=== PATIENT | male | born 1950 | race Caucasian/White ===

== ENCOUNTER 2017-05-24 21:05 | Emergency (ER) | payer MEDICARE ==
--- NOTE | 2017-05-24 22:40 | ED Physician Documentation ---
History of Present Illness - Stated complaint Stated Complaint: HIGH BLOOD PRESSURE - Chief complaint Chief Complaint: Cardiac - History obtained from History obtained from: Patient, Family - History of Present Illness Timing: Unknown Pain level max: 0 Pain level now: 0 Improved by: nothing Worsened by: nothing - Additonal information Additional information: Patient is a 66-year-old male who presents to the emergency department after having his blood pressure taken today while visiting his daughter who just given and he was found to be hypertensive. He states he also take his blood pressure several months ago and his systolic blood pressure was in the 190s. Has not followed up with the PCP in over 25 years. Has a brother who is diabetic. States he is currently feeling well. Review of Systems Ten Systems: 10 systems reviewed and negative Constitutional: denies: Fever, Chills Ears: denies: Ear pain Nose: denies: Rhinorrhea / runny nose, Congestion Throat: denies: Sore throat Cardiac: denies: Chest pain / pressure Respiratory: denies: Cough, Wheezing GI: denies: Abdominal Pain, Nausea, Vomiting, Diarrhea Skin: denies: Rash Musculoskeletal: denies: Neck pain, Back pain Neurologic: denies: Focal weakness, Numbness, Confused, Headache, Head injury PD PAST MEDICAL HISTORY - Past Medical History Past Medical History: No - Past Surgical History Past Surgical History: Yes Ortho: Spine surgery - Present Medications Home Medications: Ambulatory Orders Medication Instructions Recorded Confirmed hydroCHLOROthiazide 25 mg PO DAILY #14 tablet 05/24/17 [Hydrochlorothiazide] - Allergies Allergies/Adverse Reactions: Allergies Allergy/AdvReac Type Severity Reaction Status Date / Time No Known Drug Allergies Allergy Verified 05/24/17 22:35 - Social History Does the pt smoke?: No Smoking Status: Never smoker Does the pt drink ETOH?: No Does the pt have substance abuse?: No - Immunizations Immunizations are current?: Yes PD ED PE NORMAL - Vitals Vital signs reviewed: Yes - General General: Alert and oriented X 3, No acute distress, Well developed/nourished - HEENT HEENT: PERRL, Ears normal, Moist mucous membranes, Pharynx benign - Neck Neck: Supple, no meningeal sign - Cardiac Cardiac: RRR, Strong equal pulses - Respiratory Respiratory: No respiratory distress, Clear bilaterally - Abdomen Abdomen: Soft, Non tender, Non distended - Derm Derm: Warm and dry - Extremities Extremities: No deformity - Neuro Neuro: Alert and oriented X 3 - Psych Psych: Normal mood, Normal affect Results - Vitals Vitals: Vital Signs - 24 hr 05/24/17 05/24/17 05/24/17 21:10 21:22 22:31 Temperature 36.1 C L Heart Rate 73 74 70 Respiratory 16 18 16 Rate Blood Pressure 183/102 H 182/116 H 170/107 H O2 Saturation 97 98 99 05/24/17 23:16 Temperature Heart Rate 75 Respiratory 16 Rate Blood Pressure 169/109 H O2 Saturation 99 Oxygen O2 Source Room air - EKG (time done) 2233 Rate: Rate (enter#) (69) Rhythm: NSR [place]: Anterior hemiblock (LAFB) Intervals: Normal SC QRS: Normal Ischemia: Non specific changes - Labs Labs: Laboratory Tests 05/24/17 05/24/17 05/24/17 22:34 22:34 22:34 WBC 8.0 RBC 4.47 L Hgb 13.4 L Hct 40.1 L MCV 89.7 MCH 29.9 MCHC 33.3 RDW 13.6 Plt Count 262 MPV 7.9 Neut # 5.4 Lymph # 1.6 [place] # 0.7 Eos # 0.2 Baso # 0.1 Absolute Nucleated RBC 0.00 Nucleated RBC % 0.1 Sodium 138 Potassium 3.4 L Chloride 104 Carbon Dioxide 26 Anion Gap 8.0 BUN 12 Creatinine 1.0 Estimated GFR (MDRD) 75 L Glucose 91 Calcium 9.0 Total Bilirubin 0.7 AST 18 ALT 18 Alkaline Phosphatase 30 L Troponin I < 0.04 Total Protein 6.7 Albumin 3.9 Globulin 2.8 Albumin/Globulin Ratio 1.4 Lipase 20 L PD MEDICAL DECISION MAKING - ED course Complexity details: reviewed results, re-evaluated patient, considered differential, d/w patient, d/w family ED course: Patient is a 66-year-old male with what appears to be long-standing hypertension , no evidence of endorgan damage. His states that she will make an appointment for him with her primary care provider on Friday. Will start on a small dose of hydrochlorothiazide until then. He will return if he develops symptoms. Patient and family counseled regarding signs and symptoms for which I believe and urgent re-evaluation would be necessary. Patient with good understanding of and agreement to plan and is comfortable going home at this time This document was made in part using voice recognition software. While efforts are made to proofread this document, sound alike and grammatical errors may occur. Departure - Departure Disposition: 01 Home, Self Care Clinical Impression: Hypertension Qualifiers: Hypertension type: unspecified Qualified Code(s): I10 - Essential (primary) hypertension Condition: Good Instructions: ED Hypertension New Begin Tx Follow-Up: your,doctor in 1 week [Other] Prescriptions: hydroCHLOROthiazide [Hydrochlorothiazide] 25 mg PO DAILY #14 tablet Comments: You need to be seen by a primary care doctor for your blood pressure. Return if you worsen. Call on Friday for an appointment. Discharge Date/Time: 05/24/17 23:18
[2017-05-24 22:43] LABS: BASOPHILS # (AUTO) 0.1 10^3/uL (0.0-0.1); BASOPHILS % (AUTO) 0.8 %; EOSINOPHILS # (AUTO) 0.2 10^3/uL (0.0-0.7); EOSINOPHILS % (AUTO) 2.7 %; HGB - HEMOGLOBIN 13.4 g/dL (14.0-18.0); LYMPHOCYTES # (AUTO) 1.6 10^3/uL (1.5-3.5); LYMPHOCYTES % (AUTO) 20.5 %; MEAN CORPUSCULAR HEMOGLOBIN 29.9 pg (27.0-31.0); MEAN CORPUSCULAR HGB CONC 33.3 g/dL (32.0-36.0); MEAN CORPUSCULAR VOLUME 89.7 fL (80.0-94.0); MEAN PLATELET VOLUME 7.9 fL (7.4-11.4); MONOCYTES # (AUTO) 0.7 10^3/uL (0.0-1.0); MONOCYTES % (AUTO) 9.1 %; NEUTROPHILS # (AUTO) 5.4 10^3/uL (1.5-6.6); NEUTROPHILS % (AUTO) 66.9 %; PLT - PLATELET COUNT 262 10^3/uL (130-450); RED BLOOD COUNT 4.47 10^6/uL (4.70-6.10); RED CELL DISTRIBUTION WIDTH 13.6 % (12.0-15.0)
[2017-05-24 22:54] LABS: ALBUMIN 3.9 g/dL (3.2-5.5); ALBUMIN/GLOBULIN RATIO 1.4 (1.0-2.2); BILIRUBIN,TOTAL 0.7 mg/dL (0.2-1.0); TOTAL PROTEIN 6.7 g/dL (6.7-8.2)
[2017-05-24] MEDS ORDERED: hydroCHLOROthiazide 25 MG TABLET PO STA (23:05)
[2017-05-24 23:16] VITALS: BP 169/109
== END 2017-05-24 23:18 | disposition home or self-care (01) ==
LOC: ED 21:05
DX: I10 Essential (primary) hypertension (principal); I44.4 Left anterior fascicular block
CPT/HCPCS: 36415; 80053; 83690; 84484; 85025; 93005; 99283; 99284; A9270

== ENCOUNTER 2017-07-09 10:05 | Outpatient (CLI) | payer MEDICARE ==
[2017-07-09 12:45] LABS: BASOPHILS % (AUTO) 0.3 %; EOSINOPHILS # (AUTO) 0.1 10^3/uL (0.0-0.7); EOSINOPHILS % (AUTO) 1.6 %; HGB - HEMOGLOBIN 13.5 g/dL (14.0-18.0); LYMPHOCYTES # (AUTO) 1.3 10^3/uL (1.5-3.5); LYMPHOCYTES % (AUTO) 17.4 %; MEAN CORPUSCULAR HEMOGLOBIN 30.7 pg (27.0-31.0); MEAN CORPUSCULAR HGB CONC 34.1 g/dL (32.0-36.0); MEAN PLATELET VOLUME 8.1 fL (7.4-11.4); MONOCYTES # (AUTO) 0.6 10^3/uL (0.0-1.0); MONOCYTES % (AUTO) 8.6 %; NEUTROPHILS # (AUTO) 5.2 10^3/uL (1.5-6.6); NEUTROPHILS % (AUTO) 72.1 %; PLT - PLATELET COUNT 250 10^3/uL (130-450); RED CELL DISTRIBUTION WIDTH 14.1 % (12.0-15.0); WHITE BLOOD COUNT 7.2 x10^3/uL (4.8-10.8)
[2017-07-09 13:33] LABS: BUN - BLOOD UREA NITROGEN 11 mg/dL (6-20); CALCIUM 9.2 mg/dL (8.5-10.3); CARBON DIOXIDE - CO2 28 mmol/L (21-32); CHLORIDE 105 mmol/L (101-111); CHOL/HDL RATIO 5.6 (<5.0); CHOLESTEROL 208 mg/dL; CREATININE 1.1 mg/dL (0.6-1.2); GFR - MDRD 67 (>89); GLUCOSE 105 mg/dL (70-100); HDL CHOLESTEROL 37 mg/dL; LDL CHOLESTEROL,CALCULATED 144 mg/dL; LDL/HDL RATIO 3.9 (<3.6); SODIUM 138 mmol/L (135-145); VLDL CHOLESTEROL 27 mg/dL
== END 2017-07-09 10:06 ==
LOC: LAB.N 10:05
PROVIDERS: ATTEND Physician Assistant Medical
DX: Z00.00 Encounter for general adult medical examination without abnormal findings (principal); I10 Essential (primary) hypertension; Z79.899 Other long term (current) drug therapy
CPT/HCPCS: 36415; 80048; 80061; 83721; 85025

== ENCOUNTER 2020-09-15 06:52 | Emergency (ER) | payer MEDICARE ==
[2020-09-15] MEDS ORDERED: SODIUM CHLORIDE 0.9% 1,000 ML IV STA (07:16)
--- NOTE | 2020-09-15 07:19 | ED Physician Documentation ---
History of Present Illness - Stated complaint Stated Complaint: MALE - Chief complaint Chief Complaint: UTI - History obtained from History obtained from: Patient - History of Present Illness Timing: How many days ago (2-3) Pain level max: 7 Pain level now: 5 - Additonal information Additional information: Patient is a 69-year-old male who states that he has had pain and burning with urination for the past 2 to 3 days. Worse with urination, nothing makes it better. He states he also feels "heavy" when he walks. Does not have any pain. He just feels weak and tired. He states that he used to use a walker, but is now pushing around a wheelchair. He states he does not go to doctors and does not see any primary care providers. He states he has a history of hypertension and has been on medications in the past, but nothing recently. No fevers. No nausea. No vomiting. No diarrhea. No recent falls. No recent trauma. Denies any alcohol use, drug use, smoking. Review of Systems Ten Systems: 10 systems reviewed and negative Constitutional: denies: Fever, Chills Ears: denies: Ear pain Nose: denies: Rhinorrhea / runny nose, Congestion Throat: denies: Sore throat Respiratory: denies: Cough GI: denies: Nausea, Vomiting, Diarrhea Skin: denies: Rash Musculoskeletal: denies: Neck pain, Back pain Neurologic: reports: Generalized weakness. denies: Focal weakness, Headache PD PAST MEDICAL HISTORY - Past Medical History Past Medical History: Yes Cardiovascular: Hypertension Musculoskeletal: Gout - Past Surgical History Past Surgical History: Yes Ortho: Spine surgery - Present Medications Home Medications: Ambulatory Orders Medication Instructions Recorded Confirmed Rivaroxaban [Xarelto] 15 mg PO BID #42 tablet 09/15/20 cephALEXin [Keflex] 500 mg PO Q6H #28 cap 09/15/20 - Allergies Allergies/Adverse Reactions: Allergies Allergy/AdvReac Type Severity Reaction Status Date / Time No Known Drug Allergies Allergy Verified 09/15/20 07:00 - Social History Does the pt smoke?: No Smoking Status: Never smoker Does the pt drink ETOH?: No Does the pt have substance abuse?: No - Immunizations Immunizations are current?: Yes - POLST Patient has POLST: No PD ED PE NORMAL - Vitals Vital signs reviewed: Yes - General General: Alert and oriented X 3, No acute distress, Well developed/nourished - HEENT HEENT: PERRL, Moist mucous membranes - Neck Neck: Supple, no meningeal sign - Cardiac Cardiac: RRR, Strong equal pulses - Respiratory Respiratory: No respiratory distress, Clear bilaterally - Abdomen Abdomen: Soft, Non tender, Non distended - Back Back: No CVA TTP, No spinal TTP - Derm Derm: Warm and dry - Extremities Extremities: No calf tenderness / cord, Other (Bilateral lower extremity edema, 1+.) - Neuro Neuro: Alert and oriented X 3 - Psych Psych: Normal mood, Normal affect Results - Vitals Vitals: Vital Signs - 24 hr 09/15/20 09/15/20 09/15/20 06:55 07:10 10:05 Temperature 36.3 C L Heart Rate 94 92 91 Respiratory 18 16 18 Rate Blood Pressure 151/130 H 153/115 H 167/123 H O2 Saturation 95 96 30 L Oxygen O2 Source Room air - Labs Labs: Laboratory Tests 09/15/20 09/15/20 09/15/20 07:03 07:03 07:15 WBC 6.5 RBC 3.98 L Hgb 12.5 L Hct 39.3 L MCV 98.7 H MCH 31.4 H MCHC 31.8 L RDW 14.3 Plt Count 203 MPV 10.2 Neut # (Auto) 5.2 Lymph # (Auto) 0.8 L [place] # (Auto) 0.4 Eos # (Auto) 0.0 Baso # (Auto) 0.0 Absolute Nucleated RBC 0.00 Nucleated RBC % 0.0 Sodium Potassium Chloride Carbon Dioxide Anion Gap BUN Creatinine Estimated GFR (MDRD) Glucose Estimat Average Glucose 120 H Hemoglobin A1c % 5.8 Calcium Phosphorus Magnesium Total Bilirubin AST ALT Alkaline Phosphatase Total Protein Albumin Globulin Albumin/Globulin Ratio Lipase Urine Color DARK YELLOW Urine Clarity CLOUDY Urine pH 6.0 Ur Specific [place] 1.025 Urine Protein 100 H Urine Glucose (UA) NEGATIVE Urine Ketones NEGATIVE Urine Occult Blood LARGE H Urine Nitrite POSITIVE H Urine Bilirubin NEGATIVE Urine Urobilinogen 1 (NORMAL) Ur Leukocyte Esterase MODERATE H Urine RBC 6-10 H Urine WBC 11-25 H Urine WBC [place] PRESENT Ur Squamous Epith Cells RARE Squamous Urine Bacteria Many H Ur Microscopic Review INDICATED Urine Culture Comments INDICATED 09/15/20 07:15 WBC RBC Hgb Hct MCV MCH MCHC RDW Plt Count MPV Neut # (Auto) Lymph # (Auto) [place] # (Auto) Eos # (Auto) Baso # (Auto) Absolute Nucleated RBC Nucleated RBC % Sodium 137 Potassium 3.9 Chloride 101 Carbon Dioxide 27 Anion Gap 9.0 BUN 13 Creatinine 0.9 Estimated GFR (MDRD) 84 L Glucose 108 H Estimat Average Glucose Hemoglobin A1c % Calcium 8.8 Phosphorus 2.8 Magnesium 1.4 L Total Bilirubin 0.9 AST 41 ALT 41 Alkaline Phosphatase 28 L Total Protein 5.7 L Albumin 3.4 Globulin 2.3 Albumin/Globulin Ratio 1.5 Lipase 22 Urine Color Urine Clarity Urine pH Ur Specific [place] Urine Protein Urine Glucose (UA) Urine Ketones Urine Occult Blood Urine Nitrite Urine Bilirubin Urine Urobilinogen Ur Leukocyte Esterase Urine RBC Urine WBC Urine WBC Clumps Ur Squamous Epith Cells Urine Bacteria Ur Microscopic Review Urine Culture Comments - Rads (name of study) duplex US RLE Radiology: Final report received, EMP read contemporaneously, See rad report (Positive for deep venous thrombosis. Ultrasound appearance raises the possibility of chronic age although technically indeterminate. ) PD MEDICAL DECISION MAKING - ED course Complexity details: reviewed results, re-evaluated patient, considered differential, d/w patient ED course: Patient does have a DVT in the right lower extremity. Will start on Xarelto for this. Patient also has a UTI. Given Rocephin and we will place on Keflex. Social work also saw the patient to help with housing and primary care resources. Patient will follow up with a primary care doctor for further care of his hypertension and DVT. Patient is well-appearing, nontoxic. Afebrile. No evidence of sepsis. Ambulating well in the emergency department. Patient counseled regarding signs and symptoms for which I believe and urgent re- evaluation would be necessary. Patient with good understanding of and agreement to plan and is comfortable going home at this time This document was made in part using voice recognition software. While efforts are made to proofread this document, sound alike and grammatical errors may occur. Departure - Departure Disposition: Home, Self Care Clinical Impression: Hypertension Qualifiers: Hypertension type: unspecified Qualified Code(s): I10 - Essential (primary) hypertension DVT (deep venous thrombosis) Qualifiers: DVT location: lower extremity Affected thrombotic vein of extremity: unspecified vein of extremity Chronicity: chronic Laterality: right Qualified Code(s): I82.501 - Chronic embolism and thrombosis of unspecified deep veins of right lower extremity UTI (urinary tract infection) Qualifiers: Urinary tract infection type: acute cystitis Hematuria presence: without hematuria Qualified Code(s): N30.00 - Acute cystitis without hematuria Condition: Good Instructions: ED DVT, ED UTI Cystitis Male [facility]: [facility] - Within 1 week Prescriptions: cephALEXin [Keflex] 500 mg PO Q6H #28 cap Rivaroxaban [Xarelto] 15 mg PO BID #42 tablet Comments: Take all antibiotics until gone. It is important that you follow-up with a primary care doctor within the next week. You will need to have your Xarelto changed in 3 weeks to 20 mg by mouth daily. You will likely need a repeat ultrasound in 3 to 6 months to check on the progression of the DVT. Follow-up with your doctor for further care. Return if you worsen. Avoid any impact or trauma. You need to be checked immediately if you strike your head. Also return if you notice blood in your stool, vomit or other signs of bleeding. Discharge Date/Time: 09/15/20 10:06
[2020-09-15 07:22] LABS: BASOPHILS % (AUTO) 0.2 %; EOSINOPHILS % (AUTO) 0.2 %; HCT - HEMATOCRIT 39.3 % (42.0-52.0); HGB - HEMOGLOBIN 12.5 g/dL (14.0-18.0); LYMPHOCYTES # (AUTO) 0.8 10^3/uL (1.5-3.5); LYMPHOCYTES % (AUTO) 12.8 %; MEAN CORPUSCULAR HEMOGLOBIN 31.4 pg (27.0-31.0); MEAN CORPUSCULAR HGB CONC 31.8 g/dL (32.0-36.0); MEAN CORPUSCULAR VOLUME 98.7 fL (80.0-94.0); MEAN PLATELET VOLUME 10.2 fL (7.4-11.4); MONOCYTES # (AUTO) 0.4 10^3/uL (0.0-1.0); NEUTROPHILS # (AUTO) 5.2 10^3/uL (1.5-6.6); NEUTROPHILS % (AUTO) 80.3 %; PLT - PLATELET COUNT 203 10^3/uL (130-450); RED BLOOD COUNT 3.98 10^6/uL (4.70-6.10); RED CELL DISTRIBUTION WIDTH 14.3 % (12.0-15.0); WHITE BLOOD COUNT 6.5 x10^3/uL (4.8-10.8)
[2020-09-15 07:30] LABS: BILIRUBIN,URINE NEGATIVE (NEGATIVE); GLUCOSE, URINE (UA) NEGATIVE (NEGATIVE); KETONES,URINE (UA) NEGATIVE (NEGATIVE); LEUKOCYTE ESTERASE, URINE MODERATE (NEGATIVE); NITRITE,URINE POSITIVE (NEGATIVE); OCCULT BLOOD,URINE LARGE (NEGATIVE); PROTEIN,URINE 100 mg/dL (NEGATIVE); UROBILINOGEN,URINE 1 (NORMAL) E.U./dL (NORMAL)
[2020-09-15 07:52] LABS: CLARITY,URINE CLOUDY (CLEAR)
[2020-09-15 07:53] LABS: SQUAMOUS EPITHELIAL CELL,UR RARE Squamous (<= Few); WBC CLUMPS,URINE PRESENT
[2020-09-15 07:54] LABS: BACTERIA,URINE Many /HPF (None Seen)
[2020-09-15] MEDS ORDERED: cefTRIAXone 1 GM VIAL IVP STA (08:23)
[2020-09-15 09:11] LABS: POTASSIUM 3.9 mmol/L (3.5-5.0)
[2020-09-15 09:12] LABS: BILIRUBIN,TOTAL 0.9 mg/dL (0.2-1.0); CALCIUM 8.8 mg/dL (8.5-10.3); CREATININE 0.9 mg/dL (0.6-1.2); MAGNESIUM 1.4 mg/dL (1.7-2.8); PHOSPHORUS 2.8 mg/dL (2.5-4.6)
[2020-09-15 09:13] LABS: ALBUMIN 3.4 g/dL (3.2-5.5); ALBUMIN/GLOBULIN RATIO 1.5 (1.0-2.2); TOTAL PROTEIN 5.7 g/dL (6.7-8.2)
--- NOTE | 2020-09-15 09:56 | Ultrasound Report ---
PROCEDURE: Duplex Ext Veins Right INDICATIONS: RLE swelling TECHNIQUE: Real-time imaging, as well as color and pulse Doppler interrogation, were performed of the lower extr emity deep veins from the inguinal ligament to the popliteal fossa. COMPARISON: None. FINDINGS: Intraluminal filling defects present within the right femoral vein (SMV), right popliteal vein. There is somewhat eccentric location to the filling defects within the vessel lumen. Proximal t o mid right calf veins are not well seen secondary to edema. IMPRESSION: Positive for deep venous thrombosis. Ultrasound appearance raises the possibility of chr onic age although technically indeterminate. Findings were provided to Dr. Mejia by the concrete precast moulder at the time of the examination. Reviewed by: Soham Kwon MD on 09/15/2020 9:55 AM PDT Approved by: Soham Kwon MD on 09/15/2020 9:55 AM PDT Station ID: [id number]
[2020-09-15 10:06] VITALS: BP 167/123
[2020-09-15 11:03] LABS: ESTIMATED AVERAGE GLUCOSE 120 mg/dL (70-100); HEMOGLOBIN A1c% 5.8 % (4.27-6.07)
== END 2020-09-15 10:06 | disposition home or self-care (01) ==
LOC: ED 06:52
DX: I82.511 Chronic embolism and thrombosis of right femoral vein (principal); I82.531 Chronic embolism and thrombosis of right popliteal vein; N30.00 Acute cystitis without hematuria; I10 Essential (primary) hypertension
CPT/HCPCS: 36415; 80053; 81001; 81003; 83036; 83690; 83735; 84100; 85025; 87086; 87181; 96361; 96374; 99284

== ENCOUNTER 2020-09-22 06:28 | Emergency (ER) | payer MEDICARE ==
[2020-09-22] MEDS ORDERED: SODIUM CHLORIDE 0.9% 1,000 ML IV STA (07:36)
[2020-09-22] MEDS ORDERED: KETOROLAC 30 MG/ML VIAL IVP STA (07:36)
--- NOTE | 2020-09-22 07:38 | ED Physician Documentation ---
PD HPI ABD PAIN - Stated complaint Stated Complaint: BACK/SIDE PX - Chief complaint Chief Complaint: Abd Pain - History obtained from History obtained from: Patient - History of Present Illness Timing - onset: How many days ago (2) Timing - duration: Days (2) Timing - details: Gradual onset, Still present Quality: Sharp, Pain Location: LLQ Radiation: Lower back Improved by: Other (nothing) Worsened by: Other (nothing) Associated symptoms: Constipation, Dizzy, Other (dyspnea and cough). No: Fever, Nausea, Vomiting, Diarrhea, Dysuria Recently seen: Emergency Dept - Additional information Additional information: 69-year-old male who usually does not see the doctor has a history of hypertension and he presented to the emergency department last week with urinary symptoms and a swollen leg he was found to have urinary tract infection and a DVT and was started on Xarelto. Over the past 2 days he has developed left flank pain without modifiable factors. The patient states that he has been wheelchair-bound for about 2 years as he is having some difficulty with walking. He lives in a home with a number of other people roommates. He has not been immunized against Covid. Review of Systems Constitutional: denies: Fever Eyes: denies: Decreased vision Ears: denies: Ear pain Nose: denies: Congestion Throat: denies: Sore throat Cardiac: reports: Pedal edema. denies: Chest pain / pressure, Palpitations Respiratory: reports: Dyspnea, Cough GI: reports: Abdominal Pain, Constipation. denies: Nausea, Vomiting, Diarrhea : denies: Dysuria, Frequency Skin: denies: Rash Musculoskeletal: reports: Extremity pain. denies: Neck pain, Back pain Neurologic: denies: Generalized weakness, Focal weakness, Numbness PD PAST MEDICAL HISTORY - Past Medical History Past Medical History: Yes Cardiovascular: Hypertension Musculoskeletal: Gout Other Past Medical History: Recently DX w/ DVT & UTI - Past Surgical History Past Surgical History: Yes Ortho: Spine surgery - Present Medications Home Medications: Ambulatory Orders Medication Instructions Recorded Confirmed Rivaroxaban [Xarelto] 15 mg PO BID #42 tablet 09/15/20 09/22/20 cephALEXin [Keflex] 500 mg PO Q6H #28 cap 09/15/20 09/22/20 Azithromycin [Zithromax] 250 mg PO DAILY #6 tablet 09/22/20 HYDROcod/ACETAM 5/325 [[place] 5/325] 1 - 2 tablet PO Q6H PRN #14 tablet 09/22/20 - Allergies Allergies/Adverse Reactions: Allergies Allergy/AdvReac Type Severity Reaction Status Date / Time No Known Drug Allergies Allergy Verified 09/22/20 06:39 - Social History Does the pt smoke?: No Smoking Status: Never smoker Does the pt drink ETOH?: No Does the pt have substance abuse?: No - Immunizations Immunizations are current?: Yes - POLST Patient has POLST: No PD ED PE NORMAL - Vitals Vital signs reviewed: Yes (hypertensive ) - General General: Alert and oriented X 3, Well developed/nourished, Other (dyspneic with talking) - HEENT HEENT: Atraumatic, PERRL, EOMI - Neck Neck: Supple, no meningeal sign, No bony TTP - Cardiac Cardiac: RRR, No murmur - Respiratory Respiratory: No respiratory distress, Other (Rhonchi to the right base) - Abdomen Abdomen: Normal bowel sounds, Soft, Non tender, Non distended, No organomegaly - Back Back: No CVA TTP, No spinal TTP - Derm Derm: Normal color, Warm and dry, No rash - Extremities Extremities: No deformity, No edema - Neuro Neuro: Alert and oriented X 3, bakery worker conveyor line 2-12 intact, No motor deficit, No sensory deficit, Normal speech Eye Opening: Spontaneous Motor: Obeys Commands Verbal: Oriented GCS Score: 15 - Psych Psych: Normal mood, Normal affect Results - Vitals Vitals: Vital Signs - 24 hr 09/22/20 09/22/20 09/22/20 06:30 06:48 08:42 Temperature 36.0 C L Heart Rate 96 97 89 Respiratory 16 46 H 22 Rate Blood Pressure 157/106 H 162/114 H 140/103 H O2 Saturation 97 96 97 09/22/20 09/22/20 09/22/20 10:00 11:30 12:41 Temperature 36.9 C Heart Rate 85 88 88 Respiratory 19 17 19 Rate Blood Pressure 131/100 H 137/101 H 136/100 H O2 Saturation 95 96 96 Oxygen O2 Source Room air - Labs Labs: Laboratory Tests 09/22/20 09/22/20 09/22/20 08:00 08:03 08:22 WBC 7.1 RBC 4.31 L Hgb 13.5 L Hct 41.1 L MCV 95.4 H MCH 31.3 H MCHC 32.8 RDW 13.5 Plt Count 161 MPV 10.2 Neut # (Auto) 6.0 Lymph # (Auto) 0.7 L [place] # (Auto) 0.3 Eos # (Auto) 0.0 Baso # (Auto) 0.0 Absolute Nucleated RBC 0.00 Nucleated RBC % 0.0 Sodium 132 L Potassium 3.9 Chloride 94 L Carbon Dioxide 27 Anion Gap 11.0 BUN 11 Creatinine 0.9 Estimated GFR (MDRD) 84 L Glucose 104 H Calcium 8.7 Total Bilirubin 1.2 H AST 47 H ALT 36 Alkaline Phosphatase 27 L Total Protein 6.2 L Albumin 3.6 Globulin 2.6 Albumin/Globulin Ratio 1.4 Lipase 23 Urine Color DARK YELLOW Urine Clarity CLEAR Urine pH 6.0 Ur Specific [place] >=1.030 H Urine Protein 100 H Urine Glucose (UA) NEGATIVE Urine Ketones NEGATIVE Urine Occult Blood MODERATE H Urine Nitrite NEGATIVE Urine Bilirubin NEGATIVE Urine Urobilinogen 4 H Ur Leukocyte Esterase NEGATIVE Urine RBC 0-5 Urine WBC 0-3 Ur Squamous Epith Cells RARE Squamous Urine Bacteria Rare Ur Microscopic Review INDICATED Urine Culture Comments NOT INDICATED Nasal Adenovirus (PCR) Nasal B. parapertussis DNA (PCR) Nasal Coronavir 229E PCR Nasal Coronavir HKU1 PCR Nasal Coronavir NL63 PCR Nasal Coronavir OC43 PCR Nasal Enterovir/Rhinovir PCR Nasal Influenza B PCR Nasal Influenza A PCR Nasal Parainfluen 1 PCR Nasal Parainfluen 2 PCR Nasal Parainfluen 3 PCR Nasal Parainfluen 4 PCR Nasal RSV (PCR) Nasal B.pertussis DNA PCR Nasal C.pneumoniae (PCR) Ad Human Metapneumo PCR Nasal M.pneumoniae (PCR) Nasal SARS-CoV-2 (PCR) 09/22/20 08:42 WBC RBC Hgb Hct MCV MCH MCHC RDW Plt Count MPV Neut # (Auto) Lymph # (Auto) [place] # (Auto) Eos # (Auto) Baso # (Auto) Absolute Nucleated RBC Nucleated RBC % Sodium Potassium Chloride Carbon Dioxide Anion Gap BUN Creatinine Estimated GFR (MDRD) Glucose Calcium Total Bilirubin AST ALT Alkaline Phosphatase Total Protein Albumin Globulin Albumin/Globulin Ratio Lipase Urine Color Urine Clarity Urine pH Ur Specific [place] Urine Protein Urine Glucose (UA) Urine Ketones Urine Occult Blood Urine Nitrite Urine Bilirubin Urine Urobilinogen Ur Leukocyte Esterase Urine RBC Urine WBC Ur Squamous Epith Cells Urine Bacteria Ur Microscopic Review Urine Culture Comments Nasal Adenovirus (PCR) NOT DETECTED Nasal B. parapertussis DNA (PCR) NOT DETECTED Nasal Coronavir 229E PCR NOT DETECTED Nasal Coronavir HKU1 PCR NOT DETECTED Nasal Coronavir NL63 PCR NOT DETECTED Nasal Coronavir OC43 PCR NOT DETECTED Nasal Enterovir/Rhinovir PCR NOT DETECTED Nasal Influenza B PCR NOT DETECTED Nasal Influenza A PCR NOT DETECTED Nasal Parainfluen 1 PCR NOT DETECTED Nasal Parainfluen 2 PCR NOT DETECTED Nasal Parainfluen 3 PCR NOT DETECTED Nasal Parainfluen 4 PCR NOT DETECTED Nasal RSV (PCR) NOT DETECTED Nasal B.pertussis DNA PCR NOT DETECTED Nasal C.pneumoniae (PCR) NOT DETECTED Ad Human Metapneumo PCR NOT DETECTED Nasal M.pneumoniae (PCR) NOT DETECTED Nasal SARS-CoV-2 (PCR) DETECTED A - Rads (name of study) chest Radiology: Prelim report reviewed (Increased vascular suggestive of edema with coarsened bibasilar appearance. The latter could be in store marketing representative of developing pneumonia or dependent edema.), EMP read indepedently, See rad report PD MEDICAL DECISION MAKING - ED course ED course: CT ab/pel without: Impression: 1. Extensive pulmonary process including patchy areas of groundglass opacity and more confluent airspace consolidation, as well as atelectasis in the right middle lobe. Consider viral pneumonia such as COVID-19 pneumonia versus bacterial pneumonia. 2. No evidence of renal stone, ureteral stone, or hydronephrosis. 3. No evidence of acute abdominal process. 4. Extensive lumbar degenerative change. 69-year-old male presents back to the emergency department with left-sided abdominal pain. On examination he has evidence of rhonchi especially in the right base and an x-ray of his chest is obtained as well as a nasal PCR for Covid. He turns out to be positive for Covid. A source of the patient's pain was not discovered on CT exam of the abdomen and pelvis. Patient was administered monoclonal antibody and pain medication. Is quarantined to his home. Departure - Departure Disposition: 01 Home, Self Care Clinical Impression: COVID-19 Condition: Stable Instructions: COVID-19 [facility] Department of Health, Flu and Cold: Nutrition, Prevention and Treatment Tips Follow-Up: [facility] [Provider Group] Prescriptions: HYDROcod/ACETAM 5/325 [[place] 5/325] 1 - 2 tablet PO Q6H PRN #14 tablet PRN Reason: Pain Azithromycin [Zithromax] 250 mg PO DAILY #6 tablet Discharge Date/Time: 09/22/20 13:01
--- NOTE | 2020-09-22 07:50 | XRAY Report ---
PROCEDURE: Chest 1 View X-Ray INDICATIONS: R sided rhonchi TECHNIQUE: One view of the chest was acquired. COMPARISON: None FINDINGS: Surgical changes and devices: None. Lungs and pleura: There is an overall appearance of increased pulmonary vascularity. Coarsened appear ance is present at the bases bilaterally. Mediastinum: Mediastinal contours appear normal. Heart size is normal. Bones and chest wall: No suspicious bony lesions. Overlying soft tissues appear unremarkable. IMPRESSION: Increased vascular suggestive of edema with coarsened bibasilar appearance. The latter could be repre sentative of developing pneumonia or dependent edema. Reviewed by: Michelle Johnson MD on 09/22/2020 7:49 AM PDT Approved by: Michelle Johnson MD on 09/22/2020 7:49 AM PDT Station ID: [id number]
[2020-09-22 08:10] LABS: HCT - HEMATOCRIT 41.1 % (42.0-52.0); HGB - HEMOGLOBIN 13.5 g/dL (14.0-18.0); LYMPHOCYTES # (AUTO) 0.7 10^3/uL (1.5-3.5); LYMPHOCYTES % (AUTO) 10.1 %; MEAN CORPUSCULAR HEMOGLOBIN 31.3 pg (27.0-31.0); MEAN CORPUSCULAR HGB CONC 32.8 g/dL (32.0-36.0); MEAN CORPUSCULAR VOLUME 95.4 fL (80.0-94.0); MEAN PLATELET VOLUME 10.2 fL (7.4-11.4); MONOCYTES # (AUTO) 0.3 10^3/uL (0.0-1.0); MONOCYTES % (AUTO) 4.5 %; NEUTROPHILS % (AUTO) 84.7 %; PLT - PLATELET COUNT 161 10^3/uL (130-450); RED BLOOD COUNT 4.31 10^6/uL (4.70-6.10); RED CELL DISTRIBUTION WIDTH 13.5 % (12.0-15.0); WHITE BLOOD COUNT 7.1 x10^3/uL (4.8-10.8)
[2020-09-22 08:12] LABS: BILIRUBIN,URINE NEGATIVE (NEGATIVE); CLARITY,URINE CLEAR (CLEAR); GLUCOSE, URINE (UA) NEGATIVE (NEGATIVE); KETONES,URINE (UA) NEGATIVE (NEGATIVE); LEUKOCYTE ESTERASE, URINE NEGATIVE (NEGATIVE); NITRITE,URINE NEGATIVE (NEGATIVE); OCCULT BLOOD,URINE MODERATE (NEGATIVE); PROTEIN,URINE 100 mg/dL (NEGATIVE); UROBILINOGEN,URINE 4 E.U./dL (NORMAL)
[2020-09-22] MEDS ORDERED: cefTRIAXone 1 GM in SODIUM CHLORIDE 0.9% MINIBAG 100 ML IV STA (08:18)
--- NOTE | 2020-09-22 08:30 | CT Report ---
PROCEDURE: Abdomen/Pelvis WO INDICATIONS: left flank pain TECHNIQUE: Noncontrast 5 mm thick sections acquired from the diaphragms to the symphysis. 5 mm coronal and sagi ttal reformats were then performed. For radiation dose reduction, the following was used: automated exposure control, adjustment of mA and/or kV according to patient size. COMPARISON: None. FINDINGS: Image quality: Excellent. ABDOMEN: Lung bases: Bibasilar groundglass opacities, with more confluent consolidation, right greater than le ft. Consolidation involves patchy areas of both lower lobes and the right middle lobe. There is atele ctasis in the right middle lobe as well. Mild cardiomegaly. Solid organs: Liver and spleen are michelle l in size. Gallbladder is unremarkable. Pancreas is normal in contours. No adrenal nodules. Kidne ys are normal in size, without hydronephrosis or nephrolithiasis. Peritoneum and bowel: Unenhanced bowel loops demonstrate normal wall thickness and caliber. No free air. Minimal free fluid deep in the pelvis. Nodes and vessels: No retroperitoneal or mesenteric adenopathy by size criteria. Aorta and inferior vena cava are normal in caliber. Miscellaneous: No ventral hernias. PELVIS: Genitourinary: Bladder wall thickness is normal. Miscellaneous: No inguinal hernias or adenopathy. Bones: No suspicious bony lesions. No vertebral body compression fractures. Extensive thoracic and lumbar degenerative change. Remote L4-L5 posterior laminectomy and posterior lateral vonnie and pedicle screw fixation. IMPRESSION: 1. Extensive pulmonary process including patchy areas of groundglass opacity and more confluent airsp blank consolidation, as well as atelectasis in the right middle lobe. Consider viral pneumonia such as Covid 19 pneumonia versus bacterial pneumonia. 2. No evidence of renal stone, ureteral stone, or hydronephrosis. 3. No evidence acute abdominal process. 4. Extensive lumbar degenerative change. Reviewed by: Tad Garibay MD on 09/22/2020 8:29 AM PDT Approved by: Tad Garibay MD on 09/22/2020 8:29 AM PDT Station ID: [id number]
[2020-09-22 08:33] LABS: BACTERIA,URINE Rare /HPF (None Seen); RBC,URINE 0-5 /HPF (0-5); SQUAMOUS EPITHELIAL CELL,UR RARE Squamous (<= Few); WBC,URINE 0-3 /HPF (0-3)
[2020-09-22 08:41] LABS: ALBUMIN 3.6 g/dL (3.2-5.5); ALBUMIN/GLOBULIN RATIO 1.4 (1.0-2.2); BILIRUBIN,TOTAL 1.2 mg/dL (0.2-1.0); CALCIUM 8.7 mg/dL (8.5-10.3); CREATININE 0.9 mg/dL (0.6-1.2); POTASSIUM 3.9 mmol/L (3.5-5.0); TOTAL PROTEIN 6.2 g/dL (6.7-8.2)
[2020-09-22 09:37] LABS: CORONAVIRUS 229E-RESP PCR NOT DETECTED; CORONAVIRUS HKU1-RESP PCR NOT DETECTED; CORONAVIRUS NL63-RESP PCR NOT DETECTED; CORONAVIRUS OC43-RESP PCR NOT DETECTED
[2020-09-22 09:38] LABS: HUMAN METAPNEUMOVIRUS NOT DETECTED; INFLUENZA A- RESP PCR PANEL NOT DETECTED; RHINOVIRUS/ENTEROVIRUS NOT DETECTED; SARS-CoV-2 -RESP PCR PANEL DETECTED
[2020-09-22 09:39] LABS: B. PARAPERTUSSIS- RESP PCR PAN NOT DETECTED; B. PERTUSSIS- RESP PCR PANEL NOT DETECTED; C. PNEUMONIAE- RESP PCR PANEL NOT DETECTED; INFLUENZA B - RESP PCR PANEL NOT DETECTED; M. PNEUMONIAE- RESP PCR PANEL NOT DETECTED; PARAINFLUENZA VIRUS 1 NOT DETECTED; PARAINFLUENZA VIRUS 2 NOT DETECTED; PARAINFLUENZA VIRUS 3 NOT DETECTED; PARAINFLUENZA VIRUS 4 NOT DETECTED; RSV- RESP PCR PANEL NOT DETECTED
[2020-09-22] MEDS ORDERED: CASIRIVIMAB/IMDEVIMAB 10 ML in SODIUM CHLORIDE 0.9% 50 ML IV ONE (11:00)
[2020-09-22] MEDS: HYDROcod/ACETAM 5/325 MG TABLET PO STA ×2 (12:13→12:24)
[2020-09-22 13:02] VITALS: BP 136/100
== END 2020-09-22 13:01 | disposition home or self-care (01) ==
LOC: ED 06:28
DX: U07.1 COVID-19 (principal); I82.409 Acute embolism and thrombosis of unspecified deep veins of unspecified lower extremity; N39.0 Urinary tract infection, site not specified; Z79.01 Long term (current) use of anticoagulants; Z79.899 Other long term (current) drug therapy; Z99.3 Dependence on wheelchair
CPT/HCPCS: 36415; 71045; 74176; 80053; 81001; 83690; 85025; 87631; 96365; 96375; 99284; J7040; M0243; Q0244; 0202U; 81003; 87086

== ENCOUNTER 2020-11-14 05:26 | Outpatient (CLI) | payer MEDICARE | END 2020-11-14 05:27 | disposition critical access hospital (66) | LOC: EMS 05:26 | DX: R42 Dizziness and giddiness (principal); R10.32 Left lower quadrant pain; R19.7 Diarrhea, unspecified | CPT/HCPCS: A0425; A0429 ==

== ENCOUNTER 2020-11-14 06:16 | Inpatient (IN) | payer MEDICARE ==
[2020-11-14] MEDS ORDERED: FUROSEMIDE 40 MG/4 ML VIAL IVP STA (06:40)
[2020-11-14 07:07] LABS: ALBUMIN 3.8 g/dL (3.2-5.5); ALBUMIN/GLOBULIN RATIO 1.4 (1.0-2.2); ALKALINE PHOSPHATASE 44 IU/L (42-121); ALT ALANINE AMINOTRANSFERASE 54 IU/L (10-60); AST ASPARTATE AMINOTRANSFERASE 67 IU/L (10-42); BASOPHILS % (AUTO) 0.4 %; BILIRUBIN,TOTAL 0.9 mg/dL (0.2-1.0); BUN - BLOOD UREA NITROGEN 22 mg/dL (6-20); CALCIUM 9.1 mg/dL (8.5-10.3); CARBON DIOXIDE - CO2 30 mmol/L (21-32); CHLORIDE 102 mmol/L (101-111); EOSINOPHILS # (AUTO) 0.1 10^3/uL (0.0-0.7); ETOH - ETHANOL < 5.0 mg/dL; GFR - MDRD 74 (>89); GLUCOSE 86 mg/dL (70-100); HCT - HEMATOCRIT 39.7 % (42.0-52.0); HGB - HEMOGLOBIN 12.5 g/dL (14.0-18.0); LIPASE 24 U/L (22-51); LYMPHOCYTES # (AUTO) 0.8 10^3/uL (1.5-3.5); LYMPHOCYTES % (AUTO) 14.4 %; MEAN CORPUSCULAR HGB CONC 31.5 g/dL (32.0-36.0); MEAN CORPUSCULAR VOLUME 101.5 fL (80.0-94.0); MEAN PLATELET VOLUME 10.7 fL (7.4-11.4); MONOCYTES # (AUTO) 0.4 10^3/uL (0.0-1.0); MONOCYTES % (AUTO) 6.5 %; NEUTROPHILS # (AUTO) 4.3 10^3/uL (1.5-6.6); NEUTROPHILS % (AUTO) 76.3 %; PLT - PLATELET COUNT 192 10^3/uL (130-450); POTASSIUM 4.3 mmol/L (3.5-5.0); RED BLOOD COUNT 3.91 10^6/uL (4.70-6.10); RED CELL DISTRIBUTION WIDTH 16.2 % (12.0-15.0); SODIUM 143 mmol/L (135-145); TOTAL PROTEIN 6.5 g/dL (6.7-8.2); WHITE BLOOD COUNT 5.6 x10^3/uL (4.8-10.8)
[2020-11-14] MEDS ORDERED: NITROGLYCERIN 2% PASTE TOP STA (07:30)
[2020-11-14 07:41] LABS: MUDS CUTOFF CONCENTRATIONS CUTOFF CONC BELOW:
[2020-11-14 07:49] LABS: BILIRUBIN,URINE NEGATIVE (NEGATIVE); GLUCOSE, URINE (UA) NEGATIVE (NEGATIVE); KETONES,URINE (UA) NEGATIVE (NEGATIVE); LEUKOCYTE ESTERASE, URINE NEGATIVE (NEGATIVE); NITRITE,URINE NEGATIVE (NEGATIVE); OCCULT BLOOD,URINE TRACE-INTA (NEGATIVE); PH,URINE 6.5 PH (5.0-7.5); PROTEIN,URINE NEGATIVE (NEGATIVE); UROBILINOGEN,URINE 0.2 (NORMAL) E.U./dL (NORMAL)
[2020-11-14 07:55] LABS: CLARITY,URINE CLEAR (CLEAR)
[2020-11-14] MEDS ORDERED: ENOXAPARIN 100 MG/ML SYRINGE SUBQ STA (07:58)
[2020-11-14 08:04] LABS: AMPHETAMINE SCREEN,URINE NEGATIVE (NEGATIVE); BARBITURATE SCREEN,UR NEGATIVE (NEGATIVE); BENZODIAZEPINES SCREEN, URINE NEGATIVE (NEGATIVE); COCAINE SCREEN URINE NEGATIVE (NEGATIVE); METHADONE SCREEN, URINE NEGATIVE (NEGATIVE); METHAMPHETAMINES SCREEN, URINE NEGATIVE (NEGATIVE); OPIATE SCREEN, URINE NEGATIVE (NEGATIVE); OXYCODONE SCREEN, URINE NEGATIVE (NEGATIVE); PROPOXYPHENE SCREEN, URINE NEGATIVE (NEGATIVE); THC CANNABINOID SCREEN, URINE NEGATIVE (NEGATIVE); TRICYCLIC ANTIDEPRESSANT,URINE NEGATIVE (NEGATIVE)
--- NOTE | 2020-11-14 08:08 | ED Physician Documentation ---
PD HPI DYSPNEA - Stated complaint Stated Complaint: ABD PX - Chief complaint Chief Complaint: Abd Pain - History obtained from History obtained from: Patient - History of Present Illness Timing - onset: How many days ago (has had increased edema both legs, scrotum, abd and worse dyspnea the past week or so.), How many weeks ago (has had month or more of progressive dyspnea, leg swelling, and fatigue. Having trouble ambulating due to leg swelling and weakness. Had Dx of DVT right leg in Sep 2020 and on Xarelto for 3 weeks but then no followup appt. States f/u appt later this month. Lives in jail. COVID Sep 2020.) Timing - details: Gradual onset, Still present Inciting event(s): Out of meds (has not been on Xarelto since early Oct. Does not take BP med.). No: URI Improved by: Rest Worsened by: Exertion Associated symptoms: Bilateral edema (more on the right). No: Fever, Cough, Chest pain / discomfort Similar symptoms before: No diagnosis Recently seen: Emergency Dept (Seen in ER Sep 15 for urinary symptoms and leg swelling. Dx with DVT. Rx Xarelto but did not follow up. Seen Sep 22 with back pain. COVID positive test with some dyspnea. No follow up. Now progressive dyspnea the past weeks.) Review of Systems Constitutional: denies: Fever, Chills Nose: denies: Rhinorrhea / runny nose, Congestion Throat: denies: Sore throat Cardiac: reports: Pedal edema, Calf pain (right particularly.). denies: Chest pain / pressure, Palpitations Respiratory: reports: Dyspnea. denies: Cough, Wheezing GI: reports: Abdominal Swelling (feeling of fullness). denies: Abdominal Pain, Nausea, Vomiting, Diarrhea : reports: Other (scrotal swelling the past week or so). denies: Dysuria Musculoskeletal: reports: Extremity swelling Neurologic: reports: Generalized weakness. denies: Focal weakness PD PAST MEDICAL HISTORY - Past Medical History Past Medical History: Yes Cardiovascular: Hypertension, Deep vein thrombosis (September 2020) Respiratory: None Neuro: None Endocrine/Autoimmune: None GI: None Psych: None Musculoskeletal: Gout - Past Surgical History Past Surgical History: Yes Ortho: Spine surgery - Present Medications Home Medications: Ambulatory Orders Medication Instructions Recorded Confirmed Rivaroxaban [Xarelto] 15 mg PO BID #42 tablet 09/15/20 09/22/20 - Allergies Allergies/Adverse Reactions: Allergies Allergy/AdvReac Type Severity Reaction Status Date / Time No Known Drug Allergies Allergy Verified 11/14/20 06:23 - Social History Does the pt smoke?: No Smoking Status: Never smoker Does the pt drink ETOH?: No Does the pt have substance abuse?: No - Immunizations Immunizations are current?: Yes - POLST Patient has POLST: No PD ED PE NORMAL - Vitals Vital signs reviewed: Yes - General General: Alert and oriented X 3, Well developed/nourished, Other (partial sentence conversational dyspnea. ) - Neck Neck: Supple, no meningeal sign, No adenopathy - Cardiac Cardiac: RRR, No murmur - Respiratory Respiratory: No: Clear bilaterally (crackles bottom third both sides. No coarse sounds. ) - Abdomen Abdomen: Normal bowel sounds, Soft, Non tender, Non distended - Male Male : Other (uniform scrotal edema moderate without redness nor tenderness. ) - Back Back: No CVA TTP - Derm Derm: Warm and dry. No: Normal color (mild pallor) - Extremities Extremities: Other (2+ edema in left leg, 3+ in right. Calf tender right. ) - Neuro Neuro: Alert and oriented X 3, Normal speech, Other (weakness for lifting legs off cart both sides.) Results - Vitals Vitals: Vital Signs - 24 hr 11/14/20 11/14/20 11/14/20 06:23 06:29 07:59 Temperature 35.9 C L 36 C L Heart Rate 94 90 99 Respiratory 17 24 21 Rate Blood Pressure 171/111 H 124/111 H 140/99 H O2 Saturation 97 98 97 11/14/20 11/14/20 09:00 09:39 Temperature Heart Rate 108 H 98 Respiratory 24 24 Rate Blood Pressure 151/114 H 152/107 H O2 Saturation 93 93 Oxygen O2 Source Room air - EKG (time done) 06:22 Rate: Rate (enter#) (91) Rhythm: NSR [place]: Normal Intervals: Normal MN Ischemia: Normal ST segments, Q waves (inferior). No: ST elevation c/w ischemia, ST depression - Labs Labs: Laboratory Tests 11/14/20 11/14/20 11/14/20 06:45 06:45 06:45 WBC 5.6 RBC 3.91 L Hgb 12.5 L Hct 39.7 L MCV 101.5 H MCH 32.0 H MCHC 31.5 L RDW 16.2 H Plt Count 192 MPV 10.7 Neut # (Auto) 4.3 Lymph # (Auto) 0.8 L [place] # (Auto) 0.4 Eos # (Auto) 0.1 Baso # (Auto) 0.0 Absolute Nucleated RBC 0.00 Nucleated RBC % 0.0 Sodium 143 Potassium 4.3 Chloride 102 Carbon Dioxide 30 Anion Gap 11.0 BUN 22 H Creatinine 1.0 Estimated GFR (MDRD) 74 L Glucose 86 Calcium 9.1 Magnesium Total Bilirubin 0.9 AST 67 H ALT 54 Alkaline Phosphatase 44 Troponin I High Sens B-Natriuretic Peptide 1399 H Total Protein 6.5 L Albumin 3.8 Globulin 2.7 Albumin/Globulin Ratio 1.4 Lipase 24 Urine Color Urine Clarity Urine pH Ur Specific [place] Urine Protein Urine Glucose (UA) Urine Ketones Urine Occult Blood Urine Nitrite Urine Bilirubin Urine Urobilinogen Ur Leukocyte Esterase Ur Microscopic Review Urine Culture Comments Nasal Adenovirus (PCR) Nasal B. parapertussis DNA (PCR) Nasal Coronavir 229E PCR Nasal Coronavir HKU1 PCR Nasal Coronavir NL63 PCR Nasal Coronavir OC43 PCR Nasal Enterovir/Rhinovir PCR Nasal Influenza B PCR Nasal Influenza A PCR Nasal Parainfluen 1 PCR Nasal Parainfluen 2 PCR Nasal Parainfluen 3 PCR Nasal Parainfluen 4 PCR Nasal RSV (PCR) Nasal B.pertussis DNA PCR Nasal C.pneumoniae (PCR) Ad Human Metapneumo PCR Nasal M.pneumoniae (PCR) Nasal SARS-CoV-2 (PCR) Urine Opiates Screen Ur Oxycodone Screen Urine Methadone Screen Ur Propoxyphene Screen Ur Barbiturates Screen Ur Tricyclics Screen Ur Phencyclidine Scrn Ur Amphetamine Screen U Methamphetamines Scrn U Benzodiazepines Scrn Urine Cocaine Screen U Cannabinoids Screen Ethyl Alcohol < 5.0 11/14/20 11/14/20 11/14/20 06:45 06:45 07:33 WBC RBC Hgb Hct MCV MCH MCHC RDW Plt Count MPV Neut # (Auto) Lymph # (Auto) [place] # (Auto) Eos # (Auto) Baso # (Auto) Absolute Nucleated RBC Nucleated RBC % Sodium Potassium Chloride Carbon Dioxide Anion Gap BUN Creatinine Estimated GFR (MDRD) Glucose Calcium Magnesium 2.0 Total Bilirubin AST ALT Alkaline Phosphatase Troponin I High Sens 147.3 H* B-Natriuretic Peptide Total Protein Albumin Globulin Albumin/Globulin Ratio Lipase Urine Color YELLOW Urine Clarity CLEAR Urine pH 6.5 Ur Specific [place] 1.015 Urine Protein NEGATIVE Urine Glucose (UA) NEGATIVE Urine Ketones NEGATIVE Urine Occult Blood TRACE-INTA Urine Nitrite NEGATIVE Urine Bilirubin NEGATIVE Urine Urobilinogen 0.2 (NORMAL) Ur Leukocyte Esterase NEGATIVE Ur Microscopic Review NOT INDICATED Urine Culture Comments NOT INDICATED Nasal Adenovirus (PCR) Nasal B. parapertussis DNA (PCR) Nasal Coronavir 229E PCR Nasal Coronavir HKU1 PCR Nasal Coronavir NL63 PCR Nasal Coronavir OC43 PCR Nasal Enterovir/Rhinovir PCR Nasal Influenza B PCR Nasal Influenza A PCR Nasal Parainfluen 1 PCR Nasal Parainfluen 2 PCR Nasal Parainfluen 3 PCR Nasal Parainfluen 4 PCR Nasal RSV (PCR) Nasal B.pertussis DNA PCR Nasal C.pneumoniae (PCR) Ad Human Metapneumo PCR Nasal M.pneumoniae (PCR) Nasal SARS-CoV-2 (PCR) Urine Opiates Screen NEGATIVE Ur Oxycodone Screen NEGATIVE Urine Methadone Screen NEGATIVE Ur Propoxyphene Screen NEGATIVE Ur Barbiturates Screen NEGATIVE Ur Tricyclics Screen NEGATIVE Ur Phencyclidine Scrn NEGATIVE Ur Amphetamine Screen NEGATIVE U Methamphetamines Scrn NEGATIVE U Benzodiazepines Scrn NEGATIVE Urine Cocaine Screen NEGATIVE U Cannabinoids Screen NEGATIVE Ethyl Alcohol 11/14/20 11/14/20 07:35 08:57 WBC RBC Hgb Hct MCV MCH MCHC RDW Plt Count MPV Neut # (Auto) Lymph # (Auto) [place] # (Auto) Eos # (Auto) Baso # (Auto) Absolute Nucleated RBC Nucleated RBC % Sodium Potassium Chloride Carbon Dioxide Anion Gap BUN Creatinine Estimated GFR (MDRD) Glucose Calcium Magnesium Total Bilirubin AST ALT Alkaline Phosphatase Troponin I High Sens 139.5 H* B-Natriuretic Peptide Total Protein Albumin Globulin Albumin/Globulin Ratio Lipase Urine Color Urine Clarity Urine pH Ur Specific [place] Urine Protein Urine Glucose (UA) Urine Ketones Urine Occult Blood Urine Nitrite Urine Bilirubin Urine Urobilinogen Ur Leukocyte Esterase Ur Microscopic Review Urine Culture Comments Nasal Adenovirus (PCR) NOT DETECTED Nasal B. parapertussis DNA (PCR) NOT DETECTED Nasal Coronavir 229E PCR NOT DETECTED Nasal Coronavir HKU1 PCR NOT DETECTED Nasal Coronavir NL63 PCR NOT DETECTED Nasal Coronavir OC43 PCR NOT DETECTED Nasal Enterovir/Rhinovir PCR NOT DETECTED Nasal Influenza B PCR NOT DETECTED Nasal Influenza A PCR NOT DETECTED Nasal Parainfluen 1 PCR NOT DETECTED Nasal Parainfluen 2 PCR NOT DETECTED Nasal Parainfluen 3 PCR NOT DETECTED Nasal Parainfluen 4 PCR NOT DETECTED Nasal RSV (PCR) NOT DETECTED Nasal B.pertussis DNA PCR NOT DETECTED Nasal C.pneumoniae (PCR) NOT DETECTED Ad Human Metapneumo PCR NOT DETECTED Nasal M.pneumoniae (PCR) NOT DETECTED Nasal SARS-CoV-2 (PCR) NOT DETECTED Urine Opiates Screen Ur Oxycodone Screen Urine Methadone Screen Ur Propoxyphene Screen Ur Barbiturates Screen Ur Tricyclics Screen Ur Phencyclidine Scrn Ur Amphetamine Screen U Methamphetamines Scrn U Benzodiazepines Scrn Urine Cocaine Screen U Cannabinoids Screen Ethyl Alcohol - Rads (name of study) chest xray Radiology: Prelim report reviewed (cardiomegaly with pulmonary venous congestion), See rad report PD MEDICAL DECISION MAKING - ED course Complexity details: considered differential (CHF versus PEs. Will need heart function eval. Can get CT to eval for clots. Give diuretics and NTG.), d/w patient Departure - Departure Disposition: 66 [facility] DC/Xfer Clinical Impression: Dyspnea Qualifiers: Dyspnea type: shortness of breath Qualified Code(s): R06.02 - Shortness of breath Edema Qualifiers: Edema type: unspecified Qualified Code(s): R60.9 - Edema, unspecified CHF (congestive heart failure) Qualifiers: Heart failure type: unspecified Heart failure chronicity: unspecified Qualified Code(s): I50.9 - Heart failure, unspecified DVT (deep venous thrombosis) Qualifiers: DVT location: lower extremity Affected thrombotic vein of extremity: unspecified vein of extremity Chronicity: unspecified Laterality: right Qualified Code(s): I82.401 - Acute embolism and thrombosis of unspecified deep veins of right lower extremity Condition: Stable Record reviewed to determine appropriate education?: Yes
[2020-11-14] MEDS ORDERED: IOVERSOL 320 100 ML VIAL IVP ONE ×2 (08:10→08:43)
[2020-11-14 08:47] LABS: B. PARAPERTUSSIS- RESP PCR PAN NOT DETECTED; B. PERTUSSIS- RESP PCR PANEL NOT DETECTED; C. PNEUMONIAE- RESP PCR PANEL NOT DETECTED; CORONAVIRUS 229E-RESP PCR NOT DETECTED; CORONAVIRUS HKU1-RESP PCR NOT DETECTED; CORONAVIRUS NL63-RESP PCR NOT DETECTED; CORONAVIRUS OC43-RESP PCR NOT DETECTED; HUMAN METAPNEUMOVIRUS NOT DETECTED; INFLUENZA A- RESP PCR PANEL NOT DETECTED; INFLUENZA B - RESP PCR PANEL NOT DETECTED; M. PNEUMONIAE- RESP PCR PANEL NOT DETECTED; PARAINFLUENZA VIRUS 1 NOT DETECTED; PARAINFLUENZA VIRUS 2 NOT DETECTED; PARAINFLUENZA VIRUS 3 NOT DETECTED; PARAINFLUENZA VIRUS 4 NOT DETECTED; RHINOVIRUS/ENTEROVIRUS NOT DETECTED; RSV- RESP PCR PANEL NOT DETECTED; SARS-CoV-2 -RESP PCR PANEL NOT DETECTED
--- NOTE | 2020-11-14 08:47 | XRAY Report ---
PROCEDURE: Chest 1 View X-Ray INDICATIONS: chest pain TECHNIQUE: One view of the chest was acquired. COMPARISON: 11/14/2020 FINDINGS: Surgical changes and devices: None. Lungs and pleura: Low lung volumes with scattered bibasilar atelectasis patchy ill-defined opaciti es. Blunting of the right costophrenic angle. Technically cannot exclude trace right pleural fluid. N o pneumothorax. Mediastinum: Cardiac silhouette not well visualized although may be enlarged. Bones and chest wall: No suspicious bony lesions. Overlying soft tissues appear unremarkable. IMPRESSION: Low lung volumes and scattered ill-defined bibasilar opacities, which could reflect pulmonary edema a nd atelectasis. Recommend clinical and laboratory correlation to exclude underlying infection. Reviewed by: Soham Kwon MD on 11/14/2020 8:45 AM PDT Approved by: Soham Kwon MD on 11/14/2020 8:45 AM PDT Station ID: [id number]
--- NOTE | 2020-11-14 09:00 | CT Report ---
PROCEDURE: ANGIO CHEST W/WO INDICATIONS: dyspnea, CHF, recent DVTs CONTRAST: IV CONTRAST: Optiray 320 ml: 80 PO CONTRAST: *NO PO CONTRAST TECHNIQUE: After the administration of intravenous contrast, 2 mm axial images were acquired from the pulmonary apices to the posterior costophrenic angles during the arterial phase. In addition, 1 mm lung kernel and 5 mm soft tissue kernel reconstructions were performed. 3-dimensional coronal oblique maximum int ensity projection (MIP) reformats, 8 mm axial MIP, and 5 mm coronal and sagittal MPR reformats were t hen performed through the thorax. For radiation dose reduction, the following was used: automated exp osure control, adjustment of mA and/or kV according to patient size. COMPARISON: 11/14/2020 chest x-ray FINDINGS: Image quality: Excellent. Pulmonary arteries: Pulmonary arteries are normal in size. There are vague low-density regions withi n the distal aspect of the right main pulmonary artery, extending into the right lower lobe segmental pulmonary arterial branches, which could indicate mixing artifact versus small pulmonary emboli. Lungs and pleura: There is moderate airspace opacity within the right lower lobe. Bronchial wall thic kening of the segmental and subsegmental airways of the bilateral lower lobes as well as the right mi ddle lobe. Small right pleural effusion. Trace left pleural effusion. No pneumothorax. Central and pe ripheral airways are patent. Mediastinum: Heart size is normal, without pericardial effusion. Mild calcification of the coronary vasculature. No mediastinal or hilar adenopathy. Thoracic aorta is normal in caliber and enhancemen t. Esophagus is normal in caliber, without hiatal hernia. Bones and chest wall: No suspicious bony lesions. Ribs and thoracic spine appear intact throughout. No axillary or supraclavicular adenopathy. The thyroid is normal in size and there are no incident al findings. Abdomen: Visualized upper abdominal solid organs appear normal in the early arterial phase of enhanc ement. IMPRESSION: 1. Bilateral bronchitis. Superimposed right lower lobe pneumonia. Small right parapneumonic effusion. 2. Small pulmonary emboli versus artifact within the right pulmonary arterial system as described abo ve. 3. Coronary artery disease. CLINICAL RECOMMENDATION STATEMENTS: In patients <35 years with an ITN detected on CT, MRI, or extrathyroidal ultrasound, the Committee re commends further evaluation with dedicated thyroid ultrasound if the nodule is "e1 cm and has no susp icious imaging features, and if the patient has normal life expectancy. In patients "e35 years with an ITN detected on CT, MRI, or extrathyroidal ultrasound, the Committee r ecommends further evaluation with dedicated thyroid ultrasound if the nodule is "e1.5 cm and has no s uspicious imaging features, and if the patient has normal life expectancy. (ACR, 2014) Reviewed by: Aileen Yang MD on 11/14/2020 8:58 AM PDT Approved by: Aileen Yang MD on 11/14/2020 8:58 AM PDT Station ID: [id number]
[2020-11-14] MEDS ORDERED: ONDANSETRON 4 MG/2 ML VIAL IVP PRN (10:04)
--- NOTE | 2020-11-14 10:12 | HISTORY & PHYSICAL EXAMINATION ---
Chief Complaint - Chief Complaint Chief Complaint: dyspnea History of Present Illness - Admitted From Admitted From:: medical floor - History Obtained From Records Reviewed: [facility] History obtained from: pt Exam Limitations: no - History of Present Illness HPI Comment/Other: This is a 69-years old male with a past medical history significant noted for Hypertension, DVT, Gout Who present to ER complain dyspnea and generalized weakness. Patient report He feel generalized weakness for nearly half year, more prominent in BLE, until he is difficult to walk. pt complain of testicular swelling but denies pain or tenderness on testicular. He report he has significant orthopnea and difficult to breath when he lay down. He feel better for his breathing after ER was given medication to him otherwise he report he was Unable to speak in complete sentences without stopping for breathing. he report he had Covid positive in September of 2020. Now he denies 89 fever, chill, abdominal pain, chest pain. His Covid test today is negative. Routine laboratory tests that show patient had a BNP is over 1400, Troponin is 140, repeated troponin now is treaded down to 130. EKG does not show ischemic change. CT angios show bilaterally bronchitis, superimposed the right lower lobe pneumonia, small pulmonary emboli Within right pulmonary artery system. Given above medical conditions, patient was consulted from medical team for admission. Discussed the care goal with the patient, patient clearly state he is DNR History - Past Medical History Cardiovascular: reports: Hypertension, Deep vein thrombosis (September 2020) Respiratory: reports: None Neuro: reports: None Endocrine/Autoimmune: reports: None GI: reports: None Psych: reports: None Musculoskeletal: reports: Gout MRSA Hx?: No - Past Surgical History Ortho: reports: Spine surgery - Family & Social History Family History: Mother: , Father: Family History Comment/Other: Patient reported his father at age 80 From diabetic complication. His mother age 80 also, he is unknow the cause. Social History Notes: Patient denies history of cigarette smoke, alcohol issue or drug issue - POLST Patient has POLST: No Meds/Allgy - Home Medications Home Medications: Ambulatory Orders Medication Instructions Recorded Confirmed No Known Home Medications 11/14/20 11/14/20 - Allergies Allergies/Adverse Reactions: Allergies Allergy/AdvReac Type Severity Reaction Status Date / Time No Known Drug Allergies Allergy Verified 11/14/20 06:23 Review of Systems - Constitutional Constitutional: reports: Weakness. denies: Fever, Chills - Eyes Eyes: denies: Pain - Ears, Nose & Throat Ears, Nose & Throat: denies: Ear pain, Nosebleeds - Cardiovascular Cariovascular: reports: Edema, Exertional dyspnea, Decr. exercise tolerance, Orthopnea. denies: Chest pain - Respiratory Respiratory: reports: Orthopnea, SOB with exertion. denies: Cough, Sputum production - Gastrointestinal Gastrointestinal: denies: Abdominal pain, Diarrhea, Nausea, Vomiting - Genitourinary Genitourinary: denies: Dysuria - Musculoskeletal Musculoskeletal: denies: Muscle pain - Integumentary Integumentary: denies: Rash - Neurological Neurological: reports: General weakness. denies: Focal weakness, Dizziness, Numbness, Abnormal gait, Seizures, Incoordination, Slurred speech - Psychiatric Psychiatric: denies: Depression Exam - Vital Signs Vital Signs: Vital Signs x48h Temp Pulse Resp BP Pulse Ox 11/14/20 09:39 98 24 152/107 H 93 11/14/20 09:00 108 H 24 151/114 H 93 11/14/20 07:59 99 21 140/99 H 97 11/14/20 06:29 36 C L 90 24 124/111 H 98 11/14/20 06:23 35.9 C L 94 17 171/111 H 97 - Physical Exam General Appearance: positive: No acute distress, Alert. negative: Lethargic Eyes Bilateral: positive: Normal inspection, No lid inflammation ENT: positive: ENT inspection nml, No signs of dehydration. negative: Purulent nasal drainage Neck: positive: Nml inspection, Trachea midline. negative: Thyromegaly, Tracheal deviation Respiratory: positive: Chest non-tender, Rales Cardiovascular: positive: Regular rate & rhythm, No murmur. negative: Tachycardia, Bradycardia, Systolic murmur Peripheral Pulses: positive: 2+ Abdomen: positive: Non-tender, Nml bowel sounds, No distention. negative: Tenderness Back: positive: Nml inspection Skin: positive: Color nml, Warm, Dry Extremities: positive: Non-tender, Nml appearance, Pedal edema Neurologic/Psychiatric: positive: Oriented x3, Sensation nml, Mood/affect nml. negative: Weakness, Sensory loss, Facial droop, Slurred/abnml speech, Depressed mood/affect Conclusion/Plan - Problem List (1) CHF exacerbation Conclusion/Plan: Patient present dyspnea, anasarca, Testicle swelling/edema, bilateral lower extremity edema, elevated BNP over 1400, and orthopnea. ER already started with intravenous Lasix, we will continue. We will check echo, We will daily weight, And fluid restriction. Cardiac low sodium diet (2) Pulmonary emboli Conclusion/Plan: Patient has a history of DVT but patient is medical noncompliance, he report he did not take any medication over half year. CTA of the chest show small right pulmonary artery emboli. We will also recheck lower extremity DVT. We will resume patient home Xarelto twice daily For PE. (3) Pneumonia Conclusion/Plan: Patient present dyspnea, cough,Tachypnea. CTA of the chest show bilaterally bronchitis and right lower lobe pneumonia. But the patient has no fever or chill. Patient COVID-19 test is negative. He was COVID-19 positive in September. We will start antibiotics for patient, Likely patient has community-acquired pneumonia. (4) Anasarca Conclusion/Plan: Patient present anasarca, patient has upper and lower extremity edema and testicle swelling/edema. It Is likely caused by patient CHF exacerbation And patient medical noncompliance. We will give patient diuretics Lasix intravenous, We will continue seed analysis laboratory assistant, And vital signs monitor (5) HTN (hypertension) Conclusion/Plan: Patient has a history of hypertension, Now patient was give Lasix, We will continue vital signs monitor (6) Elevated troponin Conclusion/Plan: Patient had elevated troponin, repeat show trended down. EKG does not show acute ischemic change. Patient denies chest pain. It is likely from demanded ischemic and patient's CHF exacerbation. We will add a sand mill operator core sand patient, we will check echo (7) Medical non-compliance Conclusion/Plan: Patient has a history of DVT but he report he did not take any medication over half year. Now patient has PE again. Strongly advised patient do medical compliant - Lab Results Fish Bones: 11/14/20 06:45 11/14/20 06:45 Core Measures - Anticipated LOS I expect patient to be DC'd or transferred within 96 hours.: Yes - DVT/VTE - Prophylaxis VTE/DVT Device ordered at admit?: Yes VTE/DVT Prophylaxis med ordered at admit?: Yes
--- NOTE | 2020-11-14 11:38 | PHARMACY PROGRESS NOTE ---
- Best Possible Medication History Admit Date and Time: 11/14/20 1004 Processed by: Pharmacy Medication History completed: Yes Patient Interview: Completed Secondary Source(s): Pharmacy records, Insurance records, Previous admit records As the person ultimately responsible for medication therapy, providers are able to order a medication from an existing home medication list in [facility] via the "Reconcile Routine" prior to Confirmation of that medication by applications support analyst. Such practice is discouraged except when the physician, in their clinical judgment, deems that a medical need exists for a medication without regard to previous use.
[2020-11-14] MEDS ORDERED: SODIUM CHLORIDE 0.9% 500 ML IV ONE (11:43)
[2020-11-14] MEDS: cefTRIAXone 2 GM in SODIUM CHLORIDE 0.9% MINIBAG 100 ML IV SCH (12:30)
[2020-11-14] MEDS: AZITHROMYCIN INJ 500 MG in SODIUM CHLORIDE 0.9% 250 ML IV SCH (12:31)
[2020-11-14] MEDS: FUROSEMIDE 40 MG/4 ML VIAL IVP SCH (13:53)
[2020-11-14] MEDS: NYSTATIN POWDER 15 GM TOP SCH ×2 (13:53→21:48)
[2020-11-14] MEDS: SODIUM CHLORIDE FLUSH 0.9% 10 ML SYRINGE IVP PRN (13:56)
--- NOTE | 2020-11-14 15:12 | Ultrasound Report ---
PROCEDURE: Duplex Ext Veins Bilateral INDICATIONS: TIMOTHY ROGERS TECHNIQUE: Real-time imaging, as well as color and pulse Doppler interrogation, were performed of the deep veins of both legs from the inguinal ligament to the popliteal fossa. COMPARISON: 09/15/2020 FINDINGS: Left :The deep veins are normally compressible, and free of intraluminal thrombus. Color and pulse D oppler demonstrate normal phasic intravascular flow. There is normal augmentation response to distal compression maneuver. Right: There are eccentric filling defects within the right femoral vein and right popliteal vein, si milar to those seen on 09/15/2020 examination. No new intraluminal filling defect on the right. IMPRESSION: No deep venous thrombosis on the left. Chronic eccentric nonocclusive filling defects within the right femoral and popliteal veins, similar to that seen on 09/15/2020 exam. No new or acute DVT on the right. Reviewed by: Pranav Zuluaga MD on 11/14/2020 3:11 PM PDT Approved by: Pranav Zuluaga MD on 11/14/2020 3:11 PM PDT Station ID: [id number]
[2020-11-14] MEDS: RIVAROXABAN 15 MG TABLET PO SCH (17:58)
[2020-11-14] MEDS: SODIUM CHLORIDE FLUSH 0.9% 10 ML SYRINGE IVP SCH (17:59)
[2020-11-15] MEDS: SODIUM CHLORIDE FLUSH 0.9% 10 ML SYRINGE IVP SCH ×4 (00:11→23:41)
[2020-11-15] MEDS: FUROSEMIDE 40 MG/4 ML VIAL IVP SCH ×2 (05:44→14:30)
[2020-11-15 06:13] LABS: BASOPHILS % (AUTO) 0.4 %; EOSINOPHILS # (AUTO) 0.2 10^3/uL (0.0-0.7); EOSINOPHILS % (AUTO) 4.7 %; HCT - HEMATOCRIT 39.4 % (42.0-52.0); HGB - HEMOGLOBIN 12.4 g/dL (14.0-18.0); LYMPHOCYTES # (AUTO) 1.1 10^3/uL (1.5-3.5); LYMPHOCYTES % (AUTO) 24.9 %; MEAN CORPUSCULAR HEMOGLOBIN 31.9 pg (27.0-31.0); MEAN CORPUSCULAR HGB CONC 31.5 g/dL (32.0-36.0); MEAN CORPUSCULAR VOLUME 101.3 fL (80.0-94.0); MEAN PLATELET VOLUME 11.1 fL (7.4-11.4); MONOCYTES # (AUTO) 0.3 10^3/uL (0.0-1.0); MONOCYTES % (AUTO) 6.2 %; NEUTROPHILS # (AUTO) 2.8 10^3/uL (1.5-6.6); NEUTROPHILS % (AUTO) 63.4 %; PLT - PLATELET COUNT 184 10^3/uL (130-450); RED BLOOD COUNT 3.89 10^6/uL (4.70-6.10); RED CELL DISTRIBUTION WIDTH 16.4 % (12.0-15.0); WHITE BLOOD COUNT 4.5 x10^3/uL (4.8-10.8)
[2020-11-15 06:23] LABS: CALCIUM 9.1 mg/dL (8.5-10.3); CREATININE 1.1 mg/dL (0.6-1.2); POTASSIUM 3.6 mmol/L (3.5-5.0)
[2020-11-15] MEDS: RIVAROXABAN 15 MG TABLET PO SCH ×2 (08:41→16:40)
[2020-11-15] MEDS: cefTRIAXone 2 GM in SODIUM CHLORIDE 0.9% MINIBAG 100 ML IV SCH (08:42)
[2020-11-15] MEDS: NYSTATIN POWDER 15 GM TOP SCH ×2 (08:43→21:28)
[2020-11-15] MEDS: AZITHROMYCIN INJ 500 MG in SODIUM CHLORIDE 0.9% 250 ML IV SCH (08:43)
--- NOTE | 2020-11-15 10:40 | PROVIDER PROGRESS NOTE ---
Assessment/Plan - Problem List (1) CHF exacerbation Assessment/Plan: 11/15 Patient report his breathing is better. Patient's BNP is down to the 1100 from 1400. Patient's puffy Is reduced Special upper extremities. We will continue diuretics, continue fluids restriction, Daily weight, Cardiac low- sodium diet. ECHO is pending Patient present dyspnea, anasarca, Testicle swelling/edema, bilateral lower extr emity edema, elevated BNP over 1400, and orthopnea. ER already started with intravenous Lasix, we will continue. We will check echo, We will daily weight, And fluid restriction. Cardiac low sodium diet (2) Pulmonary emboli Conclusion/Plan: 106, We will continue Xarelto. Patient has a history of DVT but patient is medical noncompliance, he report he did not take any medication over half year. CTA of the chest show small right pulmonary artery emboli. We will also recheck lower extremity DVT. We will resume patient home Xarelto twice daily For PE. (3) Pneumonia Conclusion/Plan: 11-15, Improved, patient has no more tachypnea, patient had a 97% oxygen saturation on room air,We will continue antibiotics, add probiotics Patient present dyspnea, cough,Tachypnea. CTA of the chest show bilaterally bronchitis and right lower lobe pneumonia. But the patient has no fever or chill. Patient COVID-19 test is negative. He was COVID-19 positive in September. We will start antibiotics for patient, Likely patient has community-acquired pneumonia. (4) Anasarca Conclusion/Plan: 106, improved and the reduced, Continue diuretics, intravenous Lasix twice daily. Patient present anasarca, patient has upper and lower extremity edema and testicle swelling/edema. It Is likely caused by patient CHF exacerbation And patient medical noncompliance. 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 EKG does not show acute ischemic change. Patient denies chest pain. It is likely from demanded ischemic and patient's CHF exacerbation. 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 Now patient has PE again. Strongly advised patient do medical compliant - Current Meds Current Meds: Current Medications Generic Name Dose Route Start Last Admin Trade Name Freq PRN Reason Stop Dose Admin Furosemide 40 mg 11/14/20 14:00 11/15/20 05:44 Furosemide 40 Mg/4 Ml Vial IVP 40 mg BIDDIURETIC ADELINA Administration Azithromycin 500 mg/ Sodium 250 mls @ 250 mls/hr 11/14/20 12:00 11/15/20 08:43 Chloride IV 11/16/20 10:59 250 mls/hr 1000 ADELINA Administration Ceftriaxone Sodium 2 gm/ 100 mls @ 200 mls/hr 11/14/20 11:00 11/15/20 08:42 Sodium Chloride IV 200 mls/hr DAILY ADELINA Administration Nystatin 1 applic 11/14/20 14:00 11/15/20 08:43 Nystatin Powder 15 Gm TOP 1 applic BID ADELINA Administration Rivaroxaban 15 mg 11/14/20 17:00 11/15/20 08:41 Rivaroxaban 15 Mg Tablet PO 15 mg BIDWM ADELINA Administration Sodium Chloride 10 ml 11/14/20 10:04 11/14/20 13:56 Sodium Chloride Flush 0.9% 10 Ml Syringe IVP 10 ml PRN PRN Administration NEEDED PER PROVIDER ORDERS Sodium Chloride 10 ml 11/14/20 17:00 11/15/20 08:43 Sodium Chloride Flush 0.9% 10 Ml Syringe IVP 10 ml 0100,0900,1700 ADELINA Administration - Lab Result Fish Bone Diagrams: 11/15/20 05:24 11/15/20 05:24 - Additional Planning My Orders: My Active Orders 11/14/20 10:04 Activity Orders [RC] Q2HR IO [RC] IOSHIFT Initiate Bowel Care Protocol [RC] .protocol Initiate Line Care Protocol [RC] QSHIFT Initiate Personal Care Protoco [RC] .protocol Telemetry- [RC] Q4HR Vital Signs [RC] 0800,1600,0000 Acetaminophen [Tylenol] 650 mg PO Q4HR PRN Ondansetron Inj [Zofran Inj] 4 mg IVP Q6HR PRN Sodium Chloride Flush 0.9% [Normal Saline Flush 0.9%] 10 ml IVP PRN PRN Code Status [OTHERS] Routine Condition of Patient [OTHERS] Routine DVT Prophylaxis [OTHERS] Routine 11/14/20 10:06 IV Insert [RC] .ONCE 11/14/20 10:07 SCDs [RC] QSHIFT 11/14/20 10:13 Daily Weight [RC] 0600 11/14/20 11:00 cefTRIAXone [Rocephin] 2 gm Sodium Chloride 0.9% Minibag [Normal Saline 0.9% Minibag] 100 ml IV DAILY 11/14/20 Lunch Cardiac Diet [DIET] 11/14/20 12:00 Azithromycin Inj [Zithromax Inj] 500 mg Sodium Chloride 0.9% [Normal Saline 0.9%] 250 ml IV 1000 11/14/20 12:07 Code Status [OTHERS] Routine 11/14/20 14:00 FUROSEMIDE INJ 40mg VIAL [LASIX INJ 40 mg VIAL] 40 mg IVP BIDDIURETIC Nystatin [Nystop] 1 applic TOP BID 11/14/20 17:00 Rivaroxaban [Xarelto] 15 mg PO BIDWM Sodium Chloride Flush 0.9% [Normal Saline Flush 0.9%] 10 ml IVP 0100,0900,1700 11/15/20 Social Work Consult [CONS] Routine 11/16/20 05:00 BMP - BASIC METABOLIC PANEL [CHEM] DAILYLAB BNP - B-NATRIURETIC PEPTIDE [IAI] DAILYLAB CBC - COMP BLD CT W/AUTO DIFF [HEME] DAILYLAB 11/17/20 05:00 BMP - BASIC METABOLIC PANEL [CHEM] DAILYLAB BNP - B-NATRIURETIC PEPTIDE [IAI] DAILYLAB CBC - COMP BLD CT W/AUTO DIFF [HEME] DAILYLAB 11/18/20 05:00 BMP - BASIC METABOLIC PANEL [CHEM] DAILYLAB BNP - B-NATRIURETIC PEPTIDE [IAI] DAILYLAB CBC - COMP BLD CT W/AUTO DIFF [HEME] DAILYLAB 11/19/20 05:00 BMP - BASIC METABOLIC PANEL [CHEM] DAILYLAB BNP - B-NATRIURETIC PEPTIDE [IAI] DAILYLAB CBC - COMP BLD CT W/AUTO DIFF [HEME] DAILYLAB Subjective - Subjective Patient Reports: Feeling Better Objective Vital Signs: Vital Signs - 24 hr 11/14/20 11/14/20 11/14/20 10:55 11:31 15:35 Temperature 36.8 C Heart Rate 97 Heart Rate [ 94 Activity] Heart Rate [ Brachial] Heart Rate [ 92 Monitoring electrodes] Respiratory 16 23 Rate Blood Pressure 153/102 H Blood Pressure 132/88 H [Activity] Blood Pressure 140/98 H [Right Brachial artery] O2 Saturation 94 94 11/14/20 11/15/20 11/15/20 16:00 00:00 05:42 Temperature 36.7 C 36.7 C 36.5 C Heart Rate Heart Rate [ Activity] Heart Rate [ Brachial] Heart Rate [ 87 85 78 Monitoring electrodes] Respiratory 18 16 16 Rate Blood Pressure Blood Pressure [Activity] Blood Pressure 143/75 H 114/90 H 127/90 H [Right Brachial artery] O2 Saturation 92 96 11/15/20 07:26 Temperature 36.5 C Heart Rate Heart Rate [ Activity] Heart Rate [ 86 Brachial] Heart Rate [ Monitoring electrodes] Respiratory 20 Rate Blood Pressure Blood Pressure [Activity] Blood Pressure 131/94 H [Right Brachial artery] O2 Saturation 97 Oxygen O2 Source Room air I&O (Last 24 Hrs): Intake and Output Totals x24h 11/13/20 11/14/20 11/15/20 23:59 23:59 23:59 Intake Total 1060 600 Output Total 5055 2250 Balance -3995 -1650 General: Alert, Oriented x3, Cooperative, No acute distress HEENT: Atraumatic Neck: Supple Lymphatic: no adenopathy Neuro: Alert, Non Focal, Oriented Times 3 Cardiovascular: Regular rate, Normal S1, Normal S2 Respiratory: Chest non-tender, No respiratory distress Abdomen: Normal bowel sounds, Soft Extremities: Normal pulses - Results Results: Laboratory Results WBC 4.5 x10^3/uL (4.8-10.8) L 11/15/20 05:24 RBC 3.89 10^6/uL (4.70-6.10) L 11/15/20 05:24 Hgb 12.4 g/dL (14.0-18.0) L 11/15/20 05:24 Hct 39.4 % (42.0-52.0) L 11/15/20 05:24 MCV 101.3 fL (80.0-94.0) H 11/15/20 05:24 MCH 31.9 pg (27.0-31.0) H 11/15/20 05:24 MCHC 31.5 g/dL (32.0-36.0) L 11/15/20 05:24 RDW 16.4 % (12.0-15.0) H 11/15/20 05:24 Plt Count 184 10^3/uL (130-450) 11/15/20 05:24 MPV 11.1 fL (7.4-11.4) 11/15/20 05:24 Neut # (Auto) 2.8 10^3/uL (1.5-6.6) 11/15/20 05:24 Lymph # (Auto) 1.1 10^3/uL (1.5-3.5) L 11/15/20 05:24 Thomas # (Auto) 0.3 10^3/uL (0.0-1.0) 11/15/20 05:24 Eos # (Auto) 0.2 10^3/uL (0.0-0.7) 11/15/20 05:24 Baso # (Auto) 0.0 10^3/uL (0.0-0.1) 11/15/20 05:24 Absolute Nucleated RBC 0.00 x10^3/uL 11/15/20 05:24 Nucleated RBC % 0.0 /100WBC 11/15/20 05:24 Sodium 144 mmol/L (135-145) 11/15/20 05:24 Potassium 3.6 mmol/L (3.5-5.0) 11/15/20 05:24 Chloride 103 mmol/L (101-111) 11/15/20 05:24 Carbon Dioxide 32 mmol/L (21-32) 11/15/20 05:24 Anion Gap 9.0 (6-13) 11/15/20 05:24 BUN 24 mg/dL (6-20) H 11/15/20 05:24 Creatinine 1.1 mg/dL (0.6-1.2) 11/15/20 05:24 Estimated GFR (MDRD) 66 (>89) L 11/15/20 05:24 Glucose 91 mg/dL (70-100) 11/15/20 05:24 Calcium 9.1 mg/dL (8.5-10.3) 11/15/20 05:24 Magnesium 2.0 mg/dL (1.7-2.8) 11/14/20 06:45 Total Bilirubin 0.9 mg/dL (0.2-1.0) 11/14/20 06:45 AST 67 IU/L (10-42) H 11/14/20 06:45 ALT 54 IU/L (10-60) 11/14/20 06:45 Alkaline Phosphatase 44 IU/L (42-121) 11/14/20 06:45 Troponin I High Sens 139.5 ng/L (2.3-19.7) H* 11/14/20 08:57 B-Natriuretic Peptide 1103 pg/mL (5-100) H 11/15/20 05:24 Total Protein 6.5 g/dL (6.7-8.2) L 11/14/20 06:45 Albumin 3.8 g/dL (3.2-5.5) 11/14/20 06:45 Globulin 2.7 g/dL (2.1-4.2) 11/14/20 06:45 Albumin/Globulin Ratio 1.4 (1.0-2.2) 11/14/20 06:45 Lipase 24 U/L (22-51) 11/14/20 06:45 Urine Color YELLOW 11/14/20 07:33 Urine Clarity CLEAR (CLEAR) 11/14/20 07:33 Urine pH 6.5 PH (5.0-7.5) 11/14/20 07:33 Ur Specific [place] 1.015 (1.002-1.030) 11/14/20 07:33 Urine Protein NEGATIVE mg/dL (NEGATIVE) 11/14/20 07:33 Urine Glucose (UA) NEGATIVE mg/dL (NEGATIVE) 11/14/20 07:33 Urine Ketones NEGATIVE mg/dL (NEGATIVE) 11/14/20 07:33 Urine Occult Blood TRACE-INTA (NEGATIVE) 11/14/20 07:33 Urine Nitrite NEGATIVE (NEGATIVE) 11/14/20 07:33 Urine Bilirubin NEGATIVE (NEGATIVE) 11/14/20 07:33 Urine Urobilinogen 0.2 (NORMAL) E.U./dL (NORMAL) 11/14/20 07:33 Ur Leukocyte Esterase NEGATIVE (NEGATIVE) 11/14/20 07:33 Ur Microscopic Review NOT INDICATED 11/14/20 07:33 Urine Culture Comments NOT INDICATED 11/14/20 07:33 Nasal Adenovirus (PCR) NOT DETECTED 11/14/20 07:35 Nasal B. parapertussis DNA (PCR) NOT DETECTED 11/14/20 07:35 Nasal Coronavir 229E PCR NOT DETECTED 11/14/20 07:35 Nasal Coronavir HKU1 PCR NOT DETECTED 11/14/20 07:35 Nasal Coronavir NL63 PCR NOT DETECTED 11/14/20 07:35 Nasal Coronavir OC43 PCR NOT DETECTED 11/14/20 07:35 Nasal Enterovir/Rhinovir PCR NOT DETECTED 11/14/20 07:35 Nasal Influenza B PCR NOT DETECTED 11/14/20 07:35 Nasal Influenza A PCR NOT DETECTED 11/14/20 07:35 Nasal Parainfluen 1 PCR NOT DETECTED 11/14/20 07:35 Nasal Parainfluen 2 PCR NOT DETECTED 11/14/20 07:35 Nasal Parainfluen 3 PCR NOT DETECTED 11/14/20 07:35 Nasal Parainfluen 4 PCR NOT DETECTED 11/14/20 07:35 Nasal RSV (PCR) NOT DETECTED 11/14/20 07:35 Nasal B.pertussis DNA PCR NOT DETECTED 11/14/20 07:35 Nasal C.pneumoniae (PCR) NOT DETECTED 11/14/20 07:35 Ad Human Metapneumo PCR NOT DETECTED 11/14/20 07:35 Nasal M.pneumoniae (PCR) NOT DETECTED 11/14/20 07:35 Nasal SARS-CoV-2 (PCR) NOT DETECTED 11/14/20 07:35 Urine Opiates Screen NEGATIVE (NEGATIVE) 11/14/20 07:33 Ur Oxycodone Screen NEGATIVE (NEGATIVE) 11/14/20 07:33 Urine Methadone Screen NEGATIVE (NEGATIVE) 11/14/20 07:33 Ur Propoxyphene Screen NEGATIVE (NEGATIVE) 11/14/20 07:33 Ur Barbiturates Screen NEGATIVE (NEGATIVE) 11/14/20 07:33 Ur Tricyclics Screen NEGATIVE (NEGATIVE) 11/14/20 07:33 Ur Phencyclidine Scrn NEGATIVE (NEGATIVE) 11/14/20 07:33 Ur Amphetamine Screen NEGATIVE (NEGATIVE) 11/14/20 07:33 U Methamphetamines Scrn NEGATIVE (NEGATIVE) 11/14/20 07:33 U Benzodiazepines Scrn NEGATIVE (NEGATIVE) 11/14/20 07:33 Urine Cocaine Screen NEGATIVE (NEGATIVE) 11/14/20 07:33 U Cannabinoids Screen NEGATIVE (NEGATIVE) 11/14/20 07:33 Ethyl Alcohol < 5.0 mg/dL 11/14/20 06:45 ABX Reporting Has patient been on IV antibiotics over the past 48 hours?: Yes Current Medications - Current Medications Current Medications: Active Medications Acetaminophen (Acetaminophen 325 Mg Tablet) 650 mg PO Q4HR PRN PRN Reason: Pain 1 to 4 Furosemide (Furosemide 40 Mg/4 Ml Vial) 40 mg IVP BIDDIURETIC [facility] Last Admin: 11/15/20 05:44 Dose: 40 mg Documented by: Azithromycin 500 mg/ Sodium (Chloride) 250 mls @ 250 mls/hr IV 1000 [facility] Stop: 11/16/20 10:59 Last Admin: 11/15/20 08:43 Dose: 250 mls/hr Documented by: Ceftriaxone Sodium 2 gm/ (Sodium Chloride) 100 mls @ 200 mls/hr IV DAILY [facility] Last Admin: 11/15/20 08:42 Dose: 200 mls/hr Documented by: Nystatin (Nystatin Powder 15 Gm) 1 applic TOP BID [facility] Last Admin: 11/15/20 08:43 Dose: 1 applic Documented by: Ondansetron HCl (Ondansetron 4 Mg/2 Ml Vial) 4 mg IVP Q6HR PRN PRN Reason: Nausea / Vomiting Rivaroxaban (Rivaroxaban 15 Mg Tablet) 15 mg PO BIDWM [facility] Last Admin: 11/15/20 08:41 Dose: 15 mg Documented by: Saccharomyces Boulardii (Saccharomyces Boulardii 250 Mg Capsule) 250 mg PO BIDWM [facility] Sodium Chloride (Sodium Chloride Flush 0.9% 10 Ml Syringe) 10 ml IVP PRN PRN PRN Reason: NEEDED PER PROVIDER ORDERS Last Admin: 11/14/20 13:56 Dose: 10 ml Documented by: Sodium Chloride (Sodium Chloride Flush 0.9% 10 Ml Syringe) 10 ml IVP 0100,0900,1700 [facility] Last Admin: 11/15/20 08:43 Dose: 10 ml Documented by: No Known Home Medications 11/14/20
[2020-11-15] MEDS: SACCHAROMYCES BOULARDII 250 MG CAPSULE PO SCH ×2 (11:38→16:44)
[2020-11-16] MEDS: FUROSEMIDE 40 MG/4 ML VIAL IVP SCH ×2 (05:47→14:07)
[2020-11-16 05:57] LABS: CALCIUM 8.9 mg/dL (8.5-10.3); CREATININE 1.1 mg/dL (0.6-1.2); POTASSIUM 3.8 mmol/L (3.5-5.0)
[2020-11-16 05:58] LABS: BASOPHILS % (AUTO) 0.4 %; EOSINOPHILS # (AUTO) 0.3 10^3/uL (0.0-0.7); EOSINOPHILS % (AUTO) 6.5 %; HCT - HEMATOCRIT 39.7 % (42.0-52.0); HGB - HEMOGLOBIN 12.3 g/dL (14.0-18.0); LYMPHOCYTES % (AUTO) 20.9 %; MEAN CORPUSCULAR HEMOGLOBIN 31.2 pg (27.0-31.0); MEAN CORPUSCULAR VOLUME 100.8 fL (80.0-94.0); MEAN PLATELET VOLUME 10.6 fL (7.4-11.4); MONOCYTES # (AUTO) 0.3 10^3/uL (0.0-1.0); MONOCYTES % (AUTO) 6.7 %; NEUTROPHILS # (AUTO) 3.2 10^3/uL (1.5-6.6); NEUTROPHILS % (AUTO) 65.1 %; PLT - PLATELET COUNT 177 10^3/uL (130-450); RED BLOOD COUNT 3.94 10^6/uL (4.70-6.10); RED CELL DISTRIBUTION WIDTH 16.1 % (12.0-15.0); WHITE BLOOD COUNT 4.9 x10^3/uL (4.8-10.8)
[2020-11-16] MEDS: cefTRIAXone 2 GM in SODIUM CHLORIDE 0.9% MINIBAG 100 ML IV SCH (08:51)
[2020-11-16] MEDS: NYSTATIN POWDER 15 GM TOP SCH ×2 (08:51→20:02)
[2020-11-16] MEDS: RIVAROXABAN 15 MG TABLET PO SCH ×2 (08:51→17:21)
[2020-11-16] MEDS: SACCHAROMYCES BOULARDII 250 MG CAPSULE PO SCH ×2 (08:51→17:21)
[2020-11-16] MEDS: SODIUM CHLORIDE FLUSH 0.9% 10 ML SYRINGE IVP SCH ×2 (08:52→17:21)
[2020-11-16] MEDS: AZITHROMYCIN INJ 500 MG in SODIUM CHLORIDE 0.9% 250 ML IV SCH (08:52)
[2020-11-16] MEDS ORDERED: LIDOCAINE OINTMENT 5% 35.44 GM TUBE ONE (11:04)
--- NOTE | 2020-11-16 11:12 | PROVIDER PROGRESS NOTE ---
Assessment/Plan - Problem List (1) CHF exacerbation Assessment/Plan: 11/16 Patient's testicle is still very swelling, we will order US to r/o malignancy or fluid collection. BNP is slight elevated but pt still has no respiratory distress, fair O2 sats on room air. We will continue diuretics, more tight fluid restriction, lab and vital monitor 11/15 Patient report his breathing is better. Patient's BNP is down to the 1100 from 1400. Patient's puffy Is reduced Special upper extremities. We will continue diuretics, continue fluids restriction, Daily weight, Cardiac low- sodium diet. ECHO is pending Patient present dyspnea, anasarca, Testicle swelling/edema, bilateral lower extremity edema, elevated BNP over 1400, and orthopnea. ER already started with intravenous Lasix, we will continue. We will check echo, We will daily weight, And fluid restriction. Cardiac low sodium diet (2) Pulmonary emboli Conclusion/Plan: 106, We will continue Xarelto. Patient has a history of DVT but patient is medical noncompliance, he report he did not take any medication over half year. CTA of the chest show small right pulmonary artery emboli. We will also recheck lower extremity DVT. We will resume patient home Xarelto twice daily For PE. (3) Pneumonia Conclusion/Plan: 11-16 improved, cough is reduced, No tachypnea. Patient has stable oxygen saturation on room air. Continue antibiotics 11-15, Improved, patient has no more tachypnea, patient had a 97% oxygen saturation on room air,We will continue antibiotics, add probiotics Patient present dyspnea, cough,Tachypnea. CTA of the chest show bilaterally bronchitis and right lower lobe pneumonia. But the patient has no fever or chill. Patient COVID-19 test is negative. He was COVID-19 positive in September. We will start antibiotics for patient, Likely patient has community-acquired pneumonia. (4) Anasarca Conclusion/Plan: 106, improved and the reduced, Continue diuretics, intravenous Lasix twice daily. Patient present anasarca, patient has upper and lower extremity edema and testicle swelling/edema. It Is likely caused by patient CHF exacerbation And patient medical noncompliance. 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 EKG does not show acute ischemic change. Patient denies chest pain. It is likely from demanded ischemic and patient's CHF exacerbation. We will add a stable manager patient, we will check echo (7) Medical non-compliance Conclusion/Plan: Patient has a history of DVT but he report he did not take any medication over half year. Now patient has PE again. Strongly advised patient do medical compliant - Current Meds Current Meds: Current Medications Generic Name Dose Route Start Last Admin Trade Name Freq PRN Reason Stop Dose Admin Furosemide 40 mg 11/14/20 14:00 11/16/20 05:47 Furosemide 40 Mg/4 Ml Vial IVP 40 mg BIDDIURETIC ADELINA Administration Ceftriaxone Sodium 2 gm/ 100 mls @ 200 mls/hr 11/14/20 11:00 11/16/20 09:25 Sodium Chloride IV Infused DAILY ADELINA Infusion Nystatin 1 applic 11/14/20 14:00 11/16/20 08:51 Nystatin Powder 15 Gm TOP 1 applic BID ADELINA Administration Rivaroxaban 15 mg 11/14/20 17:00 11/16/20 08:51 Rivaroxaban 15 Mg Tablet PO 15 mg BIDWM ADELINA Administration Saccharomyces Boulardii 250 mg 11/15/20 10:40 11/16/20 08:51 Saccharomyces Boulardii 250 Mg Capsule PO 250 mg BIDWM ADELINA Administration Sodium Chloride 10 ml 11/14/20 10:04 11/14/20 13:56 Sodium Chloride Flush 0.9% 10 Ml Syringe IVP 10 ml PRN PRN Administration NEEDED PER PROVIDER ORDERS Sodium Chloride 10 ml 11/14/20 17:00 11/16/20 08:52 Sodium Chloride Flush 0.9% 10 Ml Syringe IVP 10 ml 0100,0900,1700 ADELINA Administration - Lab Result Fish Bone Diagrams: 11/16/20 05:42 11/16/20 05:42 - Additional Planning My Orders: My Active Orders 11/15/20 10:40 Saccharomyces Boulardii [Florastor] 250 mg PO BIDWM 11/16/20 08:54 Fluid Restriction [RC] ONCE 11/16/20 09:08 Testicle w/Doppler [US] Stat 11/17/20 05:00 BMP - BASIC METABOLIC PANEL [CHEM] DAILYLAB BNP - B-NATRIURETIC PEPTIDE [IAI] DAILYLAB CBC - COMP BLD CT W/AUTO DIFF [HEME] DAILYLAB 11/18/20 05:00 BMP - BASIC METABOLIC PANEL [CHEM] DAILYLAB BNP - B-NATRIURETIC PEPTIDE [IAI] DAILYLAB CBC - COMP BLD CT W/AUTO DIFF [HEME] DAILYLAB 11/19/20 05:00 BMP - BASIC METABOLIC PANEL [CHEM] DAILYLAB BNP - B-NATRIURETIC PEPTIDE [IAI] DAILYLAB CBC - COMP BLD CT W/AUTO DIFF [HEME] DAILYLAB Subjective - Subjective Patient Reports: Feeling Better Objective Vital Signs: Vital Signs - 24 hr 11/15/20 11/15/20 11/15/20 11:45 12:12 12:39 Temperature 36.3 C L 36.6 C Heart Rate [ 94 Activity] Heart Rate [ 93 89 Brachial] Heart Rate [ 79 Monitoring electrodes] Heart Rate [ 91 Supine] Respiratory 20 22 Rate Blood Pressure 132/88 H [Activity] Blood Pressure 112/93 H 143/86 H [Right Brachial artery] Blood Pressure 112/75 [Supine] O2 Saturation 96 96 11/15/20 11/15/20 11/15/20 15:25 19:44 23:40 Temperature 36.7 C 36.7 C 36.8 C Heart Rate [ Activity] Heart Rate [ 70 74 95 Brachial] Heart Rate [ 87 Monitoring electrodes] Heart Rate [ Supine] Respiratory 25 H 18 18 Rate Blood Pressure [Activity] Blood Pressure 126/97 H 125/88 H 112/73 [Right Brachial artery] Blood Pressure [Supine] O2 Saturation 96 96 92 11/16/20 11/16/20 05:00 08:28 Temperature 36.7 C 36.7 C Heart Rate [ Activity] Heart Rate [ 90 81 Brachial] Heart Rate [ Monitoring electrodes] Heart Rate [ Supine] Respiratory 20 20 Rate Blood Pressure [Activity] Blood Pressure 128/93 H 118/74 [Right Brachial artery] Blood Pressure [Supine] O2 Saturation 98 93 Oxygen O2 Source Room air I&O (Last 24 Hrs): Intake and Output Totals x24h 11/14/20 11/15/20 11/16/20 23:59 23:59 23:59 Intake Total 1060 1490 390 Output Total 6196 5370 1517 [facility] -[phone] General: Alert, Oriented x3, Cooperative, No acute distress HEENT: Atraumatic Neck: Supple Lymphatic: no adenopathy Neuro: Alert, Non Focal, Oriented Times 3 Cardiovascular: Regular rate, Normal S1, Normal S2 Respiratory: Chest non-tender, No respiratory distress Abdomen: Normal bowel sounds, Soft Extremities: Normal pulses - Results Results: Laboratory Results WBC 4.9 x10^3/uL (4.8-10.8) 11/16/20 05:42 RBC 3.94 10^6/uL (4.70-6.10) L 11/16/20 05:42 Hgb 12.3 g/dL (14.0-18.0) L 11/16/20 05:42 Hct 39.7 % (42.0-52.0) L 11/16/20 05:42 MCV 100.8 fL (80.0-94.0) H 11/16/20 05:42 MCH 31.2 pg (27.0-31.0) H 11/16/20 05:42 MCHC 31.0 g/dL (32.0-36.0) L 11/16/20 05:42 RDW 16.1 % (12.0-15.0) H 11/16/20 05:42 Plt Count 177 10^3/uL (130-450) 11/16/20 05:42 MPV 10.6 fL (7.4-11.4) 11/16/20 05:42 Neut # (Auto) 3.2 10^3/uL (1.5-6.6) 11/16/20 05:42 Lymph # (Auto) 1.0 10^3/uL (1.5-3.5) L 11/16/20 05:42 Hand # (Auto) 0.3 10^3/uL (0.0-1.0) 11/16/20 05:42 Eos # (Auto) 0.3 10^3/uL (0.0-0.7) 11/16/20 05:42 Baso # (Auto) 0.0 10^3/uL (0.0-0.1) 11/16/20 05:42 Absolute Nucleated RBC 0.00 x10^3/uL 11/16/20 05:42 Nucleated RBC % 0.0 /100WBC 11/16/20 05:42 Sodium 142 mmol/L (135-145) 11/16/20 05:42 Potassium 3.8 mmol/L (3.5-5.0) 11/16/20 05:42 Chloride 100 mmol/L (101-111) L 11/16/20 05:42 Carbon Dioxide 31 mmol/L (21-32) 11/16/20 05:42 Anion Gap 11.0 (6-13) 11/16/20 05:42 BUN 24 mg/dL (6-20) H 11/16/20 05:42 Creatinine 1.1 mg/dL (0.6-1.2) 11/16/20 05:42 Estimated GFR (MDRD) 66 (>89) L 11/16/20 05:42 Glucose 98 mg/dL (70-100) 11/16/20 05:42 Calcium 8.9 mg/dL (8.5-10.3) 11/16/20 05:42 Magnesium 2.0 mg/dL (1.7-2.8) 11/14/20 06:45 Total Bilirubin 0.9 mg/dL (0.2-1.0) 11/14/20 06:45 AST 67 IU/L (10-42) H 11/14/20 06:45 ALT 54 IU/L (10-60) 11/14/20 06:45 Alkaline Phosphatase 44 IU/L (42-121) 11/14/20 06:45 Troponin I High Sens 139.5 ng/L (2.3-19.7) H* 11/14/20 08:57 B-Natriuretic Peptide 1189 pg/mL (5-100) H 11/16/20 05:42 Total Protein 6.5 g/dL (6.7-8.2) L 11/14/20 06:45 Albumin 3.8 g/dL (3.2-5.5) 11/14/20 06:45 Globulin 2.7 g/dL (2.1-4.2) 11/14/20 06:45 Albumin/Globulin Ratio 1.4 (1.0-2.2) 11/14/20 06:45 Lipase 24 U/L (22-51) 11/14/20 06:45 Urine Color YELLOW 11/14/20 07:33 Urine Clarity CLEAR (CLEAR) 11/14/20 07:33 Urine pH 6.5 PH (5.0-7.5) 11/14/20 07:33 Ur Specific [place] 1.015 (1.002-1.030) 11/14/20 07:33 Urine Protein NEGATIVE mg/dL (NEGATIVE) 11/14/20 07:33 Urine Glucose (UA) NEGATIVE mg/dL (NEGATIVE) 11/14/20 07:33 Urine Ketones NEGATIVE mg/dL (NEGATIVE) 11/14/20 07:33 Urine Occult Blood TRACE-INTA (NEGATIVE) 11/14/20 07:33 Urine Nitrite NEGATIVE (NEGATIVE) 11/14/20 07:33 Urine Bilirubin NEGATIVE (NEGATIVE) 11/14/20 07:33 Urine Urobilinogen 0.2 (NORMAL) E.U./dL (NORMAL) 11/14/20 07:33 Ur Leukocyte Esterase NEGATIVE (NEGATIVE) 11/14/20 07:33 Ur Microscopic Review NOT INDICATED 11/14/20 07:33 Urine Culture Comments NOT INDICATED 11/14/20 07:33 Nasal Adenovirus (PCR) NOT DETECTED 11/14/20 07:35 Nasal B. parapertussis DNA (PCR) NOT DETECTED 11/14/20 07:35 Nasal Coronavir 229E PCR NOT DETECTED 11/14/20 07:35 Nasal Coronavir HKU1 PCR NOT DETECTED 11/14/20 07:35 Nasal Coronavir NL63 PCR NOT DETECTED 11/14/20 07:35 Nasal Coronavir OC43 PCR NOT DETECTED 11/14/20 07:35 Nasal Enterovir/Rhinovir PCR NOT DETECTED 11/14/20 07:35 Nasal Influenza B PCR NOT DETECTED 11/14/20 07:35 Nasal Influenza A PCR NOT DETECTED 11/14/20 07:35 Nasal Parainfluen 1 PCR NOT DETECTED 11/14/20 07:35 Nasal Parainfluen 2 PCR NOT DETECTED 11/14/20 07:35 Nasal Parainfluen 3 PCR NOT DETECTED 11/14/20 07:35 Nasal Parainfluen 4 PCR NOT DETECTED 11/14/20 07:35 Nasal RSV (PCR) NOT DETECTED 11/14/20 07:35 Nasal B.pertussis DNA PCR NOT DETECTED 11/14/20 07:35 Nasal C.pneumoniae (PCR) NOT DETECTED 11/14/20 07:35 Ad Human Metapneumo PCR NOT DETECTED 11/14/20 07:35 Nasal M.pneumoniae (PCR) NOT DETECTED 11/14/20 07:35 Nasal SARS-CoV-2 (PCR) NOT DETECTED 11/14/20 07:35 Urine Opiates Screen NEGATIVE (NEGATIVE) 11/14/20 07:33 Ur Oxycodone Screen NEGATIVE (NEGATIVE) 11/14/20 07:33 Urine Methadone Screen NEGATIVE (NEGATIVE) 11/14/20 07:33 Ur Propoxyphene Screen NEGATIVE (NEGATIVE) 11/14/20 07:33 Ur Barbiturates Screen NEGATIVE (NEGATIVE) 11/14/20 07:33 Ur Tricyclics Screen NEGATIVE (NEGATIVE) 11/14/20 07:33 Ur Phencyclidine Scrn NEGATIVE (NEGATIVE) 11/14/20 07:33 Ur Amphetamine Screen NEGATIVE (NEGATIVE) 11/14/20 07:33 U Methamphetamines Scrn NEGATIVE (NEGATIVE) 11/14/20 07:33 U Benzodiazepines Scrn NEGATIVE (NEGATIVE) 11/14/20 07:33 Urine Cocaine Screen NEGATIVE (NEGATIVE) 11/14/20 07:33 U Cannabinoids Screen NEGATIVE (NEGATIVE) 11/14/20 07:33 Ethyl Alcohol < 5.0 mg/dL 11/14/20 06:45 ABX Reporting Has patient been on IV antibiotics over the past 48 hours?: Yes Current Medications - Current Medications Current Medications: Active Medications Acetaminophen (Acetaminophen 325 Mg Tablet) 650 mg PO Q4HR PRN PRN Reason: Pain 1 to 4 Furosemide (Furosemide 40 Mg/4 Ml Vial) 40 mg IVP BIDDIURETIC [facility] Last Admin: 11/16/20 05:47 Dose: 40 mg Documented by: Ceftriaxone Sodium 2 gm/ (Sodium Chloride) 100 mls @ 200 mls/hr IV DAILY [facility] Last Infusion: 11/16/20 09:25 Dose: Infused Documented by: Nystatin (Nystatin Powder 15 Gm) 1 applic TOP BID [facility] Last Admin: 11/16/20 08:51 Dose: 1 applic Documented by: Ondansetron HCl (Ondansetron 4 Mg/2 Ml Vial) 4 mg IVP Q6HR PRN PRN Reason: Nausea / Vomiting Rivaroxaban (Rivaroxaban 15 Mg Tablet) 15 mg PO BIDWM [facility] Last Admin: 11/16/20 08:51 Dose: 15 mg Documented by: Saccharomyces Boulardii (Saccharomyces Boulardii 250 Mg Capsule) 250 mg PO BIDWM [facility] Last Admin: 11/16/20 08:51 Dose: 250 mg Documented by: Sodium Chloride (Sodium Chloride Flush 0.9% 10 Ml Syringe) 10 ml IVP PRN PRN PRN Reason: NEEDED PER PROVIDER ORDERS Last Admin: 11/14/20 13:56 Dose: 10 ml Documented by: Sodium Chloride (Sodium Chloride Flush 0.9% 10 Ml Syringe) 10 ml IVP 0100,0900,1700 [facility] Last Admin: 11/16/20 08:52 Dose: 10 ml Documented by: No Known Home Medications 11/14/20
--- NOTE | 2020-11-16 14:37 | Ultrasound Report ---
PROCEDURE: Testicle w/Doppler INDICATIONS: swelling and pain TECHNIQUE: Real-time scanning was performed of the scrotum and testicles, with image documentation. Color and p ulse Doppler interrogation was performed of both testicles. COMPARISON: None. FINDINGS: Right: Testicle is normal in size at 4.5 x 2.1 x 2.7 cm, and homogenous in echotexture. Epididymis is normal in overall size and morphology. Large left hydrocele noted. No varicoceles. Overlying scr otal skin is thickened and edematous.. Left: Testicle is normal in size at 4.4 x 2.8 x 3.5 cm, and homogeneous in echotexture. Epididymis is normal in overall size and morphology. Large left hydrocele noted. No varicoceles. Overlying scr otal skin is thickened and edematous.. Doppler: Color and pulse Doppler demonstrate normal and symmetric arterial flow in both testicles. IMPRESSION: 1. No evidence of testicular torsion. Please note ultrasound cannot exclude intermittent testicular t orsion. 2. Large bilateral scrotal hydroceles. 3. Bilateral thickened and edematous scrotal skin. Findings suspicious for infectious cellulitis. Ple ase correlate with clinical findings. Reviewed by: Rosa Jennings MD, PhD on 11/16/2020 2:36 PM PDT Approved by: Rosa Jennings MD, PhD on 11/16/2020 2:36 PM PDT Station ID: [id number]
[2020-11-17] MEDS: FUROSEMIDE 40 MG/4 ML VIAL IVP SCH ×2 (05:58→14:22)
[2020-11-17] MEDS: SODIUM CHLORIDE FLUSH 0.9% 10 ML SYRINGE IVP SCH ×3 (05:58→16:59)
[2020-11-17 06:14] LABS: BASOPHILS % (AUTO) 0.4 %; EOSINOPHILS # (AUTO) 0.2 10^3/uL (0.0-0.7); EOSINOPHILS % (AUTO) 3.7 %; HGB - HEMOGLOBIN 11.8 g/dL (14.0-18.0); LYMPHOCYTES # (AUTO) 0.9 10^3/uL (1.5-3.5); LYMPHOCYTES % (AUTO) 17.3 %; MEAN CORPUSCULAR HEMOGLOBIN 31.8 pg (27.0-31.0); MEAN CORPUSCULAR HGB CONC 31.9 g/dL (32.0-36.0); MEAN CORPUSCULAR VOLUME 99.7 fL (80.0-94.0); MONOCYTES # (AUTO) 0.4 10^3/uL (0.0-1.0); MONOCYTES % (AUTO) 7.6 %; NEUTROPHILS # (AUTO) 3.6 10^3/uL (1.5-6.6); NEUTROPHILS % (AUTO) 70.8 %; PLT - PLATELET COUNT 165 10^3/uL (130-450); RED BLOOD COUNT 3.71 10^6/uL (4.70-6.10); RED CELL DISTRIBUTION WIDTH 15.9 % (12.0-15.0); WHITE BLOOD COUNT 5.1 x10^3/uL (4.8-10.8)
[2020-11-17 06:21] LABS: CALCIUM 8.9 mg/dL (8.5-10.3); MAGNESIUM 1.4 mg/dL (1.7-2.8); POTASSIUM 3.7 mmol/L (3.5-5.0)
[2020-11-17] MEDS ORDERED: MAGNESIUM SULFATE 2 GRAM 2 GM/50 ML BAG IV ONE (07:24)
[2020-11-17] MEDS: cefTRIAXone 2 GM in SODIUM CHLORIDE 0.9% MINIBAG 100 ML IV SCH (09:13)
[2020-11-17] MEDS: RIVAROXABAN 15 MG TABLET PO SCH ×2 (09:20→16:58)
[2020-11-17] MEDS: SACCHAROMYCES BOULARDII 250 MG CAPSULE PO SCH ×2 (09:20→16:58)
--- NOTE | 2020-11-17 11:20 | PROVIDER PROGRESS NOTE ---
Assessment/Plan - Problem List (1) CHF exacerbation Assessment/Plan: 11/17 Swelling in the testicle area is improved, BNP is slight improved. continue Fluid restriction, Lasix, lab and vital monitor pt. ECHO show pt had 50-55% EF. 11/16 Patient's testicle is still very swelling, we will order US to r/o ma lignancy or fluid collection. BNP is slight elevated but pt still has no respiratory distress, fair O2 sats on room air. We will continue diuretics, more tight fluid restriction, lab and vital monitor 11/15 Patient report his breathing is better. Patient's BNP is down to the 1100 from 1400. Patient's puffy Is reduced Special upper extremities. We will continue diuretics, continue fluids restriction, Daily weight, Cardiac low- sodium diet. ECHO is pending Patient present dyspnea, anasarca, Testicle swelling/edema, bilateral lower extremity edema, elevated BNP over 1400, and orthopnea. ER already started with intravenous Lasix, we will continue. We will check echo, We will daily weight, And fluid restriction. Cardiac low sodium diet (2) Pulmonary emboli Conclusion/Plan: 11-17 stable respiratory status, continue continue Xarelto. 106, We will continue Xarelto. Patient has a history of DVT but patient is medical noncompliance, he report he did not take any medication over half year. CTA of the chest show small right pulmonary artery emboli. We will also recheck lower extremity DVT. We will resume patient home Xarelto twice daily For PE. (3) Pneumonia Conclusion/Plan: 11-16 improved, cough is reduced, No tachypnea. Patient has stable oxygen saturation on room air. Continue antibiotics 11-15, Improved, patient has no more tachypnea, patient had a 97% oxygen saturation on room air,We will continue antibiotics, add probiotics Patient present dyspnea, cough,Tachypnea. CTA of the chest show bilaterally bronchitis and right lower lobe pneumonia. But the patient has no fever or chill. Patient COVID-19 test is negative. He was COVID-19 positive in September. We will start antibiotics for patient, Likely patient has community-acquired pneumonia. (4) Anasarca Conclusion/Plan: 106, improved and the reduced, Continue diuretics, intravenous Lasix twice daily. Patient present anasarca, patient has upper and lower extremity edema and testicle swelling/edema. It Is likely caused by patient CHF exacerbation And patient medical noncompliance. 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 EKG does not show acute ischemic change. Patient denies chest pain. It is likely from demanded ischemic and patient's CHF exacerbation. 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 Now patient has PE again. Strongly advised patient do medical compliant - Current Meds Current Meds: Current Medications Generic Name Dose Route Start Last Admin Trade Name Freq PRN Reason Stop Dose Admin Furosemide 40 mg 11/14/20 14:00 11/17/20 05:58 Furosemide 40 Mg/4 Ml Vial IVP 40 mg BIDDIURETIC ADELINA Administration Ceftriaxone Sodium 2 gm/ 100 mls @ 200 mls/hr 11/14/20 11:00 11/17/20 09:13 Sodium Chloride IV 200 mls/hr DAILY ADELINA Administration Nystatin 1 applic 11/14/20 14:00 11/16/20 20:02 Nystatin Powder 15 Gm TOP 1 applic BID ADELINA Administration Rivaroxaban 15 mg 11/14/20 17:00 11/17/20 09:20 Rivaroxaban 15 Mg Tablet PO 15 mg BIDWM ADELINA Administration Saccharomyces Boulardii 250 mg 11/15/20 10:40 11/17/20 09:20 Saccharomyces Boulardii 250 Mg Capsule PO 250 mg BIDWM ADELINA Administration Sodium Chloride 10 ml 11/14/20 10:04 11/14/20 13:56 Sodium Chloride Flush 0.9% 10 Ml Syringe IVP 10 ml PRN PRN Administration NEEDED PER PROVIDER ORDERS Sodium Chloride 10 ml 11/14/20 17:00 11/17/20 09:20 Sodium Chloride Flush 0.9% 10 Ml Syringe IVP 10 ml 0100,0900,1700 ADELINA Administration - Lab Result Fish Bone Diagrams: 11/17/20 06:00 11/17/20 06:00 - Additional Planning My Orders: My Active Orders 11/18/20 05:00 BMP - BASIC METABOLIC PANEL [CHEM] DAILYLAB BNP - B-NATRIURETIC PEPTIDE [IAI] DAILYLAB CBC - COMP BLD CT W/AUTO DIFF [HEME] DAILYLAB MAGNESIUM [CHEM] DAILYLAB PHOSPHORUS [CHEM] DAILYLAB 11/18/20 08:00 Magnesium Oxide [Mag Ox] 400 mg PO DAILYWM 11/19/20 05:00 BMP - BASIC METABOLIC PANEL [CHEM] DAILYLAB BNP - B-NATRIURETIC PEPTIDE [IAI] DAILYLAB CBC - COMP BLD CT W/AUTO DIFF [HEME] DAILYLAB MAGNESIUM [CHEM] DAILYLAB PHOSPHORUS [CHEM] DAILYLAB 11/20/20 05:00 MAGNESIUM [CHEM] DAILYLAB PHOSPHORUS [CHEM] DAILYLAB Subjective - Subjective Patient Reports: Feeling Better, Resting Comfortably Objective Vital Signs: Vital Signs - 24 hr 11/16/20 11/16/20 11/16/20 11:46 16:26 20:09 Temperature 36.4 C L 36.6 C 36.8 C Heart Rate [ 80 86 81 Brachial] Respiratory 20 16 24 Rate Blood Pressure 108/83 H 130/86 H 122/83 H [Right Brachial artery] O2 Saturation 99 100 97 11/17/20 11/17/20 11/17/20 00:03 05:40 09:00 Temperature 36.7 C 36.9 C Heart Rate [ 88 90 83 Brachial] Respiratory 20 20 18 Rate Blood Pressure 101/70 122/82 H 102/70 [Right Brachial artery] O2 Saturation 92 95 96 Oxygen O2 Source Room air I&O (Last 24 Hrs): Intake and Output Totals x24h 11/15/20 11/16/20 11/17/20 23:59 23:59 23:59 Intake Total 1490 1160 500 Output Total 4100 9425 1225 Balance -6160 -2465 -725 General: Alert, Oriented x3, Cooperative, No acute distress HEENT: Atraumatic, EOMI Neck: No thyromegaly Neuro: Alert, Non Focal, Oriented Times 3 Cardiovascular: Regular rate, Normal S1 Respiratory: Chest non-tender, No respiratory distress Abdomen: Normal bowel sounds, Soft Genitourinary: Hydrocele, Other (reduced swelling at testical area. there is no erythema, tenderness or pain reported by pt.) Extremities: Normal pulses - Results Results: Laboratory Results WBC 5.1 x10^3/uL (4.8-10.8) 11/17/20 06:00 RBC 3.71 10^6/uL (4.70-6.10) L 11/17/20 06:00 Hgb 11.8 g/dL (14.0-18.0) L 11/17/20 06:00 Hct 37.0 % (42.0-52.0) L 11/17/20 06:00 MCV 99.7 fL (80.0-94.0) H 11/17/20 06:00 MCH 31.8 pg (27.0-31.0) H 11/17/20 06:00 MCHC 31.9 g/dL (32.0-36.0) L 11/17/20 06:00 RDW 15.9 % (12.0-15.0) H 11/17/20 06:00 Plt Count 165 10^3/uL (130-450) 11/17/20 06:00 MPV 11.0 fL (7.4-11.4) 11/17/20 06:00 Neut # (Auto) 3.6 10^3/uL (1.5-6.6) 11/17/20 06:00 Lymph # (Auto) 0.9 10^3/uL (1.5-3.5) L 11/17/20 06:00 [place] # (Auto) 0.4 10^3/uL (0.0-1.0) 11/17/20 06:00 Eos # (Auto) 0.2 10^3/uL (0.0-0.7) 11/17/20 06:00 Baso # (Auto) 0.0 10^3/uL (0.0-0.1) 11/17/20 06:00 Absolute Nucleated RBC 0.00 x10^3/uL 11/17/20 06:00 Nucleated RBC % 0.0 /100WBC 11/17/20 06:00 Sodium 143 mmol/L (135-145) 11/17/20 06:00 Potassium 3.7 mmol/L (3.5-5.0) 11/17/20 06:00 Chloride 101 mmol/L (101-111) 11/17/20 06:00 Carbon Dioxide 31 mmol/L (21-32) 11/17/20 06:00 Anion Gap 11.0 (6-13) 11/17/20 06:00 BUN 23 mg/dL (6-20) H 11/17/20 06:00 Creatinine 1.0 mg/dL (0.6-1.2) 11/17/20 06:00 Estimated GFR (MDRD) 74 (>89) L 11/17/20 06:00 Glucose 89 mg/dL (70-100) 11/17/20 06:00 Calcium 8.9 mg/dL (8.5-10.3) 11/17/20 06:00 Phosphorus 4.0 mg/dL (2.5-4.6) 11/17/20 06:00 Magnesium 1.4 mg/dL (1.7-2.8) L 11/17/20 06:00 Total Bilirubin 0.9 mg/dL (0.2-1.0) 11/14/20 06:45 AST 67 IU/L (10-42) H 11/14/20 06:45 ALT 54 IU/L (10-60) 11/14/20 06:45 Alkaline Phosphatase 44 IU/L (42-121) 11/14/20 06:45 Troponin I High Sens 139.5 ng/L (2.3-19.7) H* 11/14/20 08:57 B-Natriuretic Peptide 1106 pg/mL (5-100) H 11/17/20 06:00 Total Protein 6.5 g/dL (6.7-8.2) L 11/14/20 06:45 Albumin 3.8 g/dL (3.2-5.5) 11/14/20 06:45 Globulin 2.7 g/dL (2.1-4.2) 11/14/20 06:45 Albumin/Globulin Ratio 1.4 (1.0-2.2) 11/14/20 06:45 Lipase 24 U/L (22-51) 11/14/20 06:45 Urine Color YELLOW 11/14/20 07:33 Urine Clarity CLEAR (CLEAR) 11/14/20 07:33 Urine pH 6.5 PH (5.0-7.5) 11/14/20 07:33 Ur Specific [place] 1.015 (1.002-1.030) 11/14/20 07:33 Urine Protein NEGATIVE mg/dL (NEGATIVE) 11/14/20 07:33 Urine Glucose (UA) NEGATIVE mg/dL (NEGATIVE) 11/14/20 07:33 Urine Ketones NEGATIVE mg/dL (NEGATIVE) 11/14/20 07:33 Urine Occult Blood TRACE-INTA (NEGATIVE) 11/14/20 07:33 Urine Nitrite NEGATIVE (NEGATIVE) 11/14/20 07:33 Urine Bilirubin NEGATIVE (NEGATIVE) 11/14/20 07:33 Urine Urobilinogen 0.2 (NORMAL) E.U./dL (NORMAL) 11/14/20 07:33 Ur Leukocyte Esterase NEGATIVE (NEGATIVE) 11/14/20 07:33 Ur Microscopic Review NOT INDICATED 11/14/20 07:33 Urine Culture Comments NOT INDICATED 11/14/20 07:33 Nasal Adenovirus (PCR) NOT DETECTED 11/14/20 07:35 Nasal B. parapertussis DNA (PCR) NOT DETECTED 11/14/20 07:35 Nasal Coronavir 229E PCR NOT DETECTED 11/14/20 07:35 Nasal Coronavir HKU1 PCR NOT DETECTED 11/14/20 07:35 Nasal Coronavir NL63 PCR NOT DETECTED 11/14/20 07:35 Nasal Coronavir OC43 PCR NOT DETECTED 11/14/20 07:35 Nasal Enterovir/Rhinovir PCR NOT DETECTED 11/14/20 07:35 Nasal Influenza B PCR NOT DETECTED 11/14/20 07:35 Nasal Influenza A PCR NOT DETECTED 11/14/20 07:35 Nasal Parainfluen 1 PCR NOT DETECTED 11/14/20 07:35 Nasal Parainfluen 2 PCR NOT DETECTED 11/14/20 07:35 Nasal Parainfluen 3 PCR NOT DETECTED 11/14/20 07:35 Nasal Parainfluen 4 PCR NOT DETECTED 11/14/20 07:35 Nasal RSV (PCR) NOT DETECTED 11/14/20 07:35 Nasal B.pertussis DNA PCR NOT DETECTED 11/14/20 07:35 Nasal C.pneumoniae (PCR) NOT DETECTED 11/14/20 07:35 Ad Human Metapneumo PCR NOT DETECTED 11/14/20 07:35 Nasal M.pneumoniae (PCR) NOT DETECTED 11/14/20 07:35 Nasal SARS-CoV-2 (PCR) NOT DETECTED 11/14/20 07:35 Urine Opiates Screen NEGATIVE (NEGATIVE) 11/14/20 07:33 Ur Oxycodone Screen NEGATIVE (NEGATIVE) 11/14/20 07:33 Urine Methadone Screen NEGATIVE (NEGATIVE) 11/14/20 07:33 Ur Propoxyphene Screen NEGATIVE (NEGATIVE) 11/14/20 07:33 Ur Barbiturates Screen NEGATIVE (NEGATIVE) 11/14/20 07:33 Ur Tricyclics Screen NEGATIVE (NEGATIVE) 11/14/20 07:33 Ur Phencyclidine Scrn NEGATIVE (NEGATIVE) 11/14/20 07:33 Ur Amphetamine Screen NEGATIVE (NEGATIVE) 11/14/20 07:33 U Methamphetamines Scrn NEGATIVE (NEGATIVE) 11/14/20 07:33 U Benzodiazepines Scrn NEGATIVE (NEGATIVE) 11/14/20 07:33 Urine Cocaine Screen NEGATIVE (NEGATIVE) 11/14/20 07:33 U Cannabinoids Screen NEGATIVE (NEGATIVE) 11/14/20 07:33 Ethyl Alcohol < 5.0 mg/dL 11/14/20 06:45 ABX Reporting Has patient been on IV antibiotics over the past 48 hours?: Yes Current Medications - Current Medications Current Medications: Active Medications Acetaminophen (Acetaminophen 325 Mg Tablet) 650 mg PO Q4HR PRN PRN Reason: Pain 1 to 4 Furosemide (Furosemide 40 Mg/4 Ml Vial) 40 mg IVP BIDDIURETIC [facility] Last Admin: 11/17/20 05:58 Dose: 40 mg Documented by: Ceftriaxone Sodium 2 gm/ (Sodium Chloride) 100 mls @ 200 mls/hr IV DAILY [facility] Last Admin: 11/17/20 09:13 Dose: 200 mls/hr Documented by: Magnesium Oxide (Magnesium Oxide 400 Mg Tablet) 400 mg PO DAILYWM [facility] Nystatin (Nystatin Powder 15 Gm) 1 applic TOP BID [facility] Last Admin: 11/16/20 20:02 Dose: 1 applic Documented by: Ondansetron HCl (Ondansetron 4 Mg/2 Ml Vial) 4 mg IVP Q6HR PRN PRN Reason: Nausea / Vomiting Rivaroxaban (Rivaroxaban 15 Mg Tablet) 15 mg PO BIDWM [facility] Last Admin: 11/17/20 09:20 Dose: 15 mg Documented by: Saccharomyces Boulardii (Saccharomyces Boulardii 250 Mg Capsule) 250 mg PO BIDWM [facility] Last Admin: 11/17/20 09:20 Dose: 250 mg Documented by: Sodium Chloride (Sodium Chloride Flush 0.9% 10 Ml Syringe) 10 ml IVP PRN PRN PRN Reason: NEEDED PER PROVIDER ORDERS Last Admin: 11/14/20 13:56 Dose: 10 ml Documented by: Sodium Chloride (Sodium Chloride Flush 0.9% 10 Ml Syringe) 10 ml IVP 0100,0900,1700 [facility] Last Admin: 11/17/20 09:20 Dose: 10 ml Documented by: No Known Home Medications 11/14/20
[2020-11-17] MEDS: NYSTATIN POWDER 15 GM TOP SCH ×2 (13:07→22:28)
[2020-11-17] MEDS: SODIUM CHLORIDE FLUSH 0.9% 10 ML SYRINGE IVP PRN (14:22)
[2020-11-18] MEDS: ACETAMINOPHEN 325 MG TABLET PO PRN (00:04)
[2020-11-18] MEDS: SODIUM CHLORIDE FLUSH 0.9% 10 ML SYRINGE IVP SCH ×3 (00:05→17:03)
[2020-11-18 05:49] LABS: BASOPHILS % (AUTO) 0.3 %; EOSINOPHILS # (AUTO) 0.2 10^3/uL (0.0-0.7); EOSINOPHILS % (AUTO) 2.8 %; HCT - HEMATOCRIT 38.2 % (42.0-52.0); HGB - HEMOGLOBIN 12.1 g/dL (14.0-18.0); LYMPHOCYTES # (AUTO) 0.9 10^3/uL (1.5-3.5); LYMPHOCYTES % (AUTO) 15.2 %; MEAN CORPUSCULAR HEMOGLOBIN 31.6 pg (27.0-31.0); MEAN CORPUSCULAR HGB CONC 31.7 g/dL (32.0-36.0); MEAN CORPUSCULAR VOLUME 99.7 fL (80.0-94.0); MONOCYTES # (AUTO) 0.5 10^3/uL (0.0-1.0); MONOCYTES % (AUTO) 8.4 %; NEUTROPHILS # (AUTO) 4.4 10^3/uL (1.5-6.6); NEUTROPHILS % (AUTO) 73.1 %; PLT - PLATELET COUNT 189 10^3/uL (130-450); RED BLOOD COUNT 3.83 10^6/uL (4.70-6.10); RED CELL DISTRIBUTION WIDTH 15.9 % (12.0-15.0); WHITE BLOOD COUNT 6.1 x10^3/uL (4.8-10.8)
[2020-11-18 06:12] LABS: CREATININE 0.8 mg/dL (0.6-1.2); MAGNESIUM 1.6 mg/dL (1.7-2.8); PHOSPHORUS 3.6 mg/dL (2.5-4.6); POTASSIUM 3.6 mmol/L (3.5-5.0)
[2020-11-18] MEDS: FUROSEMIDE 40 MG/4 ML VIAL IVP SCH ×2 (06:33→14:19)
[2020-11-18] MEDS ORDERED: MAGNESIUM OXIDE 400 MG TABLET PO ONE (08:00)
[2020-11-18] MEDS: MAGNESIUM OXIDE 400 MG TABLET PO SCH (08:43)
[2020-11-18] MEDS: RIVAROXABAN 15 MG TABLET PO SCH ×2 (08:43→17:03)
[2020-11-18] MEDS: SACCHAROMYCES BOULARDII 250 MG CAPSULE PO SCH ×2 (08:43→17:02)
[2020-11-18] MEDS: cefTRIAXone 2 GM in SODIUM CHLORIDE 0.9% MINIBAG 100 ML IV SCH (09:34)
[2020-11-18] MEDS: NYSTATIN POWDER 15 GM TOP SCH ×2 (09:40→21:04)
[2020-11-18] MEDS: SODIUM CHLORIDE FLUSH 0.9% 10 ML SYRINGE IVP PRN (10:59)
--- NOTE | 2020-11-18 11:55 | PROVIDER PROGRESS NOTE ---
Assessment/Plan - Problem List (1) CHF exacerbation Assessment/Plan: 11/18 Patient is hemodynamic stable, patient had a 96% oxygen saturation on room air Without respiratory distress. Swelling in the testicle area is reduced, Upper and lower extremity edema is reduced as well, BNP is trended down, Patient clinically is ready for discharge. Consult with social work For disposition planning, consulted with PT and OT, Patient is recommended to discharge to SNF. 11/17 Swelling in the testicle area is improved, BNP is slight improved. continue Fluid restriction, Lasix, lab and vital monitor pt. ECHO show pt had 50-55% EF. 11/16 Patient's testicle is still very swelling, we will order US to r/o maligna ncy or fluid collection. BNP is slight elevated but pt still has no respiratory distress, fair O2 sats on room air. We will continue diuretics, more tight fluid restriction, lab and vital monitor 11/15 Patient report his breathing is better. Patient's BNP is down to the 1100 from 1400. Patient's puffy Is reduced Special upper extremities. We will continue diuretics, continue fluids restriction, Daily weight, Cardiac low- sodium diet. ECHO is pending Patient present dyspnea, anasarca, Testicle swelling/edema, bilateral lower extremity edema, elevated BNP over 1400, and orthopnea. ER already started with intravenous Lasix, we will continue. We will check echo, We will daily weight, And fluid restriction. Cardiac low sodium diet (2) Pulmonary emboli Conclusion/Plan: 11-17 stable respiratory status, continue continue Xarelto. 106, We will continue Xarelto. Patient has a history of DVT but patient is medical noncompliance, he report he did not take any medication over half year. CTA of the chest show small right pulmonary artery emboli. We will also recheck lower extremity DVT. We will resume patient home Xarelto twice daily For PE. (3) Pneumonia Conclusion/Plan: 11-16 improved, cough is reduced, No tachypnea. Patient has stable oxygen saturation on room air. Continue antibiotics -, Improved, patient has no more tachypnea, patient had a 97% oxygen saturation on room air,We will continue antibiotics, add probiotics Patient present dyspnea, cough,Tachypnea. CTA of the chest show bilaterally br onchitis and right lower lobe pneumonia. But the patient has no fever or chill. Patient COVID-19 test is negative. He was COVID-19 positive in September. We will start antibiotics for patient, Likely patient has community-acquired pneumonia. (4) Anasarca Conclusion/Plan: 11/18 Significantly reduces edema of testicle, and upper and lower extremities, Continue diuretics Lasix. 106, improved and the reduced, Continue diuretics, intravenous Lasix twice daily. Patient present anasarca, patient has upper and lower extremity edema and testicle swelling/edema. It Is likely caused by patient CHF exacerbation And patient medical noncompliance. We will give patient diuretics Lasix intravenous, We will continue laboratory sampler, And vital signs monitor (5) HTN (hypertension) Conclusion/Plan: Patient has a history of hypertension, Now patient was give Lasix, We will continue vital signs monitor (6) Elevated troponin Conclusion/Plan: Patient had elevated troponin, repeat show trended down. EKG does not show acute ischemic change. Patient denies chest pain. It is likely from demanded ischemic and patient's CHF exacerbation. We will add a child care attendant patient, we will check echo (7) Medical non-compliance Conclusion/Plan: Patient has a history of DVT but he report he did not take any medication over half year. Now patient has PE again. Strongly advised patient do medical compliant - Current Meds Current Meds: Current Medications Generic Name Dose Route Start Last Admin Trade Name Scott PRN Reason Stop Dose Admin Acetaminophen 650 mg 11/14/20 10:04 11/18/20 00:04 Acetaminophen 325 Mg Tablet PO 650 mg Q4HR PRN Administration Pain 1 to 4 Furosemide 40 mg 11/14/20 14:00 11/18/20 06:33 Furosemide 40 Mg/4 Ml Vial IVP 40 mg BIDDIURETIC ADELINA Administration Magnesium Oxide 400 mg 11/18/20 08:00 11/18/20 08:43 Magnesium Oxide 400 Mg Tablet PO 400 mg DAILYWM ADELINA Administration Nystatin 1 applic 11/14/20 14:00 11/18/20 09:40 Nystatin Powder 15 Gm TOP 1 applic BID ADELINA Administration Rivaroxaban 15 mg 11/14/20 17:00 11/18/20 08:43 Rivaroxaban 15 Mg Tablet PO 15 mg BIDWM ADELINA Administration Saccharomyces Boulardii 250 mg 11/15/20 10:40 11/18/20 08:43 Saccharomyces Boulardii 250 Mg Capsule PO 250 mg BIDWM ADELINA Administration Sodium Chloride 10 ml 11/14/20 10:04 11/18/20 10:59 Sodium Chloride Flush 0.9% 10 Ml Syringe IVP 10 ml PRN PRN Administration NEEDED PER PROVIDER ORDERS Sodium Chloride 10 ml 11/14/20 17:00 11/18/20 08:45 Sodium Chloride Flush 0.9% 10 Ml Syringe IVP 10 ml 0100,0900,1700 ADELINA Administration - Lab Result Fish Bone Diagrams: 11/18/20 04:52 11/18/20 04:52 - Additional Planning My Orders: My Active Orders 11/18/20 08:00 Magnesium Oxide [Mag Ox] 400 mg PO DAILYWM 11/18/20 21:00 cefUROXime axetiL [Ceftin] 500 mg PO BID 11/19/20 05:00 BMP - BASIC METABOLIC PANEL [CHEM] DAILYLAB BNP - B-NATRIURETIC PEPTIDE [IAI] DAILYLAB CBC - COMP BLD CT W/AUTO DIFF [HEME] DAILYLAB MAGNESIUM [CHEM] DAILYLAB PHOSPHORUS [CHEM] DAILYLAB 11/20/20 05:00 MAGNESIUM [CHEM] DAILYLAB PHOSPHORUS [CHEM] DAILYLAB Subjective - Subjective Patient Reports: Feeling Better Objective Vital Signs: Vital Signs - 24 hr 11/17/20 11/17/20 11/17/20 13:00 15:47 19:39 Temperature 36.5 C 36.7 C 36.7 C Heart Rate [ 85 83 94 Brachial] Respiratory 18 18 16 Rate Blood Pressure [Left Brachial artery] Blood Pressure 123/78 117/79 128/90 H [Right Brachial artery] O2 Saturation 96 94 95 11/17/20 11/18/20 11/18/20 23:58 05:00 07:26 Temperature 36.5 C 36.6 C 36.4 C L Heart Rate [ 87 84 74 Brachial] Respiratory 22 18 18 Rate Blood Pressure 109/64 [Left Brachial artery] Blood Pressure 136/86 H 122/89 H [Right Brachial artery] O2 Saturation 98 92 96 Oxygen O2 Source Room air I&O (Last 24 Hrs): Intake and Output Totals x24h 11/16/20 11/17/20 11/18/20 23:59 23:59 23:59 Intake Total 1160 1110 350 Output Total 3730 9343 0985 [facility], [place] -2464 General: Alert, Oriented x3, Cooperative, No acute distress HEENT: Atraumatic Neck: Supple Lymphatic: no adenopathy Neuro: Alert, Non Focal, Oriented Times 3 Cardiovascular: Regular rate, Normal S1, Normal S2 Respiratory: Chest non-tender, No respiratory distress Abdomen: Normal bowel sounds, Soft Extremities: Normal pulses - Results Results: Laboratory Results WBC 6.1 x10^3/uL (4.8-10.8) 11/18/20 04:52 RBC 3.83 10^6/uL (4.70-6.10) L 11/18/20 04:52 Hgb 12.1 g/dL (14.0-18.0) L 11/18/20 04:52 Hct 38.2 % (42.0-52.0) L 11/18/20 04:52 MCV 99.7 fL (80.0-94.0) H 11/18/20 04:52 MCH 31.6 pg (27.0-31.0) H 11/18/20 04:52 MCHC 31.7 g/dL (32.0-36.0) L 11/18/20 04:52 RDW 15.9 % (12.0-15.0) H 11/18/20 04:52 Plt Count 189 10^3/uL (130-450) 11/18/20 04:52 MPV 11.0 fL (7.4-11.4) 11/18/20 04:52 Neut # (Auto) 4.4 10^3/uL (1.5-6.6) 11/18/20 04:52 Lymph # (Auto) 0.9 10^3/uL (1.5-3.5) L 11/18/20 04:52 Jay # (Auto) 0.5 10^3/uL (0.0-1.0) 11/18/20 04:52 Eos # (Auto) 0.2 10^3/uL (0.0-0.7) 11/18/20 04:52 Baso # (Auto) 0.0 10^3/uL (0.0-0.1) 11/18/20 04:52 Absolute Nucleated RBC 0.00 x10^3/uL 11/18/20 04:52 Nucleated RBC % 0.0 /100WBC 11/18/20 04:52 Sodium 142 mmol/L (135-145) 11/18/20 04:52 Potassium 3.6 mmol/L (3.5-5.0) 11/18/20 04:52 Chloride 99 mmol/L (101-111) L 11/18/20 04:52 Carbon Dioxide 33 mmol/L (21-32) H 11/18/20 04:52 Anion Gap 10.0 (6-13) 11/18/20 04:52 BUN 22 mg/dL (6-20) H 11/18/20 04:52 Creatinine 0.8 mg/dL (0.6-1.2) 11/18/20 04:52 Estimated GFR (MDRD) 96 (>89) 11/18/20 04:52 Glucose 102 mg/dL (70-100) H 11/18/20 04:52 Calcium 9.0 mg/dL (8.5-10.3) 11/18/20 04:52 Phosphorus 3.6 mg/dL (2.5-4.6) 11/18/20 04:52 Magnesium 1.6 mg/dL (1.7-2.8) L 11/18/20 04:52 Total Bilirubin 0.9 mg/dL (0.2-1.0) 11/14/20 06:45 AST 67 IU/L (10-42) H 11/14/20 06:45 ALT 54 IU/L (10-60) 11/14/20 06:45 Alkaline Phosphatase 44 IU/L (42-121) 11/14/20 06:45 Troponin I High Sens 139.5 ng/L (2.3-19.7) H* 11/14/20 08:57 B-Natriuretic Peptide 999 pg/mL (5-100) H 11/18/20 04:52 Total Protein 6.5 g/dL (6.7-8.2) L 11/14/20 06:45 Albumin 3.8 g/dL (3.2-5.5) 11/14/20 06:45 Globulin 2.7 g/dL (2.1-4.2) 11/14/20 06:45 Albumin/Globulin Ratio 1.4 (1.0-2.2) 11/14/20 06:45 Lipase 24 U/L (22-51) 11/14/20 06:45 Urine Color YELLOW 11/14/20 07:33 Urine Clarity CLEAR (CLEAR) 11/14/20 07:33 Urine pH 6.5 PH (5.0-7.5) 11/14/20 07:33 Ur Specific [place] 1.015 (1.002-1.030) 11/14/20 07:33 Urine Protein NEGATIVE mg/dL (NEGATIVE) 11/14/20 07:33 Urine Glucose (UA) NEGATIVE mg/dL (NEGATIVE) 11/14/20 07:33 Urine Ketones NEGATIVE mg/dL (NEGATIVE) 11/14/20 07:33 Urine Occult Blood TRACE-INTA (NEGATIVE) 11/14/20 07:33 Urine Nitrite NEGATIVE (NEGATIVE) 11/14/20 07:33 Urine Bilirubin NEGATIVE (NEGATIVE) 11/14/20 07:33 Urine Urobilinogen 0.2 (NORMAL) E.U./dL (NORMAL) 11/14/20 07:33 Ur Leukocyte Esterase NEGATIVE (NEGATIVE) 11/14/20 07:33 Ur Microscopic Review NOT INDICATED 11/14/20 07:33 Urine Culture Comments NOT INDICATED 11/14/20 07:33 Nasal Adenovirus (PCR) NOT DETECTED 11/14/20 07:35 Nasal B. parapertussis DNA (PCR) NOT DETECTED 11/14/20 07:35 Nasal Coronavir 229E PCR NOT DETECTED 11/14/20 07:35 Nasal Coronavir HKU1 PCR NOT DETECTED 11/14/20 07:35 Nasal Coronavir NL63 PCR NOT DETECTED 11/14/20 07:35 Nasal Coronavir OC43 PCR NOT DETECTED 11/14/20 07:35 Nasal Enterovir/Rhinovir PCR NOT DETECTED 11/14/20 07:35 Nasal Influenza B PCR NOT DETECTED 11/14/20 07:35 Nasal Influenza A PCR NOT DETECTED 11/14/20 07:35 Nasal Parainfluen 1 PCR NOT DETECTED 11/14/20 07:35 Nasal Parainfluen 2 PCR NOT DETECTED 11/14/20 07:35 Nasal Parainfluen 3 PCR NOT DETECTED 11/14/20 07:35 Nasal Parainfluen 4 PCR NOT DETECTED 11/14/20 07:35 Nasal RSV (PCR) NOT DETECTED 11/14/20 07:35 Nasal B.pertussis DNA PCR NOT DETECTED 11/14/20 07:35 Nasal C.pneumoniae (PCR) NOT DETECTED 11/14/20 07:35 Ad Human Metapneumo PCR NOT DETECTED 11/14/20 07:35 Nasal M.pneumoniae (PCR) NOT DETECTED 11/14/20 07:35 Nasal SARS-CoV-2 (PCR) NOT DETECTED 11/14/20 07:35 Urine Opiates Screen NEGATIVE (NEGATIVE) 11/14/20 07:33 Ur Oxycodone Screen NEGATIVE (NEGATIVE) 11/14/20 07:33 Urine Methadone Screen NEGATIVE (NEGATIVE) 11/14/20 07:33 Ur Propoxyphene Screen NEGATIVE (NEGATIVE) 11/14/20 07:33 Ur Barbiturates Screen NEGATIVE (NEGATIVE) 11/14/20 07:33 Ur Tricyclics Screen NEGATIVE (NEGATIVE) 11/14/20 07:33 Ur Phencyclidine Scrn NEGATIVE (NEGATIVE) 11/14/20 07:33 Ur Amphetamine Screen NEGATIVE (NEGATIVE) 11/14/20 07:33 U Methamphetamines Scrn NEGATIVE (NEGATIVE) 11/14/20 07:33 U Benzodiazepines Scrn NEGATIVE (NEGATIVE) 11/14/20 07:33 Urine Cocaine Screen NEGATIVE (NEGATIVE) 11/14/20 07:33 U Cannabinoids Screen NEGATIVE (NEGATIVE) 11/14/20 07:33 Ethyl Alcohol < 5.0 mg/dL 11/14/20 06:45 ABX Reporting Has patient been on IV antibiotics over the past 48 hours?: Yes Current Medications - Current Medications Current Medications: Active Medications Acetaminophen (Acetaminophen 325 Mg Tablet) 650 mg PO Q4HR PRN PRN Reason: Pain 1 to 4 Last Admin: 11/18/20 00:04 Dose: 650 mg Documented by: Cefuroxime Axetil (Cefuroxime Axetil 250 Mg Tablet) 500 mg PO BID ADELINA Furosemide (Furosemide 40 Mg/4 Ml Vial) 40 mg IVP BIDDIURETIC [facility] Last Admin: 11/18/20 06:33 Dose: 40 mg Documented by: Magnesium Oxide (Magnesium Oxide 400 Mg Tablet) 400 mg PO DAILYWM [facility] Last Admin: 11/18/20 08:43 Dose: 400 mg Documented by: Nystatin (Nystatin Powder 15 Gm) 1 applic TOP BID [facility] Last Admin: 11/18/20 09:40 Dose: 1 applic Documented by: Ondansetron HCl (Ondansetron 4 Mg/2 Ml Vial) 4 mg IVP Q6HR PRN PRN Reason: Nausea / Vomiting Rivaroxaban (Rivaroxaban 15 Mg Tablet) 15 mg PO BIDWM [facility] Last Admin: 11/18/20 08:43 Dose: 15 mg Documented by: Saccharomyces Boulardii (Saccharomyces Boulardii 250 Mg Capsule) 250 mg PO BIDWM [facility] Last Admin: 11/18/20 08:43 Dose: 250 mg Documented by: Sodium Chloride (Sodium Chloride Flush 0.9% 10 Ml Syringe) 10 ml IVP PRN PRN PRN Reason: NEEDED PER PROVIDER ORDERS Last Admin: 11/18/20 10:59 Dose: 10 ml Documented by: Sodium Chloride (Sodium Chloride Flush 0.9% 10 Ml Syringe) 10 ml IVP 0100,0900,1700 [facility] Last Admin: 11/18/20 08:45 Dose: 10 ml Documented by: No Known Home Medications 11/14/20
[2020-11-19] MEDS: SODIUM CHLORIDE FLUSH 0.9% 10 ML SYRINGE IVP SCH ×3 (00:11→17:10)
[2020-11-19 05:42] LABS: BASOPHILS % (AUTO) 0.3 %; EOSINOPHILS # (AUTO) 0.1 10^3/uL (0.0-0.7); EOSINOPHILS % (AUTO) 2.1 %; HCT - HEMATOCRIT 37.7 % (42.0-52.0); HGB - HEMOGLOBIN 12.1 g/dL (14.0-18.0); LYMPHOCYTES # (AUTO) 0.9 10^3/uL (1.5-3.5); LYMPHOCYTES % (AUTO) 14.7 %; MEAN CORPUSCULAR HEMOGLOBIN 31.8 pg (27.0-31.0); MEAN CORPUSCULAR HGB CONC 32.1 g/dL (32.0-36.0); MEAN PLATELET VOLUME 11.1 fL (7.4-11.4); MONOCYTES # (AUTO) 0.5 10^3/uL (0.0-1.0); MONOCYTES % (AUTO) 8.8 %; NEUTROPHILS # (AUTO) 4.3 10^3/uL (1.5-6.6); NEUTROPHILS % (AUTO) 73.9 %; PLT - PLATELET COUNT 169 10^3/uL (130-450); RED BLOOD COUNT 3.81 10^6/uL (4.70-6.10); RED CELL DISTRIBUTION WIDTH 15.9 % (12.0-15.0); WHITE BLOOD COUNT 5.8 x10^3/uL (4.8-10.8)
[2020-11-19] MEDS: FUROSEMIDE 40 MG/4 ML VIAL IVP SCH ×2 (05:47→13:40)
[2020-11-19 05:57] LABS: CALCIUM 8.7 mg/dL (8.5-10.3); CREATININE 0.8 mg/dL (0.6-1.2); MAGNESIUM 1.5 mg/dL (1.7-2.8); PHOSPHORUS 3.3 mg/dL (2.5-4.6); POTASSIUM 3.5 mmol/L (3.5-5.0)
[2020-11-19] MEDS ORDERED: POTASSIUM CHLORIDE 20 MEQ TABLET PO ONE (08:04)
[2020-11-19] MEDS: SACCHAROMYCES BOULARDII 250 MG CAPSULE PO SCH ×2 (08:57→17:10)
[2020-11-19] MEDS: MAGNESIUM OXIDE 400 MG TABLET PO SCH (08:57)
[2020-11-19] MEDS: RIVAROXABAN 15 MG TABLET PO SCH ×2 (08:57→17:10)
[2020-11-19] MEDS: NYSTATIN POWDER 15 GM TOP SCH ×2 (09:50→21:31)
--- NOTE | 2020-11-19 10:31 | PROVIDER PROGRESS NOTE ---
Assessment/Plan - Problem List (1) Acute on chronic heart failure with preserved ejection fraction (HFpEF) Assessment/Plan: Patient present dyspnea, anasarca, Testicle swelling/edema, bilateral lower extremity edema, elevated BNP over 1400, and orthopnea. TTE on 11/14 showed normal EF, LVH, no severe valvular dz, pt has unclear hx of CHF, but seemed non- compliant to medications in the past, -pt continue to respond well w/ lasix 40mg iv bid, but still significantly congested, although hypoxic, likely continue 2-3d then switch to po. (2) Pulmonary emboli Conclusion/Plan: Small PE vs artifact within right pulmonary on CTA on 11/14. regardless of CTA findings, pt also hx of DVT-noted on Chronic non-occlusive filling defects in right femoral and popliteal vein, similar to one in -continue Xarelto (3) Pneumonia Conclusion/Plan: Patient present dyspnea, cough,Tachypnea. CTA of the chest show bilaterally bronchitis and right lower lobe pneumonia. But the patient has no fever or chill. COVID-19 test is negative. He was COVID-19 positive in September. -pt is on cefuroxime, tolerating well, seems to have less respiratory sx, would continue 10-14d course. 4) HTN (hypertension) Conclusion/Plan: Patient has a history of hypertension, Now patient was give Lasix, We will con tinue vital signs monitor (5) Elevated troponin Conclusion/Plan: Patient had elevated troponin, repeat show trended down. EKG does not show acute ischemic change. Patient denies chest pain. It is likely from demanded ischemic and patient's CHF exacerbation. type 2MI (6) Medical non-compliance Conclusion/Plan: Patient has a history of DVT but he report he did not take any medication over half year. Now patient has PE again. Strongly advised patient do medical compliant - Current Meds Current Meds: Current Medications Generic Name Dose Route Start Last Admin Trade Name Freq PRN Reason Stop Dose Admin Acetaminophen 650 mg 11/14/20 10:04 11/18/20 00:04 Acetaminophen 325 Mg Tablet PO 650 mg Q4HR PRN Administration Pain 1 to 4 Cefuroxime Axetil 500 mg 11/18/20 21:00 11/19/20 08:57 Cefuroxime Axetil 250 Mg Tablet PO 500 mg BID ADELINA Administration Furosemide 40 mg 11/14/20 14:00 11/19/20 05:47 Furosemide 40 Mg/4 Ml Vial IVP 40 mg BIDDIURETIC ADELINA Administration Magnesium Oxide 400 mg 11/18/20 08:00 11/19/20 08:57 Magnesium Oxide 400 Mg Tablet PO 400 mg DAILYWM ADELINA Administration Nystatin 1 applic 11/14/20 14:00 11/19/20 09:50 Nystatin Powder 15 Gm TOP 1 applic BID ADELINA Administration Rivaroxaban 15 mg 11/14/20 17:00 11/19/20 08:57 Rivaroxaban 15 Mg Tablet PO 15 mg BIDWM ADELINA Administration Saccharomyces Boulardii 250 mg 11/15/20 10:40 11/19/20 08:57 Saccharomyces Boulardii 250 Mg Capsule PO 250 mg BIDWM ADELINA Administration Sodium Chloride 10 ml 11/14/20 10:04 11/18/20 10:59 Sodium Chloride Flush 0.9% 10 Ml Syringe IVP 10 ml PRN PRN Administration NEEDED PER PROVIDER ORDERS Sodium Chloride 10 ml 11/14/20 17:00 11/19/20 09:00 Sodium Chloride Flush 0.9% 10 Ml Syringe IVP 10 ml 0100,0900,1700 ADELINA Administration - Lab Result Fish Bone Diagrams: 11/19/20 04:21 11/19/20 04:21 Subjective - Subjective Patient Reports: Other (pt denies sob, chest pain, cough, had good response with lasix.) Objective Vital Signs: Vital Signs - 24 hr 11/18/20 11/18/20 11/18/20 12:43 16:02 20:14 Temperature 36.8 C 36.7 C 36.7 C Heart Rate [ 89 91 95 Brachial] Respiratory 20 18 18 Rate Blood Pressure [Left Brachial artery] Blood Pressure 159/73 H 137/79 H 118/78 [Right Brachial artery] O2 Saturation 96 94 87 L 11/19/20 11/19/20 11/19/20 00:31 05:00 07:36 Temperature 36.9 C 36.5 C 36.5 C Heart Rate [ 90 76 79 Brachial] Respiratory 16 16 18 Rate Blood Pressure 115/62 [Left Brachial artery] Blood Pressure 121/79 124/84 H [Right Brachial artery] O2 Saturation 94 94 97 Oxygen O2 Source Room air I&O (Last 24 Hrs): Intake and Output Totals x24h 11/17/20 11/18/20 11/19/20 23:59 23:59 23:59 Intake Total 1110 1160 490 Output Total 7311 8620 4346 [facility] 8 1164 General: Alert, Oriented x3, Cooperative, No acute distress HEENT: Atraumatic, PERRLA, EOMI Neck: Supple, No JVD, No thyromegaly, +2 carotid pulse wo bruit, No LAD Lymphatic: no adenopathy Neuro: Alert, CN 2-12 Grossly Intact, Oriented Times 3 Cardiovascular: Regular rate, Normal S1, Normal S2, No murmurs Respiratory: Chest non-tender, No respiratory distress, Breath sounds nml Abdomen: Normal bowel sounds, Soft, No tenderness, No hepatospenomegaly, No masses Genitourinary: Normal Inspection, No Mass, No Discharge, No Meatal Blood, No Hernia Rectal: Non-Tender Extremities: No clubbing, No cyanosis, Normal pulses, Other (2+ pitting edema bilaterally) Skin: No rashes, No breakdown, No significant lesion - Results Results: Laboratory Results WBC 5.8 x10^3/uL (4.8-10.8) 11/19/20 04:21 RBC 3.81 10^6/uL (4.70-6.10) L 11/19/20 04:21 Hgb 12.1 g/dL (14.0-18.0) L 11/19/20 04:21 Hct 37.7 % (42.0-52.0) L 11/19/20 04:21 MCV 99.0 fL (80.0-94.0) H 11/19/20 04:21 MCH 31.8 pg (27.0-31.0) H 11/19/20 04:21 MCHC 32.1 g/dL (32.0-36.0) 11/19/20 04:21 RDW 15.9 % (12.0-15.0) H 11/19/20 04:21 Plt Count 169 10^3/uL (130-450) 11/19/20 04:21 MPV 11.1 fL (7.4-11.4) 11/19/20 04:21 Neut # (Auto) 4.3 10^3/uL (1.5-6.6) 11/19/20 04:21 Lymph # (Auto) 0.9 10^3/uL (1.5-3.5) L 11/19/20 04:21 [place] # (Auto) 0.5 10^3/uL (0.0-1.0) 11/19/20 04:21 Eos # (Auto) 0.1 10^3/uL (0.0-0.7) 11/19/20 04:21 Baso # (Auto) 0.0 10^3/uL (0.0-0.1) 11/19/20 04:21 Absolute Nucleated RBC 0.00 x10^3/uL 11/19/20 04:21 Nucleated RBC % 0.0 /100WBC 11/19/20 04:21 Sodium 142 mmol/L (135-145) 11/19/20 04:21 Potassium 3.5 mmol/L (3.5-5.0) 11/19/20 04:21 Chloride 97 mmol/L (101-111) L 11/19/20 04:21 Carbon Dioxide 35 mmol/L (21-32) H 11/19/20 04:21 Anion Gap 10.0 (6-13) 11/19/20 04:21 BUN 24 mg/dL (6-20) H 11/19/20 04:21 Creatinine 0.8 mg/dL (0.6-1.2) 11/19/20 04:21 Estimated GFR (MDRD) 96 (>89) 11/19/20 04:21 Glucose 106 mg/dL (70-100) H 11/19/20 04:21 Calcium 8.7 mg/dL (8.5-10.3) 11/19/20 04:21 Phosphorus 3.3 mg/dL (2.5-4.6) 11/19/20 04:21 Magnesium 1.5 mg/dL (1.7-2.8) L 11/19/20 04:21 Total Bilirubin 0.9 mg/dL (0.2-1.0) 11/14/20 06:45 AST 67 IU/L (10-42) H 11/14/20 06:45 ALT 54 IU/L (10-60) 11/14/20 06:45 Alkaline Phosphatase 44 IU/L (42-121) 11/14/20 06:45 Troponin I High Sens 139.5 ng/L (2.3-19.7) H* 11/14/20 08:57 B-Natriuretic Peptide 988 pg/mL (5-100) H 11/19/20 04:21 Total Protein 6.5 g/dL (6.7-8.2) L 11/14/20 06:45 Albumin 3.8 g/dL (3.2-5.5) 11/14/20 06:45 Globulin 2.7 g/dL (2.1-4.2) 11/14/20 06:45 Albumin/Globulin Ratio 1.4 (1.0-2.2) 11/14/20 06:45 Lipase 24 U/L (22-51) 11/14/20 06:45 Urine Color YELLOW 11/14/20 07:33 Urine Clarity CLEAR (CLEAR) 11/14/20 07:33 Urine pH 6.5 PH (5.0-7.5) 11/14/20 07:33 Ur Specific [place] 1.015 (1.002-1.030) 11/14/20 07:33 Urine Protein NEGATIVE mg/dL (NEGATIVE) 11/14/20 07:33 Urine Glucose (UA) NEGATIVE mg/dL (NEGATIVE) 11/14/20 07:33 Urine Ketones NEGATIVE mg/dL (NEGATIVE) 11/14/20 07:33 Urine Occult Blood TRACE-INTA (NEGATIVE) 11/14/20 07:33 Urine Nitrite NEGATIVE (NEGATIVE) 11/14/20 07:33 Urine Bilirubin NEGATIVE (NEGATIVE) 11/14/20 07:33 Urine Urobilinogen 0.2 (NORMAL) E.U./dL (NORMAL) 11/14/20 07:33 Ur Leukocyte Esterase NEGATIVE (NEGATIVE) 11/14/20 07:33 Ur Microscopic Review NOT INDICATED 11/14/20 07:33 Urine Culture Comments NOT INDICATED 11/14/20 07:33 Nasal Adenovirus (PCR) NOT DETECTED 11/14/20 07:35 Nasal B. parapertussis DNA (PCR) NOT DETECTED 11/14/20 07:35 Nasal Coronavir 229E PCR NOT DETECTED 11/14/20 07:35 Nasal Coronavir HKU1 PCR NOT DETECTED 11/14/20 07:35 Nasal Coronavir NL63 PCR NOT DETECTED 11/14/20 07:35 Nasal Coronavir OC43 PCR NOT DETECTED 11/14/20 07:35 Nasal Enterovir/Rhinovir PCR NOT DETECTED 11/14/20 07:35 Nasal Influenza B PCR NOT DETECTED 11/14/20 07:35 Nasal Influenza A PCR NOT DETECTED 11/14/20 07:35 Nasal Parainfluen 1 PCR NOT DETECTED 11/14/20 07:35 Nasal Parainfluen 2 PCR NOT DETECTED 11/14/20 07:35 Nasal Parainfluen 3 PCR NOT DETECTED 11/14/20 07:35 Nasal Parainfluen 4 PCR NOT DETECTED 11/14/20 07:35 Nasal RSV (PCR) NOT DETECTED 11/14/20 07:35 Nasal B.pertussis DNA PCR NOT DETECTED 11/14/20 07:35 Nasal C.pneumoniae (PCR) NOT DETECTED 11/14/20 07:35 Ad Human Metapneumo PCR NOT DETECTED 11/14/20 07:35 Nasal M.pneumoniae (PCR) NOT DETECTED 11/14/20 07:35 Nasal SARS-CoV-2 (PCR) NOT DETECTED 11/14/20 07:35 Urine Opiates Screen NEGATIVE (NEGATIVE) 11/14/20 07:33 Ur Oxycodone Screen NEGATIVE (NEGATIVE) 11/14/20 07:33 Urine Methadone Screen NEGATIVE (NEGATIVE) 11/14/20 07:33 Ur Propoxyphene Screen NEGATIVE (NEGATIVE) 11/14/20 07:33 Ur Barbiturates Screen NEGATIVE (NEGATIVE) 11/14/20 07:33 Ur Tricyclics Screen NEGATIVE (NEGATIVE) 11/14/20 07:33 Ur Phencyclidine Scrn NEGATIVE (NEGATIVE) 11/14/20 07:33 Ur Amphetamine Screen NEGATIVE (NEGATIVE) 11/14/20 07:33 U Methamphetamines Scrn NEGATIVE (NEGATIVE) 11/14/20 07:33 U Benzodiazepines Scrn NEGATIVE (NEGATIVE) 11/14/20 07:33 Urine Cocaine Screen NEGATIVE (NEGATIVE) 11/14/20 07:33 U Cannabinoids Screen NEGATIVE (NEGATIVE) 11/14/20 07:33 Ethyl Alcohol < 5.0 mg/dL 11/14/20 06:45
[2020-11-19] MEDS: ACETAMINOPHEN 325 MG TABLET PO PRN (13:06)
[2020-11-19] MEDS: SODIUM CHLORIDE FLUSH 0.9% 10 ML SYRINGE IVP PRN (13:40)
[2020-11-20] MEDS: SODIUM CHLORIDE FLUSH 0.9% 10 ML SYRINGE IVP SCH ×3 (02:31→17:08)
[2020-11-20 04:55] LABS: MAGNESIUM 1.5 mg/dL (1.7-2.8); PHOSPHORUS 2.8 mg/dL (2.5-4.6)
[2020-11-20] MEDS: FUROSEMIDE 40 MG/4 ML VIAL IVP SCH ×2 (06:25→13:46)
--- NOTE | 2020-11-20 08:31 | PROVIDER PROGRESS NOTE ---
Subjective - Prog Note Date Prog Note Date: 11/20/20 Prog Note Time: 08:31 - Subjective Pt reports feeling: Improved Subjective: You he is homeless. Spends his days walking with a wheelchair in front of him and using it is balance. At night he [facility] to a pen[facility]iary and sleeps on a mat on the floor. He says that about 5 weeks ago he did not have enough strength to start pushing the wheelchair anymore so he sat in the wheelchair and that is how he got around. He was just so short of breath, fatigued and weak. With admission here he has been treated as heart failure. Echocardiogram November 17 has preserved ejection fraction of 55 to 60%. Right ventricle normal in size and function. No significantly found valvular heart disease. Severe left atrial enlargement. Severe right atrial enlargement. RVSP is normal at 34 mmHg. Overall he has had good diuresis. He started 132.6 kg. That was later corrected 215.5 kg. Today he is 107.5 kg. As of midnight last night, he is down 11,985 cc. He denies chest pain, palpitations. Shortness of breath at rest is improved tremendously. Says that he still short of breath when he tries to walk to the bathroom. It still taking 3 people to get him out of bed into a chair. Still not able to stand up and walk with a walker very far. He is oxygenating well on room air and is anywhere between 94 to 98%. Current Medications - Current Medications Current Medications: Active Medications Acetaminophen (Acetaminophen 325 Mg Tablet) 650 mg PO Q4HR PRN PRN Reason: Pain 1 to 4 Last Admin: 11/19/20 13:06 Dose: 650 mg Documented by: Cefuroxime Axetil (Cefuroxime Axetil 250 Mg Tablet) 500 mg PO BID [facility] Last Admin: 11/19/20 21:30 Dose: 500 mg Documented by: Furosemide (Furosemide 40 Mg/4 Ml Vial) 40 mg IVP BIDDIURETIC [facility] Last Admin: 11/20/20 06:25 Dose: 40 mg Documented by: Magnesium Oxide (Magnesium Oxide 400 Mg Tablet) 400 mg PO DAILYWM [facility] Last Admin: 11/19/20 08:57 Dose: 400 mg Documented by: Nystatin (Nystatin Powder 15 Gm) 1 applic TOP BID [facility] Last Admin: 11/19/20 21:31 Dose: 1 applic Documented by: Ondansetron HCl (Ondansetron 4 Mg/2 Ml Vial) 4 mg IVP Q6HR PRN PRN Reason: Nausea / Vomiting Rivaroxaban (Rivaroxaban 15 Mg Tablet) 15 mg PO BIDWM [facility] Last Admin: 11/19/20 17:10 Dose: 15 mg Documented by: Saccharomyces Boulardii (Saccharomyces Boulardii 250 Mg Capsule) 250 mg PO BIDWM [facility] Last Admin: 11/19/20 17:10 Dose: 250 mg Documented by: Sodium Chloride (Sodium Chloride Flush 0.9% 10 Ml Syringe) 10 ml IVP PRN PRN PRN Reason: NEEDED PER PROVIDER ORDERS Last Admin: 11/19/20 13:40 Dose: 10 ml Documented by: Sodium Chloride (Sodium Chloride Flush 0.9% 10 Ml Syringe) 10 ml IVP 0100,0900,1700 [facility] Last Admin: 11/20/20 02:31 Dose: 10 ml Documented by: No Known Home Medications 11/14/20 Objective - Vital Signs/Intake & Output Reviewed Vital Signs: Yes Vital Signs: Vital Signs x48h Temp Pulse Pulse Resp BP BP Pulse Ox 11/20/20 07:41 36.6 C 86 18 115/78 98 11/20/20 06:20 36.8 C 89 20 120/84 H 94 Intake & Output: Intake & Output 11/17/20 11/18/20 11/19/20 11/20/20 23:59 23:59 23:59 23:59 Intake Total 1110 1160 1270 75 Output Total 3129 5619 3050 1150 [facility] -2014 -3115 -1780 -1075 - Objective General Appearance: positive: No acute distress, Alert, Other (Elderly gentleman with long hair, valdez and mustache, earrings, quite a character, quite a raconteur.) Eyes Bilateral: positive: PERRL, EOMI ENT: positive: No signs of dehydration, Other (bad teeth) Neck: positive: No JVD, Lymphadenopathy (R), Lymphadenopathy (L). negative: Stiff neck Respiratory: positive: Chest non-tender. negative: Wheezes, Rales, Rhonchi Cardiovascular: positive: Regular rate & rhythm. negative: Systolic murmur, Gallop/S4, Friction rub Abdomen: positive: Non-tender, No organomegaly, Nml bowel sounds, No distention, Other (Bilateral scrotal edema. He cannot believe that his testicles are so "full of water". He suspicious of that diagnosis and ask if that is really true that that is what is going on and there) Skin: positive: Warm, Dry Extremities: positive: Full ROM, Pedal edema (right leg, tight and woody muscles. No redness or heat. left leg normal) Neurologic/Psychiatric: positive: Oriented x3, CN's nml (2-12). negative: Motor nml (genralized weakness and pain off right leg) - Lab Results Fish Bones: 11/19/20 04:21 11/19/20 04:21 Other Labs: Lab Results x24hrs 11/20/20 Range/Units 04:12 Phosphorus 2.8 (2.5-4.6) mg/dL Magnesium 1.5 L (1.7-2.8) mg/dL Assessment/Plan - Problem List (1) Acute on chronic heart failure with preserved ejection fraction (HFpEF) Impression: Patient present dyspnea, anasarca, Testicle swelling/edema, bilateral lower extremity edema, elevated BNP over 1400, and orthopnea. TTE on 11/14 showed normal EF, LVH, no severe valvular dz, pt has unclear hx of CHF, but seemed non- compliant to medications in the past, -pt continue to respond well w/ lasix 40mg iv bid, but still significantly congested,but no hypoxia today. Loss of weight and intake and output balance already noted. All in the good direction. We will change to p.o. Lasix tomorrow and see how he does. (2) Pulmonary emboli Conclusion/Plan: Small PE vs artifact within right pulmonary on CTA on 11/14. regardless of CTA findings, pt also hx of DVT-noted on Chronic non-occlusive filling defects in right femoral and popliteal vein, similar to one in -continue Xarelto w/o Change in management today (3) Pneumonia Conclusion/Plan: Patient present dyspnea, cough,Tachypnea. CTA of the chest show bilaterally bronchitis and right lower lobe pneumonia. But the patient has no fever or chill. COVID-19 test is negative. He was COVID-19 positive in September. -pt is on cefuroxime, tolerating well, seems to have less respiratory sx, Today is day 2 being completed,would continue 10-14d course. 4) HTN (hypertension) Conclusion/Plan: Patient has a history of hypertension, Blood pressure varies between 109 systolic and up to 120 systolic. Diastolic is 68 and up to 84.With preserved e jection fraction, JERALD inhibitor is not indicated. Currently responded to diuresis. No change in management. (5) Elevated troponin Conclusion/Plan: Patient had elevated troponin, repeat trended down. EKG does not show acute ischemic change. Patient denies chest pain. It is likely from demand ischemia and patient's CHF exacerbation. type 2MI (6) Medical non-compliance Conclusion/Plan: Patient has a history of DVT but he report he did not take any medication over half year. Now patient has PE again. Strongly advised patient To follow through with medical management. He states it will be a lot easier when he is no longer homeless. He is looking forward to going to rehab and getting stronger. He is resigned to the fact that he may have to go live in a penitentiary again. But his long-term plan for down the road is permanent care home facility placement. Social work is working with Medicaid to get all forms filled.
[2020-11-20] MEDS: SACCHAROMYCES BOULARDII 250 MG CAPSULE PO SCH ×2 (08:35→17:07)
[2020-11-20] MEDS: MAGNESIUM OXIDE 400 MG TABLET PO SCH (08:35)
[2020-11-20] MEDS: ACETAMINOPHEN 325 MG TABLET PO PRN (08:36)
[2020-11-20] MEDS: RIVAROXABAN 15 MG TABLET PO SCH ×2 (08:36→17:07)
[2020-11-20] MEDS: NYSTATIN POWDER 15 GM TOP SCH ×2 (08:37→20:33)
[2020-11-21] MEDS: SODIUM CHLORIDE FLUSH 0.9% 10 ML SYRINGE IVP SCH ×3 (02:36→18:04)
[2020-11-21] MEDS: FUROSEMIDE 40 MG/4 ML VIAL IVP SCH ×2 (05:25→13:46)
[2020-11-21] MEDS: RIVAROXABAN 15 MG TABLET PO SCH ×2 (08:58→18:04)
[2020-11-21] MEDS: SACCHAROMYCES BOULARDII 250 MG CAPSULE PO SCH ×2 (08:58→18:04)
[2020-11-21] MEDS: MAGNESIUM OXIDE 400 MG TABLET PO SCH ×2 (08:58→20:50)
[2020-11-21] MEDS: NYSTATIN POWDER 15 GM TOP SCH ×2 (08:59→20:50)
[2020-11-21] MEDS: MULTIVITAMIN W/MINERALS TABLET PO SCH (13:46)
--- NOTE | 2020-11-21 16:52 | PROVIDER PROGRESS NOTE ---
Subjective - Prog Note Date Prog Note Date: 11/21/20 Prog Note Time: 16:48 - Subjective Subjective: No new events from yesterday to today. Yesterday he was -2080 cc. Today's weight is down to 101 kg. He started at 132.6. Ambulating in the room but needs a two-person assist to do it. I counted to eight efforts of scooting himself to the edge of the bed once he sat up. Once he scooted himself to the edge of the bed he was tachypneic, and then needed to nurses with a lap belt to get him up to use the walker. Walk a few feet to the bathroom. Rather to the bedside commode. So while he is ambulating, it requires a lot of bit of supervision.. Eating 100% of his meals. Current Medications - Current Medications Current Medications: Active Medications Acetaminophen (Acetaminophen 325 Mg Tablet) 650 mg PO Q4HR PRN PRN Reason: Pain 1 to 4 Last Admin: 11/20/20 08:36 Dose: 650 mg Documented by: Cefuroxime Axetil (Cefuroxime Axetil 250 Mg Tablet) 500 mg PO BID [facility] Last Admin: 11/21/20 08:58 Dose: 500 mg Documented by: Furosemide (Furosemide 40 Mg/4 Ml Vial) 40 mg IVP BIDDIURETIC [facility] Last Admin: 11/21/20 13:46 Dose: 40 mg Documented by: Magnesium Oxide (Magnesium Oxide 400 Mg Tablet) 400 mg PO DAILYWM [facility] Last Admin: 11/21/20 08:58 Dose: 400 mg Documented by: Multivitamins/Minerals (Multivitamin W/Minerals Tablet) 1 tab PO DAILYWM [facility] Last Admin: 11/21/20 13:46 Dose: 1 tab Documented by: Nystatin (Nystatin Powder 15 Gm) 1 applic TOP BID [facility] Last Admin: 11/21/20 08:59 Dose: Not Given Documented by: Ondansetron HCl (Ondansetron 4 Mg/2 Ml Vial) 4 mg IVP Q6HR PRN PRN Reason: Nausea / Vomiting Rivaroxaban (Rivaroxaban 15 Mg Tablet) 15 mg PO BIDWM [facility] Last Admin: 11/21/20 08:58 Dose: 15 mg Documented by: Saccharomyces Boulardii (Saccharomyces Boulardii 250 Mg Capsule) 250 mg PO BIDWM [facility] Last Admin: 11/21/20 08:58 Dose: 250 mg Documented by: Sodium Chloride (Sodium Chloride Flush 0.9% 10 Ml Syringe) 10 ml IVP PRN PRN PRN Reason: NEEDED PER PROVIDER ORDERS Last Admin: 11/19/20 13:40 Dose: 10 ml Documented by: Sodium Chloride (Sodium Chloride Flush 0.9% 10 Ml Syringe) 10 ml IVP 0100,09 00,1700 [facility] Last Admin: 11/21/20 08:58 Dose: 10 ml Documented by: No Known Home Medications 11/14/20 Objective - Vital Signs/Intake & Output Reviewed Vital Signs: Yes Vital Signs: Vital Signs x48h Temp Pulse Resp BP Pulse Ox 11/21/20 11:24 36.5 C 81 18 105/63 95 Intake & Output: Intake & Output 11/18/20 11/19/20 11/20/20 11/21/20 23:59 23:59 23:59 23:59 Intake Total 1160 1270 1145 1000 Output Total 4275 3050 3225 1775 Balance -3115 -1780 -2080 -775 - Objective General Appearance: positive: Alert Eyes Bilateral: positive: PERRL, EOMI ENT: positive: No signs of dehydration Neck: positive: No JVD. negative: Stiff neck Respiratory: positive: No respiratory distress. negative: Wheezes, Rales, Rhonchi Cardiovascular: positive: Regular rate & rhythm, Systolic murmur. negative: Gallop/S4, Friction rub Abdomen: positive: Non-tender, No organomegaly, Nml bowel sounds, No distention, Other (scrotal enlagement from fluid) Skin: positive: Warm, Dry Extremities: positive: Full ROM, No pedal edema (but he has cankles) Neurologic/Psychiatric: positive: Oriented x3, CN's nml (2-12). negative: Motor nml (slow slow slow. struggles to stand then step 2 steps. loses balance easily) - Lab Results Fish Bones: 11/19/20 04:21 11/19/20 04:21 Assessment/Plan - Problem List (1) Acute on chronic heart failure with preserved ejection fraction (HFpEF) Impression: Patient present dyspnea, anasarca, Testicle swelling/edema, bilateral lower extremity edema, elevated BNP over 1400, and orthopnea. TTE on 11/14 showed normal EF, LVH, no severe valvular dz, pt has unclear hx of CHF, but seemed non- compliant to medications in the past, -pt continue to respond well w/ lasix 40mg iv bid, but still significantly congested,but no hypoxia. Continues to lose weight and intake and output balance is consistently negative. All in the good direction. We will change to p.o. Lasix today and see how he does. (2) Pulmonary emboli Conclusion/Plan: Small PE vs artifact within right pulmonary on CTA on 11/14. regardless of CTA findings, pt also hx of DVT-noted on Chronic non-occlusive filling defects in right femoral and popliteal vein, similar to one in -continue Xarelto w/o Change in management today (3) Pneumonia Conclusion/Plan: Patient presented with dyspnea, cough,Tachypnea. CTA of the chest show bilaterally bronchitis and right lower lobe pneumonia. But the patient had no fever or chills. COVID-19 test is negative. He was COVID-19 positive in September. Completed Ceftriaxcone and azithromycin for 3 days. Then changed to cefuroxime, tolerating well, seems to have less respiratory sx, Today is day 3 of cefuroxime and 6 of antibiotics total. 10-14 days course recommended by previous service. 4) HTN (hypertension) Conclusion/Plan: Patient has a history of hypertension, Blood pressure varies between 117 systolic and up to 124 systolic today.With preserved ejection fraction, JERALD inhibitor is not indicated. Currently responded to diuresis. No change in management. (5) Elevated troponin Conclusion/Plan: Patient had elevated troponin, repeat trended down. EKG does not show acute ischemic change. Patient denies chest pain. It is likely from demand ischemia and patient's CHF exacerbation. type 2MI (6) Medical non-compliance Conclusion/Plan: Patient has a history of DVT but he reports he did not take any medication over half year. Now patient has a PE again. Strongly advised patient To follow through with medical management. He states it will be a lot easier when he is no longer homeless. He is looking forward to going to rehab and getting stronger. He is resigned to the fact that he may have to go live in a care home again. But his long-term plan for down the road is permanent prison facility or intermediate placement. Social work is working with Medicaid to get all forms filled. (7) Generalized weakness Per PT notes today:Pt. is a pleasant, cooperative 69 y.o. M admitted to hospital for CHF and dyspnea; he now presents w/improving strength and functional activity; he is able to stand w/min. to mod. a x 1 and support on walker today w/extended trunk and legs. Pt. tolerates 15 min of functional strengtheing before getting fatigued. He will benefit from continued daily PT working on standing and progressing to amb. w/walker. Pt.needs continued PT after hopsital d/c, preferrable at SNF if placement is available; continue w/daily PT in hospital.
[2020-11-22] MEDS: SODIUM CHLORIDE FLUSH 0.9% 10 ML SYRINGE IVP SCH ×3 (05:25→17:06)
[2020-11-22 05:52] LABS: CREATININE 0.9 mg/dL (0.6-1.2); POTASSIUM 3.5 mmol/L (3.5-5.0)
[2020-11-22] MEDS ORDERED: FUROSEMIDE 20 MG TABLET PO SCH (06:00)
[2020-11-22 07:48] LABS: CREATININE 0.8 mg/dL (0.6-1.2); MAGNESIUM 1.5 mg/dL (1.7-2.8); POTASSIUM 3.6 mmol/L (3.5-5.0)
[2020-11-22] MEDS: RIVAROXABAN 15 MG TABLET PO SCH ×2 (07:55→17:06)
[2020-11-22] MEDS: MAGNESIUM OXIDE 400 MG TABLET PO SCH ×2 (07:56→20:33)
[2020-11-22] MEDS: NYSTATIN POWDER 15 GM TOP SCH ×2 (07:57→20:33)
[2020-11-22] MEDS: MULTIVITAMIN W/MINERALS TABLET PO SCH (07:57)
[2020-11-22] MEDS: SACCHAROMYCES BOULARDII 250 MG CAPSULE PO SCH ×2 (07:57→17:06)
--- NOTE | 2020-11-22 11:17 | PROVIDER PROGRESS NOTE ---
Assessment/Plan - Problem List (1) Acute on chronic heart failure with preserved ejection fraction (HFpEF) Assessment/Plan: 11/22, Patient reported his fluid overloaded is significantly improved. BNP is trended down to 700 from 1400. pt's BP is lower on the last night. We will reduce Lasix dosage and change to PO Lasix as well. ECHO on 11/14 showed normal EF, LVH, no severe valvular dz, pt has unclear hx of CHF, (2) Pulmonary emboli Conclusion/Plan: 11/22 Small PE vs artifact within right pulmonary on CTA on 11/14. we will continue Xarelto w/o Change in management today. 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 today pt report he has mild diarrhea. we will hold antibiotics now, continue probiotics. Patient presented with dyspnea, cough,Tachypnea in the admission. CTA of the chest show bilaterally bronchitis and right lower lobe pneumonia. But the patient had no fever or chills. COVID-19 test is negative. He was COVID-19 positive in September. 4) HTN (hypertension) Conclusion/Plan: 11/22, pt has soft BP on last night, now he has normative BP (5) Elevated troponin Conclusion/Plan: Patient had elevated troponin, repeat trended down. EKG does not show acute ischemic change. Patient denies chest pain. It is likely from demand ischemia and patient's CHF exacerbation. type 2MI (6) Medical non-compliance Conclusion/Plan: 11/22 Patient has a history of DVT but he reports he did not take any medication over half year. Now patient has a PE again. Strongly advised patient To follow through with medical management. (7) Generalized weakness 11/22 PT and OT Evaluated and treated for patient, recommended patient preferrable at SNF if placement is available; continue w/daily PT in hospital. Consult with social work for disposition - Current Meds Current Meds: Current Medications Generic Name Dose Route Start Last Admin Trade Name Freq PRN Reason Stop Dose Admin Acetaminophen 650 mg 11/14/20 10:04 11/20/20 08:36 Acetaminophen 325 Mg Tablet PO 650 mg Q4HR PRN Administration Pain 1 to 4 Magnesium Oxide 400 mg 11/21/20 21:00 11/22/20 07:56 Magnesium Oxide 400 Mg Tablet PO 400 mg BID ADELINA Administration Multivitamins/Minerals 1 tab 11/21/20 10:00 11/22/20 07:57 Multivitamin W/Minerals Tablet PO 1 tab DAILYWM ADELINA Administration Nystatin 1 applic 11/14/20 14:00 11/22/20 07:57 Nystatin Powder 15 Gm TOP 1 applic BID ADELINA Administration Rivaroxaban 15 mg 11/14/20 17:00 11/22/20 07:55 Rivaroxaban 15 Mg Tablet PO 15 mg BIDWM ADELINA Administration Saccharomyces Boulardii 250 mg 11/15/20 10:40 11/22/20 07:57 Saccharomyces Boulardii 250 Mg Capsule PO 250 mg BIDWM ADELINA Administration Sodium Chloride 10 ml 11/14/20 10:04 11/19/20 13:40 Sodium Chloride Flush 0.9% 10 Ml Syringe IVP 10 ml PRN PRN Administration NEEDED PER PROVIDER ORDERS Sodium Chloride 10 ml 11/14/20 17:00 11/22/20 07:58 Sodium Chloride Flush 0.9% 10 Ml Syringe IVP 10 ml 0100,0900,1700 ADELINA Administration - Lab Result Fish Bone Diagrams: 11/19/20 04:21 11/22/20 07:32 - Additional Planning My Orders: My Active Orders 11/22/20 07:34 Furosemide [Lasix] 20 mg PO BIDDIURETIC 11/23/20 05:00 BMP - BASIC METABOLIC PANEL [CHEM] DAILYLAB MAGNESIUM [CHEM] DAILYLAB 11/24/20 05:00 BMP - BASIC METABOLIC PANEL [CHEM] DAILYLAB MAGNESIUM [CHEM] DAILYLAB 11/25/20 05:00 BMP - BASIC METABOLIC PANEL [CHEM] DAILYLAB 11/26/20 05:00 BMP - BASIC METABOLIC PANEL [CHEM] DAILYLAB 11/27/20 05:00 BMP - BASIC METABOLIC PANEL [CHEM] DAILYLAB Subjective - Subjective Patient Reports: Feeling Better, Diarrhea Objective Vital Signs: Vital Signs - 24 hr 11/21/20 11/21/20 11/21/20 11:24 16:55 21:00 Temperature 36.5 C 36.5 C 36.8 C Heart Rate [ 81 80 81 Brachial] Heart Rate [ Monitoring electrodes] Respiratory 18 18 20 Rate Blood Pressure 110/72 [Left Brachial artery] Blood Pressure 105/63 124/85 H [Right Brachial artery] O2 Saturation 95 99 97 11/21/20 11/22/20 11/22/20 23:24 03:20 03:50 Temperature 36.8 C 36.6 C Heart Rate [ Brachial] Heart Rate [ 90 81 Monitoring electrodes] Respiratory 20 20 Rate Blood Pressure 77/44 L 100/60 [Left Brachial artery] Blood Pressure 109/69 [Right Brachial artery] O2 Saturation 96 100 11/22/20 07:29 Temperature 36.7 C Heart Rate [ 78 Brachial] Heart Rate [ Monitoring electrodes] Respiratory 16 Rate Blood Pressure [Left Brachial artery] Blood Pressure 104/77 [Right Brachial artery] O2 Saturation 90 L Oxygen O2 Source Room air I&O (Last 24 Hrs): Intake and Output Totals x24h 11/20/20 11/21/20 11/22/20 23:59 23:59 23:59 Intake Total 1145 1240 555 Output Total 3225 2550 525 Balance -2080 -1310 30 General: Alert, Oriented x3, Cooperative, No acute distress HEENT: Atraumatic, PERRLA Neck: Supple Lymphatic: no adenopathy Neuro: Alert, Non Focal, Oriented Times 3 Cardiovascular: Regular rate, Normal S1, Normal S2 Respiratory: Chest non-tender, No respiratory distress Abdomen: Normal bowel sounds, Soft, No tenderness Extremities: Normal pulses - Results Results: Laboratory Results WBC 5.8 x10^3/uL (4.8-10.8) 11/19/20 04:21 RBC 3.81 10^6/uL (4.70-6.10) L 11/19/20 04:21 Hgb 12.1 g/dL (14.0-18.0) L 11/19/20 04:21 Hct 37.7 % (42.0-52.0) L 11/19/20 04:21 MCV 99.0 fL (80.0-94.0) H 11/19/20 04:21 MCH 31.8 pg (27.0-31.0) H 11/19/20 04:21 MCHC 32.1 g/dL (32.0-36.0) 11/19/20 04:21 RDW 15.9 % (12.0-15.0) H 11/19/20 04:21 Plt Count 169 10^3/uL (130-450) 11/19/20 04:21 MPV 11.1 fL (7.4-11.4) 11/19/20 04:21 Neut # (Auto) 4.3 10^3/uL (1.5-6.6) 11/19/20 04:21 Lymph # (Auto) 0.9 10^3/uL (1.5-3.5) L 11/19/20 04:21 [place] # (Auto) 0.5 10^3/uL (0.0-1.0) 11/19/20 04:21 Eos # (Auto) 0.1 10^3/uL (0.0-0.7) 11/19/20 04:21 Baso # (Auto) 0.0 10^3/uL (0.0-0.1) 11/19/20 04:21 Absolute Nucleated RBC 0.00 x10^3/uL 11/19/20 04:21 Nucleated RBC % 0.0 /100WBC 11/19/20 04:21 Sodium 143 mmol/L (135-145) 11/22/20 07:32 Potassium 3.6 mmol/L (3.5-5.0) 11/22/20 07:32 Chloride 100 mmol/L (101-111) L 11/22/20 07:32 Carbon Dioxide 36 mmol/L (21-32) H 11/22/20 07:32 Anion Gap 7.0 (6-13) 11/22/20 07:32 BUN 24 mg/dL (6-20) H 11/22/20 07:32 Creatinine 0.8 mg/dL (0.6-1.2) 11/22/20 07:32 Estimated GFR (MDRD) 96 (>89) 11/22/20 07:32 Glucose 93 mg/dL (70-100) 11/22/20 07:32 Calcium 9.0 mg/dL (8.5-10.3) 11/22/20 07:32 Phosphorus 2.8 mg/dL (2.5-4.6) 11/20/20 04:12 Magnesium 1.5 mg/dL (1.7-2.8) L 11/22/20 07:32 Total Bilirubin 0.9 mg/dL (0.2-1.0) 11/14/20 06:45 AST 67 IU/L (10-42) H 11/14/20 06:45 ALT 54 IU/L (10-60) 11/14/20 06:45 Alkaline Phosphatase 44 IU/L (42-121) 11/14/20 06:45 Troponin I High Sens 139.5 ng/L (2.3-19.7) H* 11/14/20 08:57 B-Natriuretic Peptide 692 pg/mL (5-100) H 11/22/20 04:58 Total Protein 6.5 g/dL (6.7-8.2) L 11/14/20 06:45 Albumin 3.8 g/dL (3.2-5.5) 11/14/20 06:45 Globulin 2.7 g/dL (2.1-4.2) 11/14/20 06:45 Albumin/Globulin Ratio 1.4 (1.0-2.2) 11/14/20 06:45 Lipase 24 U/L (22-51) 11/14/20 06:45 Urine Color YELLOW 11/14/20 07:33 Urine Clarity CLEAR (CLEAR) 11/14/20 07:33 Urine pH 6.5 PH (5.0-7.5) 11/14/20 07:33 Ur Specific [place] 1.015 (1.002-1.030) 11/14/20 07:33 Urine Protein NEGATIVE mg/dL (NEGATIVE) 11/14/20 07:33 Urine Glucose (UA) NEGATIVE mg/dL (NEGATIVE) 11/14/20 07:33 Urine Ketones NEGATIVE mg/dL (NEGATIVE) 11/14/20 07:33 Urine Occult Blood TRACE-INTA (NEGATIVE) 11/14/20 07:33 Urine Nitrite NEGATIVE (NEGATIVE) 11/14/20 07:33 Urine Bilirubin NEGATIVE (NEGATIVE) 11/14/20 07:33 Urine Urobilinogen 0.2 (NORMAL) E.U./dL (NORMAL) 11/14/20 07:33 Ur Leukocyte Esterase NEGATIVE (NEGATIVE) 11/14/20 07:33 Ur Microscopic Review NOT INDICATED 11/14/20 07:33 Urine Culture Comments NOT INDICATED 11/14/20 07:33 Nasal Adenovirus (PCR) NOT DETECTED 11/14/20 07:35 Nasal B. parapertussis DNA (PCR) NOT DETECTED 11/14/20 07:35 Nasal Coronavir 229E PCR NOT DETECTED 11/14/20 07:35 Nasal Coronavir HKU1 PCR NOT DETECTED 11/14/20 07:35 Nasal Coronavir NL63 PCR NOT DETECTED 11/14/20 07:35 Nasal Coronavir OC43 PCR NOT DETECTED 11/14/20 07:35 Nasal Enterovir/Rhinovir PCR NOT DETECTED 11/14/20 07:35 Nasal Influenza B PCR NOT DETECTED 11/14/20 07:35 Nasal Influenza A PCR NOT DETECTED 11/14/20 07:35 Nasal Parainfluen 1 PCR NOT DETECTED 11/14/20 07:35 Nasal Parainfluen 2 PCR NOT DETECTED 11/14/20 07:35 Nasal Parainfluen 3 PCR NOT DETECTED 11/14/20 07:35 Nasal Parainfluen 4 PCR NOT DETECTED 11/14/20 07:35 Nasal RSV (PCR) NOT DETECTED 11/14/20 07:35 Nasal B.pertussis DNA PCR NOT DETECTED 11/14/20 07:35 Nasal C.pneumoniae (PCR) NOT DETECTED 11/14/20 07:35 Ad Human Metapneumo PCR NOT DETECTED 11/14/20 07:35 Nasal M.pneumoniae (PCR) NOT DETECTED 11/14/20 07:35 Nasal SARS-CoV-2 (PCR) NOT DETECTED 11/14/20 07:35 Urine Opiates Screen NEGATIVE (NEGATIVE) 11/14/20 07:33 Ur Oxycodone Screen NEGATIVE (NEGATIVE) 11/14/20 07:33 Urine Methadone Screen NEGATIVE (NEGATIVE) 11/14/20 07:33 Ur Propoxyphene Screen NEGATIVE (NEGATIVE) 11/14/20 07:33 Ur Barbiturates Screen NEGATIVE (NEGATIVE) 11/14/20 07:33 Ur Tricyclics Screen NEGATIVE (NEGATIVE) 11/14/20 07:33 Ur Phencyclidine Scrn NEGATIVE (NEGATIVE) 11/14/20 07:33 Ur Amphetamine Screen NEGATIVE (NEGATIVE) 11/14/20 07:33 U Methamphetamines Scrn NEGATIVE (NEGATIVE) 11/14/20 07:33 U Benzodiazepines Scrn NEGATIVE (NEGATIVE) 11/14/20 07:33 Urine Cocaine Screen NEGATIVE (NEGATIVE) 11/14/20 07:33 U Cannabinoids Screen NEGATIVE (NEGATIVE) 11/14/20 07:33 Ethyl Alcohol < 5.0 mg/dL 11/14/20 06:45 ABX Reporting Has patient been on IV antibiotics over the past 48 hours?: No Current Medications - Current Medications Current Medications: Active Medications Acetaminophen (Acetaminophen 325 Mg Tablet) 650 mg PO Q4HR PRN PRN Reason: Pain 1 to 4 Last Admin: 11/20/20 08:36 Dose: 650 mg Documented by: Furosemide (Furosemide 20 Mg Tablet) 20 mg PO BIDDIURETIC [facility] Last Admin: 11/22/20 14:00 Dose: 20 mg Documented by: Magnesium Oxide (Magnesium Oxide 400 Mg Tablet) 400 mg PO BID [facility] Last Admin: 11/22/20 07:56 Dose: 400 mg Documented by: Multivitamins/Minerals (Multivitamin W/Minerals Tablet) 1 tab PO DAILYWM [facility] Last Admin: 11/22/20 07:57 Dose: 1 tab Documented by: Nystatin (Nystatin Powder 15 Gm) 1 applic TOP BID [facility] Last Admin: 11/22/20 07:57 Dose: 1 applic Documented by: Ondansetron HCl (Ondansetron 4 Mg/2 Ml Vial) 4 mg IVP Q6HR PRN PRN Reason: Nausea / Vomiting Rivaroxaban (Rivaroxaban 15 Mg Tablet) 15 mg PO BIDWM [facility] Last Admin: 11/22/20 07:55 Dose: 15 mg Documented by: Saccharomyces Boulardii (Saccharomyces Boulardii 250 Mg Capsule) 250 mg PO BIDWM [facility] Last Admin: 11/22/20 07:57 Dose: 250 mg Documented by: Sodium Chloride (Sodium Chloride Flush 0.9% 10 Ml Syringe) 10 ml IVP PRN PRN PRN Reason: NEEDED PER PROVIDER ORDERS Last Admin: 11/19/20 13:40 Dose: 10 ml Documented by: Sodium Chloride (Sodium Chloride Flush 0.9% 10 Ml Syringe) 10 ml IVP 0100,0900,1700 [facility] Last Admin: 11/22/20 07:58 Dose: 10 ml Documented by: No Known Home Medications 11/14/20
[2020-11-22] MEDS ORDERED: MAGNESIUM SULFATE 2 GRAM 2 GM/50 ML BAG IV ONE (13:23)
[2020-11-22] MEDS: FUROSEMIDE 20 MG TABLET PO SCH (14:00)
[2020-11-23] MEDS: SODIUM CHLORIDE FLUSH 0.9% 10 ML SYRINGE IVP SCH ×3 (05:11→17:37)
[2020-11-23 06:19] LABS: CALCIUM 8.8 mg/dL (8.5-10.3); CREATININE 0.9 mg/dL (0.6-1.2); MAGNESIUM 1.7 mg/dL (1.7-2.8); POTASSIUM 3.6 mmol/L (3.5-5.0)
[2020-11-23] MEDS: FUROSEMIDE 20 MG TABLET PO SCH ×2 (07:04→13:18)
[2020-11-23] MEDS: MULTIVITAMIN W/MINERALS TABLET PO SCH (08:25)
[2020-11-23] MEDS: SACCHAROMYCES BOULARDII 250 MG CAPSULE PO SCH ×2 (08:25→17:37)
[2020-11-23] MEDS: MAGNESIUM OXIDE 400 MG TABLET PO SCH ×2 (08:25→21:29)
[2020-11-23] MEDS: RIVAROXABAN 15 MG TABLET PO SCH ×2 (08:25→17:37)
[2020-11-23] MEDS: NYSTATIN POWDER 15 GM TOP SCH ×2 (08:26→21:29)
--- NOTE | 2020-11-23 11:23 | PROVIDER PROGRESS NOTE ---
Assessment/Plan - Problem List (1) Acute on chronic heart failure with preserved ejection fraction (HFpEF) Assessment/Plan: 11-23 improved and stable. continue PO Lasix. pt is ready for d/c, Social work was consulted for disposition planning. 11/22, Patient reported his fluid overloaded is significantly improved. BNP is trended down to 700 from 1400. pt's BP is lower on the last night. We will reduce Lasix dosage and change to PO Lasix as well. ECHO on 11/14 showed normal EF, LVH, no severe valvular dz, pt has unclear hx of CHF, (2) Pulmonary emboli Conclusion/Plan: 11-23 Patient has no respiratory distress, patient had a 97% oxygen saturation on room air, Continue Xarelto. 11/22 Small PE vs artifact within right pulmonary on CTA on 11/14. we will juan nue Xarelto w/o Change in management today. 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 today pt report he has mild diarrhea. we will hold antibiotics now, continue probiotics. Patient presen abbi with dyspnea, cough,Tachypnea in the admission. CTA of the chest show bilaterally bronchitis and right lower lobe pneumonia. But the patient had no fever or chills. COVID-19 test is negative. He was COVID-19 positive in September. 4) HTN (hypertension) Conclusion/Plan: 11/22, pt has soft BP on last night, now he has normative BP (5) Elevated troponin Conclusion/Plan: Patient had elevated troponin, repeat trended down. EKG does not show acute ischemic change. Patient denies chest pain. It is likely from demand ischemia and patient's CHF exacerbation. type 2MI (6) Medical non-compliance Conclusion/Plan: 11/22 Patient has a history of DVT but he reports he did not take any medication over half year. Now patient has a PE again. Strongly advised patient To follow through with medical management. (7) Generalized weakness 11/22 PT and OT Evaluated and treated for patient, recommended patient preferrable at SNF if placement is available; continue w/daily PT in hospital. Consult with social work for disposition - Current Meds Current Meds: Current Medications Generic Name Dose Route Start Last Admin Trade Name Freq PRN Reason Stop Dose Admin Acetaminophen 650 mg 11/14/20 10:04 11/20/20 08:36 Acetaminophen 325 Mg Tablet PO 650 mg Q4HR PRN Administration Pain 1 to 4 Furosemide 20 mg 11/22/20 07:34 11/23/20 07:04 Furosemide 20 Mg Tablet PO 20 mg BIDDIURETIC ADELINA Administration Magnesium Oxide 400 mg 11/21/20 21:00 11/23/20 08:25 Magnesium Oxide 400 Mg Tablet PO 400 mg BID ADELINA Administration Multivitamins/Minerals 1 tab 11/21/20 10:00 11/23/20 08:25 Multivitamin W/Minerals Tablet PO 1 tab DAILYWM ADELINA Administration Nystatin 1 applic 11/14/20 14:00 11/23/20 08:26 Nystatin Powder 15 Gm TOP 1 applic BID ADELINA Administration Rivaroxaban 15 mg 11/14/20 17:00 11/23/20 08:25 Rivaroxaban 15 Mg Tablet PO 15 mg BIDWM ADELINA Administration Saccharomyces Boulardii 250 mg 11/15/20 10:40 11/23/20 08:25 Saccharomyces Boulardii 250 Mg Capsule PO 250 mg BIDWM ADELINA Administration Sodium Chloride 10 ml 11/14/20 10:04 11/19/20 13:40 Sodium Chloride Flush 0.9% 10 Ml Syringe IVP 10 ml PRN PRN Administration NEEDED PER PROVIDER ORDERS Sodium Chloride 10 ml 11/14/20 17:00 11/23/20 08:25 Sodium Chloride Flush 0.9% 10 Ml Syringe IVP 10 ml 0100,0900,1700 ADELINA Administration - Lab Result Fish Bone Diagrams: 11/19/20 04:21 11/23/20 05:25 - Additional Planning My Orders: My Active Orders 11/24/20 05:00 BMP - BASIC METABOLIC PANEL [CHEM] DAILYLAB MAGNESIUM [CHEM] DAILYLAB 11/25/20 05:00 BMP - BASIC METABOLIC PANEL [CHEM] DAILYLAB 11/26/20 05:00 BMP - BASIC METABOLIC PANEL [CHEM] DAILYLAB 11/27/20 05:00 BMP - BASIC METABOLIC PANEL [CHEM] DAILYLAB Subjective - Subjective Patient Reports: Feeling Better Objective Vital Signs: Vital Signs - 24 hr 11/22/20 11/22/20 11/22/20 12:46 16:54 21:00 Temperature 36.5 C 36.8 C 36.7 C Heart Rate [ 80 77 80 Brachial] Respiratory 18 20 18 Rate Blood Pressure 113/54 L [Left Brachial artery] Blood Pressure 120/85 H 104/73 [Right Brachial artery] O2 Saturation 100 96 94 11/22/20 11/23/20 11/23/20 23:28 05:36 07:20 Temperature 36.6 C 36.7 C 36.5 C Heart Rate [ 88 85 79 Brachial] Respiratory 24 21 18 Rate Blood Pressure 95/65 [Left Brachial artery] Blood Pressure 118/87 H 103/82 H [Right Brachial artery] O2 Saturation 95 98 97 Oxygen O2 Source Room air I&O (Last 24 Hrs): Intake and Output Totals x24h 11/21/20 11/22/20 11/23/20 23:59 23:59 23:59 Intake Total 1240 1065 240 Output Total 2550 800 475 Balance -1310 265 -235 General: Alert, Oriented x3, Cooperative, No acute distress HEENT: Atraumatic Neck: Supple Lymphatic: no adenopathy Neuro: Alert, Non Focal, Oriented Times 3 Cardiovascular: Regular rate, Normal S1, Normal S2 Respiratory: Chest non-tender, No respiratory distress Abdomen: Normal bowel sounds, Soft, No tenderness Extremities: Normal pulses - Results Results: Laboratory Results WBC 5.8 x10^3/uL (4.8-10.8) 11/19/20 04:21 RBC 3.81 10^6/uL (4.70-6.10) L 11/19/20 04:21 Hgb 12.1 g/dL (14.0-18.0) L 11/19/20 04:21 Hct 37.7 % (42.0-52.0) L 11/19/20 04:21 MCV 99.0 fL (80.0-94.0) H 11/19/20 04:21 MCH 31.8 pg (27.0-31.0) H 11/19/20 04:21 MCHC 32.1 g/dL (32.0-36.0) 11/19/20 04:21 RDW 15.9 % (12.0-15.0) H 11/19/20 04:21 Plt Count 169 10^3/uL (130-450) 11/19/20 04:21 MPV 11.1 fL (7.4-11.4) 11/19/20 04:21 Neut # (Auto) 4.3 10^3/uL (1.5-6.6) 11/19/20 04:21 Lymph # (Auto) 0.9 10^3/uL (1.5-3.5) L 11/19/20 04:21 [place] # (Auto) 0.5 10^3/uL (0.0-1.0) 11/19/20 04:21 Eos # (Auto) 0.1 10^3/uL (0.0-0.7) 11/19/20 04:21 Baso # (Auto) 0.0 10^3/uL (0.0-0.1) 11/19/20 04:21 Absolute Nucleated RBC 0.00 x10^3/uL 11/19/20 04:21 Nucleated RBC % 0.0 /100WBC 11/19/20 04:21 Sodium 139 mmol/L (135-145) 11/23/20 05:25 Potassium 3.6 mmol/L (3.5-5.0) 11/23/20 05:25 Chloride 96 mmol/L (101-111) L 11/23/20 05:25 Carbon Dioxide 35 mmol/L (21-32) H 11/23/20 05:25 Anion Gap 8.0 (6-13) 11/23/20 05:25 BUN 24 mg/dL (6-20) H 11/23/20 05:25 Creatinine 0.9 mg/dL (0.6-1.2) 11/23/20 05:25 Estimated GFR (MDRD) 84 (>89) L 11/23/20 05:25 Glucose 88 mg/dL (70-100) 11/23/20 05:25 Calcium 8.8 mg/dL (8.5-10.3) 11/23/20 05:25 Phosphorus 2.8 mg/dL (2.5-4.6) 11/20/20 04:12 Magnesium 1.7 mg/dL (1.7-2.8) 11/23/20 05:25 Total Bilirubin 0.9 mg/dL (0.2-1.0) 11/14/20 06:45 AST 67 IU/L (10-42) H 11/14/20 06:45 ALT 54 IU/L (10-60) 11/14/20 06:45 Alkaline Phosphatase 44 IU/L (42-121) 11/14/20 06:45 Troponin I High Sens 139.5 ng/L (2.3-19.7) H* 11/14/20 08:57 B-Natriuretic Peptide 692 pg/mL (5-100) H 11/22/20 04:58 Total Protein 6.5 g/dL (6.7-8.2) L 11/14/20 06:45 Albumin 3.8 g/dL (3.2-5.5) 11/14/20 06:45 Globulin 2.7 g/dL (2.1-4.2) 11/14/20 06:45 Albumin/Globulin Ratio 1.4 (1.0-2.2) 11/14/20 06:45 Lipase 24 U/L (22-51) 11/14/20 06:45 Urine Color YELLOW 11/14/20 07:33 Urine Clarity CLEAR (CLEAR) 11/14/20 07:33 Urine pH 6.5 PH (5.0-7.5) 11/14/20 07:33 Ur Specific [place] 1.015 (1.002-1.030) 11/14/20 07:33 Urine Protein NEGATIVE mg/dL (NEGATIVE) 11/14/20 07:33 Urine Glucose (UA) NEGATIVE mg/dL (NEGATIVE) 11/14/20 07:33 Urine Ketones NEGATIVE mg/dL (NEGATIVE) 11/14/20 07:33 Urine Occult Blood TRACE-INTA (NEGATIVE) 11/14/20 07:33 Urine Nitrite NEGATIVE (NEGATIVE) 11/14/20 07:33 Urine Bilirubin NEGATIVE (NEGATIVE) 11/14/20 07:33 Urine Urobilinogen 0.2 (NORMAL) E.U./dL (NORMAL) 11/14/20 07:33 Ur Leukocyte Esterase NEGATIVE (NEGATIVE) 11/14/20 07:33 Ur Microscopic Review NOT INDICATED 11/14/20 07:33 Urine Culture Comments NOT INDICATED 11/14/20 07:33 Nasal Adenovirus (PCR) NOT DETECTED 11/14/20 07:35 Nasal B. parapertussis DNA (PCR) NOT DETECTED 11/14/20 07:35 Nasal Coronavir 229E PCR NOT DETECTED 11/14/20 07:35 Nasal Coronavir HKU1 PCR NOT DETECTED 11/14/20 07:35 Nasal Coronavir NL63 PCR NOT DETECTED 11/14/20 07:35 Nasal Coronavir OC43 PCR NOT DETECTED 11/14/20 07:35 Nasal Enterovir/Rhinovir PCR NOT DETECTED 11/14/20 07:35 Nasal Influenza B PCR NOT DETECTED 11/14/20 07:35 Nasal Influenza A PCR NOT DETECTED 11/14/20 07:35 Nasal Parainfluen 1 PCR NOT DETECTED 11/14/20 07:35 Nasal Parainfluen 2 PCR NOT DETECTED 11/14/20 07:35 Nasal Parainfluen 3 PCR NOT DETECTED 11/14/20 07:35 Nasal Parainfluen 4 PCR NOT DETECTED 11/14/20 07:35 Nasal RSV (PCR) NOT DETECTED 11/14/20 07:35 Nasal B.pertussis DNA PCR NOT DETECTED 11/14/20 07:35 Nasal C.pneumoniae (PCR) NOT DETECTED 11/14/20 07:35 Ad Human Metapneumo PCR NOT DETECTED 11/14/20 07:35 Nasal M.pneumoniae (PCR) NOT DETECTED 11/14/20 07:35 Nasal SARS-CoV-2 (PCR) NOT DETECTED 11/14/20 07:35 Urine Opiates Screen NEGATIVE (NEGATIVE) 11/14/20 07:33 Ur Oxycodone Screen NEGATIVE (NEGATIVE) 11/14/20 07:33 Urine Methadone Screen NEGATIVE (NEGATIVE) 11/14/20 07:33 Ur Propoxyphene Screen NEGATIVE (NEGATIVE) 11/14/20 07:33 Ur Barbiturates Screen NEGATIVE (NEGATIVE) 11/14/20 07:33 Ur Tricyclics Screen NEGATIVE (NEGATIVE) 11/14/20 07:33 Ur Phencyclidine Scrn NEGATIVE (NEGATIVE) 11/14/20 07:33 Ur Amphetamine Screen NEGATIVE (NEGATIVE) 11/14/20 07:33 U Methamphetamines Scrn NEGATIVE (NEGATIVE) 11/14/20 07:33 U Benzodiazepines Scrn NEGATIVE (NEGATIVE) 11/14/20 07:33 Urine Cocaine Screen NEGATIVE (NEGATIVE) 11/14/20 07:33 U Cannabinoids Screen NEGATIVE (NEGATIVE) 11/14/20 07:33 Ethyl Alcohol < 5.0 mg/dL 11/14/20 06:45 ABX Reporting Has patient been on IV antibiotics over the past 48 hours?: No Current Medications - Current Medications Current Medications: Active Medications Acetaminophen (Acetaminophen 325 Mg Tablet) 650 mg PO Q4HR PRN PRN Reason: Pain 1 to 4 Last Admin: 11/20/20 08:36 Dose: 650 mg Documented by: Furosemide (Furosemide 20 Mg Tablet) 20 mg PO BIDDIURETIC [facility] Last Admin: 11/23/20 07:04 Dose: 20 mg Documented by: Magnesium Oxide (Magnesium Oxide 400 Mg Tablet) 400 mg PO BID [facility] Last Admin: 11/23/20 08:25 Dose: 400 mg Documented by: Multivitamins/Minerals (Multivitamin W/Minerals Tablet) 1 tab PO DAILYWM [facility] Last Admin: 11/23/20 08:25 Dose: 1 tab Documented by: Nystatin (Nystatin Powder 15 Gm) 1 applic TOP BID [facility] Last Admin: 11/23/20 08:26 Dose: 1 applic Documented by: Ondansetron HCl (Ondansetron 4 Mg/2 Ml Vial) 4 mg IVP Q6HR PRN PRN Reason: Nausea / Vomiting Rivaroxaban (Rivaroxaban 15 Mg Tablet) 15 mg PO BIDWM [facility] Last Admin: 11/23/20 08:25 Dose: 15 mg Documented by: Saccharomyces Boulardii (Saccharomyces Boulardii 250 Mg Capsule) 250 mg PO BIDWM [facility] Last Admin: 11/23/20 08:25 Dose: 250 mg Documented by: Sodium Chloride (Sodium Chloride Flush 0.9% 10 Ml Syringe) 10 ml IVP PRN PRN PRN Reason: NEEDED PER PROVIDER ORDERS Last Admin: 11/19/20 13:40 Dose: 10 ml Documented by: Sodium Chloride (Sodium Chloride Flush 0.9% 10 Ml Syringe) 10 ml IVP 0100,0900,1700 [facility] Last Admin: 11/23/20 08:25 Dose: 10 ml Documented by: No Known Home Medications 11/14/20
[2020-11-24] MEDS: SODIUM CHLORIDE FLUSH 0.9% 10 ML SYRINGE IVP SCH ×4 (01:30→23:52)
[2020-11-24 06:03] LABS: CALCIUM 8.6 mg/dL (8.5-10.3); CREATININE 0.9 mg/dL (0.6-1.2); MAGNESIUM 1.5 mg/dL (1.7-2.8); POTASSIUM 3.8 mmol/L (3.5-5.0)
[2020-11-24] MEDS: FUROSEMIDE 20 MG TABLET PO SCH ×2 (06:38→13:38)
[2020-11-24] MEDS ORDERED: MAGNESIUM SULFATE 2 GRAM 2 GM/50 ML BAG IV ONE (07:56)
[2020-11-24] MEDS: RIVAROXABAN 15 MG TABLET PO SCH ×2 (08:10→17:45)
[2020-11-24] MEDS: MULTIVITAMIN W/MINERALS TABLET PO SCH (08:10)
[2020-11-24] MEDS: SACCHAROMYCES BOULARDII 250 MG CAPSULE PO SCH ×2 (08:10→17:45)
[2020-11-24] MEDS: MAGNESIUM OXIDE 400 MG TABLET PO SCH ×2 (08:10→20:22)
[2020-11-24] MEDS: NYSTATIN POWDER 15 GM TOP SCH ×2 (14:14→20:22)
--- NOTE | 2020-11-24 15:02 | PROVIDER PROGRESS NOTE ---
Assessment/Plan - Problem List (1) Acute on chronic heart failure with preserved ejection fraction (HFpEF) Assessment/Plan: 11-24 Patient is hemodynamically stable, pt is ready for d/c, otherwise pt has no complaints. Social work was consulted for disposition planning. 11-23 improved and stable. continue PO Lasix. pt is ready for d/c, Social work was consulted for disposition planning. 11/22, Patient reported his fluid overloaded is significantly improved. BNP is trended down to 700 from 1400. pt's BP is lower on the last night. We will reduce Lasix dosage and change to PO Lasix as well. ECHO on 11/14 showed normal EF, LVH, no severe valvular dz, pt has unclear hx of CHF, (2) Pulmonary emboli Conclusion/Plan: 11-23 Patient has no respiratory distress, patient had a 97% oxygen saturation on room air, Continue Xarelto. 11/22 Small PE vs artifact within right pulmonary on CTA on 11/14. we will continue Xarelto w/o Change in management today. 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 today pt report he has mild diarrhea. we will hold antibiotics now, continue probiotics. Patient presented with dyspnea, cough,Tachypnea in the admission. CTA of the chest show bilaterally bronchitis and right lower lobe pneumonia. But the patient had no fever or chills. COVID-19 test is negative. He was COVID-19 positive in September. 4) HTN (hypertension) Conclusion/Plan: 11/22, pt has soft BP on last night, now he has normative BP (5) Elevated troponin Conclusion/Plan: Patient had elevated troponin, repeat trended down. EKG does not show acute ischemic change. Patient denies chest pain. It is likely from demand ischemia and patient's CHF exacerbation. type 2MI (6) Medical non-compliance Conclusion/Plan: 11/22 Patient has a history of DVT but he reports he did not take any medication over half year. Now patient has a PE again. Strongly advised patient To follow through with medical management. (7) Generalized weakness 11/22 PT and OT Evaluated and treated for patient, recommended patient preferrable at SNF if placement is available; continue w/daily PT in hospital. Consult with social work for disposition - Current Meds Current Meds: Current Medications Generic Name Dose Route Start Last Admin Trade Name Scott PRN Reason Stop Dose Admin Acetaminophen 650 mg 11/14/20 10:04 11/20/20 08:36 Acetaminophen 325 Mg Tablet PO 650 mg Q4HR PRN Administration Pain 1 to 4 Furosemide 20 mg 11/22/20 07:34 11/24/20 13:38 Furosemide 20 Mg Tablet PO 20 mg BIDDIURETIC ADELINA Administration Magnesium Oxide 400 mg 11/21/20 21:00 11/24/20 08:10 Magnesium Oxide 400 Mg Tablet PO 400 mg BID ADELINA Administration Multivitamins/Minerals 1 tab 11/21/20 10:00 11/24/20 08:10 Multivitamin W/Minerals Tablet PO 1 tab DAILYWM ADELINA Administration Nystatin 1 applic 11/14/20 14:00 11/24/20 14:14 Nystatin Powder 15 Gm TOP 1 applic BID ADELINA Administration Rivaroxaban 15 mg 11/14/20 17:00 11/24/20 08:10 Rivaroxaban 15 Mg Tablet PO 15 mg BIDWM ADELINA Administration Saccharomyces Boulardii 250 mg 11/15/20 10:40 11/24/20 08:10 Saccharomyces Boulardii 250 Mg Capsule PO 250 mg BIDWM ADELINA Administration Sodium Chloride 10 ml 11/14/20 10:04 11/19/20 13:40 Sodium Chloride Flush 0.9% 10 Ml Syringe IVP 10 ml PRN PRN Administration NEEDED PER PROVIDER ORDERS Sodium Chloride 10 ml 11/14/20 17:00 11/24/20 08:11 Sodium Chloride Flush 0.9% 10 Ml Syringe IVP 10 ml 0100,0900,1700 ADELINA Administration - Lab Result Fish Bone Diagrams: 11/19/20 04:21 11/24/20 05:46 - Additional Planning My Orders: My Active Orders 11/25/20 05:00 BMP - BASIC METABOLIC PANEL [CHEM] DAILYLAB 11/26/20 05:00 BMP - BASIC METABOLIC PANEL [CHEM] DAILYLAB 11/27/20 05:00 BMP - BASIC METABOLIC PANEL [CHEM] DAILYLAB Subjective - Subjective Patient Reports: Feeling Better Objective Vital Signs: Vital Signs - 24 hr 11/23/20 11/23/20 11/24/20 16:00 23:43 07:35 Temperature 36.8 C 36.5 C 36.5 C Heart Rate [ 77 80 76 Brachial] Respiratory 18 20 18 Rate Blood Pressure 110/80 110/74 113/68 [Right Brachial artery] O2 Saturation 99 97 99 Oxygen O2 Source Room air I&O (Last 24 Hrs): Intake and Output Totals x24h 11/22/20 11/23/20 11/24/20 23:59 23:59 23:59 Intake Total 1065 940 610 Output Total 800 1225 625 Balance 265 -285 -15 General: Alert, Oriented x3, Cooperative, No acute distress HEENT: Atraumatic Neck: Supple Lymphatic: no adenopathy Neuro: Alert, Non Focal, Oriented Times 3 Cardiovascular: Regular rate, Normal S1, Normal S2 Respiratory: Chest non-tender, No respiratory distress Abdomen: Normal bowel sounds, Soft Extremities: Normal pulses - Results Results: Laboratory Results WBC 5.8 x10^3/uL (4.8-10.8) 11/19/20 04:21 RBC 3.81 10^6/uL (4.70-6.10) L 11/19/20 04:21 Hgb 12.1 g/dL (14.0-18.0) L 11/19/20 04:21 Hct 37.7 % (42.0-52.0) L 11/19/20 04:21 MCV 99.0 fL (80.0-94.0) H 11/19/20 04:21 MCH 31.8 pg (27.0-31.0) H 11/19/20 04:21 MCHC 32.1 g/dL (32.0-36.0) 11/19/20 04:21 RDW 15.9 % (12.0-15.0) H 11/19/20 04:21 Plt Count 169 10^3/uL (130-450) 11/19/20 04:21 MPV 11.1 fL (7.4-11.4) 11/19/20 04:21 Neut # (Auto) 4.3 10^3/uL (1.5-6.6) 11/19/20 04:21 Lymph # (Auto) 0.9 10^3/uL (1.5-3.5) L 11/19/20 04:21 Barber # (Auto) 0.5 10^3/uL (0.0-1.0) 11/19/20 04:21 Eos # (Auto) 0.1 10^3/uL (0.0-0.7) 11/19/20 04:21 Baso # (Auto) 0.0 10^3/uL (0.0-0.1) 11/19/20 04:21 Absolute Nucleated RBC 0.00 x10^3/uL 11/19/20 04:21 Nucleated RBC % 0.0 /100WBC 11/19/20 04:21 Sodium 138 mmol/L (135-145) 11/24/20 05:46 Potassium 3.8 mmol/L (3.5-5.0) 11/24/20 05:46 Chloride 96 mmol/L (101-111) L 11/24/20 05:46 Carbon Dioxide 32 mmol/L (21-32) 11/24/20 05:46 Anion Gap 10.0 (6-13) 11/24/20 05:46 BUN 25 mg/dL (6-20) H 11/24/20 05:46 Creatinine 0.9 mg/dL (0.6-1.2) 11/24/20 05:46 Estimated GFR (MDRD) 84 (>89) L 11/24/20 05:46 Glucose 90 mg/dL (70-100) 11/24/20 05:46 Calcium 8.6 mg/dL (8.5-10.3) 11/24/20 05:46 Phosphorus 2.8 mg/dL (2.5-4.6) 11/20/20 04:12 Magnesium 1.5 mg/dL (1.7-2.8) L 11/24/20 05:46 Total Bilirubin 0.9 mg/dL (0.2-1.0) 11/14/20 06:45 AST 67 IU/L (10-42) H 11/14/20 06:45 ALT 54 IU/L (10-60) 11/14/20 06:45 Alkaline Phosphatase 44 IU/L (42-121) 11/14/20 06:45 Troponin I High Sens 139.5 ng/L (2.3-19.7) H* 11/14/20 08:57 B-Natriuretic Peptide 692 pg/mL (5-100) H 11/22/20 04:58 Total Protein 6.5 g/dL (6.7-8.2) L 11/14/20 06:45 Albumin 3.8 g/dL (3.2-5.5) 11/14/20 06:45 Globulin 2.7 g/dL (2.1-4.2) 11/14/20 06:45 Albumin/Globulin Ratio 1.4 (1.0-2.2) 11/14/20 06:45 Lipase 24 U/L (22-51) 11/14/20 06:45 Urine Color YELLOW 11/14/20 07:33 Urine Clarity CLEAR (CLEAR) 11/14/20 07:33 Urine pH 6.5 PH (5.0-7.5) 11/14/20 07:33 Ur Specific [place] 1.015 (1.002-1.030) 11/14/20 07:33 Urine Protein NEGATIVE mg/dL (NEGATIVE) 11/14/20 07:33 Urine Glucose (UA) NEGATIVE mg/dL (NEGATIVE) 11/14/20 07:33 Urine Ketones NEGATIVE mg/dL (NEGATIVE) 11/14/20 07:33 Urine Occult Blood TRACE-INTA (NEGATIVE) 11/14/20 07:33 Urine Nitrite NEGATIVE (NEGATIVE) 11/14/20 07:33 Urine Bilirubin NEGATIVE (NEGATIVE) 11/14/20 07:33 Urine Urobilinogen 0.2 (NORMAL) E.U./dL (NORMAL) 11/14/20 07:33 Ur Leukocyte Esterase NEGATIVE (NEGATIVE) 11/14/20 07:33 Ur Microscopic Review NOT INDICATED 11/14/20 07:33 Urine Culture Comments NOT INDICATED 11/14/20 07:33 Nasal Adenovirus (PCR) NOT DETECTED 11/14/20 07:35 Nasal B. parapertussis DNA (PCR) NOT DETECTED 11/14/20 07:35 Nasal Coronavir 229E PCR NOT DETECTED 11/14/20 07:35 Nasal Coronavir HKU1 PCR NOT DETECTED 11/14/20 07:35 Nasal Coronavir NL63 PCR NOT DETECTED 11/14/20 07:35 Nasal Coronavir OC43 PCR NOT DETECTED 11/14/20 07:35 Nasal Enterovir/Rhinovir PCR NOT DETECTED 11/14/20 07:35 Nasal Influenza B PCR NOT DETECTED 11/14/20 07:35 Nasal Influenza A PCR NOT DETECTED 11/14/20 07:35 Nasal Parainfluen 1 PCR NOT DETECTED 11/14/20 07:35 Nasal Parainfluen 2 PCR NOT DETECTED 11/14/20 07:35 Nasal Parainfluen 3 PCR NOT DETECTED 11/14/20 07:35 Nasal Parainfluen 4 PCR NOT DETECTED 11/14/20 07:35 Nasal RSV (PCR) NOT DETECTED 11/14/20 07:35 Nasal B.pertussis DNA PCR NOT DETECTED 11/14/20 07:35 Nasal C.pneumoniae (PCR) NOT DETECTED 11/14/20 07:35 Ad Human Metapneumo PCR NOT DETECTED 11/14/20 07:35 Nasal M.pneumoniae (PCR) NOT DETECTED 11/14/20 07:35 Nasal SARS-CoV-2 (PCR) NOT DETECTED 11/14/20 07:35 Urine Opiates Screen NEGATIVE (NEGATIVE) 11/14/20 07:33 Ur Oxycodone Screen NEGATIVE (NEGATIVE) 11/14/20 07:33 Urine Methadone Screen NEGATIVE (NEGATIVE) 11/14/20 07:33 Ur Propoxyphene Screen NEGATIVE (NEGATIVE) 11/14/20 07:33 Ur Barbiturates Screen NEGATIVE (NEGATIVE) 11/14/20 07:33 Ur Tricyclics Screen NEGATIVE (NEGATIVE) 11/14/20 07:33 Ur Phencyclidine Scrn NEGATIVE (NEGATIVE) 11/14/20 07:33 Ur Amphetamine Screen NEGATIVE (NEGATIVE) 11/14/20 07:33 U Methamphetamines Scrn NEGATIVE (NEGATIVE) 11/14/20 07:33 U Benzodiazepines Scrn NEGATIVE (NEGATIVE) 11/14/20 07:33 Urine Cocaine Screen NEGATIVE (NEGATIVE) 11/14/20 07:33 U Cannabinoids Screen NEGATIVE (NEGATIVE) 11/14/20 07:33 Ethyl Alcohol < 5.0 mg/dL 11/14/20 06:45 ABX Reporting Has patient been on IV antibiotics over the past 48 hours?: No Current Medications - Current Medications Current Medications: Active Medications Acetaminophen (Acetaminophen 325 Mg Tablet) 650 mg PO Q4HR PRN PRN Reason: Pain 1 to 4 Last Admin: 11/20/20 08:36 Dose: 650 mg Documented by: Furosemide (Furosemide 20 Mg Tablet) 20 mg PO BIDDIURETIC ADELINA Last Admin: 11/24/20 13:38 Dose: 20 mg Documented by: Magnesium Oxide (Magnesium Oxide 400 Mg Tablet) 400 mg PO BID ADELINA Last Admin: 11/24/20 08:10 Dose: 400 mg Documented by: Multivitamins/Minerals (Multivitamin W/Minerals Tablet) 1 tab PO DAILYWM [facility] Last Admin: 11/24/20 08:10 Dose: 1 tab Documented by: Nystatin (Nystatin Powder 15 Gm) 1 applic TOP BID [facility] Last Admin: 11/24/20 14:14 Dose: 1 applic Documented by: Ondansetron HCl (Ondansetron 4 Mg/2 Ml Vial) 4 mg IVP Q6HR PRN PRN Reason: Nausea / Vomiting Rivaroxaban (Rivaroxaban 15 Mg Tablet) 15 mg PO BIDWM [facility] Last Admin: 11/24/20 08:10 Dose: 15 mg Documented by: Saccharomyces Boulardii (Saccharomyces Boulardii 250 Mg Capsule) 250 mg PO BIDWM [facility] Last Admin: 11/24/20 08:10 Dose: 250 mg Documented by: Sodium Chloride (Sodium Chloride Flush 0.9% 10 Ml Syringe) 10 ml IVP PRN PRN PRN Reason: NEEDED PER PROVIDER ORDERS Last Admin: 11/19/20 13:40 Dose: 10 ml Documented by: Sodium Chloride (Sodium Chloride Flush 0.9% 10 Ml Syringe) 10 ml IVP 0100,0900,1700 [facility] Last Admin: 11/24/20 08:11 Dose: 10 ml Documented by: No Known Home Medications 11/14/20
[2020-11-25] MEDS: FUROSEMIDE 20 MG TABLET PO SCH ×2 (05:58→14:56)
[2020-11-25 05:59] LABS: CALCIUM 8.7 mg/dL (8.5-10.3); CREATININE 0.9 mg/dL (0.6-1.2); POTASSIUM 3.8 mmol/L (3.5-5.0)
[2020-11-25] MEDS: MULTIVITAMIN W/MINERALS TABLET PO SCH (09:29)
[2020-11-25] MEDS: MAGNESIUM OXIDE 400 MG TABLET PO SCH ×2 (09:29→20:53)
[2020-11-25] MEDS: SACCHAROMYCES BOULARDII 250 MG CAPSULE PO SCH ×2 (09:30→16:30)
[2020-11-25] MEDS: RIVAROXABAN 15 MG TABLET PO SCH ×2 (09:30→16:30)
[2020-11-25] MEDS: SODIUM CHLORIDE FLUSH 0.9% 10 ML SYRINGE IVP SCH ×3 (09:31→23:57)
[2020-11-25] MEDS: NYSTATIN POWDER 15 GM TOP SCH ×2 (09:32→20:54)
--- NOTE | 2020-11-25 19:21 | PROVIDER PROGRESS NOTE ---
Subjective - Prog Note Date Prog Note Date: 11/25/20 - Subjective Subjective: He reports doing well. Denies any dyspnea. Current Medications - Current Medications Current Medications: Active Medications Acetaminophen (Acetaminophen 325 Mg Tablet) 650 mg PO Q4HR PRN PRN Reason: Pain 1 to 4 Last Admin: 11/20/20 08:36 Dose: 650 mg Documented by: Furosemide (Furosemide 20 Mg Tablet) 20 mg PO BIDDIURETIC [facility] Last Admin: 11/25/20 14:56 Dose: 20 mg Documented by: Magnesium Oxide (Magnesium Oxide 400 Mg Tablet) 400 mg PO BID [facility] Last Admin: 11/25/20 09:29 Dose: 400 mg Documented by: Multivitamins/Minerals (Multivitamin W/Minerals Tablet) 1 tab PO DAILYWM [facility] Last Admin: 11/25/20 09:29 Dose: 1 tab Documented by: Nystatin (Nystatin Powder 15 Gm) 1 applic TOP BID [facility] Last Admin: 11/25/20 09:32 Dose: Not Given Documented by: Ondansetron HCl (Ondansetron 4 Mg/2 Ml Vial) 4 mg IVP Q6HR PRN PRN Reason: Nausea / Vomiting Rivaroxaban (Rivaroxaban 15 Mg Tablet) 15 mg PO BIDWM [facility] Last Admin: 11/25/20 16:30 Dose: 15 mg Documented by: Saccharomyces Boulardii (Saccharomyces Boulardii 250 Mg Capsule) 250 mg PO BIDWM [facility] Last Admin: 11/25/20 16:30 Dose: 250 mg Documented by: Sodium Chloride (Sodium Chloride Flush 0.9% 10 Ml Syringe) 10 ml IVP PRN PRN PRN Reason: NEEDED PER PROVIDER ORDERS Last Admin: 11/19/20 13:40 Dose: 10 ml Documented by: Sodium Chloride (Sodium Chloride Flush 0.9% 10 Ml Syringe) 10 ml IVP 0100,0900,1700 [facility] Last Admin: 11/25/20 16:30 Dose: 10 ml Documented by: No Known Home Medications 11/14/20 Objective - Vital Signs/Intake & Output Reviewed Vital Signs: Yes Vital Signs: Vital Signs x48h Temp Pulse Resp BP Pulse Ox 11/25/20 16:41 36.7 C 78 16 115/78 98 Intake & Output: Intake & Output 11/22/20 11/23/20 11/24/20 11/25/20 23:59 23:59 23:59 23:59 Intake Total 1065 848 842 5320 Output Total 800 1225 1100 550 Balance 265 -629 -540 620 - Objective General Appearance: positive: No acute distress, Alert Eyes Bilateral: positive: Normal inspection ENT: positive: ENT inspection nml Neck: positive: Nml inspection Respiratory: positive: No respiratory distress Skin: positive: Warm, Dry Extremities: positive: Pedal edema (Trace edema bilaterally.) - Lab Results Fish Bones: 11/19/20 04:21 11/25/20 05:39 Other Labs: Lab Results x24hrs 11/25/20 Range/Units 05:39 Sodium 141 (135-145) mmol/L Potassium 3.8 (3.5-5.0) mmol/L Chloride 100 L (101-111) mmol/L Carbon Dioxide 33 H (21-32) mmol/L Anion Gap 8.0 (6-13) BUN 25 H (6-20) mg/dL Creatinine 0.9 (0.6-1.2) mg/dL Estimated GFR (MDRD) 84 L (>89) Glucose 98 (70-100) mg/dL Calcium 8.7 (8.5-10.3) mg/dL Assessment/Plan - Problem List (1) Acute on chronic heart failure with preserved ejection fraction (HFpEF) Impression: This is now resolved. Echocardiogram revealed a preserved ejection fraction. He is stable on oral diuretics and is no longer hypoxic. He is medically cleared for discharge to a group home facility. (2) Pulmonary emboli Impression: CT angiogram on admission suggestive of small pulmonary embolism versus artifact. Duplex showed no evidence of DVT but he does have chronic nonocclusive defects within right femoral-popliteal veins and so he was treated empirically with anticoagulation. We will continue Xarelto 15 mg twice daily fo r 3 weeks before changing him to 20 mg daily. This transition will occur December 05. (3) Pneumonia Impression: CT on admission showed a right lower lobe infiltrate with small right parapneumonic effusion. He was treated with IV antibiotics and has completed 8 days of treatment. (4) Elevated troponin Impression: His troponin was elevated in the 140s on admission. EKG did not suggest ischemia. It was felt this was likely demand ischemia secondary to the heart failure. (5) Physical deconditioning Impression: At this point he is medically cleared for discharge to group home facility as he is not a safe discharge home. We working with social work regarding disposition. Continue PT.
[2020-11-26] MEDS: FUROSEMIDE 20 MG TABLET PO SCH ×2 (05:41→13:26)
[2020-11-26 06:29] LABS: CALCIUM 8.6 mg/dL (8.5-10.3); CREATININE 0.9 mg/dL (0.6-1.2); POTASSIUM 3.7 mmol/L (3.5-5.0)
[2020-11-26] MEDS: MAGNESIUM OXIDE 400 MG TABLET PO SCH ×2 (08:44→19:45)
[2020-11-26] MEDS: MULTIVITAMIN W/MINERALS TABLET PO SCH (08:44)
[2020-11-26] MEDS: SACCHAROMYCES BOULARDII 250 MG CAPSULE PO SCH ×2 (08:44→17:20)
[2020-11-26] MEDS: RIVAROXABAN 15 MG TABLET PO SCH ×2 (08:44→17:20)
[2020-11-26] MEDS: NYSTATIN POWDER 15 GM TOP SCH ×2 (08:45→19:45)
[2020-11-26] MEDS: SODIUM CHLORIDE FLUSH 0.9% 10 ML SYRINGE IVP SCH ×2 (08:45→16:10)
--- NOTE | 2020-11-26 13:01 | PROVIDER PROGRESS NOTE ---
Subjective - Prog Note Date Prog Note Date: 11/26/20 Prog Note Time: 12:56 - Subjective Pt reports feeling: No change Subjective: Patient reports feeling well but complains of loose stool and diarrhea with flatulence throughout the day. He is ambulating the room but needs a two-person assist to do so. He previously had significant difficulty scooting to the edge of the bed after sitting up; today he only required two scoots. His ambulation still requires supervision. Current Medications - Current Medications Current Medications: Active Medications Acetaminophen (Acetaminophen 325 Mg Tablet) 650 mg PO Q4HR PRN PRN Reason: Pain 1 to 4 Last Admin: 11/20/20 08:36 Dose: 650 mg Documented by: Furosemide (Furosemide 20 Mg Tablet) 20 mg PO BIDDIURETIC [facility] Last Admin: 11/26/20 13:26 Dose: 20 mg Documented by: Loperamide HCl (Loperamide 2 Mg Capsule) 2 mg PO QID PRN PRN Reason: Diarrhea Last Admin: 11/26/20 13:26 Dose: 2 mg Documented by: Magnesium Oxide (Magnesium Oxide 400 Mg Tablet) 400 mg PO BID [facility] Last Admin: 11/26/20 08:44 Dose: 400 mg Documented by: Multivitamins/Minerals (Multivitamin W/Minerals Tablet) 1 tab PO DAILYWM [facility] Last Admin: 11/26/20 08:44 Dose: 1 tab Documented by: Nystatin (Nystatin Powder 15 Gm) 1 applic TOP BID [facility] Last Admin: 11/26/20 08:45 Dose: Not Given Documented by: Ondansetron HCl (Ondansetron 4 Mg/2 Ml Vial) 4 mg IVP Q6HR PRN PRN Reason: Nausea / Vomiting Rivaroxaban (Rivaroxaban 15 Mg Tablet) 15 mg PO BIDWM [facility] Last Admin: 11/26/20 08:44 Dose: 15 mg Documented by: Saccharomyces Boulardii (Saccharomyces Boulardii 250 Mg Capsule) 250 mg PO BIDWM [facility] Last Admin: 11/26/20 08:44 Dose: 250 mg Documented by: Sodium Chloride (Sodium Chloride Flush 0.9% 10 Ml Syringe) 10 ml IVP PRN PRN PRN Reason: NEEDED PER PROVIDER ORDERS Last Admin: 11/19/20 13:40 Dose: 10 ml Documented by: Sodium Chloride (Sodium Chloride Flush 0.9% 10 Ml Syringe) 10 ml IVP 0100,0900,1700 [facility] Last Admin: 11/26/20 16:10 Dose: 10 ml Documented by: No Known Home Medications 11/14/20 Objective - Vital Signs/Intake & Output Vital Signs: Vital Signs x48h BP 11/26/20 05:42 115/77 Intake & Output: Intake & Output 11/23/20 11/24/20 11/25/20 11/26/20 23:59 23:59 23:59 23:59 Intake Total 357 803 5735 660 Output Total 1225 1100 550 430 Balance -285 -250 720 230 - Objective General Appearance: positive: Alert Eyes Bilateral: positive: Normal inspection ENT: positive: No signs of dehydration Neck: positive: No JVD. negative: Stiff neck Respiratory: positive: No respiratory distress. negative: Wheezes, Rales, Rhonchi Cardiovascular: positive: Regular rate & rhythm Abdomen: positive: Non-tender, No distention Skin: positive: Color nml, Warm, Dry Neurologic/Psychiatric: positive: Oriented x3 - Lab Results Fish Bones: 11/19/20 04:21 11/27/20 05:45 Other Labs: Lab Results x24hrs 11/26/20 Range/Units 06:00 Sodium 139 (135-145) mmol/L Potassium 3.7 (3.5-5.0) mmol/L Chloride 101 (101-111) mmol/L Carbon Dioxide 31 (21-32) mmol/L Anion Gap 7.0 (6-13) BUN 24 H (6-20) mg/dL Creatinine 0.9 (0.6-1.2) mg/dL Estimated GFR (MDRD) 84 L (>89) Glucose 95 (70-100) mg/dL Calcium 8.6 (8.5-10.3) mg/dL Assessment/Plan - Problem List (1) Acute on chronic heart failure with preserved ejection fraction (HFpEF) Impression: Assessment/Plan Impression: This is now resolved. Echocardiogram revealed a preserved ejection fraction. He is stable on oral diuretics and is no longer hypoxic. He is medically [facility]. (2) Pulmonary emboli Impression: CT angiogram on admission suggestive of small pulmonary embolism versus artifact. Duplex showed no evidence of DVT but he does have chronic nonocclusive defects within right femoral-popliteal veins and so he was treated empirically with anticoagulation. We will continue Xarelto 15 mg twice daily for 3 weeks before changing him to 20 mg daily. This transition will occur December 05. (3) Pneumonia Impression: CT on admission showed a right lower lobe infiltrate with small right parapneumonic effusion. He was treated with IV antibiotics and has completed 8 days of treatment. (4) Elevated troponin Impression: His troponin was elevated in the 140s on admission. EKG did not suggest ischemia. It was felt this was likely demand ischemia secondary to the heart failure. (5) Physical deconditioning Impression: At this point he is medically cleared for discharge to jail facility as he is not a safe discharge home. We are working with social work regarding disposition. Continue PT. (6) Diarrhea Impression: Multiple bouts of diarrhea, loose stool and flatulence. Loperamide as needed. Sending for C. diff.
[2020-11-26] MEDS: LOPERAMIDE 2 MG CAPSULE PO PRN (13:26)
[2020-11-27] MEDS: SODIUM CHLORIDE FLUSH 0.9% 10 ML SYRINGE IVP SCH ×3 (01:02→16:47)
[2020-11-27] MEDS: FUROSEMIDE 20 MG TABLET PO SCH ×2 (05:29→13:17)
[2020-11-27 06:19] LABS: CALCIUM 8.7 mg/dL (8.5-10.3); CREATININE 0.9 mg/dL (0.6-1.2); POTASSIUM 3.9 mmol/L (3.5-5.0)
[2020-11-27] MEDS: MULTIVITAMIN W/MINERALS TABLET PO SCH (09:55)
[2020-11-27] MEDS: SACCHAROMYCES BOULARDII 250 MG CAPSULE PO SCH ×2 (09:55→16:47)
[2020-11-27] MEDS: MAGNESIUM OXIDE 400 MG TABLET PO SCH ×2 (09:55→20:45)
[2020-11-27] MEDS: RIVAROXABAN 15 MG TABLET PO SCH ×2 (09:55→16:47)
[2020-11-27] MEDS: NYSTATIN POWDER 15 GM TOP SCH ×2 (09:56→20:46)
--- NOTE | 2020-11-27 16:46 | PROVIDER PROGRESS NOTE ---
Progress Note No new events noted by business information analyst. Patient says he is about the same. Working with physical therapy to get more mobile. He is working with transfers and gait training exercises. He fatigues really easily and can only do about 4 feet at a time before having to stop. His admission weight on November 14 was 132 kg. But it was quickly corrected to 115.5 kg when he got from the ER to [facility]. Today he is 104.5 kg. Active Medications Acetaminophen (Acetaminophen 325 Mg Tablet) 650 mg PO Q4HR PRN PRN Reason: Pain 1 to 4 Last Admin: 11/20/20 08:36 Dose: 650 mg Documented by: Furosemide (Furosemide 20 Mg Tablet) 20 mg PO BIDDIURETIC [facility] Last Admin: 11/27/20 13:17 Dose: 20 mg Documented by: Loperamide HCl (Loperamide 2 Mg Capsule) 2 mg PO QID PRN PRN Reason: Diarrhea Last Admin: 11/26/20 13:26 Dose: 2 mg Documented by: Magnesium Oxide (Magnesium Oxide 400 Mg Tablet) 400 mg PO BID [facility] Last Admin: 11/27/20 09:55 Dose: 400 mg Documented by: Multivitamins/Minerals (Multivitamin W/Minerals Tablet) 1 tab PO DAILYWM [facility] Last Admin: 11/27/20 09:55 Dose: 1 tab Documented by: Nystatin (Nystatin Powder 15 Gm) 1 applic TOP BID [facility] Last Admin: 11/27/20 09:56 Dose: Not Given Documented by: Ondansetron HCl (Ondansetron 4 Mg/2 Ml Vial) 4 mg IVP Q6HR PRN PRN Reason: Nausea / Vomiting Rivaroxaban (Rivaroxaban 15 Mg Tablet) 15 mg PO BIDWM [facility] Last Admin: 11/27/20 09:55 Dose: 15 mg Documented by: Saccharomyces Boulardii (Saccharomyces Boulardii 250 Mg Capsule) 250 mg PO BIDWM [facility] Last Admin: 11/27/20 09:55 Dose: 250 mg Documented by: Sodium Chloride (Sodium Chloride Flush 0.9% 10 Ml Syringe) 10 ml IVP PRN PRN PRN Reason: NEEDED PER PROVIDER ORDERS Last Admin: 11/19/20 13:40 Dose: 10 ml Documented by: Sodium Chloride (Sodium Chloride Flush 0.9% 10 Ml Syringe) 10 ml IVP 0100,0900,1700 [facility] Last Admin: 11/27/20 09:56 Dose: 10 ml Documented by: No Known Home Medications 11/14/20 Temperature is 36.6. Heart rate 78. Blood pressure 133/80. Respirations 16. 100% on room air. Alert, elderly gentleman valdez, groomed. Neck is with shotty adenopathy, no JVD, supple Lungs are clear. No increased respiratory effort was speaking to me or walking in the room Regular rate and rhythm Abdomen is soft, nontender, normal bowel sounds. Extremities with edema still present. 2+. BMP today is with BUN of 21. Otherwise normal. White cell count 5.8. Hemoglobin 12.1. Platelets 169. Assessment/plan 1. Acute on chronic heart failure with preserved ejection fraction. He has had excellent diuresis with good weight loss as demonstrated above. He has been on p.o. Lasix since November 22. Holding well with that. 2. Previous history of PE in the past. CT angiogram on admission suggestive of small pulmonary embolism. Duplex study showed chronic nonocclusive defects within the right femoral popliteal vein and asked that she is being treated empirically with anticoagulation. He is on Xarelto 15 mg twice a day for 3 weeks before you need to change in 20 mg daily. That will occur on December 05. 3. Right lower lobe pneumonia on admission. Status post 8 days of antibiotic therapy 4. Elevated troponin/demand ischemia resolved 5. Physical deconditioning and weakness. Working with physical therapy. Plan is for discharge [facility]. 6. Diarrhea. Once he was started on loperamide, he has had 1 bowel movement. So far no recurrence of diarrhea and as such we have not been able to test his stool.
[2020-11-28] MEDS: SODIUM CHLORIDE FLUSH 0.9% 10 ML SYRINGE IVP SCH ×4 (00:17→23:46)
[2020-11-28] MEDS: LOPERAMIDE 2 MG CAPSULE PO PRN ×2 (00:21→07:50)
[2020-11-28] MEDS: FUROSEMIDE 20 MG TABLET PO SCH ×2 (05:46→13:28)
[2020-11-28] MEDS: ACETAMINOPHEN 325 MG TABLET PO PRN (07:49)
[2020-11-28] MEDS: SACCHAROMYCES BOULARDII 250 MG CAPSULE PO SCH ×2 (07:49→16:14)
[2020-11-28] MEDS: MULTIVITAMIN W/MINERALS TABLET PO SCH (07:50)
[2020-11-28] MEDS: RIVAROXABAN 15 MG TABLET PO SCH ×2 (07:50→16:14)
[2020-11-28] MEDS: MAGNESIUM OXIDE 400 MG TABLET PO SCH (08:26)
[2020-11-28] MEDS: NYSTATIN POWDER 15 GM TOP SCH ×2 (08:27→21:44)
--- NOTE | 2020-11-28 15:29 | PROVIDER PROGRESS NOTE ---
Assessment/Plan - Problem List (1) Acute on chronic heart failure with preserved ejection fraction (HFpEF) Assessment/Plan: 11-28, Patient has no complaints, patient is hemodynamic stable, patient is pending for replacement 11-24 Patient is hemodynamically stable, pt is ready for d/c, otherwise pt has no complaints. Social work was consulted for disposition planning. 11-23 improved and stable. continue PO Lasix. pt is ready for d/c, Social work was consulted for disposition planning. 11/22, Patient reported his fluid overloaded is significantly improved. BNP is trended down to 700 from 1400. pt's BP is lower on the last night. We will reduce Lasix dosage and change to PO Lasix as well. ECHO on 11/14 showed normal EF, LVH, no severe valvular dz, pt has unclear hx of CHF, (2) Pulmonary emboli Conclusion/Plan: 11-28 Patient has no respiratory distress, patient had a 99% oxygen saturation on room air, Continue Xarelto. 11/22 Small PE vs artifact within right pulmonary on CTA on 11/14. we will continue Xarelto w/o Change in management today. pt also hx of DVT-noted on Chronic non-occlusive filling defects in right femoral and popliteal vein, simil ar to one in (3) Pneumonia Conclusion/Plan: 11-28 pt is finished the treatment course 4) HTN (hypertension) Conclusion/Plan: 11/22, pt has soft BP on last night, now he has normative BP (5) Elevated troponin Conclusion/Plan: Patient had elevated troponin, repeat trended down. EKG does not show acute ischemic change. Patient denies chest pain. It is likely from demand ischemia and patient's CHF exacerbation. type 2MI (6) Medical non-compliance Conclusion/Plan: 11/22 Patient has a history of DVT but he reports he did not take any medication over half year. Now patient has a PE again. Strongly advised patient To follow through with medical management. (7) Generalized weakness 11/22 PT and OT Evaluated and treated for patient, recommended patient preferrable at SNF if placement is available; continue w/daily PT in hospital. Consult with social work for disposition - Current Meds Current Meds: Current Medications Generic Name Dose Route Start Last Admin Trade Name Freq PRN Reason Stop Dose Admin Acetaminophen 650 mg 11/14/20 10:04 11/28/20 07:49 Acetaminophen 325 Mg Tablet PO 650 mg Q4HR PRN Administration Pain 1 to 4 Furosemide 20 mg 11/22/20 07:34 11/28/20 13:28 Furosemide 20 Mg Tablet PO 20 mg BIDDIURETIC ADELINA Administration Loperamide HCl 2 mg 11/26/20 12:54 11/28/20 07:50 Loperamide 2 Mg Capsule PO 2 mg QID PRN Administration Diarrhea Multivitamins/Minerals 1 tab 11/21/20 10:00 11/28/20 07:50 Multivitamin W/Minerals Tablet PO 1 tab DAILYWM ADELINA Administration Nystatin 1 applic 11/14/20 14:00 11/28/20 08:27 Nystatin Powder 15 Gm TOP Not Given BID ADELINA Rivaroxaban 15 mg 11/14/20 17:00 11/28/20 07:50 Rivaroxaban 15 Mg Tablet PO 15 mg BIDWM ADELINA Administration Saccharomyces Boulardii 250 mg 11/15/20 10:40 11/28/20 07:49 Saccharomyces Boulardii 250 Mg Capsule PO 250 mg BIDWM ADELINA Administration Sodium Chloride 10 ml 11/14/20 10:04 11/19/20 13:40 Sodium Chloride Flush 0.9% 10 Ml Syringe IVP 10 ml PRN PRN Administration NEEDED PER PROVIDER ORDERS Sodium Chloride 10 ml 11/14/20 17:00 11/28/20 08:27 Sodium Chloride Flush 0.9% 10 Ml Syringe IVP 10 ml 0100,0900,1700 ADELINA Administration - Lab Result Fish Bone Diagrams: 11/19/20 04:21 11/27/20 05:45 - Additional Planning My Orders: My Active Orders 11/28/20 21:00 Magnesium Oxide [Mag Ox] 800 mg PO BID Subjective - Subjective Patient Reports: Feeling Better Objective Vital Signs: Vital Signs - 24 hr 11/27/20 11/27/20 11/28/20 16:00 23:42 07:42 Temperature 36.8 C 36.7 C 36.5 C Heart Rate [ 79 84 80 Brachial] Respiratory 16 18 17 Rate Blood Pressure 119/82 H [Left Brachial artery] Blood Pressure 133/80 H 128/84 H [Right Brachial artery] O2 Saturation 100 100 99 11/28/20 13:27 Temperature Heart Rate [ 81 Brachial] Respiratory Rate Blood Pressure [Left Brachial artery] Blood Pressure 113/67 [Right Brachial artery] O2 Saturation Oxygen O2 Source Room air I&O (Last 24 Hrs): Intake and Output Totals x24h 11/26/20 11/27/20 11/28/20 23:59 23:59 23:59 Intake Total 1380 950 600 Output Total 855 1375 850 Balance 525 -425 -250 General: Alert, Oriented x3, Cooperative, No acute distress HEENT: Atraumatic Neck: Supple Lymphatic: no adenopathy Neuro: Alert, Non Focal, Oriented Times 3 Cardiovascular: Regular rate, Normal S1, Normal S2 Respiratory: Chest non-tender, No respiratory distress Abdomen: Normal bowel sounds, Soft Extremities: Normal pulses - Results Results: Laboratory Results WBC 5.8 x10^3/uL (4.8-10.8) 11/19/20 04:21 RBC 3.81 10^6/uL (4.70-6.10) L 11/19/20 04:21 Hgb 12.1 g/dL (14.0-18.0) L 11/19/20 04:21 Hct 37.7 % (42.0-52.0) L 11/19/20 04:21 MCV 99.0 fL (80.0-94.0) H 11/19/20 04:21 MCH 31.8 pg (27.0-31.0) H 11/19/20 04:21 MCHC 32.1 g/dL (32.0-36.0) 11/19/20 04:21 RDW 15.9 % (12.0-15.0) H 11/19/20 04:21 Plt Count 169 10^3/uL (130-450) 11/19/20 04:21 MPV 11.1 fL (7.4-11.4) 11/19/20 04:21 Neut # (Auto) 4.3 10^3/uL (1.5-6.6) 11/19/20 04:21 Lymph # (Auto) 0.9 10^3/uL (1.5-3.5) L 11/19/20 04:21 [place] # (Auto) 0.5 10^3/uL (0.0-1.0) 11/19/20 04:21 Eos # (Auto) 0.1 10^3/uL (0.0-0.7) 11/19/20 04:21 Baso # (Auto) 0.0 10^3/uL (0.0-0.1) 11/19/20 04:21 Absolute Nucleated RBC 0.00 x10^3/uL 11/19/20 04:21 Nucleated RBC % 0.0 /100WBC 11/19/20 04:21 Sodium 138 mmol/L (135-145) 11/27/20 05:45 Potassium 3.9 mmol/L (3.5-5.0) 11/27/20 05:45 Chloride 98 mmol/L (101-111) L 11/27/20 05:45 Carbon Dioxide 32 mmol/L (21-32) 11/27/20 05:45 Anion Gap 8.0 (6-13) 11/27/20 05:45 BUN 21 mg/dL (6-20) H 11/27/20 05:45 Creatinine 0.9 mg/dL (0.6-1.2) 11/27/20 05:45 Estimated GFR (MDRD) 84 (>89) L 11/27/20 05:45 Glucose 92 mg/dL (70-100) 11/27/20 05:45 Calcium 8.7 mg/dL (8.5-10.3) 11/27/20 05:45 Phosphorus 2.8 mg/dL (2.5-4.6) 11/20/20 04:12 Magnesium 1.5 mg/dL (1.7-2.8) L 11/24/20 05:46 Total Bilirubin 0.9 mg/dL (0.2-1.0) 11/14/20 06:45 AST 67 IU/L (10-42) H 11/14/20 06:45 ALT 54 IU/L (10-60) 11/14/20 06:45 Alkaline Phosphatase 44 IU/L (42-121) 11/14/20 06:45 Troponin I High Sens 139.5 ng/L (2.3-19.7) H* 11/14/20 08:57 B-Natriuretic Peptide 692 pg/mL (5-100) H 11/22/20 04:58 Total Protein 6.5 g/dL (6.7-8.2) L 11/14/20 06:45 Albumin 3.8 g/dL (3.2-5.5) 11/14/20 06:45 Globulin 2.7 g/dL (2.1-4.2) 11/14/20 06:45 Albumin/Globulin Ratio 1.4 (1.0-2.2) 11/14/20 06:45 Lipase 24 U/L (22-51) 11/14/20 06:45 Urine Color YELLOW 11/14/20 07:33 Urine Clarity CLEAR (CLEAR) 11/14/20 07:33 Urine pH 6.5 PH (5.0-7.5) 11/14/20 07:33 Ur Specific [place] 1.015 (1.002-1.030) 11/14/20 07:33 Urine Protein NEGATIVE mg/dL (NEGATIVE) 11/14/20 07:33 Urine Glucose (UA) NEGATIVE mg/dL (NEGATIVE) 11/14/20 07:33 Urine Ketones NEGATIVE mg/dL (NEGATIVE) 11/14/20 07:33 Urine Occult Blood TRACE-INTA (NEGATIVE) 11/14/20 07:33 Urine Nitrite NEGATIVE (NEGATIVE) 11/14/20 07:33 Urine Bilirubin NEGATIVE (NEGATIVE) 11/14/20 07:33 Urine Urobilinogen 0.2 (NORMAL) E.U./dL (NORMAL) 11/14/20 07:33 Ur Leukocyte Esterase NEGATIVE (NEGATIVE) 11/14/20 07:33 Ur Microscopic Review NOT INDICATED 11/14/20 07:33 Urine Culture Comments NOT INDICATED 11/14/20 07:33 Nasal Adenovirus (PCR) NOT DETECTED 11/14/20 07:35 Nasal B. parapertussis DNA (PCR) NOT DETECTED 11/14/20 07:35 Nasal Coronavir 229E PCR NOT DETECTED 11/14/20 07:35 Nasal Coronavir HKU1 PCR NOT DETECTED 11/14/20 07:35 Nasal Coronavir NL63 PCR NOT DETECTED 11/14/20 07:35 Nasal Coronavir OC43 PCR NOT DETECTED 11/14/20 07:35 Nasal Enterovir/Rhinovir PCR NOT DETECTED 11/14/20 07:35 Nasal Influenza B PCR NOT DETECTED 11/14/20 07:35 Nasal Influenza A PCR NOT DETECTED 11/14/20 07:35 Nasal Parainfluen 1 PCR NOT DETECTED 11/14/20 07:35 Nasal Parainfluen 2 PCR NOT DETECTED 11/14/20 07:35 Nasal Parainfluen 3 PCR NOT DETECTED 11/14/20 07:35 Nasal Parainfluen 4 PCR NOT DETECTED 11/14/20 07:35 Nasal RSV (PCR) NOT DETECTED 11/14/20 07:35 Nasal B.pertussis DNA PCR NOT DETECTED 11/14/20 07:35 Nasal C.pneumoniae (PCR) NOT DETECTED 11/14/20 07:35 Ad Human Metapneumo PCR NOT DETECTED 11/14/20 07:35 Nasal M.pneumoniae (PCR) NOT DETECTED 11/14/20 07:35 Nasal SARS-CoV-2 (PCR) NOT DETECTED 11/14/20 07:35 Urine Opiates Screen NEGATIVE (NEGATIVE) 11/14/20 07:33 Ur Oxycodone Screen NEGATIVE (NEGATIVE) 11/14/20 07:33 Urine Methadone Screen NEGATIVE (NEGATIVE) 11/14/20 07:33 Ur Propoxyphene Screen NEGATIVE (NEGATIVE) 11/14/20 07:33 Ur Barbiturates Screen NEGATIVE (NEGATIVE) 11/14/20 07:33 Ur Tricyclics Screen NEGATIVE (NEGATIVE) 11/14/20 07:33 Ur Phencyclidine Scrn NEGATIVE (NEGATIVE) 11/14/20 07:33 Ur Amphetamine Screen NEGATIVE (NEGATIVE) 11/14/20 07:33 U Methamphetamines Scrn NEGATIVE (NEGATIVE) 11/14/20 07:33 U Benzodiazepines Scrn NEGATIVE (NEGATIVE) 11/14/20 07:33 Urine Cocaine Screen NEGATIVE (NEGATIVE) 11/14/20 07:33 U Cannabinoids Screen NEGATIVE (NEGATIVE) 11/14/20 07:33 Ethyl Alcohol < 5.0 mg/dL 11/14/20 06:45 ABX Reporting Has patient been on IV antibiotics over the past 48 hours?: No Current Medications - Current Medications Current Medications: Active Medications Acetaminophen (Acetaminophen 325 Mg Tablet) 650 mg PO Q4HR PRN PRN Reason: Pain 1 to 4 Last Admin: 11/28/20 07:49 Dose: 650 mg Documented by: Furosemide (Furosemide 20 Mg Tablet) 20 mg PO BIDDIURETIC ADELINA Last Admin: 11/28/20 13:28 Dose: 20 mg Documented by: Loperamide HCl (Loperamide 2 Mg Capsule) 2 mg PO QID PRN PRN Reason: Diarrhea Last Admin: 11/28/20 07:50 Dose: 2 mg Documented by: Magnesium Oxide (Magnesium Oxide 400 Mg Tablet) 800 mg PO BID ADELINA Multivitamins/Minerals (Multivitamin W/Minerals Tablet) 1 tab PO DAILYWM [facility] Last Admin: 11/28/20 07:50 Dose: 1 tab Documented by: Nystatin (Nystatin Powder 15 Gm) 1 applic TOP BID [facility] Last Admin: 11/28/20 08:27 Dose: Not Given Documented by: Ondansetron HCl (Ondansetron 4 Mg/2 Ml Vial) 4 mg IVP Q6HR PRN PRN Reason: Nausea / Vomiting Rivaroxaban (Rivaroxaban 15 Mg Tablet) 15 mg PO BIDWM [facility] Last Admin: 11/28/20 07:50 Dose: 15 mg Documented by: Saccharomyces Boulardii (Saccharomyces Boulardii 250 Mg Capsule) 250 mg PO BIDWM [facility] Last Admin: 11/28/20 07:49 Dose: 250 mg Documented by: Sodium Chloride (Sodium Chloride Flush 0.9% 10 Ml Syringe) 10 ml IVP PRN PRN PRN Reason: NEEDED PER PROVIDER ORDERS Last Admin: 11/19/20 13:40 Dose: 10 ml Documented by: Sodium Chloride (Sodium Chloride Flush 0.9% 10 Ml Syringe) 10 ml IVP 0100,0900,1700 [facility] Last Admin: 11/28/20 08:27 Dose: 10 ml Documented by: No Known Home Medications 11/14/20
[2020-11-28] MEDS ORDERED: MAGNESIUM OXIDE 400 MG TABLET PO SCH (21:00)
[2020-11-29] MEDS: FUROSEMIDE 20 MG TABLET PO SCH ×2 (06:30→14:37)
[2020-11-29 08:05] LABS: CREATININE 0.8 mg/dL (0.6-1.2); MAGNESIUM 1.6 mg/dL (1.7-2.8); POTASSIUM 4.1 mmol/L (3.5-5.0)
[2020-11-29] MEDS ORDERED: MAGNESIUM OXIDE 400 MG TABLET PO SCH (09:00)
[2020-11-29] MEDS: MULTIVITAMIN W/MINERALS TABLET PO SCH (09:15)
[2020-11-29] MEDS: SACCHAROMYCES BOULARDII 250 MG CAPSULE PO SCH ×2 (09:15→17:15)
[2020-11-29] MEDS: RIVAROXABAN 15 MG TABLET PO SCH ×2 (09:16→17:15)
[2020-11-29] MEDS: LOPERAMIDE 2 MG CAPSULE PO PRN ×2 (09:17→21:03)
[2020-11-29] MEDS: SODIUM CHLORIDE FLUSH 0.9% 10 ML SYRINGE IVP SCH ×2 (09:17→21:22)
[2020-11-29] MEDS: NYSTATIN POWDER 15 GM TOP SCH (09:19)
--- NOTE | 2020-11-29 16:12 | PROVIDER PROGRESS NOTE ---
Assessment/Plan - Problem List (1) Acute on chronic heart failure with preserved ejection fraction (HFpEF) Assessment/Plan: 11-29 Patient reported he feel better, His anasarca status is significantly improved. patient is hemodynamic stable, patient is pending for replacement 11-28, Patient has no complaints, patient is hemodynamic stable, patient is pending for replacement 11-24 Patient is hemodynamically stable, pt is ready for d/c, otherwise pt has no complaints. Social work was consulted for disposition planning. 11-23 improved and stable. continue PO Lasix. pt is ready for d/c, Social work w as consulted for disposition planning. 11/22, Patient reported his fluid overloaded is significantly improved. BNP is trended down to 700 from 1400. pt's BP is lower on the last night. We will reduc e Lasix dosage and change to PO Lasix as well. ECHO on 11/14 showed normal EF, LVH, no severe valvular dz, pt has unclear hx of CHF, (2) Pulmonary emboli Conclusion/Plan: 11-28 Patient has no respiratory distress, patient had a 99% oxygen saturation on room air, Continue Xarelto. 11/22 Small PE vs artifact within right pulmonary on CTA on 11/14. we will con tinue Xarelto w/o Change in management today. pt also hx of DVT-noted on Chronic non-occlusive filling defects in right femoral and popliteal vein, similar to one in (3) Pneumonia Conclusion/Plan: 11-28 pt is finished the treatment course 4) HTN (hypertension) Conclusion/Plan: 11/22, pt has soft BP on last night, now he has normative BP (5) Elevated troponin Conclusion/Plan: Patient had elevated troponin, repeat trended down. EKG does not show acute ischemic change. Patient denies chest pain. It is likely from demand ischemia and patient's CHF exacerbation. type 2MI (6) Medical non-compliance Conclusion/Plan: 11/22 Patient has a history of DVT but he reports he did not take any medication over half year. Now patient has a PE again. Strongly advised patient To follow through with medical management. (7) Generalized weakness 11/22 PT and OT Evaluated and treated for patient, recommended patient preferrable at SNF if placement is available; continue w/daily PT in hospital. Consult with social work for disposition - Current Meds Current Meds: Current Medications Generic Name Dose Route Start Last Admin Trade Name Scott PRN Reason Stop Dose Admin Acetaminophen 650 mg 11/14/20 10:04 11/28/20 07:49 Acetaminophen 325 Mg Tablet PO 650 mg Q4HR PRN Administration Pain 1 to 4 Furosemide 20 mg 11/22/20 07:34 11/29/20 14:37 Furosemide 20 Mg Tablet PO 20 mg BIDDIURETIC ADELINA Administration Loperamide HCl 2 mg 11/26/20 12:54 11/29/20 09:17 Loperamide 2 Mg Capsule PO 2 mg QID PRN Administration Diarrhea Multivitamins/Minerals 1 tab 11/21/20 10:00 11/29/20 09:15 Multivitamin W/Minerals Tablet PO 1 tab DAILYWM ADELINA Administration Nystatin 1 applic 11/14/20 14:00 11/29/20 09:19 Nystatin Powder 15 Gm TOP Not Given BID ADELINA Rivaroxaban 15 mg 11/14/20 17:00 11/29/20 09:16 Rivaroxaban 15 Mg Tablet PO 15 mg BIDWM ADELINA Administration Saccharomyces Boulardii 250 mg 11/15/20 10:40 11/29/20 09:15 Saccharomyces Boulardii 250 Mg Capsule PO 250 mg BIDWM ADELINA Administration Sodium Chloride 10 ml 11/14/20 10:04 11/19/20 13:40 Sodium Chloride Flush 0.9% 10 Ml Syringe IVP 10 ml PRN PRN Administration NEEDED PER PROVIDER ORDERS Sodium Chloride 10 ml 11/14/20 17:00 11/29/20 09:17 Sodium Chloride Flush 0.9% 10 Ml Syringe IVP 10 ml 0100,0900,1700 ADELINA Administration - Lab Result Fish Bone Diagrams: 11/19/20 04:21 11/29/20 07:32 - Additional Planning My Orders: My Active Orders 11/29/20 21:00 Magnesium Oxide [Mag Ox] 800 mg PO BID Subjective - Subjective Patient Reports: Feeling Better, No Complaints Objective Vital Signs: Vital Signs - 24 hr 11/28/20 11/29/20 11/29/20 23:49 06:30 07:45 Temperature 36.6 C 36.6 C Heart Rate [ 82 79 Brachial] Respiratory 16 16 Rate Blood Pressure 101/68 95/68 104/73 [Right Brachial artery] O2 Saturation 95 100 11/29/20 14:34 Temperature Heart Rate [ 80 Brachial] Respiratory Rate Blood Pressure 105/71 [Right Brachial artery] O2 Saturation Oxygen O2 Source Room air I&O (Last 24 Hrs): Intake and Output Totals x24h 11/27/20 11/28/20 11/29/20 23:59 23:59 23:59 Intake Total 950 920 470 Output Total 1375 1025 725 [place] -045 -462 -329 General: Alert, Oriented x3, Cooperative, No acute distress HEENT: Atraumatic Neck: Supple Lymphatic: no adenopathy Neuro: Alert, Non Focal, Oriented Times 3 Cardiovascular: Regular rate, Normal S1, Normal S2 Respiratory: Chest non-tender, No respiratory distress Abdomen: Normal bowel sounds, Soft Extremities: Normal pulses - Results Results: Laboratory Results WBC 5.8 x10^3/uL (4.8-10.8) 11/19/20 04:21 RBC 3.81 10^6/uL (4.70-6.10) L 11/19/20 04:21 Hgb 12.1 g/dL (14.0-18.0) L 11/19/20 04:21 Hct 37.7 % (42.0-52.0) L 11/19/20 04:21 MCV 99.0 fL (80.0-94.0) H 11/19/20 04:21 MCH 31.8 pg (27.0-31.0) H 11/19/20 04:21 MCHC 32.1 g/dL (32.0-36.0) 11/19/20 04:21 RDW 15.9 % (12.0-15.0) H 11/19/20 04:21 Plt Count 169 10^3/uL (130-450) 11/19/20 04:21 MPV 11.1 fL (7.4-11.4) 11/19/20 04:21 Neut # (Auto) 4.3 10^3/uL (1.5-6.6) 11/19/20 04:21 Lymph # (Auto) 0.9 10^3/uL (1.5-3.5) L 11/19/20 04:21 [place] # (Auto) 0.5 10^3/uL (0.0-1.0) 11/19/20 04:21 Eos # (Auto) 0.1 10^3/uL (0.0-0.7) 11/19/20 04:21 Baso # (Auto) 0.0 10^3/uL (0.0-0.1) 11/19/20 04:21 Absolute Nucleated RBC 0.00 x10^3/uL 11/19/20 04:21 Nucleated RBC % 0.0 /100WBC 11/19/20 04:21 Sodium 140 mmol/L (135-145) 11/29/20 07:32 Potassium 4.1 mmol/L (3.5-5.0) 11/29/20 07:32 Chloride 101 mmol/L (101-111) 11/29/20 07:32 Carbon Dioxide 32 mmol/L (21-32) 11/29/20 07:32 Anion Gap 7.0 (6-13) 11/29/20 07:32 BUN 19 mg/dL (6-20) 11/29/20 07:32 Creatinine 0.8 mg/dL (0.6-1.2) 11/29/20 07:32 Estimated GFR (MDRD) 96 (>89) 11/29/20 07:32 Glucose 87 mg/dL (70-100) 11/29/20 07:32 Calcium 9.0 mg/dL (8.5-10.3) 11/29/20 07:32 Phosphorus 2.8 mg/dL (2.5-4.6) 11/20/20 04:12 Magnesium 1.6 mg/dL (1.7-2.8) L 11/29/20 07:32 Total Bilirubin 0.9 mg/dL (0.2-1.0) 11/14/20 06:45 AST 67 IU/L (10-42) H 11/14/20 06:45 ALT 54 IU/L (10-60) 11/14/20 06:45 Alkaline Phosphatase 44 IU/L (42-121) 11/14/20 06:45 Troponin I High Sens 139.5 ng/L (2.3-19.7) H* 11/14/20 08:57 B-Natriuretic Peptide 692 pg/mL (5-100) H 11/22/20 04:58 Total Protein 6.5 g/dL (6.7-8.2) L 11/14/20 06:45 Albumin 3.8 g/dL (3.2-5.5) 11/14/20 06:45 Globulin 2.7 g/dL (2.1-4.2) 11/14/20 06:45 Albumin/Globulin Ratio 1.4 (1.0-2.2) 11/14/20 06:45 Lipase 24 U/L (22-51) 11/14/20 06:45 Urine Color YELLOW 11/14/20 07:33 Urine Clarity CLEAR (CLEAR) 11/14/20 07:33 Urine pH 6.5 PH (5.0-7.5) 11/14/20 07:33 Ur Specific [place] 1.015 (1.002-1.030) 11/14/20 07:33 Urine Protein NEGATIVE mg/dL (NEGATIVE) 11/14/20 07:33 Urine Glucose (UA) NEGATIVE mg/dL (NEGATIVE) 11/14/20 07:33 Urine Ketones NEGATIVE mg/dL (NEGATIVE) 11/14/20 07:33 Urine Occult Blood TRACE-INTA (NEGATIVE) 11/14/20 07:33 Urine Nitrite NEGATIVE (NEGATIVE) 11/14/20 07:33 Urine Bilirubin NEGATIVE (NEGATIVE) 11/14/20 07:33 Urine Urobilinogen 0.2 (NORMAL) E.U./dL (NORMAL) 11/14/20 07:33 Ur Leukocyte Esterase NEGATIVE (NEGATIVE) 11/14/20 07:33 Ur Microscopic Review NOT INDICATED 11/14/20 07:33 Urine Culture Comments NOT INDICATED 11/14/20 07:33 Nasal Adenovirus (PCR) NOT DETECTED 11/14/20 07:35 Nasal B. parapertussis DNA (PCR) NOT DETECTED 11/14/20 07:35 Nasal Coronavir 229E PCR NOT DETECTED 11/14/20 07:35 Nasal Coronavir HKU1 PCR NOT DETECTED 11/14/20 07:35 Nasal Coronavir NL63 PCR NOT DETECTED 11/14/20 07:35 Nasal Coronavir OC43 PCR NOT DETECTED 11/14/20 07:35 Nasal Enterovir/Rhinovir PCR NOT DETECTED 11/14/20 07:35 Nasal Influenza B PCR NOT DETECTED 11/14/20 07:35 Nasal Influenza A PCR NOT DETECTED 11/14/20 07:35 Nasal Parainfluen 1 PCR NOT DETECTED 11/14/20 07:35 Nasal Parainfluen 2 PCR NOT DETECTED 11/14/20 07:35 Nasal Parainfluen 3 PCR NOT DETECTED 11/14/20 07:35 Nasal Parainfluen 4 PCR NOT DETECTED 11/14/20 07:35 Nasal RSV (PCR) NOT DETECTED 11/14/20 07:35 Nasal B.pertussis DNA PCR NOT DETECTED 11/14/20 07:35 Nasal C.pneumoniae (PCR) NOT DETECTED 11/14/20 07:35 Ad Human Metapneumo PCR NOT DETECTED 11/14/20 07:35 Nasal M.pneumoniae (PCR) NOT DETECTED 11/14/20 07:35 Nasal SARS-CoV-2 (PCR) NOT DETECTED 11/14/20 07:35 Urine Opiates Screen NEGATIVE (NEGATIVE) 11/14/20 07:33 Ur Oxycodone Screen NEGATIVE (NEGATIVE) 11/14/20 07:33 Urine Methadone Screen NEGATIVE (NEGATIVE) 11/14/20 07:33 Ur Propoxyphene Screen NEGATIVE (NEGATIVE) 11/14/20 07:33 Ur Barbiturates Screen NEGATIVE (NEGATIVE) 11/14/20 07:33 Ur Tricyclics Screen NEGATIVE (NEGATIVE) 11/14/20 07:33 Ur Phencyclidine Scrn NEGATIVE (NEGATIVE) 11/14/20 07:33 Ur Amphetamine Screen NEGATIVE (NEGATIVE) 11/14/20 07:33 U Methamphetamines Scrn NEGATIVE (NEGATIVE) 11/14/20 07:33 U Benzodiazepines Scrn NEGATIVE (NEGATIVE) 11/14/20 07:33 Urine Cocaine Screen NEGATIVE (NEGATIVE) 11/14/20 07:33 U Cannabinoids Screen NEGATIVE (NEGATIVE) 11/14/20 07:33 Ethyl Alcohol < 5.0 mg/dL 11/14/20 06:45 ABX Reporting Has patient been on IV antibiotics over the past 48 hours?: No Current Medications - Current Medications Current Medications: Active Medications Acetaminophen (Acetaminophen 325 Mg Tablet) 650 mg PO Q4HR PRN PRN Reason: Pain 1 to 4 Last Admin: 11/28/20 07:49 Dose: 650 mg Documented by: Furosemide (Furosemide 20 Mg Tablet) 20 mg PO BIDDIURETIC ADELINA Last Admin: 11/29/20 14:37 Dose: 20 mg Documented by: Loperamide HCl (Loperamide 2 Mg Capsule) 2 mg PO QID PRN PRN Reason: Diarrhea Last Admin: 11/29/20 09:17 Dose: 2 mg Documented by: Magnesium Oxide (Magnesium Oxide 400 Mg Tablet) 800 mg PO BID [facility] Multivitamins/Minerals (Multivitamin W/Minerals Tablet) 1 tab PO DAILYWM [facility] Last Admin: 11/29/20 09:15 Dose: 1 tab Documented by: Nystatin (Nystatin Powder 15 Gm) 1 applic TOP BID [facility] Last Admin: 11/29/20 09:19 Dose: Not Given Documented by: Ondansetron HCl (Ondansetron 4 Mg/2 Ml Vial) 4 mg IVP Q6HR PRN PRN Reason: Nausea / Vomiting Rivaroxaban (Rivaroxaban 15 Mg Tablet) 15 mg PO BIDWM [facility] Last Admin: 11/29/20 09:16 Dose: 15 mg Documented by: Saccharomyces Boulardii (Saccharomyces Boulardii 250 Mg Capsule) 250 mg PO BIDWM [facility] Last Admin: 11/29/20 09:15 Dose: 250 mg Documented by: Sodium Chloride (Sodium Chloride Flush 0.9% 10 Ml Syringe) 10 ml IVP PRN PRN PRN Reason: NEEDED PER PROVIDER ORDERS Last Admin: 11/19/20 13:40 Dose: 10 ml Documented by: Sodium Chloride (Sodium Chloride Flush 0.9% 10 Ml Syringe) 10 ml IVP 0100,0900,1700 [facility] Last Admin: 11/29/20 09:17 Dose: 10 ml Documented by: No Known Home Medications 11/14/20
[2020-11-29] MEDS: MAGNESIUM OXIDE 400 MG TABLET PO SCH (20:27)
[2020-11-30] MEDS: SODIUM CHLORIDE FLUSH 0.9% 10 ML SYRINGE IVP SCH ×3 (00:01→16:24)
[2020-11-30] MEDS: FUROSEMIDE 20 MG TABLET PO SCH ×2 (06:01→14:56)
[2020-11-30] MEDS: MAGNESIUM OXIDE 400 MG TABLET PO SCH ×2 (09:00→20:55)
[2020-11-30] MEDS: MULTIVITAMIN W/MINERALS TABLET PO SCH (09:00)
[2020-11-30] MEDS: RIVAROXABAN 15 MG TABLET PO SCH ×2 (09:00→16:24)
[2020-11-30] MEDS: SACCHAROMYCES BOULARDII 250 MG CAPSULE PO SCH ×2 (09:00→16:24)
[2020-12-01] MEDS: FUROSEMIDE 20 MG TABLET PO SCH ×2 (05:03→14:30)
[2020-12-01] MEDS: MAGNESIUM OXIDE 400 MG TABLET PO SCH ×2 (08:18→20:19)
[2020-12-01] MEDS: MULTIVITAMIN W/MINERALS TABLET PO SCH (08:19)
[2020-12-01] MEDS: RIVAROXABAN 15 MG TABLET PO SCH ×2 (08:19→16:51)
[2020-12-01] MEDS: SACCHAROMYCES BOULARDII 250 MG CAPSULE PO SCH ×2 (08:19→16:51)
--- NOTE | 2020-12-01 12:15 | PROVIDER PROGRESS NOTE ---
Assessment/Plan - Problem List (1) Acute on chronic heart failure with preserved ejection fraction (HFpEF) Assessment/Plan: 11-30 Patient is hemodynamically stable, pt is pending for replacement, consult with manager social services for Disposition planning. 11-29 Patient reported he feel better, His anasarca status is significantly improved. patient is hemodynamic stable, patient is pending for replacement 11-28, Patient has no complaints, patient is hemodynamic stable, patient is pending for replacement 11-24 Patient is hemodynamically stable, pt is ready for d/c, otherwise pt has no complaints. Social work was consulted for disposition planning. 11-23 improved and stable. continue PO Lasix. pt is ready for d/c, Social work was consulted for disposition planning. 11/22, Patient reported his fluid overloaded is significantly improved. BNP is trended down to 700 from 1400. pt's BP is lower on the last night. We will reduce Lasix dosage and change to PO Lasix as well. ECHO on 11/14 showed normal EF, LVH, no severe valvular dz, pt has unclear hx of CHF, (2) Pulmonary emboli Conclusion/Plan: 11-28 Patient has no respiratory distress, patient had a 99% oxygen saturation on room air, Continue Xarelto. 11/22 Small PE vs artifact within right pulmonary on CTA on 11/14. we will continue Xarelto w/o Change in management today. pt also hx of DVT-noted on Chronic non-occlusive filling defects in right femoral and popliteal vein, similar to one in (3) Pneumonia Conclusion/Plan: 11-28 pt is finished the treatment course 4) HTN (hypertension) Conclusion/Plan: 11/22, pt has soft BP on last night, now he has normative BP (5) Elevated troponin Conclusion/Plan: Patient had elevated troponin, repeat trended down. EKG does not show acute ischemic change. Patient denies chest pain. It is likely from demand ischemia and patient's CHF exacerbation. type 2MI (6) Medical non-compliance Conclusion/Plan: 11/22 Patient has a history of DVT but he reports he did not take any medication over half year. Now patient has a PE again. Strongly advised patient To follow through with medical management. (7) Generalized weakness 11/22 PT and OT Evaluated and treated for patient, recommended patient preferrable at SNF if placement is available; continue w/daily PT in hospital. Consult with social work for disposition - Current Meds Current Meds: Current Medications Generic Name Dose Route Start Last Admin Trade Name Santoshq PRN Reason Stop Dose Admin Acetaminophen 650 mg 11/14/20 10:04 11/28/20 07:49 Acetaminophen 325 Mg Tablet PO 650 mg Q4HR PRN Administration Pain 1 to 4 Furosemide 20 mg 11/22/20 07:34 12/01/20 05:03 Furosemide 20 Mg Tablet PO 20 mg BIDDIURETIC ADELINA Administration Loperamide HCl 2 mg 11/26/20 12:54 11/29/20 21:03 Loperamide 2 Mg Capsule PO 2 mg QID PRN Administration Diarrhea Magnesium Oxide 800 mg 11/29/20 21:00 12/01/20 08:18 Magnesium Oxide 400 Mg Tablet PO 800 mg BID ADELINA Administration Multivitamins/Minerals 1 tab 11/21/20 10:00 12/01/20 08:19 Multivitamin W/Minerals Tablet PO 1 tab DAILYWM ADELINA Administration Rivaroxaban 15 mg 11/14/20 17:00 12/01/20 08:19 Rivaroxaban 15 Mg Tablet PO 12/04/20 21:00 15 mg BIDWM ADELINA Administration Saccharomyces Boulardii 250 mg 11/15/20 10:40 12/01/20 08:19 Saccharomyces Boulardii 250 Mg Capsule PO 250 mg BIDWM ADELINA Administration - Lab Result Fish Bone Diagrams: 11/19/20 04:21 11/29/20 07:32 - Additional Planning My Orders: My Active Orders 12/05/20 17:00 Rivaroxaban [Xarelto] 20 mg PO QDDINNER Subjective - Subjective Patient Reports: Feeling Better, Resting Comfortably Objective Vital Signs: Vital Signs - 24 hr 11/30/20 11/30/20 12/01/20 17:31 23:32 05:04 Temperature 37.4 C 36.7 C Heart Rate [ 80 86 82 Brachial] Respiratory 20 16 Rate Blood Pressure 124/86 H 125/81 H 101/66 [Right Brachial artery] O2 Saturation 100 99 12/01/20 08:00 Temperature 36.7 C Heart Rate [ 78 Brachial] Respiratory 20 Rate Blood Pressure 111/73 [Right Brachial artery] O2 Saturation 97 Oxygen O2 Source Room air I&O (Last 24 Hrs): Intake and Output Totals x24h 11/29/20 11/30/20 12/01/20 23:59 23:59 23:59 Intake Total 790 910 Output Total 1400 1350 450 Balance -610 -440 -450 General: Alert, Oriented x3, Cooperative, No acute distress HEENT: Atraumatic Neck: Supple Lymphatic: no adenopathy Neuro: Alert, Non Focal, Oriented Times 3 Cardiovascular: Regular rate, Normal S1, Normal S2 Respiratory: Chest non-tender, No respiratory distress Abdomen: Normal bowel sounds, Soft Extremities: Normal pulses - Results Results: Laboratory Results WBC 5.8 x10^3/uL (4.8-10.8) 11/19/20 04:21 RBC 3.81 10^6/uL (4.70-6.10) L 11/19/20 04:21 Hgb 12.1 g/dL (14.0-18.0) L 11/19/20 04:21 Hct 37.7 % (42.0-52.0) L 11/19/20 04:21 MCV 99.0 fL (80.0-94.0) H 11/19/20 04:21 MCH 31.8 pg (27.0-31.0) H 11/19/20 04:21 MCHC 32.1 g/dL (32.0-36.0) 11/19/20 04:21 RDW 15.9 % (12.0-15.0) H 11/19/20 04:21 Plt Count 169 10^3/uL (130-450) 11/19/20 04:21 MPV 11.1 fL (7.4-11.4) 11/19/20 04:21 Neut # (Auto) 4.3 10^3/uL (1.5-6.6) 11/19/20 04:21 Lymph # (Auto) 0.9 10^3/uL (1.5-3.5) L 11/19/20 04:21 [place] # (Auto) 0.5 10^3/uL (0.0-1.0) 11/19/20 04:21 Eos # (Auto) 0.1 10^3/uL (0.0-0.7) 11/19/20 04:21 Baso # (Auto) 0.0 10^3/uL (0.0-0.1) 11/19/20 04:21 Absolute Nucleated RBC 0.00 x10^3/uL 11/19/20 04:21 Nucleated RBC % 0.0 /100WBC 11/19/20 04:21 Sodium 140 mmol/L (135-145) 11/29/20 07:32 Potassium 4.1 mmol/L (3.5-5.0) 11/29/20 07:32 Chloride 101 mmol/L (101-111) 11/29/20 07:32 Carbon Dioxide 32 mmol/L (21-32) 11/29/20 07:32 Anion Gap 7.0 (6-13) 11/29/20 07:32 BUN 19 mg/dL (6-20) 11/29/20 07:32 Creatinine 0.8 mg/dL (0.6-1.2) 11/29/20 07:32 Estimated GFR (MDRD) 96 (>89) 11/29/20 07:32 Glucose 87 mg/dL (70-100) 11/29/20 07:32 Calcium 9.0 mg/dL (8.5-10.3) 11/29/20 07:32 Phosphorus 2.8 mg/dL (2.5-4.6) 11/20/20 04:12 Magnesium 1.6 mg/dL (1.7-2.8) L 11/29/20 07:32 Total Bilirubin 0.9 mg/dL (0.2-1.0) 11/14/20 06:45 AST 67 IU/L (10-42) H 11/14/20 06:45 ALT 54 IU/L (10-60) 11/14/20 06:45 Alkaline Phosphatase 44 IU/L (42-121) 11/14/20 06:45 Troponin I High Sens 139.5 ng/L (2.3-19.7) H* 11/14/20 08:57 B-Natriuretic Peptide 692 pg/mL (5-100) H 11/22/20 04:58 Total Protein 6.5 g/dL (6.7-8.2) L 11/14/20 06:45 Albumin 3.8 g/dL (3.2-5.5) 11/14/20 06:45 Globulin 2.7 g/dL (2.1-4.2) 11/14/20 06:45 Albumin/Globulin Ratio 1.4 (1.0-2.2) 11/14/20 06:45 Lipase 24 U/L (22-51) 11/14/20 06:45 Urine Color YELLOW 11/14/20 07:33 Urine Clarity CLEAR (CLEAR) 11/14/20 07:33 Urine pH 6.5 PH (5.0-7.5) 11/14/20 07:33 Ur Specific [place] 1.015 (1.002-1.030) 11/14/20 07:33 Urine Protein NEGATIVE mg/dL (NEGATIVE) 11/14/20 07:33 Urine Glucose (UA) NEGATIVE mg/dL (NEGATIVE) 11/14/20 07:33 Urine Ketones NEGATIVE mg/dL (NEGATIVE) 11/14/20 07:33 Urine Occult Blood TRACE-INTA (NEGATIVE) 11/14/20 07:33 Urine Nitrite NEGATIVE (NEGATIVE) 11/14/20 07:33 Urine Bilirubin NEGATIVE (NEGATIVE) 11/14/20 07:33 Urine Urobilinogen 0.2 (NORMAL) E.U./dL (NORMAL) 11/14/20 07:33 Ur Leukocyte Esterase NEGATIVE (NEGATIVE) 11/14/20 07:33 Ur Microscopic Review NOT INDICATED 11/14/20 07:33 Urine Culture Comments NOT INDICATED 11/14/20 07:33 Nasal Adenovirus (PCR) NOT DETECTED 11/14/20 07:35 Nasal B. parapertussis DNA (PCR) NOT DETECTED 11/14/20 07:35 Nasal Coronavir 229E PCR NOT DETECTED 11/14/20 07:35 Nasal Coronavir HKU1 PCR NOT DETECTED 11/14/20 07:35 Nasal Coronavir NL63 PCR NOT DETECTED 11/14/20 07:35 Nasal Coronavir OC43 PCR NOT DETECTED 11/14/20 07:35 Nasal Enterovir/Rhinovir PCR NOT DETECTED 11/14/20 07:35 Nasal Influenza B PCR NOT DETECTED 11/14/20 07:35 Nasal Influenza A PCR NOT DETECTED 11/14/20 07:35 Nasal Parainfluen 1 PCR NOT DETECTED 11/14/20 07:35 Nasal Parainfluen 2 PCR NOT DETECTED 11/14/20 07:35 Nasal Parainfluen 3 PCR NOT DETECTED 11/14/20 07:35 Nasal Parainfluen 4 PCR NOT DETECTED 11/14/20 07:35 Nasal RSV (PCR) NOT DETECTED 11/14/20 07:35 Nasal B.pertussis DNA PCR NOT DETECTED 11/14/20 07:35 Nasal C.pneumoniae (PCR) NOT DETECTED 11/14/20 07:35 Ad Human Metapneumo PCR NOT DETECTED 11/14/20 07:35 Nasal M.pneumoniae (PCR) NOT DETECTED 11/14/20 07:35 Nasal SARS-CoV-2 (PCR) NOT DETECTED 11/14/20 07:35 Urine Opiates Screen NEGATIVE (NEGATIVE) 11/14/20 07:33 Ur Oxycodone Screen NEGATIVE (NEGATIVE) 11/14/20 07:33 Urine Methadone Screen NEGATIVE (NEGATIVE) 11/14/20 07:33 Ur Propoxyphene Screen NEGATIVE (NEGATIVE) 11/14/20 07:33 Ur Barbiturates Screen NEGATIVE (NEGATIVE) 11/14/20 07:33 Ur Tricyclics Screen NEGATIVE (NEGATIVE) 11/14/20 07:33 Ur Phencyclidine Scrn NEGATIVE (NEGATIVE) 11/14/20 07:33 Ur Amphetamine Screen NEGATIVE (NEGATIVE) 11/14/20 07:33 U Methamphetamines Scrn NEGATIVE (NEGATIVE) 11/14/20 07:33 U Benzodiazepines Scrn NEGATIVE (NEGATIVE) 11/14/20 07:33 Urine Cocaine Screen NEGATIVE (NEGATIVE) 11/14/20 07:33 U Cannabinoids Screen NEGATIVE (NEGATIVE) 11/14/20 07:33 Ethyl Alcohol < 5.0 mg/dL 11/14/20 06:45 ABX Reporting Has patient been on IV antibiotics over the past 48 hours?: No Current Medications - Current Medications Current Medications: Active Medications Acetaminophen (Acetaminophen 325 Mg Tablet) 650 mg PO Q4HR PRN PRN Reason: Pain 1 to 4 Last Admin: 11/28/20 07:49 Dose: 650 mg Documented by: Furosemide (Furosemide 20 Mg Tablet) 20 mg PO BIDDIURETIC ADELINA Last Admin: 12/01/20 05:03 Dose: 20 mg Documented by: Loperamide HCl (Loperamide 2 Mg Capsule) 2 mg PO QID PRN PRN Reason: Diarrhea Last Admin: 11/29/20 21:03 Dose: 2 mg Documented by: Magnesium Oxide (Magnesium Oxide 400 Mg Tablet) 800 mg PO BID ADELINA Last Admin: 12/01/20 08:18 Dose: 800 mg Documented by: Multivitamins/Minerals (Multivitamin W/Minerals Tablet) 1 tab PO DAILYWM ADELINA Last Admin: 12/01/20 08:19 Dose: 1 tab Documented by: Ondansetron HCl (Ondansetron 4 Mg/2 Ml Vial) 4 mg IVP Q6HR PRN PRN Reason: Nausea / Vomiting Rivaroxaban (Rivaroxaban 15 Mg Tablet) 15 mg PO BIDWM [facility] Stop: 12/04/20 21:00 Last Admin: 12/01/20 08:19 Dose: 15 mg Documented by: Rivaroxaban (Rivaroxaban 10 Mg Tablet) [facility] Saccharomyces Boulardii (Saccharomyces Boulardii 250 Mg Capsule) 250 mg PO BIDWM [facility] Last Admin: 12/01/20 08:19 Dose: 250 mg Documented by: No Known Home Medications 11/14/20
[2020-12-01] MEDS: ACETAMINOPHEN 325 MG TABLET PO PRN (17:35)
[2020-12-02] MEDS: FUROSEMIDE 20 MG TABLET PO SCH ×2 (06:28→13:58)
[2020-12-02] MEDS: MULTIVITAMIN W/MINERALS TABLET PO SCH (08:35)
[2020-12-02] MEDS: MAGNESIUM OXIDE 400 MG TABLET PO SCH ×2 (08:35→20:48)
[2020-12-02] MEDS: RIVAROXABAN 15 MG TABLET PO SCH ×2 (08:35→16:50)
[2020-12-02] MEDS: SACCHAROMYCES BOULARDII 250 MG CAPSULE PO SCH ×2 (08:35→16:50)
--- NOTE | 2020-12-02 08:35 | PROVIDER PROGRESS NOTE ---
Assessment/Plan - Problem List (1) Acute on chronic heart failure with preserved ejection fraction (HFpEF) Assessment/Plan: Patient is hemodynamically stable. Lasix 20 mg p.o. twice daily 2D echocardiogram done on 11/17/2020 showed an EF of 50 to 55%. There was no aortic stenosis or regurgitation. No mitral stenosis. (2) Elevated troponin Assessment/Plan: Troponin was trended and trended down. EKG was negative for any acute ischemic changes. This was thought to be secondary to patient's CHF exacerbation. (3) HTN (hypertension) Assessment/Plan: Currently normotensive. Blood pressure is currently 106/62. (4) Pulmonary emboli Assessment/Plan: Patient is on Xarelto (5) Medical non-compliance Assessment/Plan: He has been advised to be more adherent to medical treatment (6) Generalized weakness Assessment/Plan: PT/OT evaluation and treatment. Recommendation is for SNF placement. Social work working on disposition. - Current Meds Current Meds: Current Medications Generic Name Dose Route Start Last Admin Trade Name Freq PRN Reason Stop Dose Admin Acetaminophen 650 mg 11/14/20 10:04 12/01/20 17:35 Acetaminophen 325 Mg Tablet PO 650 mg Q4HR PRN Administration Pain 1 to 4 Furosemide 20 mg 11/22/20 07:34 12/02/20 06:28 Furosemide 20 Mg Tablet PO 20 mg BIDDIURETIC ADELINA Administration Loperamide HCl 2 mg 11/26/20 12:54 11/29/20 21:03 Loperamide 2 Mg Capsule PO 2 mg QID PRN Administration Diarrhea Magnesium Oxide 800 mg 11/29/20 21:00 12/01/20 20:19 Magnesium Oxide 400 Mg Tablet PO 800 mg BID ADELINA Administration Multivitamins/Minerals 1 tab 11/21/20 10:00 12/01/20 08:19 Multivitamin W/Minerals Tablet PO 1 tab DAILYWM ADELINA Administration Rivaroxaban 15 mg 11/14/20 17:00 12/01/20 16:51 Rivaroxaban 15 Mg Tablet PO 12/04/20 21:00 15 mg BIDWM ADELINA Administration Saccharomyces Boulardii 250 mg 11/15/20 10:40 12/01/20 16:51 Saccharomyces Boulardii 250 Mg Capsule PO 250 mg BIDWM ADELINA Administration - Lab Result Fish Bone Diagrams: 11/19/20 04:21 11/29/20 07:32 Subjective - Subjective Patient Reports: Other (Patient was resting comfortably in the bedside chair. He complained of right leg pain with ambulation. He denied chest pain, dyspnea, abdominal pain, fever or chills. He is awaiting placement.) Objective Vital Signs: Vital Signs - 24 hr 12/01/20 12/02/20 12/02/20 16:00 00:11 07:44 Temperature 36.6 C 36.9 C 36.8 C Heart Rate [ 85 86 110 H Brachial] Respiratory 18 20 17 Rate Blood Pressure 126/84 H [Left Brachial artery] Blood Pressure 101/65 126/74 [Right Brachial artery] O2 Saturation 98 95 96 Oxygen O2 Source Room air I&O (Last 24 Hrs): Intake and Output Totals x24h 11/30/20 12/01/20 12/02/20 23:59 23:59 23:59 Intake Total 910 300 480 Output Total 1350 950 525 Balance -440 -650 -45 General: Alert, Oriented x3, Mild distress HEENT: PERRLA, EOMI Neck: Supple, No JVD Neuro: Alert, Non Focal, Oriented Times 3 Cardiovascular: Regular rate, Normal S1, Normal S2 Respiratory: Chest non-tender, No respiratory distress, Breath sounds nml Abdomen: Normal bowel sounds, Soft Extremities: No clubbing, No cyanosis, Other (right leg swelling. +1) Skin: No rashes, No breakdown, No significant lesion - Results Results: Laboratory Results WBC 5.8 x10^3/uL (4.8-10.8) 11/19/20 04:21 RBC 3.81 10^6/uL (4.70-6.10) L 11/19/20 04:21 Hgb 12.1 g/dL (14.0-18.0) L 11/19/20 04:21 Hct 37.7 % (42.0-52.0) L 11/19/20 04:21 MCV 99.0 fL (80.0-94.0) H 11/19/20 04:21 MCH 31.8 pg (27.0-31.0) H 11/19/20 04:21 MCHC 32.1 g/dL (32.0-36.0) 11/19/20 04:21 RDW 15.9 % (12.0-15.0) H 11/19/20 04:21 Plt Count 169 10^3/uL (130-450) 11/19/20 04:21 MPV 11.1 fL (7.4-11.4) 11/19/20 04:21 Neut # (Auto) 4.3 10^3/uL (1.5-6.6) 11/19/20 04:21 Lymph # (Auto) 0.9 10^3/uL (1.5-3.5) L 11/19/20 04:21 [place] # (Auto) 0.5 10^3/uL (0.0-1.0) 11/19/20 04:21 Eos # (Auto) 0.1 10^3/uL (0.0-0.7) 11/19/20 04:21 Baso # (Auto) 0.0 10^3/uL (0.0-0.1) 11/19/20 04:21 Absolute Nucleated RBC 0.00 x10^3/uL 11/19/20 04:21 Nucleated RBC % 0.0 /100WBC 11/19/20 04:21 Sodium 140 mmol/L (135-145) 11/29/20 07:32 Potassium 4.1 mmol/L (3.5-5.0) 11/29/20 07:32 Chloride 101 mmol/L (101-111) 11/29/20 07:32 Carbon Dioxide 32 mmol/L (21-32) 11/29/20 07:32 Anion Gap 7.0 (6-13) 11/29/20 07:32 BUN 19 mg/dL (6-20) 11/29/20 07:32 Creatinine 0.8 mg/dL (0.6-1.2) 11/29/20 07:32 Estimated GFR (MDRD) 96 (>89) 11/29/20 07:32 Glucose 87 mg/dL (70-100) 11/29/20 07:32 Calcium 9.0 mg/dL (8.5-10.3) 11/29/20 07:32 Phosphorus 2.8 mg/dL (2.5-4.6) 11/20/20 04:12 Magnesium 1.6 mg/dL (1.7-2.8) L 11/29/20 07:32 Total Bilirubin 0.9 mg/dL (0.2-1.0) 11/14/20 06:45 AST 67 IU/L (10-42) H 11/14/20 06:45 ALT 54 IU/L (10-60) 11/14/20 06:45 Alkaline Phosphatase 44 IU/L (42-121) 11/14/20 06:45 Troponin I High Sens 139.5 ng/L (2.3-19.7) H* 11/14/20 08:57 B-Natriuretic Peptide 692 pg/mL (5-100) H 11/22/20 04:58 Total Protein 6.5 g/dL (6.7-8.2) L 11/14/20 06:45 Albumin 3.8 g/dL (3.2-5.5) 11/14/20 06:45 Globulin 2.7 g/dL (2.1-4.2) 11/14/20 06:45 Albumin/Globulin Ratio 1.4 (1.0-2.2) 11/14/20 06:45 Lipase 24 U/L (22-51) 11/14/20 06:45 Urine Color YELLOW 11/14/20 07:33 Urine Clarity CLEAR (CLEAR) 11/14/20 07:33 Urine pH 6.5 PH (5.0-7.5) 11/14/20 07:33 Ur Specific [place] 1.015 (1.002-1.030) 11/14/20 07:33 Urine Protein NEGATIVE mg/dL (NEGATIVE) 11/14/20 07:33 Urine Glucose (UA) NEGATIVE mg/dL (NEGATIVE) 11/14/20 07:33 Urine Ketones NEGATIVE mg/dL (NEGATIVE) 11/14/20 07:33 Urine Occult Blood TRACE-INTA (NEGATIVE) 11/14/20 07:33 Urine Nitrite NEGATIVE (NEGATIVE) 11/14/20 07:33 Urine Bilirubin NEGATIVE (NEGATIVE) 11/14/20 07:33 Urine Urobilinogen 0.2 (NORMAL) E.U./dL (NORMAL) 11/14/20 07:33 Ur Leukocyte Esterase NEGATIVE (NEGATIVE) 11/14/20 07:33 Ur Microscopic Review NOT INDICATED 11/14/20 07:33 Urine Culture Comments NOT INDICATED 11/14/20 07:33 Nasal Adenovirus (PCR) NOT DETECTED 11/14/20 07:35 Nasal B. parapertussis DNA (PCR) NOT DETECTED 11/14/20 07:35 Nasal Coronavir 229E PCR NOT DETECTED 11/14/20 07:35 Nasal Coronavir HKU1 PCR NOT DETECTED 11/14/20 07:35 Nasal Coronavir NL63 PCR NOT DETECTED 11/14/20 07:35 Nasal Coronavir OC43 PCR NOT DETECTED 11/14/20 07:35 Nasal Enterovir/Rhinovir PCR NOT DETECTED 11/14/20 07:35 Nasal Influenza B PCR NOT DETECTED 11/14/20 07:35 Nasal Influenza A PCR NOT DETECTED 11/14/20 07:35 Nasal Parainfluen 1 PCR NOT DETECTED 11/14/20 07:35 Nasal Parainfluen 2 PCR NOT DETECTED 11/14/20 07:35 Nasal Parainfluen 3 PCR NOT DETECTED 11/14/20 07:35 Nasal Parainfluen 4 PCR NOT DETECTED 11/14/20 07:35 Nasal RSV (PCR) NOT DETECTED 11/14/20 07:35 Nasal B.pertussis DNA PCR NOT DETECTED 11/14/20 07:35 Nasal C.pneumoniae (PCR) NOT DETECTED 11/14/20 07:35 Ad Human Metapneumo PCR NOT DETECTED 11/14/20 07:35 Nasal M.pneumoniae (PCR) NOT DETECTED 11/14/20 07:35 Nasal SARS-CoV-2 (PCR) NOT DETECTED 11/14/20 07:35 Urine Opiates Screen NEGATIVE (NEGATIVE) 11/14/20 07:33 Ur Oxycodone Screen NEGATIVE (NEGATIVE) 11/14/20 07:33 Urine Methadone Screen NEGATIVE (NEGATIVE) 11/14/20 07:33 Ur Propoxyphene Screen NEGATIVE (NEGATIVE) 11/14/20 07:33 Ur Barbiturates Screen NEGATIVE (NEGATIVE) 11/14/20 07:33 Ur Tricyclics Screen NEGATIVE (NEGATIVE) 11/14/20 07:33 Ur Phencyclidine Scrn NEGATIVE (NEGATIVE) 11/14/20 07:33 Ur Amphetamine Screen NEGATIVE (NEGATIVE) 11/14/20 07:33 U Methamphetamines Scrn NEGATIVE (NEGATIVE) 11/14/20 07:33 U Benzodiazepines Scrn NEGATIVE (NEGATIVE) 11/14/20 07:33 Urine Cocaine Screen NEGATIVE (NEGATIVE) 11/14/20 07:33 U Cannabinoids Screen NEGATIVE (NEGATIVE) 11/14/20 07:33 Ethyl Alcohol < 5.0 mg/dL 11/14/20 06:45 ABX Reporting Has patient been on IV antibiotics over the past 48 hours?: No
[2020-12-03] MEDS ORDERED: LIDOCAINE PATCH 5% TOP PRN (02:16)
[2020-12-03] MEDS: FUROSEMIDE 20 MG TABLET PO SCH ×2 (06:11→15:04)
[2020-12-03] MEDS: MULTIVITAMIN W/MINERALS TABLET PO SCH (10:42)
[2020-12-03] MEDS: ACETAMINOPHEN 325 MG TABLET PO PRN ×2 (10:42→15:04)
[2020-12-03] MEDS: MAGNESIUM OXIDE 400 MG TABLET PO SCH ×2 (10:42→21:32)
[2020-12-03] MEDS: SACCHAROMYCES BOULARDII 250 MG CAPSULE PO SCH ×2 (10:42→17:23)
[2020-12-03] MEDS: RIVAROXABAN 15 MG TABLET PO SCH ×2 (10:43→17:24)
--- NOTE | 2020-12-03 11:04 | PROVIDER PROGRESS NOTE ---
Assessment/Plan - Problem List (1) Acute on chronic heart failure with preserved ejection fraction (HFpEF) Assessment/Plan: Patient is hemodynamically stable. Lasix 20 mg p.o. twice daily 2D echocardiogram done on 11/17/2020 showed an EF of 50 to 55%. There was no aortic stenosis or regurgitation. No mitral stenosis. (2) Elevated troponin Assessment/Plan: Troponin was trended and trended down. EKG was negative for any acute ischemic changes. This was thought to be secondary to patient's CHF exacerbation. (3) HTN (hypertension) Assessment/Plan: Currently normotensive. Blood pressure is currently 106/62. (4) Pulmonary emboli Assessment/Plan: Patient is on Xarelto (5) Medical non-compliance Assessment/Plan: He has been advised to be more adherent to medical treatment (6) Generalized weakness Assessment/Plan: PT/OT evaluation and treatment. Recommendation is for SNF placement. Social work working on disposition. (7) Left knee pain Assessment/Plan: Lidocain patch to arrea. Ibuprofen 400mg q6hrs prn Check Uric acid level in the am - Current Meds Current Meds: Current Medications Generic Name Dose Route Start Last Admin Trade Name Freq PRN Reason Stop Dose Admin Acetaminophen 650 mg 11/14/20 10:04 12/03/20 10:42 Acetaminophen 325 Mg Tablet PO 650 mg Q4HR PRN Administration Pain 1 to 4 Furosemide 20 mg 11/22/20 07:34 12/03/20 06:11 Furosemide 20 Mg Tablet PO 20 mg BIDDIURETIC ADELINA Administration Lidocaine 1 patch 12/03/20 02:16 12/03/20 02:37 Lidocaine Patch 5% TOP 1 patch DAILY PRN Administration PAIN Loperamide HCl 2 mg 11/26/20 12:54 11/29/20 21:03 Loperamide 2 Mg Capsule PO 2 mg QID PRN Administration Diarrhea Magnesium Oxide 800 mg 11/29/20 21:00 12/03/20 10:42 Magnesium Oxide 400 Mg Tablet PO 800 mg BID ADELINA Administration Multivitamins/Minerals 1 tab 11/21/20 10:00 12/03/20 10:42 Multivitamin W/Minerals Tablet PO 1 tab DAILYWM ADELINA Administration Rivaroxaban 15 mg 11/14/20 17:00 12/03/20 10:43 Rivaroxaban 15 Mg Tablet PO 12/04/20 21:00 15 mg BIDWM ADELINA Administration Saccharomyces Boulardii 250 mg 11/15/20 10:40 12/03/20 10:42 Saccharomyces Boulardii 250 Mg Capsule PO 250 mg BIDWM ADELINA Administration - Lab Result Fish Bone Diagrams: 11/19/20 04:21 11/29/20 07:32 - Additional Planning My Orders: My Active Orders 12/03/20 11:03 Ibuprofen [Motrin] 400 mg PO Q6HR PRN 12/04/20 05:00 URIC ACID [CHEM] DAILYLAB Subjective - Subjective Patient Reports: Other (Patient was resting comfortably in the bedside chair. He complained of right leg pain with ambulation. He denied chest pain, dyspnea, abdominal pain, fever or chills. He is awaiting placement.) Objective Vital Signs: Vital Signs - 24 hr 12/02/20 12/02/20 12/03/20 13:57 16:00 00:00 Temperature 36.9 C 36.8 C Heart Rate [ 86 88 87 Brachial] Respiratory 18 20 Rate Blood Pressure 106/62 120/74 97/66 [Right Brachial artery] O2 Saturation 100 95 12/03/20 12/03/20 06:26 07:39 Temperature 36.8 C Heart Rate [ 88 Brachial] Respiratory 17 Rate Blood Pressure 109/70 114/76 [Right Brachial artery] O2 Saturation 98 Oxygen O2 Source Room air I&O (Last 24 Hrs): Intake and Output Totals x24h 12/01/20 12/02/20 12/03/20 23:59 23:59 23:59 Intake Total 300 960 Output Total 950 1425 500 Balance -650 -465 -500 Comments/Notes: General: Alert, Oriented x3, Mild distress HEENT: PERRLA, EOMI Neck: Supple, No JVD Neuro: Alert, Non Focal, Oriented Times 3 Cardiovascular: Regular rate, Normal S1, Normal S2 Respiratory: Chest non-tender, No respiratory distress, Breath sounds nml Abdomen: Normal bowel sounds, Soft Extremities: No clubbing, No cyanosis, Other (right leg swelling. +1) Skin: No rashes, No breakdown, No significant lesion - Results Results: Laboratory Results WBC 5.8 x10^3/uL (4.8-10.8) 11/19/20 04:21 RBC 3.81 10^6/uL (4.70-6.10) L 11/19/20 04:21 Hgb 12.1 g/dL (14.0-18.0) L 11/19/20 04:21 Hct 37.7 % (42.0-52.0) L 11/19/20 04:21 MCV 99.0 fL (80.0-94.0) H 11/19/20 04:21 MCH 31.8 pg (27.0-31.0) H 11/19/20 04:21 MCHC 32.1 g/dL (32.0-36.0) 11/19/20 04:21 RDW 15.9 % (12.0-15.0) H 11/19/20 04:21 Plt Count 169 10^3/uL (130-450) 11/19/20 04:21 MPV 11.1 fL (7.4-11.4) 11/19/20 04:21 Neut # (Auto) 4.3 10^3/uL (1.5-6.6) 11/19/20 04:21 Lymph # (Auto) 0.9 10^3/uL (1.5-3.5) L 11/19/20 04:21 [place] # (Auto) 0.5 10^3/uL (0.0-1.0) 11/19/20 04:21 Eos # (Auto) 0.1 10^3/uL (0.0-0.7) 11/19/20 04:21 Baso # (Auto) 0.0 10^3/uL (0.0-0.1) 11/19/20 04:21 Absolute Nucleated RBC 0.00 x10^3/uL 11/19/20 04:21 Nucleated RBC % 0.0 /100WBC 11/19/20 04:21 Sodium 140 mmol/L (135-145) 11/29/20 07:32 Potassium 4.1 mmol/L (3.5-5.0) 11/29/20 07:32 Chloride 101 mmol/L (101-111) 11/29/20 07:32 Carbon Dioxide 32 mmol/L (21-32) 11/29/20 07:32 Anion Gap 7.0 (6-13) 11/29/20 07:32 BUN 19 mg/dL (6-20) 11/29/20 07:32 Creatinine 0.8 mg/dL (0.6-1.2) 11/29/20 07:32 Estimated GFR (MDRD) 96 (>89) 11/29/20 07:32 Glucose 87 mg/dL (70-100) 11/29/20 07:32 Calcium 9.0 mg/dL (8.5-10.3) 11/29/20 07:32 Phosphorus 2.8 mg/dL (2.5-4.6) 11/20/20 04:12 Magnesium 1.6 mg/dL (1.7-2.8) L 11/29/20 07:32 Total Bilirubin 0.9 mg/dL (0.2-1.0) 11/14/20 06:45 AST 67 IU/L (10-42) H 11/14/20 06:45 ALT 54 IU/L (10-60) 11/14/20 06:45 Alkaline Phosphatase 44 IU/L (42-121) 11/14/20 06:45 Troponin I High Sens 139.5 ng/L (2.3-19.7) H* 11/14/20 08:57 B-Natriuretic Peptide 692 pg/mL (5-100) H 11/22/20 04:58 Total Protein 6.5 g/dL (6.7-8.2) L 11/14/20 06:45 Albumin 3.8 g/dL (3.2-5.5) 11/14/20 06:45 Globulin 2.7 g/dL (2.1-4.2) 11/14/20 06:45 Albumin/Globulin Ratio 1.4 (1.0-2.2) 11/14/20 06:45 Lipase 24 U/L (22-51) 11/14/20 06:45 Urine Color YELLOW 11/14/20 07:33 Urine Clarity CLEAR (CLEAR) 11/14/20 07:33 Urine pH 6.5 PH (5.0-7.5) 11/14/20 07:33 Ur Specific [place] 1.015 (1.002-1.030) 11/14/20 07:33 Urine Protein NEGATIVE mg/dL (NEGATIVE) 11/14/20 07:33 Urine Glucose (UA) NEGATIVE mg/dL (NEGATIVE) 11/14/20 07:33 Urine Ketones NEGATIVE mg/dL (NEGATIVE) 11/14/20 07:33 Urine Occult Blood TRACE-INTA (NEGATIVE) 11/14/20 07:33 Urine Nitrite NEGATIVE (NEGATIVE) 11/14/20 07:33 Urine Bilirubin NEGATIVE (NEGATIVE) 11/14/20 07:33 Urine Urobilinogen 0.2 (NORMAL) E.U./dL (NORMAL) 11/14/20 07:33 Ur Leukocyte Esterase NEGATIVE (NEGATIVE) 11/14/20 07:33 Ur Microscopic Review NOT INDICATED 11/14/20 07:33 Urine Culture Comments NOT INDICATED 11/14/20 07:33 Nasal Adenovirus (PCR) NOT DETECTED 11/14/20 07:35 Nasal B. parapertussis DNA (PCR) NOT DETECTED 11/14/20 07:35 Nasal Coronavir 229E PCR NOT DETECTED 11/14/20 07:35 Nasal Coronavir HKU1 PCR NOT DETECTED 11/14/20 07:35 Nasal Coronavir NL63 PCR NOT DETECTED 11/14/20 07:35 Nasal Coronavir OC43 PCR NOT DETECTED 11/14/20 07:35 Nasal Enterovir/Rhinovir PCR NOT DETECTED 11/14/20 07:35 Nasal Influenza B PCR NOT DETECTED 11/14/20 07:35 Nasal Influenza A PCR NOT DETECTED 11/14/20 07:35 Nasal Parainfluen 1 PCR NOT DETECTED 11/14/20 07:35 Nasal Parainfluen 2 PCR NOT DETECTED 11/14/20 07:35 Nasal Parainfluen 3 PCR NOT DETECTED 11/14/20 07:35 Nasal Parainfluen 4 PCR NOT DETECTED 11/14/20 07:35 Nasal RSV (PCR) NOT DETECTED 11/14/20 07:35 Nasal B.pertussis DNA PCR NOT DETECTED 11/14/20 07:35 Nasal C.pneumoniae (PCR) NOT DETECTED 11/14/20 07:35 Ad Human Metapneumo PCR NOT DETECTED 11/14/20 07:35 Nasal M.pneumoniae (PCR) NOT DETECTED 11/14/20 07:35 Nasal SARS-CoV-2 (PCR) NOT DETECTED 11/14/20 07:35 Urine Opiates Screen NEGATIVE (NEGATIVE) 11/14/20 07:33 Ur Oxycodone Screen NEGATIVE (NEGATIVE) 11/14/20 07:33 Urine Methadone Screen NEGATIVE (NEGATIVE) 11/14/20 07:33 Ur Propoxyphene Screen NEGATIVE (NEGATIVE) 11/14/20 07:33 Ur Barbiturates Screen NEGATIVE (NEGATIVE) 11/14/20 07:33 Ur Tricyclics Screen NEGATIVE (NEGATIVE) 11/14/20 07:33 Ur Phencyclidine Scrn NEGATIVE (NEGATIVE) 11/14/20 07:33 Ur Amphetamine Screen NEGATIVE (NEGATIVE) 11/14/20 07:33 U Methamphetamines Scrn NEGATIVE (NEGATIVE) 11/14/20 07:33 U Benzodiazepines Scrn NEGATIVE (NEGATIVE) 11/14/20 07:33 Urine Cocaine Screen NEGATIVE (NEGATIVE) 11/14/20 07:33 U Cannabinoids Screen NEGATIVE (NEGATIVE) 11/14/20 07:33 Ethyl Alcohol < 5.0 mg/dL 11/14/20 06:45 ABX Reporting Has patient been on IV antibiotics over the past 48 hours?: No
[2020-12-03] MEDS: IBUPROFEN 400 MG TABLET PO PRN ×2 (11:55→21:32)
[2020-12-04] MEDS: FUROSEMIDE 20 MG TABLET PO SCH ×2 (05:22→14:27)
[2020-12-04] MEDS: IBUPROFEN 400 MG TABLET PO PRN (05:22)
--- NOTE | 2020-12-04 07:51 | PROVIDER PROGRESS NOTE ---
Assessment/Plan - Problem List (1) Acute on chronic heart failure with preserved ejection fraction (HFpEF) Assessment/Plan: Patient is hemodynamically stable. Lasix 20 mg p.o. twice daily 2D echocardiogram done on 11/17/2020 showed an EF of 50 to 55%. There was no aortic stenosis or regurgitation. No mitral stenosis. (2) Elevated troponin Assessment/Plan: Troponin was trended and trended down. EKG was negative for any acute ischemic changes. This was thought to be secondary to patient's CHF exacerbation. (3) HTN (hypertension) Assessment/Plan: Blood pressure is currently 119/90. (4) Pulmonary emboli Assessment/Plan: Patient is on Xarelto (5) Medical non-compliance Assessment/Plan: He has been advised to be more adherent to medical treatment (6) Generalized weakness Assessment/Plan: PT/OT evaluation and treatment. Recommendation is for SNF placement. Social work working on disposition. (7) Left knee pain Assessment/Plan: Pain is improved Lidocaine patch to area. Ibuprofen 400mg q6hrs prn Uric acid level within normal limits - Current Meds Current Meds: Current Medications Generic Name Dose Route Start Last Admin Trade Name Freq PRN Reason Stop Dose Admin Acetaminophen 650 mg 11/14/20 10:04 12/03/20 15:04 Acetaminophen 325 Mg Tablet PO 650 mg Q4HR PRN Administration Pain 1 to 4 Furosemide 20 mg 11/22/20 07:34 12/04/20 05:22 Furosemide 20 Mg Tablet PO 20 mg BIDDIURETIC ADELINA Administration Ibuprofen 400 mg 12/03/20 11:03 12/04/20 05:22 Ibuprofen 400 Mg Tablet PO 400 mg Q6HR PRN Administration PAIN Lidocaine 1 patch 12/03/20 02:16 12/03/20 02:37 Lidocaine Patch 5% TOP 1 patch DAILY PRN Administration PAIN Loperamide HCl 2 mg 11/26/20 12:54 11/29/20 21:03 Loperamide 2 Mg Capsule PO 2 mg QID PRN Administration Diarrhea Magnesium Oxide 800 mg 11/29/20 21:00 12/03/20 21:32 Magnesium Oxide 400 Mg Tablet PO 800 mg BID ADELINA Administration Multivitamins/Minerals 1 tab 11/21/20 10:00 12/03/20 10:42 Multivitamin W/Minerals Tablet PO 1 tab DAILYWM ADELINA Administration Rivaroxaban 15 mg 11/14/20 17:00 12/03/20 17:24 Rivaroxaban 15 Mg Tablet PO 12/04/20 21:00 15 mg BIDWM ADELINA Administration Saccharomyces Boulardii 250 mg 11/15/20 10:40 12/03/20 17:23 Saccharomyces Boulardii 250 Mg Capsule PO 250 mg BIDWM ADELINA Administration - Lab Result Fish Bone Diagrams: 11/19/20 04:21 11/29/20 07:32 - Additional Planning My Orders: My Active Orders 12/03/20 11:03 Ibuprofen [Motrin] 400 mg PO Q6HR PRN Subjective - Subjective Patient Reports: Other (Seated in the bedside chair playing candy crush on his computer. He reports significant improvement in his knee pain with addition of ibuprofen. He has been able to ambulate with less difficulty. He denied any other complaints.) Objective Vital Signs: Vital Signs - 24 hr 12/03/20 12/03/20 12/03/20 15:03 15:25 23:29 Temperature 36.5 C 36.9 C Heart Rate [ 106 H 61 85 Brachial] Respiratory 19 18 Rate Blood Pressure 115/84 H [Left Brachial artery] Blood Pressure 105/68 107/76 [Right Brachial artery] O2 Saturation 100 97 12/04/20 07:19 Temperature 36.5 C Heart Rate [ 76 Brachial] Respiratory 18 Rate Blood Pressure [Left Brachial artery] Blood Pressure 102/68 [Right Brachial artery] O2 Saturation 100 Oxygen O2 Source Room air I&O (Last 24 Hrs): Intake and Output Totals x24h 12/02/20 12/03/20 12/04/20 23:59 23:59 23:59 Intake Total 960 1120 100 Output Total 1425 1025 350 Balance -465 95 -250 Comments/Notes: General: Alert, Oriented x3, Mild distress HEENT: PERRLA, EOMI Neck: Supple, No JVD Neuro: Alert, Non Focal, Oriented Times 3 Cardiovascular: Regular rate, Normal S1, Normal S2 Respiratory: Chest non-tender, No respiratory distress, Breath sounds nml Abdomen: Normal bowel sounds, Soft Extremities: No clubbing, No cyanosis, Other (right leg swelling. +1) Skin: No rashes, No breakdown, No significant lesion - Results Results: Laboratory Results WBC 5.8 x10^3/uL (4.8-10.8) 11/19/20 04:21 RBC 3.81 10^6/uL (4.70-6.10) L 11/19/20 04:21 Hgb 12.1 g/dL (14.0-18.0) L 11/19/20 04:21 Hct 37.7 % (42.0-52.0) L 11/19/20 04:21 MCV 99.0 fL (80.0-94.0) H 11/19/20 04:21 MCH 31.8 pg (27.0-31.0) H 11/19/20 04:21 MCHC 32.1 g/dL (32.0-36.0) 11/19/20 04:21 RDW 15.9 % (12.0-15.0) H 11/19/20 04:21 Plt Count 169 10^3/uL (130-450) 11/19/20 04:21 MPV 11.1 fL (7.4-11.4) 11/19/20 04:21 Neut # (Auto) 4.3 10^3/uL (1.5-6.6) 11/19/20 04:21 Lymph # (Auto) 0.9 10^3/uL (1.5-3.5) L 11/19/20 04:21 [place] # (Auto) 0.5 10^3/uL (0.0-1.0) 11/19/20 04:21 Eos # (Auto) 0.1 10^3/uL (0.0-0.7) 11/19/20 04:21 Baso # (Auto) 0.0 10^3/uL (0.0-0.1) 11/19/20 04:21 Absolute Nucleated RBC 0.00 x10^3/uL 11/19/20 04:21 Nucleated RBC % 0.0 /100WBC 11/19/20 04:21 Sodium 140 mmol/L (135-145) 11/29/20 07:32 Potassium 4.1 mmol/L (3.5-5.0) 11/29/20 07:32 Chloride 101 mmol/L (101-111) 11/29/20 07:32 Carbon Dioxide 32 mmol/L (21-32) 11/29/20 07:32 Anion Gap 7.0 (6-13) 11/29/20 07:32 BUN 19 mg/dL (6-20) 11/29/20 07:32 Creatinine 0.8 mg/dL (0.6-1.2) 11/29/20 07:32 Estimated GFR (MDRD) 96 (>89) 11/29/20 07:32 Glucose 87 mg/dL (70-100) 11/29/20 07:32 Uric Acid 5.5 mg/dL (2.6-7.2) 12/04/20 05:30 Calcium 9.0 mg/dL (8.5-10.3) 11/29/20 07:32 Phosphorus 2.8 mg/dL (2.5-4.6) 11/20/20 04:12 Magnesium 1.6 mg/dL (1.7-2.8) L 11/29/20 07:32 Total Bilirubin 0.9 mg/dL (0.2-1.0) 11/14/20 06:45 AST 67 IU/L (10-42) H 11/14/20 06:45 ALT 54 IU/L (10-60) 11/14/20 06:45 Alkaline Phosphatase 44 IU/L (42-121) 11/14/20 06:45 Troponin I High Sens 139.5 ng/L (2.3-19.7) H* 11/14/20 08:57 B-Natriuretic Peptide 692 pg/mL (5-100) H 11/22/20 04:58 Total Protein 6.5 g/dL (6.7-8.2) L 11/14/20 06:45 Albumin 3.8 g/dL (3.2-5.5) 11/14/20 06:45 Globulin 2.7 g/dL (2.1-4.2) 11/14/20 06:45 Albumin/Globulin Ratio 1.4 (1.0-2.2) 11/14/20 06:45 Lipase 24 U/L (22-51) 11/14/20 06:45 Urine Color YELLOW 11/14/20 07:33 Urine Clarity CLEAR (CLEAR) 11/14/20 07:33 Urine pH 6.5 PH (5.0-7.5) 11/14/20 07:33 Ur Specific [place] 1.015 (1.002-1.030) 11/14/20 07:33 Urine Protein NEGATIVE mg/dL (NEGATIVE) 11/14/20 07:33 Urine Glucose (UA) NEGATIVE mg/dL (NEGATIVE) 11/14/20 07:33 Urine Ketones NEGATIVE mg/dL (NEGATIVE) 11/14/20 07:33 Urine Occult Blood TRACE-INTA (NEGATIVE) 11/14/20 07:33 Urine Nitrite NEGATIVE (NEGATIVE) 11/14/20 07:33 Urine Bilirubin NEGATIVE (NEGATIVE) 11/14/20 07:33 Urine Urobilinogen 0.2 (NORMAL) E.U./dL (NORMAL) 11/14/20 07:33 Ur Leukocyte Esterase NEGATIVE (NEGATIVE) 11/14/20 07:33 Ur Microscopic Review NOT INDICATED 11/14/20 07:33 Urine Culture Comments NOT INDICATED 11/14/20 07:33 Nasal Adenovirus (PCR) NOT DETECTED 11/14/20 07:35 Nasal B. parapertussis DNA (PCR) NOT DETECTED 11/14/20 07:35 Nasal Coronavir 229E PCR NOT DETECTED 11/14/20 07:35 Nasal Coronavir HKU1 PCR NOT DETECTED 11/14/20 07:35 Nasal Coronavir NL63 PCR NOT DETECTED 11/14/20 07:35 Nasal Coronavir OC43 PCR NOT DETECTED 11/14/20 07:35 Nasal Enterovir/Rhinovir PCR NOT DETECTED 11/14/20 07:35 Nasal Influenza B PCR NOT DETECTED 11/14/20 07:35 Nasal Influenza A PCR NOT DETECTED 11/14/20 07:35 Nasal Parainfluen 1 PCR NOT DETECTED 11/14/20 07:35 Nasal Parainfluen 2 PCR NOT DETECTED 11/14/20 07:35 Nasal Parainfluen 3 PCR NOT DETECTED 11/14/20 07:35 Nasal Parainfluen 4 PCR NOT DETECTED 11/14/20 07:35 Nasal RSV (PCR) NOT DETECTED 11/14/20 07:35 Nasal B.pertussis DNA PCR NOT DETECTED 11/14/20 07:35 Nasal C.pneumoniae (PCR) NOT DETECTED 11/14/20 07:35 Ad Human Metapneumo PCR NOT DETECTED 11/14/20 07:35 Nasal M.pneumoniae (PCR) NOT DETECTED 11/14/20 07:35 Nasal SARS-CoV-2 (PCR) NOT DETECTED 11/14/20 07:35 Urine Opiates Screen NEGATIVE (NEGATIVE) 11/14/20 07:33 Ur Oxycodone Screen NEGATIVE (NEGATIVE) 11/14/20 07:33 Urine Methadone Screen NEGATIVE (NEGATIVE) 11/14/20 07:33 Ur Propoxyphene Screen NEGATIVE (NEGATIVE) 11/14/20 07:33 Ur Barbiturates Screen NEGATIVE (NEGATIVE) 11/14/20 07:33 Ur Tricyclics Screen NEGATIVE (NEGATIVE) 11/14/20 07:33 Ur Phencyclidine Scrn NEGATIVE (NEGATIVE) 11/14/20 07:33 Ur Amphetamine Screen NEGATIVE (NEGATIVE) 11/14/20 07:33 U Methamphetamines Scrn NEGATIVE (NEGATIVE) 11/14/20 07:33 U Benzodiazepines Scrn NEGATIVE (NEGATIVE) 11/14/20 07:33 Urine Cocaine Screen NEGATIVE (NEGATIVE) 11/14/20 07:33 U Cannabinoids Screen NEGATIVE (NEGATIVE) 11/14/20 07:33 Ethyl Alcohol < 5.0 mg/dL 11/14/20 06:45 ABX Reporting Has patient been on IV antibiotics over the past 48 hours?: No
[2020-12-04] MEDS: SACCHAROMYCES BOULARDII 250 MG CAPSULE PO SCH ×2 (07:59→18:02)
[2020-12-04] MEDS: MULTIVITAMIN W/MINERALS TABLET PO SCH (07:59)
[2020-12-04] MEDS: MAGNESIUM OXIDE 400 MG TABLET PO SCH ×2 (08:02→22:19)
[2020-12-04] MEDS: RIVAROXABAN 15 MG TABLET PO SCH ×2 (08:02→18:02)
[2020-12-05] MEDS: FUROSEMIDE 20 MG TABLET PO SCH ×2 (06:38→14:14)
[2020-12-05] MEDS: IBUPROFEN 400 MG TABLET PO PRN ×2 (07:00→20:40)
[2020-12-05] MEDS: SACCHAROMYCES BOULARDII 250 MG CAPSULE PO SCH ×2 (09:27→17:19)
[2020-12-05] MEDS: MAGNESIUM OXIDE 400 MG TABLET PO SCH ×2 (09:27→20:40)
[2020-12-05] MEDS: MULTIVITAMIN W/MINERALS TABLET PO SCH (09:27)
--- NOTE | 2020-12-05 11:58 | PROVIDER PROGRESS NOTE ---
Assessment/Plan - Problem List (1) Acute on chronic heart failure with preserved ejection fraction (HFpEF) Assessment/Plan: 1026, patient is comfortable seated in the chair, patient has no respiratory distress. Patient is hemodynamically stable. continue Lasix 20 mg p.o. twice daily (2) Elevated troponin Assessment/Plan: 12/05, it is likely Demand ischemia. Troponin was trended and trended down. EKG was negative for any acute ischemic changes. Patient is on Xarelto for his PE (3) HTN (hypertension) Assessment/Plan: stable (4) Pulmonary emboli Assessment/Plan: continue on Xarelto (5) Medical non-compliance Assessment/Plan: He has been advised to be more adherent to medical treatment (6) Generalized weakness Assessment/Plan: 12-05 consult with PT/OT for evaluation and treatment. Recommendation is for SNF placement. consult with Social work for disposition plan. (7) Left knee pain Assessment/Plan: 12-05 pt report it is his chronic status. Pain is improved and control, continue Lidocaine patch to area., Ibuprofen 400mg q6hrs prn his Uric acid level is within normal limits - Current Meds Current Meds: Current Medications Generic Name Dose Route Start Last Admin Trade Name Freq PRN Reason Stop Dose Admin Acetaminophen 650 mg 11/14/20 10:04 12/03/20 15:04 Acetaminophen 325 Mg Tablet PO 650 mg Q4HR PRN Administration Pain 1 to 4 Furosemide 20 mg 11/22/20 07:34 12/05/20 06:38 Furosemide 20 Mg Tablet PO 20 mg BIDDIURETIC ADELINA Administration Ibuprofen 400 mg 12/03/20 11:03 12/05/20 07:00 Ibuprofen 400 Mg Tablet PO 400 mg Q6HR PRN Administration PAIN Lidocaine 1 patch 12/03/20 02:16 12/03/20 02:37 Lidocaine Patch 5% TOP 1 patch DAILY PRN Administration PAIN Loperamide HCl 2 mg 11/26/20 12:54 11/29/20 21:03 Loperamide 2 Mg Capsule PO 2 mg QID PRN Administration Diarrhea Magnesium Oxide 800 mg 11/29/20 21:00 12/05/20 09:27 Magnesium Oxide 400 Mg Tablet PO 800 mg BID ADELINA Administration Multivitamins/Minerals 1 tab 11/21/20 10:00 12/05/20 09:27 Multivitamin W/Minerals Tablet PO 1 tab DAILYWM ADELINA Administration Saccharomyces Boulardii 250 mg 11/15/20 10:40 12/05/20 09:27 Saccharomyces Boulardii 250 Mg Capsule PO 250 mg BIDWM ADELINA Administration - Lab Result Fish Bone Diagrams: 11/19/20 04:21 11/29/20 07:32 - Additional Planning My Orders: My Active Orders 12/05/20 17:00 Rivaroxaban [Xarelto] 20 mg PO QDDINNER Subjective - Subjective Patient Reports: Feeling Better, Resting Comfortably Objective Vital Signs: Vital Signs - 24 hr 12/04/20 12/05/20 12/05/20 15:34 01:37 07:51 Temperature 36.5 C 36.9 C 36.5 C Heart Rate [ 84 80 79 Brachial] Respiratory 20 18 18 Rate Blood Pressure 119/90 H 109/66 121/81 H [Right Brachial artery] O2 Saturation 99 97 100 Oxygen O2 Source Room air I&O (Last 24 Hrs): Intake and Output Totals x24h 12/03/20 12/04/20 12/05/20 23:59 23:59 23:59 Intake Total 1120 1150 580 Output Total 1025 1050 1050 Balance 95 100 -470 General: Alert, Oriented x3, Cooperative, No acute distress HEENT: Atraumatic Neck: Supple Lymphatic: no adenopathy Neuro: Alert, Non Focal, Oriented Times 3 Cardiovascular: Regular rate, Normal S1, Normal S2 Respiratory: Chest non-tender, No respiratory distress, Breath sounds nml Abdomen: Normal bowel sounds, Soft Extremities: Normal pulses - Results Results: Laboratory Results WBC 5.8 x10^3/uL (4.8-10.8) 11/19/20 04:21 RBC 3.81 10^6/uL (4.70-6.10) L 11/19/20 04:21 Hgb 12.1 g/dL (14.0-18.0) L 11/19/20 04:21 Hct 37.7 % (42.0-52.0) L 11/19/20 04:21 MCV 99.0 fL (80.0-94.0) H 11/19/20 04:21 MCH 31.8 pg (27.0-31.0) H 11/19/20 04:21 MCHC 32.1 g/dL (32.0-36.0) 11/19/20 04:21 RDW 15.9 % (12.0-15.0) H 11/19/20 04:21 Plt Count 169 10^3/uL (130-450) 11/19/20 04:21 MPV 11.1 fL (7.4-11.4) 11/19/20 04:21 Neut # (Auto) 4.3 10^3/uL (1.5-6.6) 11/19/20 04:21 Lymph # (Auto) 0.9 10^3/uL (1.5-3.5) L 11/19/20 04:21 [place] # (Auto) 0.5 10^3/uL (0.0-1.0) 11/19/20 04:21 Eos # (Auto) 0.1 10^3/uL (0.0-0.7) 11/19/20 04:21 Baso # (Auto) 0.0 10^3/uL (0.0-0.1) 11/19/20 04:21 Absolute Nucleated RBC 0.00 x10^3/uL 11/19/20 04:21 Nucleated RBC % 0.0 /100WBC 11/19/20 04:21 Sodium 140 mmol/L (135-145) 11/29/20 07:32 Potassium 4.1 mmol/L (3.5-5.0) 11/29/20 07:32 Chloride 101 mmol/L (101-111) 11/29/20 07:32 Carbon Dioxide 32 mmol/L (21-32) 11/29/20 07:32 Anion Gap 7.0 (6-13) 11/29/20 07:32 BUN 19 mg/dL (6-20) 11/29/20 07:32 Creatinine 0.8 mg/dL (0.6-1.2) 11/29/20 07:32 Estimated GFR (MDRD) 96 (>89) 11/29/20 07:32 Glucose 87 mg/dL (70-100) 11/29/20 07:32 Uric Acid 5.5 mg/dL (2.6-7.2) 12/04/20 05:30 Calcium 9.0 mg/dL (8.5-10.3) 11/29/20 07:32 Phosphorus 2.8 mg/dL (2.5-4.6) 11/20/20 04:12 Magnesium 1.6 mg/dL (1.7-2.8) L 11/29/20 07:32 Total Bilirubin 0.9 mg/dL (0.2-1.0) 11/14/20 06:45 AST 67 IU/L (10-42) H 11/14/20 06:45 ALT 54 IU/L (10-60) 11/14/20 06:45 Alkaline Phosphatase 44 IU/L (42-121) 11/14/20 06:45 Troponin I High Sens 139.5 ng/L (2.3-19.7) H* 11/14/20 08:57 B-Natriuretic Peptide 692 pg/mL (5-100) H 11/22/20 04:58 Total Protein 6.5 g/dL (6.7-8.2) L 11/14/20 06:45 Albumin 3.8 g/dL (3.2-5.5) 11/14/20 06:45 Globulin 2.7 g/dL (2.1-4.2) 11/14/20 06:45 Albumin/Globulin Ratio 1.4 (1.0-2.2) 11/14/20 06:45 Lipase 24 U/L (22-51) 11/14/20 06:45 Urine Color YELLOW 11/14/20 07:33 Urine Clarity CLEAR (CLEAR) 11/14/20 07:33 Urine pH 6.5 PH (5.0-7.5) 11/14/20 07:33 Ur Specific [place] 1.015 (1.002-1.030) 11/14/20 07:33 Urine Protein NEGATIVE mg/dL (NEGATIVE) 11/14/20 07:33 Urine Glucose (UA) NEGATIVE mg/dL (NEGATIVE) 11/14/20 07:33 Urine Ketones NEGATIVE mg/dL (NEGATIVE) 11/14/20 07:33 Urine Occult Blood TRACE-INTA (NEGATIVE) 11/14/20 07:33 Urine Nitrite NEGATIVE (NEGATIVE) 11/14/20 07:33 Urine Bilirubin NEGATIVE (NEGATIVE) 11/14/20 07:33 Urine Urobilinogen 0.2 (NORMAL) E.U./dL (NORMAL) 11/14/20 07:33 Ur Leukocyte Esterase NEGATIVE (NEGATIVE) 11/14/20 07:33 Ur Microscopic Review NOT INDICATED 11/14/20 07:33 Urine Culture Comments NOT INDICATED 11/14/20 07:33 Nasal Adenovirus (PCR) NOT DETECTED 11/14/20 07:35 Nasal B. parapertussis DNA (PCR) NOT DETECTED 11/14/20 07:35 Nasal Coronavir 229E PCR NOT DETECTED 11/14/20 07:35 Nasal Coronavir HKU1 PCR NOT DETECTED 11/14/20 07:35 Nasal Coronavir NL63 PCR NOT DETECTED 11/14/20 07:35 Nasal Coronavir OC43 PCR NOT DETECTED 11/14/20 07:35 Nasal Enterovir/Rhinovir PCR NOT DETECTED 11/14/20 07:35 Nasal Influenza B PCR NOT DETECTED 11/14/20 07:35 Nasal Influenza A PCR NOT DETECTED 11/14/20 07:35 Nasal Parainfluen 1 PCR NOT DETECTED 11/14/20 07:35 Nasal Parainfluen 2 PCR NOT DETECTED 11/14/20 07:35 Nasal Parainfluen 3 PCR NOT DETECTED 11/14/20 07:35 Nasal Parainfluen 4 PCR NOT DETECTED 11/14/20 07:35 Nasal RSV (PCR) NOT DETECTED 11/14/20 07:35 Nasal B.pertussis DNA PCR NOT DETECTED 11/14/20 07:35 Nasal C.pneumoniae (PCR) NOT DETECTED 11/14/20 07:35 Ad Human Metapneumo PCR NOT DETECTED 11/14/20 07:35 Nasal M.pneumoniae (PCR) NOT DETECTED 11/14/20 07:35 Nasal SARS-CoV-2 (PCR) NOT DETECTED 11/14/20 07:35 Urine Opiates Screen NEGATIVE (NEGATIVE) 11/14/20 07:33 Ur Oxycodone Screen NEGATIVE (NEGATIVE) 11/14/20 07:33 Urine Methadone Screen NEGATIVE (NEGATIVE) 11/14/20 07:33 Ur Propoxyphene Screen NEGATIVE (NEGATIVE) 11/14/20 07:33 Ur Barbiturates Screen NEGATIVE (NEGATIVE) 11/14/20 07:33 Ur Tricyclics Screen NEGATIVE (NEGATIVE) 11/14/20 07:33 Ur Phencyclidine Scrn NEGATIVE (NEGATIVE) 11/14/20 07:33 Ur Amphetamine Screen NEGATIVE (NEGATIVE) 11/14/20 07:33 U Methamphetamines Scrn NEGATIVE (NEGATIVE) 11/14/20 07:33 U Benzodiazepines Scrn NEGATIVE (NEGATIVE) 11/14/20 07:33 Urine Cocaine Screen NEGATIVE (NEGATIVE) 11/14/20 07:33 U Cannabinoids Screen NEGATIVE (NEGATIVE) 11/14/20 07:33 Ethyl Alcohol < 5.0 mg/dL 11/14/20 06:45 ABX Reporting Has patient been on IV antibiotics over the past 48 hours?: No Current Medications - Current Medications Current Medications: Active Medications Acetaminophen (Acetaminophen 325 Mg Tablet) 650 mg PO Q4HR PRN PRN Reason: Pain 1 to 4 Last Admin: 12/03/20 15:04 Dose: 650 mg Documented by: Furosemide (Furosemide 20 Mg Tablet) 20 mg PO BIDDIURETIC [facility] Last Admin: 12/05/20 06:38 Dose: 20 mg Documented by: Ibuprofen (Ibuprofen 400 Mg Tablet) 400 mg PO Q6HR PRN PRN Reason: PAIN Last Admin: 12/05/20 07:00 Dose: 400 mg Documented by: Lidocaine (Lidocaine Patch 5%) 1 patch TOP DAILY PRN PRN Reason: PAIN Last Admin: 12/03/20 02:37 Dose: 1 patch Documented by: Loperamide HCl (Loperamide 2 Mg Capsule) 2 mg PO QID PRN PRN Reason: Diarrhea Last Admin: 11/29/20 21:03 Dose: 2 mg Documented by: Magnesium Oxide (Magnesium Oxide 400 Mg Tablet) 800 mg PO BID [facility] Last Admin: 12/05/20 09:27 Dose: 800 mg Documented by: Multivitamins/Minerals (Multivitamin W/Minerals Tablet) 1 tab PO DAILYWM [facility] Last Admin: 12/05/20 09:27 Dose: 1 tab Documented by: Ondansetron HCl (Ondansetron 4 Mg/2 Ml Vial) 4 mg IVP Q6HR PRN PRN Reason: Nausea / Vomiting Rivaroxaban (Rivaroxaban 10 Mg Tablet) 20 mg PO QDDINNER [facility] Saccharomyces Boulardii (Saccharomyces Boulardii 250 Mg Capsule) 250 mg PO BIDWM [facility] Last Admin: 12/05/20 09:27 Dose: 250 mg Documented by: No Known Home Medications 11/14/20
[2020-12-05] MEDS: RIVAROXABAN 10 MG TABLET PO SCH (17:19)
[2020-12-06] MEDS: MAGNESIUM OXIDE 400 MG TABLET PO SCH ×2 (08:05→21:04)
[2020-12-06] MEDS: IBUPROFEN 400 MG TABLET PO PRN ×2 (08:06→21:26)
[2020-12-06] MEDS: FUROSEMIDE 20 MG TABLET PO SCH ×2 (08:06→13:55)
[2020-12-06] MEDS: SACCHAROMYCES BOULARDII 250 MG CAPSULE PO SCH ×2 (08:06→16:31)
[2020-12-06] MEDS: MULTIVITAMIN W/MINERALS TABLET PO SCH (08:06)
--- NOTE | 2020-12-06 11:13 | PROVIDER PROGRESS NOTE ---
Assessment/Plan - Problem List (1) Acute on chronic heart failure with preserved ejection fraction (HFpEF) Assessment/Plan: 12-06 Patient is hemodynamically stable, patient feel comfortable, Continue physical therapist evaluation and treated, Continue to consult with social work for disposition planning 1026, patient is comfortable seated in the chair, patient has no respiratory distress. Patient is hemodynamically stable. continue Lasix 20 mg p.o. twice daily (2) Elevated troponin Assessment/Plan: 12/05, it is likely Demand ischemia. Troponin was trended and trended down. EKG was negative for any acute ischemic changes. Patient is on Xarelto for his PE (3) HTN (hypertension) Assessment/Plan: stable (4) Pulmonary emboli Assessment/Plan: continue on Xarelto (5) Medical non-compliance Assessment/Plan: He has been advised to be more adherent to medical treatment (6) Generalized weakness Assessment/Plan: 12-05 consult with PT/OT for evaluation and treatment. Recommendation is for SNF placement. consult with Social work for disposition plan. (7) Left knee pain Assessment/Plan: 12-05 pt report it is his chronic status. Pain is improved and control, continue Lidocaine patch to area., Ibuprofen 400mg q6hrs prn his Uric acid level is within normal limits - Current Meds Current Meds: Current Medications Generic Name Dose Route Start Last Admin Trade Name Freq PRN Reason Stop Dose Admin Acetaminophen 650 mg 11/14/20 10:04 12/03/20 15:04 Acetaminophen 325 Mg Tablet PO 650 mg Q4HR PRN Administration Pain 1 to 4 Furosemide 20 mg 11/22/20 07:34 12/06/20 08:06 Furosemide 20 Mg Tablet PO 20 mg BIDDIURETIC ADELINA Administration Ibuprofen 400 mg 12/03/20 11:03 12/06/20 08:06 Ibuprofen 400 Mg Tablet PO 400 mg Q6HR PRN Administration PAIN Lidocaine 1 patch 12/03/20 02:16 12/03/20 02:37 Lidocaine Patch 5% TOP 1 patch DAILY PRN Administration PAIN Loperamide HCl 2 mg 11/26/20 12:54 11/29/20 21:03 Loperamide 2 Mg Capsule PO 2 mg QID PRN Administration Diarrhea Magnesium Oxide 800 mg 11/29/20 21:00 12/06/20 08:05 Magnesium Oxide 400 Mg Tablet PO 800 mg BID ADELINA Administration Multivitamins/Minerals 1 tab 11/21/20:00 12/06/20 08:06 Multivitamin W/Minerals Tablet PO 1 tab DAILYWM [facility] Administration Rivaroxaban 20 mg 12/05/20 17:00 12/05/20 17:19 Rivaroxaban 10 Mg Tablet PO 20 mg QDDINNER [facility] Administration Saccharomyces Boulardii 250 mg 11/15/20 10:40 12/06/20 08:06 Saccharomyces Boulardii 250 Mg Capsule PO 250 mg BIDWM [facility] Administration - Lab Result Fish Bone Diagrams: 11/19/20 04:21 11/29/20 07:32 - Additional Planning My Orders: My Active Orders 12/05/20 17:00 Rivaroxaban [Xarelto] 20 mg PO QDDINNER Subjective - Subjective Patient Reports: Feeling Better, Resting Comfortably Objective Vital Signs: Vital Signs - 24 hr 12/05/20 12/05/20 12/06/20 15:36 23:40 08:00 Temperature 36.5 C 36.6 C 36.7 C Heart Rate [ 60 78 80 Brachial] Respiratory 20 18 18 Rate Blood Pressure 132/87 H 125/77 111/73 [Right Brachial artery] O2 Saturation 100 100 100 Oxygen O2 Source Room air I&O (Last 24 Hrs): Intake and Output Totals x24h 12/04/20 12/05/20 12/06/20 23:59 23:59 23:59 Intake Total 1150 1240 780 Output Total 1050 1925 575 Balance 100 -685 205 General: Alert, Oriented x3, Cooperative, No acute distress HEENT: Atraumatic Neck: Supple Lymphatic: no adenopathy Neuro: Alert, Non Focal, Oriented Times 3 Cardiovascular: Regular rate, Normal S1, Normal S2 Respiratory: Chest non-tender, No respiratory distress, Breath sounds nml Abdomen: Normal bowel sounds, Soft Extremities: Normal pulses - Results Results: Laboratory Results WBC 5.8 x10^3/uL (4.8-10.8) 11/19/20 04:21 RBC 3.81 10^6/uL (4.70-6.10) L 11/19/20 04:21 Hgb 12.1 g/dL (14.0-18.0) L 11/19/20 04:21 Hct 37.7 % (42.0-52.0) L 11/19/20 04:21 MCV 99.0 fL (80.0-94.0) H 11/19/20 04:21 MCH 31.8 pg (27.0-31.0) H 11/19/20 04:21 MCHC 32.1 g/dL (32.0-36.0) 11/19/20 04:21 RDW 15.9 % (12.0-15.0) H 11/19/20 04:21 Plt Count 169 10^3/uL (130-450) 11/19/20 04:21 MPV 11.1 fL (7.4-11.4) 11/19/20 04:21 Neut # (Auto) 4.3 10^3/uL (1.5-6.6) 11/19/20 04:21 Lymph # (Auto) 0.9 10^3/uL (1.5-3.5) L 11/19/20 04:21 [place] # (Auto) 0.5 10^3/uL (0.0-1.0) 11/19/20 04:21 Eos # (Auto) 0.1 10^3/uL (0.0-0.7) 11/19/20 04:21 Baso # (Auto) 0.0 10^3/uL (0.0-0.1) 11/19/20 04:21 Absolute Nucleated RBC 0.00 x10^3/uL 11/19/20 04:21 Nucleated RBC % 0.0 /100WBC 11/19/20 04:21 Sodium 140 mmol/L (135-145) 11/29/20 07:32 Potassium 4.1 mmol/L (3.5-5.0) 11/29/20 07:32 Chloride 101 mmol/L (101-111) 11/29/20 07:32 Carbon Dioxide 32 mmol/L (21-32) 11/29/20 07:32 Anion Gap 7.0 (6-13) 11/29/20 07:32 BUN 19 mg/dL (6-20) 11/29/20 07:32 Creatinine 0.8 mg/dL (0.6-1.2) 11/29/20 07:32 Estimated GFR (MDRD) 96 (>89) 11/29/20 07:32 Glucose 87 mg/dL (70-100) 11/29/20 07:32 Uric Acid 5.5 mg/dL (2.6-7.2) 12/04/20 05:30 Calcium 9.0 mg/dL (8.5-10.3) 11/29/20 07:32 Phosphorus 2.8 mg/dL (2.5-4.6) 11/20/20 04:12 Magnesium 1.6 mg/dL (1.7-2.8) L 11/29/20 07:32 Total Bilirubin 0.9 mg/dL (0.2-1.0) 11/14/20 06:45 AST 67 IU/L (10-42) H 11/14/20 06:45 ALT 54 IU/L (10-60) 11/14/20 06:45 Alkaline Phosphatase 44 IU/L (42-121) 11/14/20 06:45 Troponin I High Sens 139.5 ng/L (2.3-19.7) H* 11/14/20 08:57 B-Natriuretic Peptide 692 pg/mL (5-100) H 11/22/20 04:58 Total Protein 6.5 g/dL (6.7-8.2) L 11/14/20 06:45 Albumin 3.8 g/dL (3.2-5.5) 11/14/20 06:45 Globulin 2.7 g/dL (2.1-4.2) 11/14/20 06:45 Albumin/Globulin Ratio 1.4 (1.0-2.2) 11/14/20 06:45 Lipase 24 U/L (22-51) 11/14/20 06:45 Urine Color YELLOW 11/14/20 07:33 Urine Clarity CLEAR (CLEAR) 11/14/20 07:33 Urine pH 6.5 PH (5.0-7.5) 11/14/20 07:33 Ur Specific [place] 1.015 (1.002-1.030) 11/14/20 07:33 Urine Protein NEGATIVE mg/dL (NEGATIVE) 11/14/20 07:33 Urine Glucose (UA) NEGATIVE mg/dL (NEGATIVE) 11/14/20 07:33 Urine Ketones NEGATIVE mg/dL (NEGATIVE) 11/14/20 07:33 Urine Occult Blood TRACE-INTA (NEGATIVE) 11/14/20 07:33 Urine Nitrite NEGATIVE (NEGATIVE) 11/14/20 07:33 Urine Bilirubin NEGATIVE (NEGATIVE) 11/14/20 07:33 Urine Urobilinogen 0.2 (NORMAL) E.U./dL (NORMAL) 11/14/20 07:33 Ur Leukocyte Esterase NEGATIVE (NEGATIVE) 11/14/20 07:33 Ur Microscopic Review NOT INDICATED 11/14/20 07:33 Urine Culture Comments NOT INDICATED 11/14/20 07:33 Nasal Adenovirus (PCR) NOT DETECTED 11/14/20 07:35 Nasal B. parapertussis DNA (PCR) NOT DETECTED 11/14/20 07:35 Nasal Coronavir 229E PCR NOT DETECTED 11/14/20 07:35 Nasal Coronavir HKU1 PCR NOT DETECTED 11/14/20 07:35 Nasal Coronavir NL63 PCR NOT DETECTED 11/14/20 07:35 Nasal Coronavir OC43 PCR NOT DETECTED 11/14/20 07:35 Nasal Enterovir/Rhinovir PCR NOT DETECTED 11/14/20 07:35 Nasal Influenza B PCR NOT DETECTED 11/14/20 07:35 Nasal Influenza A PCR NOT DETECTED 11/14/20 07:35 Nasal Parainfluen 1 PCR NOT DETECTED 11/14/20 07:35 Nasal Parainfluen 2 PCR NOT DETECTED 11/14/20 07:35 Nasal Parainfluen 3 PCR NOT DETECTED 11/14/20 07:35 Nasal Parainfluen 4 PCR NOT DETECTED 11/14/20 07:35 Nasal RSV (PCR) NOT DETECTED 11/14/20 07:35 Nasal B.pertussis DNA PCR NOT DETECTED 11/14/20 07:35 Nasal C.pneumoniae (PCR) NOT DETECTED 11/14/20 07:35 Ad Human Metapneumo PCR NOT DETECTED 11/14/20 07:35 Nasal M.pneumoniae (PCR) NOT DETECTED 11/14/20 07:35 Nasal SARS-CoV-2 (PCR) NOT DETECTED 11/14/20 07:35 Urine Opiates Screen NEGATIVE (NEGATIVE) 11/14/20 07:33 Ur Oxycodone Screen NEGATIVE (NEGATIVE) 11/14/20 07:33 Urine Methadone Screen NEGATIVE (NEGATIVE) 11/14/20 07:33 Ur Propoxyphene Screen NEGATIVE (NEGATIVE) 11/14/20 07:33 Ur Barbiturates Screen NEGATIVE (NEGATIVE) 11/14/20 07:33 Ur Tricyclics Screen NEGATIVE (NEGATIVE) 11/14/20 07:33 Ur Phencyclidine Scrn NEGATIVE (NEGATIVE) 11/14/20 07:33 Ur Amphetamine Screen NEGATIVE (NEGATIVE) 11/14/20 07:33 U Methamphetamines Scrn NEGATIVE (NEGATIVE) 11/14/20 07:33 U Benzodiazepines Scrn NEGATIVE (NEGATIVE) 11/14/20 07:33 Urine Cocaine Screen NEGATIVE (NEGATIVE) 11/14/20 07:33 U Cannabinoids Screen NEGATIVE (NEGATIVE) 11/14/20 07:33 Ethyl Alcohol < 5.0 mg/dL 11/14/20 06:45 ABX Reporting Has patient been on IV antibiotics over the past 48 hours?: No Current Medications - Current Medications Current Medications: Active Medications Acetaminophen (Acetaminophen 325 Mg Tablet) 650 mg PO Q4HR PRN PRN Reason: Pain 1 to 4 Last Admin: 12/03/20 15:04 Dose: 650 mg Documented by: Furosemide (Furosemide 20 Mg Tablet) 20 mg PO BIDDIURETIC [facility] Last Admin: 12/06/20 08:06 Dose: 20 mg Documented by: Ibuprofen (Ibuprofen 400 Mg Tablet) 400 mg PO Q6HR PRN PRN Reason: PAIN Last Admin: 12/06/20 08:06 Dose: 400 mg Documented by: Lidocaine (Lidocaine Patch 5%) 1 patch TOP DAILY PRN PRN Reason: PAIN Last Admin: 12/03/20 02:37 Dose: 1 patch Documented by: Loperamide HCl (Loperamide 2 Mg Capsule) 2 mg PO QID PRN PRN Reason: Diarrhea Last Admin: 11/29/20 21:03 Dose: 2 mg Documented by: Magnesium Oxide (Magnesium Oxide 400 Mg Tablet) 800 mg PO BID [facility] Last Admin: 12/06/20 08:05 Dose: 800 mg Documented by: Multivitamins/Minerals (Multivitamin W/Minerals Tablet) 1 tab PO DAILYWM [facility] Last Admin: 12/06/20 08:06 Dose: 1 tab Documented by: Ondansetron HCl (Ondansetron 4 Mg/2 Ml Vial) 4 mg IVP Q6HR PRN PRN Reason: Nausea / Vomiting Rivaroxaban (Rivaroxaban 10 Mg Tablet) 20 mg PO QDDINNER [facility] Last Admin: 12/05/20 17:19 Dose: 20 mg Documented by: Saccharomyces Boulardii (Saccharomyces Boulardii 250 Mg Capsule) 250 mg PO BIDWM [facility] Last Admin: 12/06/20 08:06 Dose: 250 mg Documented by: No Known Home Medications 11/14/20
[2020-12-06] MEDS: RIVAROXABAN 10 MG TABLET PO SCH (16:31)
[2020-12-07] MEDS: FUROSEMIDE 20 MG TABLET PO SCH ×2 (06:30→14:28)
[2020-12-07] MEDS: IBUPROFEN 400 MG TABLET PO PRN ×3 (06:30→21:04)
[2020-12-07] MEDS: MULTIVITAMIN W/MINERALS TABLET PO SCH (10:26)
[2020-12-07] MEDS: SACCHAROMYCES BOULARDII 250 MG CAPSULE PO SCH ×2 (10:26→17:39)
[2020-12-07] MEDS: MAGNESIUM OXIDE 400 MG TABLET PO SCH ×2 (10:26→21:05)
--- NOTE | 2020-12-07 10:59 | PROVIDER PROGRESS NOTE ---
Assessment/Plan - Problem List (1) Acute on chronic heart failure with preserved ejection fraction (HFpEF) Assessment/Plan: 1028, Patient feels comfortable, He is hemodynamic stable, Patient is pending for disposition, Continue consult with social work for disposition planning 12-06 Patient is hemodynamically stable, patient feel comfortable, Continue physical therapist evaluation and treated, Continue to consult with social work for disposition planning 1025, patient is comfortable seated in the chair, patient has no respiratory distress. Patient is hemodynamically stable. continue Lasix 20 mg p.o. twice daily (2) Elevated troponin Assessment/Plan: 12/05, it is likely Demand ischemia. Troponin was trended and trended down. EKG was negative for any acute ischemic changes. Patient is on Xarelto for his PE (3) HTN (hypertension) Assessment/Plan: stable (4) Pulmonary emboli Assessment/Plan: continue on Xarelto (5) Medical non-compliance Assessment/Plan: He has been advised to be more adherent to medical treatment (6) Generalized weakness Assessment/Plan: 12-05 consult with PT/OT for evaluation and treatment. Recommendation is for SNF placement. consult with Social work for disposition plan. (7) Left knee pain Assessment/Plan: 12-05 pt report it is his chronic status. Pain is improved and control, continue Lidocaine patch to area., Ibuprofen 400mg q6hrs prn his Uric acid level is within normal limits - Current Meds Current Meds: Current Medications Generic Name Dose Route Start Last Admin Trade Name Freq PRN Reason Stop Dose Admin Acetaminophen 650 mg 11/14/20 10:04 12/03/20 15:04 Acetaminophen 325 Mg Tablet PO 650 mg Q4HR PRN Administration Pain 1 to 4 Furosemide 20 mg 11/22/20 07:34 12/07/20 06:30 Furosemide 20 Mg Tablet PO 20 mg BIDDIURETIC ADELINA Administration Ibuprofen 400 mg 12/03/20 11:03 12/07/20 06:30 Ibuprofen 400 Mg Tablet PO 400 mg Q6HR PRN Administration PAIN Lidocaine 1 patch 12/03/20 02:16 12/03/20 02:37 Lidocaine Patch 5% TOP 1 patch DAILY PRN Administration PAIN Loperamide HCl 2 mg 11/26/20 12:54 11/29/20 21:03 Loperamide 2 Mg Capsule PO 2 mg QID PRN Administration Diarrhea Magnesium Oxide 800 mg 11/29/20 21:00 12/07/20 10:26 Magnesium Oxide 400 Mg Tablet PO 800 mg BID ADELINA Administration Multivitamins/Minerals 1 tab 11/21/20 10:00 12/07/20 10:26 Multivitamin W/Minerals Tablet PO 1 tab DAILYWM ADELINA Administration Rivaroxaban 20 mg 12/05/20 17:00 12/06/20 16:31 Rivaroxaban 10 Mg Tablet PO 20 mg [facility] Administration Saccharomyces Boulardii 250 mg 11/15/20 10:40 12/07/20 10:26 Saccharomyces Boulardii 250 Mg Capsule PO 250 mg BIDWM [facility] Administration - Lab Result Fish Bone Diagrams: 11/19/20 04:21 11/29/20 07:32 Subjective - Subjective Patient Reports: Resting Comfortably Objective Vital Signs: Vital Signs - 24 hr 12/06/20 12/07/20 12/07/20 15:32 00:03 07:13 Temperature 36.4 C L 36.7 C 36.6 C Heart Rate [ 78 83 79 Brachial] Respiratory 16 18 16 Rate Blood Pressure 123/87 H 121/80 120/79 [Right Brachial artery] O2 Saturation 100 96 97 Oxygen O2 Source Room air I&O (Last 24 Hrs): Intake and Output Totals x24h 12/05/20 12/06/20 12/07/20 23:59 23:59 23:59 Intake Total 1240 1290 530 Output Total 1925 1585 800 Balance -296 -475 -751 General: Alert, Oriented x3, Cooperative, No acute distress HEENT: Atraumatic Neck: Supple Lymphatic: no adenopathy Neuro: Alert, Non Focal, Oriented Times 3 Cardiovascular: Regular rate, Normal S1, Normal S2 Respiratory: Chest non-tender, No respiratory distress Abdomen: Normal bowel sounds, Soft Extremities: Normal pulses - Results Results: Laboratory Results WBC 5.8 x10^3/uL (4.8-10.8) 11/19/20 04:21 RBC 3.81 10^6/uL (4.70-6.10) L 11/19/20 04:21 Hgb 12.1 g/dL (14.0-18.0) L 11/19/20 04:21 Hct 37.7 % (42.0-52.0) L 11/19/20 04:21 MCV 99.0 fL (80.0-94.0) H 11/19/20 04:21 MCH 31.8 pg (27.0-31.0) H 11/19/20 04:21 MCHC 32.1 g/dL (32.0-36.0) 11/19/20 04:21 RDW 15.9 % (12.0-15.0) H 11/19/20 04:21 Plt Count 169 10^3/uL (130-450) 11/19/20 04:21 MPV 11.1 fL (7.4-11.4) 11/19/20 04:21 Neut # (Auto) 4.3 10^3/uL (1.5-6.6) 11/19/20 04:21 Lymph # (Auto) 0.9 10^3/uL (1.5-3.5) L 11/19/20 04:21 [place] # (Auto) 0.5 10^3/uL (0.0-1.0) 11/19/20 04:21 Eos # (Auto) 0.1 10^3/uL (0.0-0.7) 11/19/20 04:21 Baso # (Auto) 0.0 10^3/uL (0.0-0.1) 11/19/20 04:21 Absolute Nucleated RBC 0.00 x10^3/uL 11/19/20 04:21 Nucleated RBC % 0.0 /100WBC 11/19/20 04:21 Sodium 140 mmol/L (135-145) 11/29/20 07:32 Potassium 4.1 mmol/L (3.5-5.0) 11/29/20 07:32 Chloride 101 mmol/L (101-111) 11/29/20 07:32 Carbon Dioxide 32 mmol/L (21-32) 11/29/20 07:32 Anion Gap 7.0 (6-13) 11/29/20 07:32 BUN 19 mg/dL (6-20) 11/29/20 07:32 Creatinine 0.8 mg/dL (0.6-1.2) 11/29/20 07:32 Estimated GFR (MDRD) 96 (>89) 11/29/20 07:32 Glucose 87 mg/dL (70-100) 11/29/20 07:32 Uric Acid 5.5 mg/dL (2.6-7.2) 12/04/20 05:30 Calcium 9.0 mg/dL (8.5-10.3) 11/29/20 07:32 Phosphorus 2.8 mg/dL (2.5-4.6) 11/20/20 04:12 Magnesium 1.6 mg/dL (1.7-2.8) L 11/29/20 07:32 Total Bilirubin 0.9 mg/dL (0.2-1.0) 11/14/20 06:45 AST 67 IU/L (10-42) H 11/14/20 06:45 ALT 54 IU/L (10-60) 11/14/20 06:45 Alkaline Phosphatase 44 IU/L (42-121) 11/14/20 06:45 Troponin I High Sens 139.5 ng/L (2.3-19.7) H* 11/14/20 08:57 B-Natriuretic Peptide 692 pg/mL (5-100) H 11/22/20 04:58 Total Protein 6.5 g/dL (6.7-8.2) L 11/14/20 06:45 Albumin 3.8 g/dL (3.2-5.5) 11/14/20 06:45 Globulin 2.7 g/dL (2.1-4.2) 11/14/20 06:45 Albumin/Globulin Ratio 1.4 (1.0-2.2) 11/14/20 06:45 Lipase 24 U/L (22-51) 11/14/20 06:45 Urine Color YELLOW 11/14/20 07:33 Urine Clarity CLEAR (CLEAR) 11/14/20 07:33 Urine pH 6.5 PH (5.0-7.5) 11/14/20 07:33 Ur Specific [place] 1.015 (1.002-1.030) 11/14/20 07:33 Urine Protein NEGATIVE mg/dL (NEGATIVE) 11/14/20 07:33 Urine Glucose (UA) NEGATIVE mg/dL (NEGATIVE) 11/14/20 07:33 Urine Ketones NEGATIVE mg/dL (NEGATIVE) 11/14/20 07:33 Urine Occult Blood TRACE-INTA (NEGATIVE) 11/14/20 07:33 Urine Nitrite NEGATIVE (NEGATIVE) 11/14/20 07:33 Urine Bilirubin NEGATIVE (NEGATIVE) 11/14/20 07:33 Urine Urobilinogen 0.2 (NORMAL) E.U./dL (NORMAL) 11/14/20 07:33 Ur Leukocyte Esterase NEGATIVE (NEGATIVE) 11/14/20 07:33 Ur Microscopic Review NOT INDICATED 11/14/20 07:33 Urine Culture Comments NOT INDICATED 11/14/20 07:33 Nasal Adenovirus (PCR) NOT DETECTED 11/14/20 07:35 Nasal B. parapertussis DNA (PCR) NOT DETECTED 11/14/20 07:35 Nasal Coronavir 229E PCR NOT DETECTED 11/14/20 07:35 Nasal Coronavir HKU1 PCR NOT DETECTED 11/14/20 07:35 Nasal Coronavir NL63 PCR NOT DETECTED 11/14/20 07:35 Nasal Coronavir OC43 PCR NOT DETECTED 11/14/20 07:35 Nasal Enterovir/Rhinovir PCR NOT DETECTED 11/14/20 07:35 Nasal Influenza B PCR NOT DETECTED 11/14/20 07:35 Nasal Influenza A PCR NOT DETECTED 11/14/20 07:35 Nasal Parainfluen 1 PCR NOT DETECTED 11/14/20 07:35 Nasal Parainfluen 2 PCR NOT DETECTED 11/14/20 07:35 Nasal Parainfluen 3 PCR NOT DETECTED 11/14/20 07:35 Nasal Parainfluen 4 PCR NOT DETECTED 11/14/20 07:35 Nasal RSV (PCR) NOT DETECTED 11/14/20 07:35 Nasal B.pertussis DNA PCR NOT DETECTED 11/14/20 07:35 Nasal C.pneumoniae (PCR) NOT DETECTED 11/14/20 07:35 Ad Human Metapneumo PCR NOT DETECTED 11/14/20 07:35 Nasal M.pneumoniae (PCR) NOT DETECTED 11/14/20 07:35 Nasal SARS-CoV-2 (PCR) NOT DETECTED 11/14/20 07:35 Urine Opiates Screen NEGATIVE (NEGATIVE) 11/14/20 07:33 Ur Oxycodone Screen NEGATIVE (NEGATIVE) 11/14/20 07:33 Urine Methadone Screen NEGATIVE (NEGATIVE) 11/14/20 07:33 Ur Propoxyphene Screen NEGATIVE (NEGATIVE) 11/14/20 07:33 Ur Barbiturates Screen NEGATIVE (NEGATIVE) 11/14/20 07:33 Ur Tricyclics Screen NEGATIVE (NEGATIVE) 11/14/20 07:33 Ur Phencyclidine Scrn NEGATIVE (NEGATIVE) 11/14/20 07:33 Ur Amphetamine Screen NEGATIVE (NEGATIVE) 11/14/20 07:33 U Methamphetamines Scrn NEGATIVE (NEGATIVE) 11/14/20 07:33 U Benzodiazepines Scrn NEGATIVE (NEGATIVE) 11/14/20 07:33 Urine Cocaine Screen NEGATIVE (NEGATIVE) 11/14/20 07:33 U Cannabinoids Screen NEGATIVE (NEGATIVE) 11/14/20 07:33 Ethyl Alcohol < 5.0 mg/dL 11/14/20 06:45 ABX Reporting Has patient been on IV antibiotics over the past 48 hours?: No Current Medications - Current Medications Current Medications: Active Medications Acetaminophen (Acetaminophen 325 Mg Tablet) 650 mg PO Q4HR PRN PRN Reason: Pain 1 to 4 Last Admin: 12/03/20 15:04 Dose: 650 mg Documented by: Furosemide (Furosemide 20 Mg Tablet) 20 mg PO BIDDIURETIC [facility] Last Admin: 12/07/20 06:30 Dose: 20 mg Documented by: Ibuprofen (Ibuprofen 400 Mg Tablet) 400 mg PO Q6HR PRN PRN Reason: PAIN Last Admin: 12/07/20 06:30 Dose: 400 mg Documented by: Lidocaine (Lidocaine Patch 5%) 1 patch TOP DAILY PRN PRN Reason: PAIN Last Admin: 12/03/20 02:37 Dose: 1 patch Documented by: Loperamide HCl (Loperamide 2 Mg Capsule) 2 mg PO QID PRN PRN Reason: Diarrhea Last Admin: 11/29/20 21:03 Dose: 2 mg Documented by: Magnesium Oxide (Magnesium Oxide 400 Mg Tablet) 800 mg PO BID [facility] Last Admin: 12/07/20 10:26 Dose: 800 mg Documented by: Multivitamins/Minerals (Multivitamin W/Minerals Tablet) 1 tab PO DAILYWM [facility] Last Admin: 12/07/20 10:26 Dose: 1 tab Documented by: Ondansetron HCl (Ondansetron 4 Mg/2 Ml Vial) 4 mg IVP Q6HR PRN PRN Reason: Nausea / Vomiting Rivaroxaban (Rivaroxaban 10 Mg Tablet) 20 mg PO [facility]DDINNER [facility] Last Admin: 12/06/20 16:31 Dose: 20 mg Documented by: Saccharomyces Boulardii (Saccharomyces Boulardii 250 Mg Capsule) 250 mg PO BID WM [facility] Last Admin: 12/07/20 10:26 Dose: 250 mg Documented by: No Known Home Medications 11/14/20
[2020-12-07] MEDS: RIVAROXABAN 10 MG TABLET PO SCH (17:39)
[2020-12-08] MEDS: FUROSEMIDE 20 MG TABLET PO SCH ×2 (06:29→14:19)
[2020-12-08] MEDS: IBUPROFEN 400 MG TABLET PO PRN ×2 (06:32→12:41)
[2020-12-08] MEDS: MULTIVITAMIN W/MINERALS TABLET PO SCH (08:44)
[2020-12-08] MEDS: SACCHAROMYCES BOULARDII 250 MG CAPSULE PO SCH ×2 (08:44→17:09)
[2020-12-08] MEDS: MAGNESIUM OXIDE 400 MG TABLET PO SCH ×2 (08:44→20:50)
[2020-12-08 12:28] LABS: B. PARAPERTUSSIS- RESP PCR PAN NOT DETECTED; B. PERTUSSIS- RESP PCR PANEL NOT DETECTED; C. PNEUMONIAE- RESP PCR PANEL NOT DETECTED; CORONAVIRUS 229E-RESP PCR NOT DETECTED; CORONAVIRUS HKU1-RESP PCR NOT DETECTED; CORONAVIRUS NL63-RESP PCR NOT DETECTED; CORONAVIRUS OC43-RESP PCR NOT DETECTED; HUMAN METAPNEUMOVIRUS NOT DETECTED; INFLUENZA A- RESP PCR PANEL NOT DETECTED; INFLUENZA B - RESP PCR PANEL NOT DETECTED; M. PNEUMONIAE- RESP PCR PANEL NOT DETECTED; PARAINFLUENZA VIRUS 1 NOT DETECTED; PARAINFLUENZA VIRUS 2 NOT DETECTED; PARAINFLUENZA VIRUS 3 NOT DETECTED; PARAINFLUENZA VIRUS 4 NOT DETECTED; RHINOVIRUS/ENTEROVIRUS NOT DETECTED; RSV- RESP PCR PANEL NOT DETECTED; SARS-CoV-2 -RESP PCR PANEL NOT DETECTED
--- NOTE | 2020-12-08 14:32 | PROVIDER PROGRESS NOTE ---
Assessment/Plan - Problem List (1) Acute on chronic heart failure with preserved ejection fraction (HFpEF) Assessment/Plan: 12-08 Consult with social work for discharge planning, Patient is hemodynamically stable, is ready for discharge. 1028, Patient feels comfortable, He is hemodynamic stable, Patient is pending for disposition, Continue consult with social work for disposition planning 12-06 Patient is hemodynamically stable, patient feel comfortable, Continue physical therapist evaluation and treated, Continue to consult with social work for disposition planning 1026, patient is comfortable seated in the chair, patient has no respiratory distress. Patient is hemodynamically stable. continue Lasix 20 mg p.o. twice daily - Current Meds Current Meds: Current Medications Generic Name Dose Route Start Last Admin Trade Name Freq PRN Reason Stop Dose Admin Acetaminophen 650 mg 11/14/20 10:04 12/03/20 15:04 Acetaminophen 325 Mg Tablet PO 650 mg Q4HR PRN Administration Pain 1 to 4 Furosemide 20 mg 11/22/20 07:34 12/08/20 14:19 Furosemide 20 Mg Tablet PO 20 mg BIDDIURETIC ADELINA Administration Ibuprofen 400 mg 12/03/20 11:03 12/08/20 12:41 Ibuprofen 400 Mg Tablet PO 400 mg Q6HR PRN Administration PAIN Lidocaine 1 patch 12/03/20 02:16 12/03/20 02:37 Lidocaine Patch 5% TOP 1 patch DAILY PRN Administration PAIN Loperamide HCl 2 mg 11/26/20 12:54 11/29/20 21:03 Loperamide 2 Mg Capsule PO 2 mg QID PRN Administration Diarrhea Magnesium Oxide 800 mg 11/29/20 21:00 12/08/20 08:44 Magnesium Oxide 400 Mg Tablet PO 800 mg BID ADELINA Administration Multivitamins/Minerals 1 tab 11/21/20 10:00 12/08/20 08:44 Multivitamin W/Minerals Tablet PO 1 tab DAILYWM ADELINA Administration Rivaroxaban 20 mg 12/05/20 17:00 12/07/20 17:39 Rivaroxaban 10 Mg Tablet PO 20 mg QDDINNER ADELINA Administration Saccharomyces Boulardii 250 mg 11/15/20 10:40 12/08/20 08:44 Saccharomyces Boulardii 250 Mg Capsule PO 250 mg BIDWM ADELINA Administration - Lab Result Fish Bone Diagrams: 11/19/20 04:21 11/29/20 07:32 Subjective - Subjective Patient Reports: Resting Comfortably, No Complaints Objective Vital Signs: Vital Signs - 24 hr 12/07/20 12/07/20 12/08/20 15:35 23:49 07:45 Temperature 36.7 C 36.6 C 36.6 C Heart Rate [ 73 78 72 Brachial] Respiratory 24 18 20 Rate Blood Pressure 128/83 H 121/82 H 119/88 H [Right Brachial artery] O2 Saturation 95 100 97 Oxygen O2 Source Room air I&O (Last 24 Hrs): Intake and Output Totals x24h 12/06/20 12/07/20 12/08/20 23:59 23:59 23:59 Intake Total 1290 1090 710 Output Total 1585 1950 1150 Balance -295 -860 -440 General: Alert, Oriented x3, Cooperative, No acute distress HEENT: Atraumatic Neck: Supple Lymphatic: no adenopathy Neuro: Alert, Non Focal, Oriented Times 3 Cardiovascular: Regular rate, Normal S1, Normal S2 Respiratory: Chest non-tender, No respiratory distress Abdomen: Normal bowel sounds, Soft, No tenderness Extremities: Normal pulses - Results Results: Laboratory Results WBC 5.8 x10^3/uL (4.8-10.8) 11/19/20 04:21 RBC 3.81 10^6/uL (4.70-6.10) L 11/19/20 04:21 Hgb 12.1 g/dL (14.0-18.0) L 11/19/20 04:21 Hct 37.7 % (42.0-52.0) L 11/19/20 04:21 MCV 99.0 fL (80.0-94.0) H 11/19/20 04:21 MCH 31.8 pg (27.0-31.0) H 11/19/20 04:21 MCHC 32.1 g/dL (32.0-36.0) 11/19/20 04:21 RDW 15.9 % (12.0-15.0) H 11/19/20 04:21 Plt Count 169 10^3/uL (130-450) 11/19/20 04:21 MPV 11.1 fL (7.4-11.4) 11/19/20 04:21 Neut # (Auto) 4.3 10^3/uL (1.5-6.6) 11/19/20 04:21 Lymph # (Auto) 0.9 10^3/uL (1.5-3.5) L 11/19/20 04:21 [place] # (Auto) 0.5 10^3/uL (0.0-1.0) 11/19/20 04:21 Eos # (Auto) 0.1 10^3/uL (0.0-0.7) 11/19/20 04:21 Baso # (Auto) 0.0 10^3/uL (0.0-0.1) 11/19/20 04:21 Absolute Nucleated RBC 0.00 x10^3/uL 11/19/20 04:21 Nucleated RBC % 0.0 /100WBC 11/19/20 04:21 Sodium 140 mmol/L (135-145) 11/29/20 07:32 Potassium 4.1 mmol/L (3.5-5.0) 11/29/20 07:32 Chloride 101 mmol/L (101-111) 11/29/20 07:32 Carbon Dioxide 32 mmol/L (21-32) 11/29/20 07:32 Anion Gap 7.0 (6-13) 11/29/20 07:32 BUN 19 mg/dL (6-20) 11/29/20 07:32 Creatinine 0.8 mg/dL (0.6-1.2) 11/29/20 07:32 Estimated GFR (MDRD) 96 (>89) 11/29/20 07:32 Glucose 87 mg/dL (70-100) 11/29/20 07:32 Uric Acid 5.5 mg/dL (2.6-7.2) 12/04/20 05:30 Calcium 9.0 mg/dL (8.5-10.3) 11/29/20 07:32 Phosphorus 2.8 mg/dL (2.5-4.6) 11/20/20 04:12 Magnesium 1.6 mg/dL (1.7-2.8) L 11/29/20 07:32 Total Bilirubin 0.9 mg/dL (0.2-1.0) 11/14/20 06:45 AST 67 IU/L (10-42) H 11/14/20 06:45 ALT 54 IU/L (10-60) 11/14/20 06:45 Alkaline Phosphatase 44 IU/L (42-121) 11/14/20 06:45 Troponin I High Sens 139.5 ng/L (2.3-19.7) H* 11/14/20 08:57 B-Natriuretic Peptide 692 pg/mL (5-100) H 11/22/20 04:58 Total Protein 6.5 g/dL (6.7-8.2) L 11/14/20 06:45 Albumin 3.8 g/dL (3.2-5.5) 11/14/20 06:45 Globulin 2.7 g/dL (2.1-4.2) 11/14/20 06:45 Albumin/Globulin Ratio 1.4 (1.0-2.2) 11/14/20 06:45 Lipase 24 U/L (22-51) 11/14/20 06:45 Urine Color YELLOW 11/14/20 07:33 Urine Clarity CLEAR (CLEAR) 11/14/20 07:33 Urine pH 6.5 PH (5.0-7.5) 11/14/20 07:33 Ur Specific [place] 1.015 (1.002-1.030) 11/14/20 07:33 Urine Protein NEGATIVE mg/dL (NEGATIVE) 11/14/20 07:33 Urine Glucose (UA) NEGATIVE mg/dL (NEGATIVE) 11/14/20 07:33 Urine Ketones NEGATIVE mg/dL (NEGATIVE) 11/14/20 07:33 Urine Occult Blood TRACE-INTA (NEGATIVE) 11/14/20 07:33 Urine Nitrite NEGATIVE (NEGATIVE) 11/14/20 07:33 Urine Bilirubin NEGATIVE (NEGATIVE) 11/14/20 07:33 Urine Urobilinogen 0.2 (NORMAL) E.U./dL (NORMAL) 11/14/20 07:33 Ur Leukocyte Esterase NEGATIVE (NEGATIVE) 11/14/20 07:33 Ur Microscopic Review NOT INDICATED 11/14/20 07:33 Urine Culture Comments NOT INDICATED 11/14/20 07:33 Nasal Adenovirus (PCR) NOT DETECTED 12/08/20 11:15 Nasal B. parapertussis DNA (PCR) NOT DETECTED 12/08/20 11:15 Nasal Coronavir 229E PCR NOT DETECTED 12/08/20 11:15 Nasal Coronavir HKU1 PCR NOT DETECTED 12/08/20 11:15 Nasal Coronavir NL63 PCR NOT DETECTED 12/08/20 11:15 Nasal Coronavir OC43 PCR NOT DETECTED 12/08/20 11:15 Nasal Enterovir/Rhinovir PCR NOT DETECTED 12/08/20 11:15 Nasal Influenza B PCR NOT DETECTED 12/08/20 11:15 Nasal Influenza A PCR NOT DETECTED 12/08/20 11:15 Nasal Parainfluen 1 PCR NOT DETECTED 12/08/20 11:15 Nasal Parainfluen 2 PCR NOT DETECTED 12/08/20 11:15 Nasal Parainfluen 3 PCR NOT DETECTED 12/08/20 11:15 Nasal Parainfluen 4 PCR NOT DETECTED 12/08/20 11:15 Nasal RSV (PCR) NOT DETECTED 12/08/20 11:15 Nasal B.pertussis DNA PCR NOT DETECTED 12/08/20 11:15 Nasal C.pneumoniae (PCR) NOT DETECTED 12/08/20 11:15 Ad Human Metapneumo PCR NOT DETECTED 12/08/20 11:15 Nasal M.pneumoniae (PCR) NOT DETECTED 12/08/20 11:15 Nasal SARS-CoV-2 (PCR) NOT DETECTED 12/08/20 11:15 Urine Opiates Screen NEGATIVE (NEGATIVE) 11/14/20 07:33 Ur Oxycodone Screen NEGATIVE (NEGATIVE) 11/14/20 07:33 Urine Methadone Screen NEGATIVE (NEGATIVE) 11/14/20 07:33 Ur Propoxyphene Screen NEGATIVE (NEGATIVE) 11/14/20 07:33 Ur Barbiturates Screen NEGATIVE (NEGATIVE) 11/14/20 07:33 Ur Tricyclics Screen NEGATIVE (NEGATIVE) 11/14/20 07:33 Ur Phencyclidine Scrn NEGATIVE (NEGATIVE) 11/14/20 07:33 Ur Amphetamine Screen NEGATIVE (NEGATIVE) 11/14/20 07:33 U Methamphetamines Scrn NEGATIVE (NEGATIVE) 11/14/20 07:33 U Benzodiazepines Scrn NEGATIVE (NEGATIVE) 11/14/20 07:33 Urine Cocaine Screen NEGATIVE (NEGATIVE) 11/14/20 07:33 U Cannabinoids Screen NEGATIVE (NEGATIVE) 11/14/20 07:33 Ethyl Alcohol < 5.0 mg/dL 11/14/20 06:45 ABX Reporting Has patient been on IV antibiotics over the past 48 hours?: No Current Medications - Current Medications Current Medications: Active Medications Acetaminophen (Acetaminophen 325 Mg Tablet) 650 mg PO Q4HR PRN PRN Reason: Pain 1 to 4 Last Admin: 12/03/20 15:04 Dose: 650 mg Documented by: Furosemide (Furosemide 20 Mg Tablet) 20 mg PO BIDDIURETIC [facility] Last Admin: 12/08/20 14:19 Dose: 20 mg Documented by: Ibuprofen (Ibuprofen 400 Mg Tablet) 400 mg PO Q6HR PRN PRN Reason: PAIN Last Admin: 12/08/20 12:41 Dose: 400 mg Documented by: Lidocaine (Lidocaine Patch 5%) 1 patch TOP DAILY PRN PRN Reason: PAIN Last Admin: 12/03/20 02:37 Dose: 1 patch Documented by: Loperamide HCl (Loperamide 2 Mg Capsule) 2 mg PO QID PRN PRN Reason: Diarrhea Last Admin: 11/29/20 21:03 Dose: 2 mg Documented by: Magnesium Oxide (Magnesium Oxide 400 Mg Tablet) 800 mg PO BID [facility] Last Admin: 12/08/20 08:44 Dose: 800 mg Documented by: Multivitamins/Minerals (Multivitamin W/Minerals Tablet) 1 tab PO DAILYWM [facility] Last Admin: 12/08/20 08:44 Dose: 1 tab Documented by: Ondansetron HCl (Ondansetron 4 Mg/2 Ml Vial) 4 mg IVP Q6HR PRN PRN Reason: Nausea / Vomiting Rivaroxaban (Rivaroxaban 10 Mg Tablet) 20 mg PO [facility]DDINNER [facility] Last Admin: 12/07/20 17:39 Dose: 20 mg Documented by: Saccharomyces Boulardii (Saccharomyces Boulardii 250 Mg Capsule) 250 mg PO BIDWM [facility] Last Admin: 12/08/20 08:44 Dose: 250 mg Documented by: No Known Home Medications 11/14/20
[2020-12-08] MEDS: RIVAROXABAN 10 MG TABLET PO SCH (17:09)
[2020-12-09] MEDS: IBUPROFEN 400 MG TABLET PO PRN ×4 (00:08→21:01)
[2020-12-09] MEDS: FUROSEMIDE 20 MG TABLET PO SCH ×2 (06:36→14:28)
[2020-12-09] MEDS: MAGNESIUM OXIDE 400 MG TABLET PO SCH ×2 (08:16→21:01)
[2020-12-09] MEDS: SACCHAROMYCES BOULARDII 250 MG CAPSULE PO SCH ×2 (08:16→16:53)
[2020-12-09] MEDS: MULTIVITAMIN W/MINERALS TABLET PO SCH (08:16)
[2020-12-09] MEDS ORDERED: MAGNESIUM SULFATE 2 GRAM 2 GM/50 ML BAG IV ONE (09:23)
[2020-12-09] MEDS ORDERED: MAGNESIUM OXIDE 400 MG TABLET PO ONE (12:00)
[2020-12-09] MEDS: RIVAROXABAN 10 MG TABLET PO SCH (16:54)
--- NOTE | 2020-12-09 18:56 | PROVIDER PROGRESS NOTE ---
Assessment/Plan - Problem List (1) Acute on chronic heart failure with preserved ejection fraction (HFpEF) Assessment/Plan: Patient is hemodynamically stable, is ready for discharge. (2) Hypomagnesemia Assessment/Plan: Likely related to diuretic use. Will replace with p.o. magnesium since he has no IV in - Current Meds Current Meds: Current Medications Generic Name Dose Route Start Last Admin Trade Name Freq PRN Reason Stop Dose Admin Acetaminophen 650 mg 11/14/20 10:04 12/03/20 15:04 Acetaminophen 325 Mg Tablet PO 650 mg Q4HR PRN Administration Pain 1 to 4 Furosemide 20 mg 11/22/20 07:34 12/09/20 14:28 Furosemide 20 Mg Tablet PO 20 mg BIDDIURETIC ADELINA Administration Ibuprofen 400 mg 12/03/20 11:03 12/09/20 14:28 Ibuprofen 400 Mg Tablet PO 400 mg Q6HR PRN Administration PAIN Lidocaine 1 patch 12/03/20 02:16 12/03/20 02:37 Lidocaine Patch 5% TOP 1 patch DAILY PRN Administration PAIN Loperamide HCl 2 mg 11/26/20 12:54 11/29/20 21:03 Loperamide 2 Mg Capsule PO 2 mg QID PRN Administration Diarrhea Magnesium Oxide 800 mg 11/29/20 21:00 12/09/20 08:16 Magnesium Oxide 400 Mg Tablet PO 800 mg BID ADELINA Administration Multivitamins/Minerals 1 tab 11/21/20 10:00 12/09/20 08:16 Multivitamin W/Minerals Tablet PO 1 tab DAILYWM ADELINA Administration Rivaroxaban 20 mg 12/05/20 17:00 12/09/20 16:54 Rivaroxaban 10 Mg Tablet PO 20 mg QDDINNER ADELINA Administration Saccharomyces Boulardii 250 mg 11/15/20 10:40 12/09/20 16:53 Saccharomyces Boulardii 250 Mg Capsule PO 250 mg BIDWM ADELINA Administration - Lab Result Fish Bone Diagrams: 11/19/20 04:21 11/29/20 07:32 Subjective - Subjective Patient Reports: No Complaints Objective Vital Signs: Vital Signs - 24 hr 12/09/20 12/09/20 12/09/20 00:00 08:41 15:36 Temperature 36.8 C 36.9 C 36.6 C Heart Rate [ 80 82 82 Brachial] Respiratory 16 18 20 Rate Blood Pressure 112/77 110/64 115/86 H [Right Brachial artery] O2 Saturation 94 97 100 Oxygen O2 Source Room air I&O (Last 24 Hrs): Intake and Output Totals x24h 12/07/20 12/08/20 12/09/20 23:59 23:59 23:59 Intake Total 1090 1225 980 Output Total 5351 2094 1200 Balance -860 870 -220 General: Alert HEENT: Mucous membr. moist/pink Neck: Supple Neuro: Alert, Non Focal Cardiovascular: No murmurs Respiratory: No respiratory distress Abdomen: Soft Extremities: No edema - Results Results: Laboratory Results WBC 5.8 x10^3/uL (4.8-10.8) 11/19/20 04:21 RBC 3.81 10^6/uL (4.70-6.10) L 11/19/20 04:21 Hgb 12.1 g/dL (14.0-18.0) L 11/19/20 04:21 Hct 37.7 % (42.0-52.0) L 11/19/20 04:21 MCV 99.0 fL (80.0-94.0) H 11/19/20 04:21 MCH 31.8 pg (27.0-31.0) H 11/19/20 04:21 MCHC 32.1 g/dL (32.0-36.0) 11/19/20 04:21 RDW 15.9 % (12.0-15.0) H 11/19/20 04:21 Plt Count 169 10^3/uL (130-450) 11/19/20 04:21 MPV 11.1 fL (7.4-11.4) 11/19/20 04:21 Neut # (Auto) 4.3 10^3/uL (1.5-6.6) 11/19/20 04:21 Lymph # (Auto) 0.9 10^3/uL (1.5-3.5) L 11/19/20 04:21 [place] # (Auto) 0.5 10^3/uL (0.0-1.0) 11/19/20 04:21 Eos # (Auto) 0.1 10^3/uL (0.0-0.7) 11/19/20 04:21 Baso # (Auto) 0.0 10^3/uL (0.0-0.1) 11/19/20 04:21 Absolute Nucleated RBC 0.00 x10^3/uL 11/19/20 04:21 Nucleated RBC % 0.0 /100WBC 11/19/20 04:21 Sodium 140 mmol/L (135-145) 11/29/20 07:32 Potassium 4.1 mmol/L (3.5-5.0) 11/29/20 07:32 Chloride 101 mmol/L (101-111) 11/29/20 07:32 Carbon Dioxide 32 mmol/L (21-32) 11/29/20 07:32 Anion Gap 7.0 (6-13) 11/29/20 07:32 BUN 19 mg/dL (6-20) 11/29/20 07:32 Creatinine 0.8 mg/dL (0.6-1.2) 11/29/20 07:32 Estimated GFR (MDRD) 96 (>89) 11/29/20 07:32 Glucose 87 mg/dL (70-100) 11/29/20 07:32 Uric Acid 5.5 mg/dL (2.6-7.2) 12/04/20 05:30 Calcium 9.0 mg/dL (8.5-10.3) 11/29/20 07:32 Phosphorus 2.8 mg/dL (2.5-4.6) 11/20/20 04:12 Magnesium 1.6 mg/dL (1.7-2.8) L 11/29/20 07:32 Total Bilirubin 0.9 mg/dL (0.2-1.0) 11/14/20 06:45 AST 67 IU/L (10-42) H 11/14/20 06:45 ALT 54 IU/L (10-60) 11/14/20 06:45 Alkaline Phosphatase 44 IU/L (42-121) 11/14/20 06:45 Troponin I High Sens 139.5 ng/L (2.3-19.7) H* 11/14/20 08:57 B-Natriuretic Peptide 692 pg/mL (5-100) H 11/22/20 04:58 Total Protein 6.5 g/dL (6.7-8.2) L 11/14/20 06:45 Albumin 3.8 g/dL (3.2-5.5) 11/14/20 06:45 Globulin 2.7 g/dL (2.1-4.2) 11/14/20 06:45 Albumin/Globulin Ratio 1.4 (1.0-2.2) 11/14/20 06:45 Lipase 24 U/L (22-51) 11/14/20 06:45 Urine Color YELLOW 11/14/20 07:33 Urine Clarity CLEAR (CLEAR) 11/14/20 07:33 Urine pH 6.5 PH (5.0-7.5) 11/14/20 07:33 Ur Specific [place] 1.015 (1.002-1.030) 11/14/20 07:33 Urine Protein NEGATIVE mg/dL (NEGATIVE) 11/14/20 07:33 Urine Glucose (UA) NEGATIVE mg/dL (NEGATIVE) 11/14/20 07:33 Urine Ketones NEGATIVE mg/dL (NEGATIVE) 11/14/20 07:33 Urine Occult Blood TRACE-INTA (NEGATIVE) 11/14/20 07:33 Urine Nitrite NEGATIVE (NEGATIVE) 11/14/20 07:33 Urine Bilirubin NEGATIVE (NEGATIVE) 11/14/20 07:33 Urine Urobilinogen 0.2 (NORMAL) E.U./dL (NORMAL) 11/14/20 07:33 Ur Leukocyte Esterase NEGATIVE (NEGATIVE) 11/14/20 07:33 Ur Microscopic Review NOT INDICATED 11/14/20 07:33 Urine Culture Comments NOT INDICATED 11/14/20 07:33 Nasal Adenovirus (PCR) NOT DETECTED 12/08/20 11:15 Nasal B. parapertussis DNA (PCR) NOT DETECTED 12/08/20 11:15 Nasal Coronavir 229E PCR NOT DETECTED 12/08/20 11:15 Nasal Coronavir HKU1 PCR NOT DETECTED 12/08/20 11:15 Nasal Coronavir NL63 PCR NOT DETECTED 12/08/20 11:15 Nasal Coronavir OC43 PCR NOT DETECTED 12/08/20 11:15 Nasal Enterovir/Rhinovir PCR NOT DETECTED 12/08/20 11:15 Nasal Influenza B PCR NOT DETECTED 12/08/20 11:15 Nasal Influenza A PCR NOT DETECTED 12/08/20 11:15 Nasal Parainfluen 1 PCR NOT DETECTED 12/08/20 11:15 Nasal Parainfluen 2 PCR NOT DETECTED 12/08/20 11:15 Nasal Parainfluen 3 PCR NOT DETECTED 12/08/20 11:15 Nasal Parainfluen 4 PCR NOT DETECTED 12/08/20 11:15 Nasal RSV (PCR) NOT DETECTED 12/08/20 11:15 Nasal B.pertussis DNA PCR NOT DETECTED 12/08/20 11:15 Nasal C.pneumoniae (PCR) NOT DETECTED 12/08/20 11:15 Ad Human Metapneumo PCR NOT DETECTED 12/08/20 11:15 Nasal M.pneumoniae (PCR) NOT DETECTED 12/08/20 11:15 Nasal SARS-CoV-2 (PCR) NOT DETECTED 12/08/20 11:15 Urine Opiates Screen NEGATIVE (NEGATIVE) 11/14/20 07:33 Ur Oxycodone Screen NEGATIVE (NEGATIVE) 11/14/20 07:33 Urine Methadone Screen NEGATIVE (NEGATIVE) 11/14/20 07:33 Ur Propoxyphene Screen NEGATIVE (NEGATIVE) 11/14/20 07:33 Ur Barbiturates Screen NEGATIVE (NEGATIVE) 11/14/20 07:33 Ur Tricyclics Screen NEGATIVE (NEGATIVE) 11/14/20 07:33 Ur Phencyclidine Scrn NEGATIVE (NEGATIVE) 11/14/20 07:33 Ur Amphetamine Screen NEGATIVE (NEGATIVE) 11/14/20 07:33 U Methamphetamines Scrn NEGATIVE (NEGATIVE) 11/14/20 07:33 U Benzodiazepines Scrn NEGATIVE (NEGATIVE) 11/14/20 07:33 Urine Cocaine Screen NEGATIVE (NEGATIVE) 11/14/20 07:33 U Cannabinoids Screen NEGATIVE (NEGATIVE) 11/14/20 07:33 Ethyl Alcohol < 5.0 mg/dL 11/14/20 06:45
[2020-12-10] MEDS: FUROSEMIDE 20 MG TABLET PO SCH ×2 (05:12→13:37)
[2020-12-10] MEDS: IBUPROFEN 400 MG TABLET PO PRN ×2 (05:16→20:52)
[2020-12-10] MEDS: MAGNESIUM OXIDE 400 MG TABLET PO SCH ×2 (07:44→20:52)
[2020-12-10] MEDS: MULTIVITAMIN W/MINERALS TABLET PO SCH (07:44)
[2020-12-10] MEDS: SACCHAROMYCES BOULARDII 250 MG CAPSULE PO SCH ×2 (07:44→16:40)
[2020-12-10] MEDS: RIVAROXABAN 10 MG TABLET PO SCH (16:40)
--- NOTE | 2020-12-10 17:27 | PROVIDER PROGRESS NOTE ---
Assessment/Plan - Problem List (1) Acute on chronic heart failure with preserved ejection fraction (HFpEF) Assessment/Plan: Patient is hemodynamically stable, is ready for discharge. (2) Physical deconditioning Assessment/Plan: He is working and slowly progressing, with PT (3) Knee pain Assessment/Plan: NSAIDs and topical Lidocaine patch ordered - Current Meds Current Meds: Current Medications Generic Name Dose Route Start Last Admin Trade Name Freq PRN Reason Stop Dose Admin Acetaminophen 650 mg 11/14/20 10:04 12/03/20 15:04 Acetaminophen 325 Mg Tablet PO 650 mg Q4HR PRN Administration Pain 1 to 4 Furosemide 20 mg 11/22/20 07:34 12/10/20 13:37 Furosemide 20 Mg Tablet PO 20 mg BIDDIURETIC ADELINA Administration Ibuprofen 400 mg 12/03/20 11:03 12/10/20 05:16 Ibuprofen 400 Mg Tablet PO 400 mg Q6HR PRN Administration PAIN Lidocaine 1 patch 12/03/20 02:16 12/03/20 02:37 Lidocaine Patch 5% TOP 1 patch DAILY PRN Administration PAIN Loperamide HCl 2 mg 11/26/20 12:54 11/29/20 21:03 Loperamide 2 Mg Capsule PO 2 mg QID PRN Administration Diarrhea Magnesium Oxide 800 mg 11/29/20 21:00 12/10/20 07:44 Magnesium Oxide 400 Mg Tablet PO 800 mg BID ADELINA Administration Multivitamins/Minerals 1 tab 11/21/20 10:00 12/10/20 07:44 Multivitamin W/Minerals Tablet PO 1 tab DAILYWM ADELINA Administration Rivaroxaban 20 mg 12/05/20 17:00 12/10/20 16:40 Rivaroxaban 10 Mg Tablet PO 20 mg QDDINNER ADELINA Administration Saccharomyces Boulardii 250 mg 11/15/20 10:40 12/10/20 16:40 Saccharomyces Boulardii 250 Mg Capsule PO 250 mg BIDWM ADELINA Administration - Lab Result Fish Bone Diagrams: 12/11/20 05:21 12/11/20 05:21 - Diagnostic Imaging Results Diagnostic Imaging Results: Final report reviewed, Discussed with radiologist - Additional Planning My Orders: My Active Orders 12/11/20 05:00 BMP - BASIC METABOLIC PANEL [CHEM] DAILYLAB CBC - COMP BLD CT W/AUTO DIFF [HEME] DAILYLAB MAGNESIUM [CHEM] DAILYLAB Subjective - Subjective Patient Reports: Resting Comfortably Nursing Reports: Other (PT reports that he cannot extend one knee due to pain and walks w/ toe touch on that side) Objective Vital Signs: Vital Signs - 24 hr 12/09/20 12/10/20 12/10/20 23:34 07:46 15:38 Temperature 36.8 C 36.5 C 36.8 C Heart Rate [ 84 79 78 Brachial] Respiratory 16 24 Rate Blood Pressure 103/70 121/83 H 132/91 H [Right Brachial artery] O2 Saturation 95 99 97 Oxygen O2 Source Room air I&O (Last 24 Hrs): Intake and Output Totals x24h 12/08/20 12/09/20 12/10/20 23:59 23:59 23:59 Intake Total 1225 1280 610 Output Total 2095 1500 1050 Balance -420 220 -546 General: Alert HEENT: Mucous membr. moist/pink Neck: Supple Neuro: Alert Cardiovascular: Regular rate Respiratory: No respiratory distress Abdomen: Soft Extremities: No edema - Results Results: Laboratory Results WBC 5.8 x10^3/uL (4.8-10.8) 11/19/20 04:21 RBC 3.81 10^6/uL (4.70-6.10) L 11/19/20 04:21 Hgb 12.1 g/dL (14.0-18.0) L 11/19/20 04:21 Hct 37.7 % (42.0-52.0) L 11/19/20 04:21 MCV 99.0 fL (80.0-94.0) H 11/19/20 04:21 MCH 31.8 pg (27.0-31.0) H 11/19/20 04:21 MCHC 32.1 g/dL (32.0-36.0) 11/19/20 04:21 RDW 15.9 % (12.0-15.0) H 11/19/20 04:21 Plt Count 169 10^3/uL (130-450) 11/19/20 04:21 MPV 11.1 fL (7.4-11.4) 11/19/20 04:21 Neut # (Auto) 4.3 10^3/uL (1.5-6.6) 11/19/20 04:21 Lymph # (Auto) 0.9 10^3/uL (1.5-3.5) L 11/19/20 04:21 [place] # (Auto) 0.5 10^3/uL (0.0-1.0) 11/19/20 04:21 Eos # (Auto) 0.1 10^3/uL (0.0-0.7) 11/19/20 04:21 Baso # (Auto) 0.0 10^3/uL (0.0-0.1) 11/19/20 04:21 Absolute Nucleated RBC 0.00 x10^3/uL 11/19/20 04:21 Nucleated RBC % 0.0 /100WBC 11/19/20 04:21 Sodium 140 mmol/L (135-145) 11/29/20 07:32 Potassium 4.1 mmol/L (3.5-5.0) 11/29/20 07:32 Chloride 101 mmol/L (101-111) 11/29/20 07:32 Carbon Dioxide 32 mmol/L (21-32) 11/29/20 07:32 Anion Gap 7.0 (6-13) 11/29/20 07:32 BUN 19 mg/dL (6-20) 11/29/20 07:32 Creatinine 0.8 mg/dL (0.6-1.2) 11/29/20 07:32 Estimated GFR (MDRD) 96 (>89) 11/29/20 07:32 Glucose 87 mg/dL (70-100) 11/29/20 07:32 Uric Acid 5.5 mg/dL (2.6-7.2) 12/04/20 05:30 Calcium 9.0 mg/dL (8.5-10.3) 11/29/20 07:32 Phosphorus 2.8 mg/dL (2.5-4.6) 11/20/20 04:12 Magnesium 1.6 mg/dL (1.7-2.8) L 11/29/20 07:32 Total Bilirubin 0.9 mg/dL (0.2-1.0) 11/14/20 06:45 AST 67 IU/L (10-42) H 11/14/20 06:45 ALT 54 IU/L (10-60) 11/14/20 06:45 Alkaline Phosphatase 44 IU/L (42-121) 11/14/20 06:45 Troponin I High Sens 139.5 ng/L (2.3-19.7) H* 11/14/20 08:57 B-Natriuretic Peptide 692 pg/mL (5-100) H 11/22/20 04:58 Total Protein 6.5 g/dL (6.7-8.2) L 11/14/20 06:45 Albumin 3.8 g/dL (3.2-5.5) 11/14/20 06:45 Globulin 2.7 g/dL (2.1-4.2) 11/14/20 06:45 Albumin/Globulin Ratio 1.4 (1.0-2.2) 11/14/20 06:45 Lipase 24 U/L (22-51) 11/14/20 06:45 Urine Color YELLOW 11/14/20 07:33 Urine Clarity CLEAR (CLEAR) 11/14/20 07:33 Urine pH 6.5 PH (5.0-7.5) 11/14/20 07:33 Ur Specific [place] 1.015 (1.002-1.030) 11/14/20 07:33 Urine Protein NEGATIVE mg/dL (NEGATIVE) 11/14/20 07:33 Urine Glucose (UA) NEGATIVE mg/dL (NEGATIVE) 11/14/20 07:33 Urine Ketones NEGATIVE mg/dL (NEGATIVE) 11/14/20 07:33 Urine Occult Blood TRACE-INTA (NEGATIVE) 11/14/20 07:33 Urine Nitrite NEGATIVE (NEGATIVE) 11/14/20 07:33 Urine Bilirubin NEGATIVE (NEGATIVE) 11/14/20 07:33 Urine Urobilinogen 0.2 (NORMAL) E.U./dL (NORMAL) 11/14/20 07:33 Ur Leukocyte Esterase NEGATIVE (NEGATIVE) 11/14/20 07:33 Ur Microscopic Review NOT INDICATED 11/14/20 07:33 Urine Culture Comments NOT INDICATED 11/14/20 07:33 Nasal Adenovirus (PCR) NOT DETECTED 12/08/20 11:15 Nasal B. parapertussis DNA (PCR) NOT DETECTED 12/08/20 11:15 Nasal Coronavir 229E PCR NOT DETECTED 12/08/20 11:15 Nasal Coronavir HKU1 PCR NOT DETECTED 12/08/20 11:15 Nasal Coronavir NL63 PCR NOT DETECTED 12/08/20 11:15 Nasal Coronavir OC43 PCR NOT DETECTED 12/08/20 11:15 Nasal Enterovir/Rhinovir PCR NOT DETECTED 12/08/20 11:15 Nasal Influenza B PCR NOT DETECTED 12/08/20 11:15 Nasal Influenza A PCR NOT DETECTED 12/08/20 11:15 Nasal Parainfluen 1 PCR NOT DETECTED 12/08/20 11:15 Nasal Parainfluen 2 PCR NOT DETECTED 12/08/20 11:15 Nasal Parainfluen 3 PCR NOT DETECTED 12/08/20 11:15 Nasal Parainfluen 4 PCR NOT DETECTED 12/08/20 11:15 Nasal RSV (PCR) NOT DETECTED 12/08/20 11:15 Nasal B.pertussis DNA PCR NOT DETECTED 12/08/20 11:15 Nasal C.pneumoniae (PCR) NOT DETECTED 12/08/20 11:15 Ad Human Metapneumo PCR NOT DETECTED 12/08/20 11:15 Nasal M.pneumoniae (PCR) NOT DETECTED 12/08/20 11:15 Nasal SARS-CoV-2 (PCR) NOT DETECTED 12/08/20 11:15 Urine Opiates Screen NEGATIVE (NEGATIVE) 11/14/20 07:33 Ur Oxycodone Screen NEGATIVE (NEGATIVE) 11/14/20 07:33 Urine Methadone Screen NEGATIVE (NEGATIVE) 11/14/20 07:33 Ur Propoxyphene Screen NEGATIVE (NEGATIVE) 11/14/20 07:33 Ur Barbiturates Screen NEGATIVE (NEGATIVE) 11/14/20 07:33 Ur Tricyclics Screen NEGATIVE (NEGATIVE) 11/14/20 07:33 Ur Phencyclidine Scrn NEGATIVE (NEGATIVE) 11/14/20 07:33 Ur Amphetamine Screen NEGATIVE (NEGATIVE) 11/14/20 07:33 U Methamphetamines Scrn NEGATIVE (NEGATIVE) 11/14/20 07:33 U Benzodiazepines Scrn NEGATIVE (NEGATIVE) 11/14/20 07:33 Urine Cocaine Screen NEGATIVE (NEGATIVE) 11/14/20 07:33 U Cannabinoids Screen NEGATIVE (NEGATIVE) 11/14/20 07:33 Ethyl Alcohol < 5.0 mg/dL 11/14/20 06:45
[2020-12-11 05:46] LABS: BASOPHILS % (AUTO) 0.6 %; EOSINOPHILS # (AUTO) 0.2 10^3/uL (0.0-0.7); EOSINOPHILS % (AUTO) 4.7 %; HCT - HEMATOCRIT 38.3 % (42.0-52.0); HGB - HEMOGLOBIN 12.2 g/dL (14.0-18.0); LYMPHOCYTES # (AUTO) 1.2 10^3/uL (1.5-3.5); LYMPHOCYTES % (AUTO) 26.2 %; MEAN CORPUSCULAR HGB CONC 31.9 g/dL (32.0-36.0); MEAN CORPUSCULAR VOLUME 97.5 fL (80.0-94.0); MEAN PLATELET VOLUME 9.9 fL (7.4-11.4); MONOCYTES # (AUTO) 0.4 10^3/uL (0.0-1.0); MONOCYTES % (AUTO) 8.5 %; NEUTROPHILS # (AUTO) 2.8 10^3/uL (1.5-6.6); NEUTROPHILS % (AUTO) 59.8 %; PLT - PLATELET COUNT 245 10^3/uL (130-450); RED BLOOD COUNT 3.93 10^6/uL (4.70-6.10); RED CELL DISTRIBUTION WIDTH 14.2 % (12.0-15.0); WHITE BLOOD COUNT 4.7 x10^3/uL (4.8-10.8)
[2020-12-11 05:56] LABS: CALCIUM 8.9 mg/dL (8.5-10.3); CREATININE 0.9 mg/dL (0.6-1.2); MAGNESIUM 1.5 mg/dL (1.7-2.8); POTASSIUM 3.9 mmol/L (3.5-5.0)
[2020-12-11] MEDS: MAGNESIUM OXIDE 400 MG TABLET PO SCH ×2 (07:43→20:58)
[2020-12-11] MEDS: IBUPROFEN 400 MG TABLET PO PRN ×3 (07:43→20:58)
[2020-12-11] MEDS: FUROSEMIDE 20 MG TABLET PO SCH ×2 (07:43→14:30)
[2020-12-11] MEDS: SACCHAROMYCES BOULARDII 250 MG CAPSULE PO SCH ×2 (07:43→16:32)
[2020-12-11] MEDS: MULTIVITAMIN W/MINERALS TABLET PO SCH (07:44)
[2020-12-11] MEDS: RIVAROXABAN 10 MG TABLET PO SCH (16:32)
--- NOTE | 2020-12-11 18:26 | PROVIDER PROGRESS NOTE ---
Assessment/Plan - Problem List (1) Acute on chronic heart failure with preserved ejection fraction (HFpEF) Assessment/Plan: This has improved and he continues on his standard treatment. (2) Physical deconditioning Assessment/Plan: He is working with PT to prevent deconditioning and awaiting placement (3) Knee pain Assessment/Plan: NSAIDs and topical lidocaine for management of this - Current Meds Current Meds: Current Medications Generic Name Dose Route Start Last Admin Trade Name Freq PRN Reason Stop Dose Admin Acetaminophen 650 mg 11/14/20 10:04 12/03/20 15:04 Acetaminophen 325 Mg Tablet PO 650 mg Q4HR PRN Administration Pain 1 to 4 Furosemide 20 mg 11/22/20 07:34 12/11/20 14:30 Furosemide 20 Mg Tablet PO 20 mg BIDDIURETIC ADELINA Administration Ibuprofen 400 mg 12/03/20 11:03 12/11/20 14:30 Ibuprofen 400 Mg Tablet PO 400 mg Q6HR PRN Administration PAIN Lidocaine 1 patch 12/03/20 02:16 12/03/20 02:37 Lidocaine Patch 5% TOP 1 patch DAILY PRN Administration PAIN Loperamide HCl 2 mg 11/26/20 12:54 11/29/20 21:03 Loperamide 2 Mg Capsule PO 2 mg QID PRN Administration Diarrhea Magnesium Oxide 800 mg 11/29/20 21:00 12/11/20 07:43 Magnesium Oxide 400 Mg Tablet PO 800 mg BID ADELINA Administration Multivitamins/Minerals 1 tab 11/21/20 10:00 12/11/20 07:44 Multivitamin W/Minerals Tablet PO 1 tab DAILYWM ADELINA Administration Rivaroxaban 20 mg 12/05/20 17:00 12/11/20 16:32 Rivaroxaban 10 Mg Tablet PO 12/12/20 00:01 20 mg QDDINNER ADELINA Administration Saccharomyces Boulardii 250 mg 11/15/20 10:40 12/11/20 16:32 Saccharomyces Boulardii 250 Mg Capsule PO 250 mg BIDWM ADELINA Administration - Lab Result Fish Bone Diagrams: 12/11/20 05:21 12/13/20 05:45 - Additional Planning My Orders: My Active Orders 12/12/20 09:00 Apixaban [Eliquis] 5 mg PO BID Subjective - Subjective Patient Reports: Resting Comfortably Nursing Reports: Other (He is eating adequately, he is trying to participate with PT but his knee pain and inability to extend both legs makes it difficult) Objective Vital Signs: Vital Signs - 24 hr 12/10/20 12/11/20 12/11/20 23:36 07:47 15:44 Temperature 36.6 C 36.4 C L 36.4 C L Heart Rate [ 73 74 80 Brachial] Respiratory 18 18 20 Rate Blood Pressure 125/89 H [Left Brachial artery] Blood Pressure 125/81 H 125/86 H [Right Brachial artery] O2 Saturation 95 97 100 Oxygen O2 Source Room air I&O (Last 24 Hrs): Intake and Output Totals x24h 12/09/20 12/10/20 12/11/20 23:59 23:59 23:59 Intake Total 1081 828 6763 Output Total 1500 1250 750 Balance -220 -420 410 General: Other (Sleeping) HEENT: Mucous membr. moist/pink, Other (Male pattern baldness) Neck: Supple Neuro: Non Focal, Other (Currently asleep) Cardiovascular: Regular rate Respiratory: No respiratory distress Abdomen: Soft Extremities: No edema - Results Results: Laboratory Results WBC 4.7 x10^3/uL (4.8-10.8) L 12/11/20 05:21 RBC 3.93 10^6/uL (4.70-6.10) L 12/11/20 05:21 Hgb 12.2 g/dL (14.0-18.0) L 12/11/20 05:21 Hct 38.3 % (42.0-52.0) L 12/11/20 05:21 MCV 97.5 fL (80.0-94.0) H 12/11/20 05:21 MCH 31.0 pg (27.0-31.0) 12/11/20 05:21 MCHC 31.9 g/dL (32.0-36.0) L 12/11/20 05:21 RDW 14.2 % (12.0-15.0) 12/11/20 05:21 Plt Count 245 10^3/uL (130-450) 12/11/20 05:21 MPV 9.9 fL (7.4-11.4) 12/11/20 05:21 Neut # (Auto) 2.8 10^3/uL (1.5-6.6) 12/11/20 05:21 Lymph # (Auto) 1.2 10^3/uL (1.5-3.5) L 12/11/20 05:21 [place] # (Auto) 0.4 10^3/uL (0.0-1.0) 12/11/20 05:21 Eos # (Auto) 0.2 10^3/uL (0.0-0.7) 12/11/20 05:21 Baso # (Auto) 0.0 10^3/uL (0.0-0.1) 12/11/20 05:21 Absolute Nucleated RBC 0.00 x10^3/uL 12/11/20 05:21 Nucleated RBC % 0.0 /100WBC 12/11/20 05:21 Sodium 141 mmol/L (135-145) 12/11/20 05:21 Potassium 3.9 mmol/L (3.5-5.0) 12/11/20 05:21 Chloride 101 mmol/L (101-111) 12/11/20 05:21 Carbon Dioxide 31 mmol/L (21-32) 12/11/20 05:21 Anion Gap 9.0 (6-13) 12/11/20 05:21 BUN 24 mg/dL (6-20) H 12/11/20 05:21 Creatinine 0.9 mg/dL (0.6-1.2) 12/11/20 05:21 Estimated GFR (MDRD) 83 (>89) L 12/11/20 05:21 Glucose 87 mg/dL (70-100) 12/11/20 05:21 Uric Acid 5.5 mg/dL (2.6-7.2) 12/04/20 05:30 Calcium 8.9 mg/dL (8.5-10.3) 12/11/20 05:21 Phosphorus 2.8 mg/dL (2.5-4.6) 11/20/20 04:12 Magnesium 1.5 mg/dL (1.7-2.8) L 12/11/20 05:21 Total Bilirubin 0.9 mg/dL (0.2-1.0) 11/14/20 06:45 AST 67 IU/L (10-42) H 11/14/20 06:45 ALT 54 IU/L (10-60) 11/14/20 06:45 Alkaline Phosphatase 44 IU/L (42-121) 11/14/20 06:45 Troponin I High Sens 139.5 ng/L (2.3-19.7) H* 11/14/20 08:57 B-Natriuretic Peptide 692 pg/mL (5-100) H 11/22/20 04:58 Total Protein 6.5 g/dL (6.7-8.2) L 11/14/20 06:45 Albumin 3.8 g/dL (3.2-5.5) 11/14/20 06:45 Globulin 2.7 g/dL (2.1-4.2) 11/14/20 06:45 Albumin/Globulin Ratio 1.4 (1.0-2.2) 11/14/20 06:45 Lipase 24 U/L (22-51) 11/14/20 06:45 Urine Color YELLOW 11/14/20 07:33 Urine Clarity CLEAR (CLEAR) 11/14/20 07:33 Urine pH 6.5 PH (5.0-7.5) 11/14/20 07:33 Ur Specific [place] 1.015 (1.002-1.030) 11/14/20 07:33 Urine Protein NEGATIVE mg/dL (NEGATIVE) 11/14/20 07:33 Urine Glucose (UA) NEGATIVE mg/dL (NEGATIVE) 11/14/20 07:33 Urine Ketones NEGATIVE mg/dL (NEGATIVE) 11/14/20 07:33 Urine Occult Blood TRACE-INTA (NEGATIVE) 11/14/20 07:33 Urine Nitrite NEGATIVE (NEGATIVE) 11/14/20 07:33 Urine Bilirubin NEGATIVE (NEGATIVE) 11/14/20 07:33 Urine Urobilinogen 0.2 (NORMAL) E.U./dL (NORMAL) 11/14/20 07:33 Ur Leukocyte Esterase NEGATIVE (NEGATIVE) 11/14/20 07:33 Ur Microscopic Review NOT INDICATED 11/14/20 07:33 Urine Culture Comments NOT INDICATED 11/14/20 07:33 Nasal Adenovirus (PCR) NOT DETECTED 12/08/20 11:15 Nasal B. parapertussis DNA (PCR) NOT DETECTED 12/08/20 11:15 Nasal Coronavir 229E PCR NOT DETECTED 12/08/20 11:15 Nasal Coronavir HKU1 PCR NOT DETECTED 12/08/20 11:15 Nasal Coronavir NL63 PCR NOT DETECTED 12/08/20 11:15 Nasal Coronavir OC43 PCR NOT DETECTED 12/08/20 11:15 Nasal Enterovir/Rhinovir PCR NOT DETECTED 12/08/20 11:15 Nasal Influenza B PCR NOT DETECTED 12/08/20 11:15 Nasal Influenza A PCR NOT DETECTED 12/08/20 11:15 Nasal Parainfluen 1 PCR NOT DETECTED 12/08/20 11:15 Nasal Parainfluen 2 PCR NOT DETECTED 12/08/20 11:15 Nasal Parainfluen 3 PCR NOT DETECTED 12/08/20 11:15 Nasal Parainfluen 4 PCR NOT DETECTED 12/08/20 11:15 Nasal RSV (PCR) NOT DETECTED 12/08/20 11:15 Nasal B.pertussis DNA PCR NOT DETECTED 12/08/20 11:15 Nasal C.pneumoniae (PCR) NOT DETECTED 12/08/20 11:15 Ad Human Metapneumo PCR NOT DETECTED 12/08/20 11:15 Nasal M.pneumoniae (PCR) NOT DETECTED 12/08/20 11:15 Nasal SARS-CoV-2 (PCR) NOT DETECTED 12/08/20 11:15 Urine Opiates Screen NEGATIVE (NEGATIVE) 11/14/20 07:33 Ur Oxycodone Screen NEGATIVE (NEGATIVE) 11/14/20 07:33 Urine Methadone Screen NEGATIVE (NEGATIVE) 11/14/20 07:33 Ur Propoxyphene Screen NEGATIVE (NEGATIVE) 11/14/20 07:33 Ur Barbiturates Screen NEGATIVE (NEGATIVE) 11/14/20 07:33 Ur Tricyclics Screen NEGATIVE (NEGATIVE) 11/14/20 07:33 Ur Phencyclidine Scrn NEGATIVE (NEGATIVE) 11/14/20 07:33 Ur Amphetamine Screen NEGATIVE (NEGATIVE) 11/14/20 07:33 U Methamphetamines Scrn NEGATIVE (NEGATIVE) 11/14/20 07:33 U Benzodiazepines Scrn NEGATIVE (NEGATIVE) 11/14/20 07:33 Urine Cocaine Screen NEGATIVE (NEGATIVE) 11/14/20 07:33 U Cannabinoids Screen NEGATIVE (NEGATIVE) 11/14/20 07:33 Ethyl Alcohol < 5.0 mg/dL 11/14/20 06:45
[2020-12-12] MEDS: FUROSEMIDE 20 MG TABLET PO SCH ×2 (06:55→14:23)
[2020-12-12] MEDS: IBUPROFEN 400 MG TABLET PO PRN ×3 (06:58→21:04)
[2020-12-12] MEDS: SACCHAROMYCES BOULARDII 250 MG CAPSULE PO SCH ×2 (08:26→17:08)
[2020-12-12] MEDS: MULTIVITAMIN W/MINERALS TABLET PO SCH (08:26)
[2020-12-12] MEDS: MAGNESIUM OXIDE 400 MG TABLET PO SCH ×2 (08:26→21:03)
[2020-12-12] MEDS: APIXABAN 5 MG TABLET PO SCH ×2 (08:27→21:04)
[2020-12-12] MEDS ORDERED: MAGNESIUM OXIDE 400 MG TABLET PO ONE (09:00)
--- NOTE | 2020-12-12 12:19 | PROVIDER PROGRESS NOTE ---
Assessment/Plan - Problem List (1) Acute on chronic heart failure with preserved ejection fraction (HFpEF) Assessment/Plan: 12/12 Patient is hemodynamic stable, continue PO Lasix, patient is ready for discharge 1027, Patient feels comfortable, He is hemodynamic stable, Patient is pending for disposition, Continue consult with social work for disposition planning 12-06 Patient is hemodynamically stable, patient feel comfortable, Continue physical therapist evaluation and treated, Continue to consult with social work for disposition planning 1025, patient is comfortable seated in the chair, patient has no respiratory distress. Patient is hemodynamically stable. continue Lasix 20 mg p.o. twice daily (2) Pulmonary emboli Stable, continue Eliquis (3)hypomagnesemia Chronic hypomagnesium, Continue PO magnesium, lab monitor as needed - Current Meds Current Meds: Current Medications Generic Name Dose Route Start Last Admin Trade Name Freq PRN Reason Stop Dose Admin Acetaminophen 650 mg 11/14/20 10:04 12/03/20 15:04 Acetaminophen 325 Mg Tablet PO 650 mg Q4HR PRN Administration Pain 1 to 4 Apixaban 5 mg 12/12/20 09:00 12/12/20 08:27 Apixaban 5 Mg Tablet PO 5 mg BID ADELINA Administration Furosemide 20 mg 11/22/20 07:34 12/12/20 06:55 Furosemide 20 Mg Tablet PO 20 mg BIDDIURETIC ADELINA Administration Ibuprofen 400 mg 12/03/20 11:03 12/12/20 06:58 Ibuprofen 400 Mg Tablet PO 400 mg Q6HR PRN Administration PAIN Lidocaine 1 patch 12/03/20 02:16 12/03/20 02:37 Lidocaine Patch 5% TOP 1 patch DAILY PRN Administration PAIN Loperamide HCl 2 mg 11/26/20 12:54 11/29/20 21:03 Loperamide 2 Mg Capsule PO 2 mg QID PRN Administration Diarrhea Magnesium Oxide 800 mg 11/29/20 21:00 12/12/20 08:26 Magnesium Oxide 400 Mg Tablet PO 800 mg BID ADELINA Administration Multivitamins/Minerals 1 tab 11/21/20 10:00 12/12/20 08:26 Multivitamin W/Minerals Tablet PO 1 tab DAILYWM ADELINA Administration Saccharomyces Boulardii 250 mg 11/15/20 10:40 12/12/20 08:26 Saccharomyces Boulardii 250 Mg Capsule PO 250 mg BIDWM ADELINA Administration - Lab Result Fish Bone Diagrams: 12/11/20 05:21 12/11/20 05:21 - Additional Planning My Orders: My Active Orders 12/13/20 05:00 BMP - BASIC METABOLIC PANEL [CHEM] DAILYLAB MAGNESIUM [CHEM] DAILYLAB 12/14/20 05:00 MAGNESIUM [CHEM] DAILYLAB Subjective - Subjective Patient Reports: Feeling Better, Resting Comfortably Objective Vital Signs: Vital Signs - 24 hr 12/11/20 12/12/20 12/12/20 15:44 00:05 07:47 Temperature 36.4 C L 36.4 C L 36.6 C Heart Rate [ 80 74 72 Brachial] Respiratory 20 20 20 Rate Blood Pressure 125/86 H 127/83 H 120/85 H [Right Brachial artery] O2 Saturation 100 98 99 Oxygen O2 Source Room air I&O (Last 24 Hrs): Intake and Output Totals x24h 12/10/20 12/11/20 12/12/20 23:59 23:59 23:59 Intake Total 830 1410 450 Output Total 1250 1125 650 Balance -420 285 -200 General: Alert, Oriented x3, Cooperative, No acute distress HEENT: Atraumatic, PERRLA Neck: Supple Lymphatic: no adenopathy Neuro: Alert, Non Focal, Oriented Times 3 Cardiovascular: Regular rate, Normal S1, Normal S2 Respiratory: Chest non-tender, No respiratory distress Abdomen: Normal bowel sounds, Soft Extremities: Normal pulses - Results Results: Laboratory Results WBC 4.7 x10^3/uL (4.8-10.8) L 12/11/20 05:21 RBC 3.93 10^6/uL (4.70-6.10) L 12/11/20 05:21 Hgb 12.2 g/dL (14.0-18.0) L 12/11/20 05:21 Hct 38.3 % (42.0-52.0) L 12/11/20 05:21 MCV 97.5 fL (80.0-94.0) H 12/11/20 05:21 MCH 31.0 pg (27.0-31.0) 12/11/20 05:21 MCHC 31.9 g/dL (32.0-36.0) L 12/11/20 05:21 RDW 14.2 % (12.0-15.0) 12/11/20 05:21 Plt Count 245 10^3/uL (130-450) 12/11/20 05:21 MPV 9.9 fL (7.4-11.4) 12/11/20 05:21 Neut # (Auto) 2.8 10^3/uL (1.5-6.6) 12/11/20 05:21 Lymph # (Auto) 1.2 10^3/uL (1.5-3.5) L 12/11/20 05:21 [place] # (Auto) 0.4 10^3/uL (0.0-1.0) 12/11/20 05:21 Eos # (Auto) 0.2 10^3/uL (0.0-0.7) 12/11/20 05:21 Baso # (Auto) 0.0 10^3/uL (0.0-0.1) 12/11/20 05:21 Absolute Nucleated RBC 0.00 x10^3/uL 12/11/20 05:21 Nucleated RBC % 0.0 /100WBC 12/11/20 05:21 Sodium 141 mmol/L (135-145) 12/11/20 05:21 Potassium 3.9 mmol/L (3.5-5.0) 12/11/20 05:21 Chloride 101 mmol/L (101-111) 12/11/20 05:21 Carbon Dioxide 31 mmol/L (21-32) 12/11/20 05:21 Anion Gap 9.0 (6-13) 12/11/20 05:21 BUN 24 mg/dL (6-20) H 12/11/20 05:21 Creatinine 0.9 mg/dL (0.6-1.2) 12/11/20 05:21 Estimated GFR (MDRD) 83 (>89) L 12/11/20 05:21 Glucose 87 mg/dL (70-100) 12/11/20 05:21 Uric Acid 5.5 mg/dL (2.6-7.2) 12/04/20 05:30 Calcium 8.9 mg/dL (8.5-10.3) 12/11/20 05:21 Phosphorus 2.8 mg/dL (2.5-4.6) 11/20/20 04:12 Magnesium 1.5 mg/dL (1.7-2.8) L 12/11/20 05:21 Total Bilirubin 0.9 mg/dL (0.2-1.0) 11/14/20 06:45 AST 67 IU/L (10-42) H 11/14/20 06:45 ALT 54 IU/L (10-60) 11/14/20 06:45 Alkaline Phosphatase 44 IU/L (42-121) 11/14/20 06:45 Troponin I High Sens 139.5 ng/L (2.3-19.7) H* 11/14/20 08:57 B-Natriuretic Peptide 692 pg/mL (5-100) H 11/22/20 04:58 Total Protein 6.5 g/dL (6.7-8.2) L 11/14/20 06:45 Albumin 3.8 g/dL (3.2-5.5) 11/14/20 06:45 Globulin 2.7 g/dL (2.1-4.2) 11/14/20 06:45 Albumin/Globulin Ratio 1.4 (1.0-2.2) 11/14/20 06:45 Lipase 24 U/L (22-51) 11/14/20 06:45 Urine Color YELLOW 11/14/20 07:33 Urine Clarity CLEAR (CLEAR) 11/14/20 07:33 Urine pH 6.5 PH (5.0-7.5) 11/14/20 07:33 Ur Specific [place] 1.015 (1.002-1.030) 11/14/20 07:33 Urine Protein NEGATIVE mg/dL (NEGATIVE) 11/14/20 07:33 Urine Glucose (UA) NEGATIVE mg/dL (NEGATIVE) 11/14/20 07:33 Urine Ketones NEGATIVE mg/dL (NEGATIVE) 11/14/20 07:33 Urine Occult Blood TRACE-INTA (NEGATIVE) 11/14/20 07:33 Urine Nitrite NEGATIVE (NEGATIVE) 11/14/20 07:33 Urine Bilirubin NEGATIVE (NEGATIVE) 11/14/20 07:33 Urine Urobilinogen 0.2 (NORMAL) E.U./dL (NORMAL) 11/14/20 07:33 Ur Leukocyte Esterase NEGATIVE (NEGATIVE) 11/14/20 07:33 Ur Microscopic Review NOT INDICATED 11/14/20 07:33 Urine Culture Comments NOT INDICATED 11/14/20 07:33 Nasal Adenovirus (PCR) NOT DETECTED 12/08/20 11:15 Nasal B. parapertussis DNA (PCR) NOT DETECTED 12/08/20 11:15 Nasal Coronavir 229E PCR NOT DETECTED 12/08/20 11:15 Nasal Coronavir HKU1 PCR NOT DETECTED 12/08/20 11:15 Nasal Coronavir NL63 PCR NOT DETECTED 12/08/20 11:15 Nasal Coronavir OC43 PCR NOT DETECTED 12/08/20 11:15 Nasal Enterovir/Rhinovir PCR NOT DETECTED 12/08/20 11:15 Nasal Influenza B PCR NOT DETECTED 12/08/20 11:15 Nasal Influenza A PCR NOT DETECTED 12/08/20 11:15 Nasal Parainfluen 1 PCR NOT DETECTED 12/08/20 11:15 Nasal Parainfluen 2 PCR NOT DETECTED 12/08/20 11:15 Nasal Parainfluen 3 PCR NOT DETECTED 12/08/20 11:15 Nasal Parainfluen 4 PCR NOT DETECTED 12/08/20 11:15 Nasal RSV (PCR) NOT DETECTED 12/08/20 11:15 Nasal B.pertussis DNA PCR NOT DETECTED 12/08/20 11:15 Nasal C.pneumoniae (PCR) NOT DETECTED 12/08/20 11:15 Ad Human Metapneumo PCR NOT DETECTED 12/08/20 11:15 Nasal M.pneumoniae (PCR) NOT DETECTED 12/08/20 11:15 Nasal SARS-CoV-2 (PCR) NOT DETECTED 12/08/20 11:15 Urine Opiates Screen NEGATIVE (NEGATIVE) 11/14/20 07:33 Ur Oxycodone Screen NEGATIVE (NEGATIVE) 11/14/20 07:33 Urine Methadone Screen NEGATIVE (NEGATIVE) 11/14/20 07:33 Ur Propoxyphene Screen NEGATIVE (NEGATIVE) 11/14/20 07:33 Ur Barbiturates Screen NEGATIVE (NEGATIVE) 11/14/20 07:33 Ur Tricyclics Screen NEGATIVE (NEGATIVE) 11/14/20 07:33 Ur Phencyclidine Scrn NEGATIVE (NEGATIVE) 11/14/20 07:33 Ur Amphetamine Screen NEGATIVE (NEGATIVE) 11/14/20 07:33 U Methamphetamines Scrn NEGATIVE (NEGATIVE) 11/14/20 07:33 U Benzodiazepines Scrn NEGATIVE (NEGATIVE) 11/14/20 07:33 Urine Cocaine Screen NEGATIVE (NEGATIVE) 11/14/20 07:33 U Cannabinoids Screen NEGATIVE (NEGATIVE) 11/14/20 07:33 Ethyl Alcohol < 5.0 mg/dL 11/14/20 06:45 ABX Reporting Has patient been on IV antibiotics over the past 48 hours?: No Current Medications - Current Medications Current Medications: Active Medications Acetaminophen (Acetaminophen 325 Mg Tablet) 650 mg PO Q4HR PRN PRN Reason: Pain 1 to 4 Last Admin: 12/03/20 15:04 Dose: 650 mg Documented by: Apixaban (Apixaban 5 Mg Tablet) 5 mg PO BID [facility] Last Admin: 12/12/20 08:27 Dose: 5 mg Documented by: Furosemide (Furosemide 20 Mg Tablet) 20 mg PO BIDDIURETIC [facility] Last Admin: 12/12/20 06:55 Dose: 20 mg Documented by: Ibuprofen (Ibuprofen 400 Mg Tablet) 400 mg PO Q6HR PRN PRN Reason: PAIN Last Admin: 12/12/20 06:58 Dose: 400 mg Documented by: Lidocaine (Lidocaine Patch 5%) 1 patch TOP DAILY PRN PRN Reason: PAIN Last Admin: 12/03/20 02:37 Dose: 1 patch Documented by: Loperamide HCl (Loperamide 2 Mg Capsule) 2 mg PO QID PRN PRN Reason: Diarrhea Last Admin: 11/29/20 21:03 Dose: 2 mg Documented by: Magnesium Oxide (Magnesium Oxide 400 Mg Tablet) 800 mg PO BID [facility] Last Admin: 12/12/20 08:26 Dose: 800 mg Documented by: Multivitamins/Minerals (Multivitamin W/Minerals Tablet) 1 tab PO DAILYWM [facility] Last Admin: 12/12/20 08:26 Dose: 1 tab Documented by: Ondansetron HCl (Ondansetron 4 Mg/2 Ml Vial) 4 mg IVP Q6HR PRN PRN Reason: Nausea / Vomiting Saccharomyces Boulardii (Saccharomyces Boulardii 250 Mg Capsule) 250 mg PO BIDWM [facility] Last Admin: 12/12/20 08:26 Dose: 250 mg Documented by: No Known Home Medications 11/14/20
[2020-12-13] MEDS: FUROSEMIDE 20 MG TABLET PO SCH ×2 (05:39→14:42)
[2020-12-13 06:16] LABS: CALCIUM 8.7 mg/dL (8.5-10.3); CREATININE 0.8 mg/dL (0.6-1.2); MAGNESIUM 1.6 mg/dL (1.7-2.8)
[2020-12-13] MEDS: MULTIVITAMIN W/MINERALS TABLET PO SCH (08:54)
[2020-12-13] MEDS: SACCHAROMYCES BOULARDII 250 MG CAPSULE PO SCH ×2 (08:54→17:06)
[2020-12-13] MEDS: APIXABAN 5 MG TABLET PO SCH ×2 (08:54→20:23)
[2020-12-13] MEDS: MAGNESIUM OXIDE 400 MG TABLET PO SCH ×2 (08:55→20:22)
--- NOTE | 2020-12-13 12:30 | PROVIDER PROGRESS NOTE ---
Assessment/Plan - Problem List (1) Acute on chronic heart failure with preserved ejection fraction (HFpEF) Assessment/Plan: 12/13 stable, continue PO Lasix, patient is ready for discharge 12/12 Patient is hemodynamic stable, continue PO Lasix, patient is ready for discharge 1027, Patient feels comfortable, He is hemodynamic stable, Patient is pending for disposition, Continue consult with social work for disposition planning 12-06 Patient is hemodynamically stable, patient feel comfortable, Continue physical therapist evaluation and treated, Continue to consult with social work for disposition planning 1025, patient is comfortable seated in the chair, patient has no respiratory distress. Patient is hemodynamically stable. continue Lasix 20 mg p.o. twice daily (2) Pulmonary emboli Stable, continue Eliquis (3)hypomagnesemia Chronic hypomagnesium, Continue PO magnesium, lab monitor as needed (4)weakness slight improved, continue PT Evaluation and treatment, consult with social work for disposition planning - Current Meds Current Meds: Current Medications Generic Name Dose Route Start Last Admin Trade Name Freq PRN Reason Stop Dose Admin Acetaminophen 650 mg 11/14/20 10:04 12/03/20 15:04 Acetaminophen 325 Mg Tablet PO 650 mg Q4HR PRN Administration Pain 1 to 4 Apixaban 5 mg 12/12/20 09:00 12/13/20 08:54 Apixaban 5 Mg Tablet PO 5 mg BID ADELINA Administration Furosemide 20 mg 11/22/20 07:34 12/13/20 05:39 Furosemide 20 Mg Tablet PO 20 mg BIDDIURETIC ADELINA Administration Ibuprofen 400 mg 12/03/20 11:03 12/12/20 21:04 Ibuprofen 400 Mg Tablet PO 400 mg Q6HR PRN Administration PAIN Lidocaine 1 patch 12/03/20 02:16 12/03/20 02:37 Lidocaine Patch 5% TOP 1 patch DAILY PRN Administration PAIN Loperamide HCl 2 mg 11/26/20 12:54 11/29/20 21:03 Loperamide 2 Mg Capsule PO 2 mg QID PRN Administration Diarrhea Magnesium Oxide 800 mg 11/29/20 21:00 12/13/20 08:55 Magnesium Oxide 400 Mg Tablet PO 800 mg BID ADELINA Administration Multivitamins/Minerals 1 tab 11/21/20 10:00 12/13/20 08:54 Multivitamin W/Minerals Tablet PO 1 tab DAILYWM ADELINA Administration Saccharomyces Boulardii 250 mg 11/15/20 10:40 12/13/20 08:54 Saccharomyces Guccidii 250 Mg Capsule PO 250 mg BIDWM ADELINA Administration - Lab Result Fish Bone Diagrams: 12/11/20 05:21 12/13/20 05:45 - Additional Planning My Orders: My Active Orders 12/14/20 05:00 MAGNESIUM [CHEM] DAILYLAB Subjective - Subjective Patient Reports: Feeling Better, Resting Comfortably Objective Vital Signs: Vital Signs - 24 hr 12/12/20 12/12/20 12/13/20 15:58 23:56 05:39 Temperature 36.5 C 36.6 C Heart Rate [ 76 80 Brachial] Respiratory 18 16 Rate Blood Pressure 125/77 100/63 101/65 [Left Brachial artery] Blood Pressure [Right Brachial artery] O2 Saturation 100 97 12/13/20 07:37 Temperature 36.5 C Heart Rate [ 76 Brachial] Respiratory 18 Rate Blood Pressure [Left Brachial artery] Blood Pressure 122/84 H [Right Brachial artery] O2 Saturation 99 Oxygen O2 Source Room air I&O (Last 24 Hrs): Intake and Output Totals x24h 12/11/20 12/12/20 12/13/20 23:59 23:59 23:59 Intake Total 1410 1180 700 Output Total 1125 1150 1050 Balance 285 30 -350 General: Alert, Oriented x3, Cooperative, No acute distress HEENT: Atraumatic, PERRLA Neck: Supple Lymphatic: no adenopathy Neuro: Alert, Non Focal, Oriented Times 3 Cardiovascular: Regular rate, Normal S1, Normal S2 Respiratory: Chest non-tender, No respiratory distress Abdomen: Normal bowel sounds, Soft Extremities: Normal pulses - Results Results: Laboratory Results WBC 4.7 x10^3/uL (4.8-10.8) L 12/11/20 05:21 RBC 3.93 10^6/uL (4.70-6.10) L 12/11/20 05:21 Hgb 12.2 g/dL (14.0-18.0) L 12/11/20 05:21 Hct 38.3 % (42.0-52.0) L 12/11/20 05:21 MCV 97.5 fL (80.0-94.0) H 12/11/20 05:21 MCH 31.0 pg (27.0-31.0) 12/11/20 05:21 MCHC 31.9 g/dL (32.0-36.0) L 12/11/20 05: RDW 14.2 % (12.0-15.0) 12/11/20 05:21 Plt Count 245 10^3/uL (130-450) 12/11/20 05:21 MPV 9.9 fL (7.4-11.4) 12/11/20 05:21 Neut # (Auto) 2.8 10^3/uL (1.5-6.6) 12/11/20 05:21 Lymph # (Auto) 1.2 10^3/uL (1.5-3.5) L 12/11/20 05:21 [place] # (Auto) 0.4 10^3/uL (0.0-1.0) 12/11/20 05:21 Eos # (Auto) 0.2 10^3/uL (0.0-0.7) 12/11/20 05:21 Baso # (Auto) 0.0 10^3/uL (0.0-0.1) 12/11/20 05:21 Absolute Nucleated RBC 0.00 x10^3/uL 12/11/20 05:21 Nucleated RBC % 0.0 /100WBC 12/11/20 05:21 Sodium 139 mmol/L (135-145) 12/13/20 05:45 Potassium 4.0 mmol/L (3.5-5.0) 12/13/20 05:45 Chloride 102 mmol/L (101-111) 12/13/20 05:45 Carbon Dioxide 30 mmol/L (21-32) 12/13/20 05:45 Anion Gap 7.0 (6-13) 12/13/20 05:45 BUN 21 mg/dL (6-20) H 12/13/20 05:45 Creatinine 0.8 mg/dL (0.6-1.2) 12/13/20 05:45 Estimated GFR (MDRD) 96 (>89) 12/13/20 05:45 Glucose 87 mg/dL (70-100) 12/13/20 05:45 Uric Acid 5.5 mg/dL (2.6-7.2) 12/04/20 05:30 Calcium 8.7 mg/dL (8.5-10.3) 12/13/20 05:45 Phosphorus 2.8 mg/dL (2.5-4.6) 11/20/20 04:12 Magnesium 1.6 mg/dL (1.7-2.8) L 12/13/20 05:45 Total Bilirubin 0.9 mg/dL (0.2-1.0) 11/14/20 06:45 AST 67 IU/L (10-42) H 11/14/20 06:45 ALT 54 IU/L (10-60) 11/14/20 06:45 Alkaline Phosphatase 44 IU/L (42-121) 11/14/20 06:45 Troponin I High Sens 139.5 ng/L (2.3-19.7) H* 11/14/20 08:57 B-Natriuretic Peptide 692 pg/mL (5-100) H 11/22/20 04:58 Total Protein 6.5 g/dL (6.7-8.2) L 11/14/20 06:45 Albumin 3.8 g/dL (3.2-5.5) 11/14/20 06:45 Globulin 2.7 g/dL (2.1-4.2) 11/14/20 06:45 Albumin/Globulin Ratio 1.4 (1.0-2.2) 11/14/20 06:45 Lipase 24 U/L (22-51) 11/14/20 06:45 Urine Color YELLOW 11/14/20 07:33 Urine Clarity CLEAR (CLEAR) 11/14/20 07:33 Urine pH 6.5 PH (5.0-7.5) 11/14/20 07:33 Ur Specific [place] 1.015 (1.002-1.030) 11/14/20 07:33 Urine Protein NEGATIVE mg/dL (NEGATIVE) 11/14/20 07:33 Urine Glucose (UA) NEGATIVE mg/dL (NEGATIVE) 11/14/20 07:33 Urine Ketones NEGATIVE mg/dL (NEGATIVE) 11/14/20 07:33 Urine Occult Blood TRACE-INTA (NEGATIVE) 11/14/20 07:33 Urine Nitrite NEGATIVE (NEGATIVE) 11/14/20 07:33 Urine Bilirubin NEGATIVE (NEGATIVE) 11/14/20 07:33 Urine Urobilinogen 0.2 (NORMAL) E.U./dL (NORMAL) 11/14/20 07:33 Ur Leukocyte Esterase NEGATIVE (NEGATIVE) 11/14/20 07:33 Ur Microscopic Review NOT INDICATED 11/14/20 07:33 Urine Culture Comments NOT INDICATED 11/14/20 07:33 Nasal Adenovirus (PCR) NOT DETECTED 12/08/20 11:15 Nasal B. parapertussis DNA (PCR) NOT DETECTED 12/08/20 11:15 Nasal Coronavir 229E PCR NOT DETECTED 12/08/20 11:15 Nasal Coronavir HKU1 PCR NOT DETECTED 12/08/20 11:15 Nasal Coronavir NL63 PCR NOT DETECTED 12/08/20 11:15 Nasal Coronavir OC43 PCR NOT DETECTED 12/08/20 11:15 Nasal Enterovir/Rhinovir PCR NOT DETECTED 12/08/20 11:15 Nasal Influenza B PCR NOT DETECTED 12/08/20 11:15 Nasal Influenza A PCR NOT DETECTED 12/08/20 11:15 Nasal Parainfluen 1 PCR NOT DETECTED 12/08/20 11:15 Nasal Parainfluen 2 PCR NOT DETECTED 12/08/20 11:15 Nasal Parainfluen 3 PCR NOT DETECTED 12/08/20 11:15 Nasal Parainfluen 4 PCR NOT DETECTED 12/08/20 11:15 Nasal RSV (PCR) NOT DETECTED 12/08/20 11:15 Nasal B.pertussis DNA PCR NOT DETECTED 12/08/20 11:15 Nasal C.pneumoniae (PCR) NOT DETECTED 12/08/20 11:15 Ad Human Metapneumo PCR NOT DETECTED 12/08/20 11:15 Nasal M.pneumoniae (PCR) NOT DETECTED 12/08/20 11:15 Nasal SARS-CoV-2 (PCR) NOT DETECTED 12/08/20 11:15 Urine Opiates Screen NEGATIVE (NEGATIVE) 11/14/20 07:33 Ur Oxycodone Screen NEGATIVE (NEGATIVE) 11/14/20 07:33 Urine Methadone Screen NEGATIVE (NEGATIVE) 11/14/20 07:33 Ur Propoxyphene Screen NEGATIVE (NEGATIVE) 11/14/20 07:33 Ur Barbiturates Screen NEGATIVE (NEGATIVE) 11/14/20 07:33 Ur Tricyclics Screen NEGATIVE (NEGATIVE) 11/14/20 07:33 Ur Phencyclidine Scrn NEGATIVE (NEGATIVE) 11/14/20 07:33 Ur Amphetamine Screen NEGATIVE (NEGATIVE) 11/14/20 07:33 U Methamphetamines Scrn NEGATIVE (NEGATIVE) 11/14/20 07:33 U Benzodiazepines Scrn NEGATIVE (NEGATIVE) 11/14/20 07:33 Urine Cocaine Screen NEGATIVE (NEGATIVE) 11/14/20 07:33 U Cannabinoids Screen NEGATIVE (NEGATIVE) 11/14/20 07:33 Ethyl Alcohol < 5.0 mg/dL 11/14/20 06:45 ABX Reporting Has patient been on IV antibiotics over the past 48 hours?: No Current Medications - Current Medications Current Medications: Active Medications Acetaminophen (Acetaminophen 325 Mg Tablet) 650 mg PO Q4HR PRN PRN Reason: Pain 1 to 4 Last Admin: 12/03/20 15:04 Dose: 650 mg Documented by: Apixaban (Apixaban 5 Mg Tablet) 5 mg PO BID [facility] Last Admin: 12/13/20 08:54 Dose: 5 mg Documented by: Furosemide (Furosemide 20 Mg Tablet) 20 mg PO BIDDIURETIC [facility] Last Admin: 12/13/20 05:39 Dose: 20 mg Documented by: Ibuprofen (Ibuprofen 400 Mg Tablet) 400 mg PO Q6HR PRN PRN Reason: PAIN Last Admin: 12/12/20 21:04 Dose: 400 mg Documented by: Lidocaine (Lidocaine Patch 5%) 1 patch TOP DAILY PRN PRN Reason: PAIN Last Admin: 12/03/20 02:37 Dose: 1 patch Documented by: Loperamide HCl (Loperamide 2 Mg Capsule) 2 mg PO QID PRN PRN Reason: Diarrhea Last Admin: 11/29/20 21:03 Dose: 2 mg Documented by: Magnesium Oxide (Magnesium Oxide 400 Mg Tablet) 800 mg PO BID [facility] Last Admin: 12/13/20 08:55 Dose: 800 mg Documented by: Multivitamins/Minerals (Multivitamin W/Minerals Tablet) 1 tab PO DAILYWM [facility] Last Admin: 12/13/20 08:54 Dose: 1 tab Documented by: Ondansetron HCl (Ondansetron 4 Mg/2 Ml Vial) 4 mg IVP Q6HR PRN PRN Reason: Nausea / Vomiting Saccharomyces Boulardii (Saccharomyces Boulardii 250 Mg Capsule) 250 mg PO BIDWM [facility] Last Admin: 12/13/20 08:54 Dose: 250 mg Documented by: No Known Home Medications 11/14/20
[2020-12-13] MEDS: IBUPROFEN 400 MG TABLET PO PRN (20:23)
[2020-12-14] MEDS: FUROSEMIDE 20 MG TABLET PO SCH ×2 (05:50→15:02)
[2020-12-14] MEDS: MULTIVITAMIN W/MINERALS TABLET PO SCH (09:18)
[2020-12-14] MEDS: APIXABAN 5 MG TABLET PO SCH ×2 (09:19→20:43)
[2020-12-14] MEDS: MAGNESIUM OXIDE 400 MG TABLET PO SCH ×2 (09:19→20:43)
[2020-12-14] MEDS: IBUPROFEN 400 MG TABLET PO PRN ×2 (09:19→20:43)
[2020-12-14] MEDS: SACCHAROMYCES BOULARDII 250 MG CAPSULE PO SCH ×2 (09:19→16:30)
--- NOTE | 2020-12-14 12:32 | PROVIDER PROGRESS NOTE ---
Assessment/Plan - Problem List (1) Acute on chronic heart failure with preserved ejection fraction (HFpEF) Assessment/Plan: 12/14 pt is ready for discharge, consulted with social welfare administrator for d/c plan 12/13 stable, continue PO Lasix, patient is ready for discharge 12/12 Patient is hemodynamic stable, continue PO Lasix, patient is ready for discharge 1027, Patient feels comfortable, He is hemodynamic stable, Patient is pending for disposition, Continue consult with social work for disposition planning 12-06 Patient is hemodynamically stable, patient feel comfortable, Continue physical therapist evaluation and treated, Continue to consult with social work for disposition planning 1025, patient is comfortable seated in the chair, patient has no respiratory distress. Patient is hemodynamically stable. continue Lasix 20 mg p.o. twice daily (2) Pulmonary emboli Stable, continue Eliquis (3)hypomagnesemia Chronic hypomagnesium, Continue PO magnesium (4)weakness slight improved, continue PT Evaluation and treatment, consult with social work for disposition planning - Current Meds Current Meds: Current Medications Generic Name Dose Route Start Last Admin Trade Name Santoshq PRN Reason Stop Dose Admin Acetaminophen 650 mg 11/14/20 10:04 12/03/20 15:04 Acetaminophen 325 Mg Tablet PO 650 mg Q4HR PRN Administration Pain 1 to 4 Apixaban 5 mg 12/12/20 09:00 12/14/20 09:19 Apixaban 5 Mg Tablet PO 5 mg BID ADELINA Administration Furosemide 20 mg 11/22/20 07:34 12/14/20 05:50 Furosemide 20 Mg Tablet PO 20 mg BIDDIURETIC ADELINA Administration Ibuprofen 400 mg 12/03/20 11:03 12/14/20 09:19 Ibuprofen 400 Mg Tablet PO 400 mg Q6HR PRN Administration PAIN Lidocaine 1 patch 12/03/20 02:16 12/03/20 02:37 Lidocaine Patch 5% TOP 1 patch DAILY PRN Administration PAIN Loperamide HCl 2 mg 11/26/20 12:54 11/29/20 21:03 Loperamide 2 Mg Capsule PO 2 mg QID PRN Administration Diarrhea Magnesium Oxide 800 mg 11/29/20 21:00 12/14/20 09:19 Magnesium Oxide 400 Mg Tablet PO 800 mg BID ADELINA Administration Multivitamins/Minerals 1 tab 11/21/20 10:00 12/14/20 09:18 Multivitamin W/Minerals Tablet PO 1 tab DAILYWM ADELINA Administration Saccharomyces Boulardii 250 mg 11/15/20 10:40 12/14/20 09:19 Saccharomyces Boulardii 250 Mg Capsule PO 250 mg BIDWM ADELINA Administration - Lab Result Fish Bone Diagrams: 12/11/20 05:21 12/13/20 05:45 Subjective - Subjective Patient Reports: Feeling Better, Resting Comfortably Objective Vital Signs: Vital Signs - 24 hr 12/13/20 12/13/20 12/13/20 14:42 15:42 23:27 Temperature 36.9 C 36.4 C L Heart Rate [ 78 81 80 Brachial] Respiratory 20 20 Rate Blood Pressure [Left Brachial artery] Blood Pressure 129/96 H 123/83 H 117/82 H [Right Brachial artery] O2 Saturation 98 96 12/14/20 12/14/20 05:51 08:00 Temperature 36.7 C Heart Rate [ 70 Brachial] Respiratory 17 Rate Blood Pressure 119/83 H [Left Brachial artery] Blood Pressure 110/73 [Right Brachial artery] O2 Saturation 98 Oxygen O2 Source Room air I&O (Last 24 Hrs): Intake and Output Totals x24h 12/12/20 12/13/20 12/14/20 23:59 23:59 23:59 Intake Total 1180 1120 490 Output Total 1150 2300 450 Balance 30 -1180 40 General: Alert, Oriented x3, Cooperative, No acute distress HEENT: Atraumatic, PERRLA Neck: Supple Lymphatic: no adenopathy Neuro: Alert, Non Focal, Oriented Times 3 Cardiovascular: Regular rate, Normal S1, Normal S2 Respiratory: Chest non-tender, No respiratory distress Abdomen: Normal bowel sounds, Soft Extremities: Normal pulses - Results Results: Laboratory Results WBC 4.7 x10^3/uL (4.8-10.8) L 12/11/20 05:21 RBC 3.93 10^6/uL (4.70-6.10) L 12/11/20 05:21 Hgb 12.2 g/dL (14.0-18.0) L 12/11/20 05:21 Hct 38.3 % (42.0-52.0) L 12/11/20 05:21 MCV 97.5 fL (80.0-94.0) H 12/11/20 05:21 MCH 31.0 pg (27.0-31.0) 12/11/20 05:21 MCHC 31.9 g/dL (32.0-36.0) L 12/11/20 05:21 RDW 14.2 % (12.0-15.0) 12/11/20 05:21 Plt Count 245 10^3/uL (130-450) 12/11/20 05:21 MPV 9.9 fL (7.4-11.4) 12/11/20 05:21 Neut # (Auto) 2.8 10^3/uL (1.5-6.6) 12/11/20 05:21 Lymph # (Auto) 1.2 10^3/uL (1.5-3.5) L 12/11/20 05:21 [place] # (Auto) 0.4 10^3/uL (0.0-1.0) 12/11/20 05:21 Eos # (Auto) 0.2 10^3/uL (0.0-0.7) 12/11/20 05:21 Baso # (Auto) 0.0 10^3/uL (0.0-0.1) 12/11/20 05:21 Absolute Nucleated RBC 0.00 x10^3/uL 12/11/20 05:21 Nucleated RBC % 0.0 /100WBC 12/11/20 05:21 Sodium 139 mmol/L (135-145) 12/13/20 05:45 Potassium 4.0 mmol/L (3.5-5.0) 12/13/20 05:45 Chloride 102 mmol/L (101-111) 12/13/20 05:45 Carbon Dioxide 30 mmol/L (21-32) 12/13/20 05:45 Anion Gap 7.0 (6-13) 12/13/20 05:45 BUN 21 mg/dL (6-20) H 12/13/20 05:45 Creatinine 0.8 mg/dL (0.6-1.2) 12/13/20 05:45 Estimated GFR (MDRD) 96 (>89) 12/13/20 05:45 Glucose 87 mg/dL (70-100) 12/13/20 05:45 Uric Acid 5.5 mg/dL (2.6-7.2) 12/04/20 05:30 Calcium 8.7 mg/dL (8.5-10.3) 12/13/20 05:45 Phosphorus 2.8 mg/dL (2.5-4.6) 11/20/20 04:12 Magnesium 1.5 mg/dL (1.7-2.8) L 12/14/20 05:48 Total Bilirubin 0.9 mg/dL (0.2-1.0) 11/14/20 06:45 AST 67 IU/L (10-42) H 11/14/20 06:45 ALT 54 IU/L (10-60) 11/14/20 06:45 Alkaline Phosphatase 44 IU/L (42-121) 11/14/20 06:45 Troponin I High Sens 139.5 ng/L (2.3-19.7) H* 11/14/20 08:57 B-Natriuretic Peptide 692 pg/mL (5-100) H 11/22/20 04:58 Total Protein 6.5 g/dL (6.7-8.2) L 11/14/20 06:45 Albumin 3.8 g/dL (3.2-5.5) 11/14/20 06:45 Globulin 2.7 g/dL (2.1-4.2) 11/14/20 06:45 Albumin/Globulin Ratio 1.4 (1.0-2.2) 11/14/20 06:45 Lipase 24 U/L (22-51) 11/14/20 06:45 Urine Color YELLOW 11/14/20 07:33 Urine Clarity CLEAR (CLEAR) 11/14/20 07:33 Urine pH 6.5 PH (5.0-7.5) 11/14/20 07:33 Ur Specific [place] 1.015 (1.002-1.030) 11/14/20 07:33 Urine Protein NEGATIVE mg/dL (NEGATIVE) 11/14/20 07:33 Urine Glucose (UA) NEGATIVE mg/dL (NEGATIVE) 11/14/20 07:33 Urine Ketones NEGATIVE mg/dL (NEGATIVE) 11/14/20 07:33 Urine Occult Blood TRACE-INTA (NEGATIVE) 11/14/20 07:33 Urine Nitrite NEGATIVE (NEGATIVE) 11/14/20 07:33 Urine Bilirubin NEGATIVE (NEGATIVE) 11/14/20 07:33 Urine Urobilinogen 0.2 (NORMAL) E.U./dL (NORMAL) 11/14/20 07:33 Ur Leukocyte Esterase NEGATIVE (NEGATIVE) 11/14/20 07:33 Ur Microscopic Review NOT INDICATED 11/14/20 07:33 Urine Culture Comments NOT INDICATED 11/14/20 07:33 Nasal Adenovirus (PCR) NOT DETECTED 12/08/20 11:15 Nasal B. parapertussis DNA (PCR) NOT DETECTED 12/08/20 11:15 Nasal Coronavir 229E PCR NOT DETECTED 12/08/20 11:15 Nasal Coronavir HKU1 PCR NOT DETECTED 12/08/20 11:15 Nasal Coronavir NL63 PCR NOT DETECTED 12/08/20 11:15 Nasal Coronavir OC43 PCR NOT DETECTED 12/08/20 11:15 Nasal Enterovir/Rhinovir PCR NOT DETECTED 12/08/20 11:15 Nasal Influenza B PCR NOT DETECTED 12/08/20 11:15 Nasal Influenza A PCR NOT DETECTED 12/08/20 11:15 Nasal Parainfluen 1 PCR NOT DETECTED 12/08/20 11:15 Nasal Parainfluen 2 PCR NOT DETECTED 12/08/20 11:15 Nasal Parainfluen 3 PCR NOT DETECTED 12/08/20 11:15 Nasal Parainfluen 4 PCR NOT DETECTED 12/08/20 11:15 Nasal RSV (PCR) NOT DETECTED 12/08/20 11:15 Nasal B.pertussis DNA PCR NOT DETECTED 12/08/20 11:15 Nasal C.pneumoniae (PCR) NOT DETECTED 12/08/20 11:15 Ad Human Metapneumo PCR NOT DETECTED 12/08/20 11:15 Nasal M.pneumoniae (PCR) NOT DETECTED 12/08/20 11:15 Nasal SARS-CoV-2 (PCR) NOT DETECTED 12/08/20 11:15 Urine Opiates Screen NEGATIVE (NEGATIVE) 11/14/20 07:33 Ur Oxycodone Screen NEGATIVE (NEGATIVE) 11/14/20 07:33 Urine Methadone Screen NEGATIVE (NEGATIVE) 11/14/20 07:33 Ur Propoxyphene Screen NEGATIVE (NEGATIVE) 11/14/20 07:33 Ur Barbiturates Screen NEGATIVE (NEGATIVE) 11/14/20 07:33 Ur Tricyclics Screen NEGATIVE (NEGATIVE) 11/14/20 07:33 Ur Phencyclidine Scrn NEGATIVE (NEGATIVE) 11/14/20 07:33 Ur Amphetamine Screen NEGATIVE (NEGATIVE) 11/14/20 07:33 U Methamphetamines Scrn NEGATIVE (NEGATIVE) 11/14/20 07:33 U Benzodiazepines Scrn NEGATIVE (NEGATIVE) 11/14/20 07:33 Urine Cocaine Screen NEGATIVE (NEGATIVE) 11/14/20 07:33 U Cannabinoids Screen NEGATIVE (NEGATIVE) 11/14/20 07:33 Ethyl Alcohol < 5.0 mg/dL 11/14/20 06:45 ABX Reporting Has patient been on IV antibiotics over the past 48 hours?: No Current Medications - Current Medications Current Medications: Active Medications Acetaminophen (Acetaminophen 325 Mg Tablet) 650 mg PO Q4HR PRN PRN Reason: Pain 1 to 4 Last Admin: 12/03/20 15:04 Dose: 650 mg Documented by: Apixaban (Apixaban 5 Mg Tablet) 5 mg PO BID [facility] Last Admin: 12/14/20 09:19 Dose: 5 mg Documented by: Furosemide (Furosemide 20 Mg Tablet) 20 mg PO BIDDIURETIC [facility] Last Admin: 12/14/20 05:50 Dose: 20 mg Documented by: Ibuprofen (Ibuprofen 400 Mg Tablet) 400 mg PO Q6HR PRN PRN Reason: PAIN Last Admin: 12/14/20 09:19 Dose: 400 mg Documented by: Lidocaine (Lidocaine Patch 5%) 1 patch TOP DAILY PRN PRN Reason: PAIN Last Admin: 12/03/20 02:37 Dose: 1 patch Documented by: Loperamide HCl (Loperamide 2 Mg Capsule) 2 mg PO QID PRN PRN Reason: Diarrhea Last Admin: 11/29/20 21:03 Dose: 2 mg Documented by: Magnesium Oxide (Magnesium Oxide 400 Mg Tablet) 800 mg PO BID [facility] Last Admin: 12/14/20 09:19 Dose: 800 mg Documented by: Multivitamins/Minerals (Multivitamin W/Minerals Tablet) 1 tab PO DAILYWM [facility] Last Admin: 12/14/20 09:18 Dose: 1 tab Documented by: Ondansetron HCl (Ondansetron 4 Mg/2 Ml Vial) 4 mg IVP Q6HR PRN PRN Reason: Nausea / Vomiting Saccharomyces Boulardii (Saccharomyces Boulardii 250 Mg Capsule) 250 mg PO BIDWM [facility] Last Admin: 12/14/20 09:19 Dose: 250 mg Documented by: No Known Home Medications 11/14/20
[2020-12-15] MEDS: FUROSEMIDE 20 MG TABLET PO SCH ×2 (05:20→15:00)
[2020-12-15] MEDS: MAGNESIUM OXIDE 400 MG TABLET PO SCH ×2 (10:32→21:53)
[2020-12-15] MEDS: APIXABAN 5 MG TABLET PO SCH ×2 (10:32→21:52)
[2020-12-15] MEDS: SACCHAROMYCES BOULARDII 250 MG CAPSULE PO SCH ×2 (10:32→17:12)
[2020-12-15] MEDS: MULTIVITAMIN W/MINERALS TABLET PO SCH (10:32)
--- NOTE | 2020-12-15 14:29 | PROVIDER PROGRESS NOTE ---
Assessment/Plan - Problem List (1) Acute on chronic heart failure with preserved ejection fraction (HFpEF) Assessment/Plan: 12/15 Patient is hemodynamic stable, ready for discharge 12/14 pt is ready for discharge, consulted with social group worker for d/c plan 12/13 stable, continue PO Lasix, patient is ready for discharge 12/12 Patient is hemodynamic stable, continue PO Lasix, patient is ready for discharge 1028, Patient feels comfortable, He is hemodynamic stable, Patient is pending for disposition, Continue consult with social work for disposition planning 12-06 Patient is hemodynamically stable, patient feel comfortable, Continue physical therapist evaluation and treated, Continue to consult with social work for disposition planning 102, patient is comfortable seated in the chair, patient has no respiratory distress. Patient is hemodynamically stable. continue Lasix 20 mg p.o. twice daily (2) Pulmonary emboli Stable, continue Eliquis (3)hypomagnesemia Chronic hypomagnesium, Continue PO magnesium (4)weakness slight improved, continue PT Evaluation and treatment, consult with social work for disposition planning - Current Meds Current Meds: Current Medications Generic Name Dose Route Start Last Admin Trade Name Santoshq PRN Reason Stop Dose Admin Acetaminophen 650 mg 11/14/20 10:04 12/03/20 15:04 Acetaminophen 325 Mg Tablet PO 650 mg Q4HR PRN Administration Pain 1 to 4 Apixaban 5 mg 12/12/20 09:00 12/15/20 10:32 Apixaban 5 Mg Tablet PO 5 mg BID ADELINA Administration Furosemide 20 mg 11/22/20 07:34 12/15/20 05:20 Furosemide 20 Mg Tablet PO 20 mg BIDDIURETIC ADELINA Administration Ibuprofen 400 mg 12/03/20 11:03 12/14/20 20:43 Ibuprofen 400 Mg Tablet PO 400 mg Q6HR PRN Administration PAIN Lidocaine 1 patch 12/03/20 02:16 12/03/20 02:37 Lidocaine Patch 5% TOP 1 patch DAILY PRN Administration PAIN Loperamide HCl 2 mg 11/26/20 12:54 11/29/20 21:03 Loperamide 2 Mg Capsule PO 2 mg QID PRN Administration Diarrhea Magnesium Oxide 800 mg 11/29/20 21:00 12/15/20 10:32 Magnesium Oxide 400 Mg Tablet PO 800 mg BID ADELINA Administration Multivitamins/Minerals 1 tab 11/21/20 10:00 12/15/20 10:32 Multivitamin W/Minerals Tablet PO 1 tab DAILYWM ADELINA Administration Saccharomyces Boulardii 250 mg 11/15/20 10:40 12/15/20 10:32 Saccharomyces Boulardii 250 Mg Capsule PO 250 mg BIDWM ADELINA Administration - Lab Result Fish Bone Diagrams: 12/11/20 05:21 12/13/20 05:45 Subjective - Subjective Patient Reports: Resting Comfortably Objective Vital Signs: Vital Signs - 24 hr 12/14/20 12/14/20 12/15/20 15:33 23:30 04:11 Temperature 36.9 C 36.7 C 36.7 C Heart Rate [ 78 62 78 Brachial] Respiratory 20 17 18 Rate Blood Pressure 124/48 L [Left Brachial artery] Blood Pressure 138/84 H 139/94 H [Right Brachial artery] O2 Saturation 100 95 96 12/15/20 12/15/20 05:20 08:00 Temperature 36.6 C Heart Rate [ 75 Brachial] Respiratory 18 Rate Blood Pressure 114/72 [Left Brachial artery] Blood Pressure 109/70 [Right Brachial artery] O2 Saturation 99 Oxygen O2 Source Room air I&O (Last 24 Hrs): Intake and Output Totals x24h 12/13/20 12/14/20 12/15/20 23:59 23:59 23:59 Intake Total 1120 790 660 Output Total 2300 2275 650 Balance -1180 -1485 10 General: Alert, Oriented x3, Cooperative, No acute distress HEENT: Atraumatic, PERRLA Neck: Supple Lymphatic: no adenopathy Neuro: Alert, Non Focal, Oriented Times 3 Cardiovascular: Regular rate, Normal S1, Normal S2 Respiratory: Chest non-tender, No respiratory distress, Breath sounds nml Abdomen: Normal bowel sounds, Soft, No tenderness Extremities: Normal pulses - Results Results: Laboratory Results WBC 4.7 x10^3/uL (4.8-10.8) L 12/11/20 05:21 RBC 3.93 10^6/uL (4.70-6.10) L 12/11/20 05:21 Hgb 12.2 g/dL (14.0-18.0) L 12/11/20 05:21 Hct 38.3 % (42.0-52.0) L 12/11/20 05:21 MCV 97.5 fL (80.0-94.0) H 12/11/20 05:21 MCH 31.0 pg (27.0-31.0) 12/11/20 05: MCHC 31.9 g/dL (32.0-36.0) L 12/11/20 05:21 RDW 14.2 % (12.0-15.0) 12/11/20 05:21 Plt Count 245 10^3/uL (130-450) 12/11/20 05:21 MPV 9.9 fL (7.4-11.4) 12/11/20 05:21 Neut # (Auto) 2.8 10^3/uL (1.5-6.6) 12/11/20 05:21 Lymph # (Auto) 1.2 10^3/uL (1.5-3.5) L 12/11/20 05:21 [place] # (Auto) 0.4 10^3/uL (0.0-1.0) 12/11/20 05:21 Eos # (Auto) 0.2 10^3/uL (0.0-0.7) 12/11/20 05:21 Baso # (Auto) 0.0 10^3/uL (0.0-0.1) 12/11/20 05:21 Absolute Nucleated RBC 0.00 x10^3/uL 12/11/20 05:21 Nucleated RBC % 0.0 /100WBC 12/11/20 05:21 Sodium 139 mmol/L (135-145) 12/13/20 05:45 Potassium 4.0 mmol/L (3.5-5.0) 12/13/20 05:45 Chloride 102 mmol/L (101-111) 12/13/20 05:45 Carbon Dioxide 30 mmol/L (21-32) 12/13/20 05:45 Anion Gap 7.0 (6-13) 12/13/20 05:45 BUN 21 mg/dL (6-20) H 12/13/20 05:45 Creatinine 0.8 mg/dL (0.6-1.2) 12/13/20 05:45 Estimated GFR (MDRD) 96 (>89) 12/13/20 05:45 Glucose 87 mg/dL (70-100) 12/13/20 05:45 Uric Acid 5.5 mg/dL (2.6-7.2) 12/04/20 05:30 Calcium 8.7 mg/dL (8.5-10.3) 12/13/20 05:45 Phosphorus 2.8 mg/dL (2.5-4.6) 11/20/20 04:12 Magnesium 1.5 mg/dL (1.7-2.8) L 12/14/20 05:48 Total Bilirubin 0.9 mg/dL (0.2-1.0) 11/14/20 06:45 AST 67 IU/L (10-42) H 11/14/20 06:45 ALT 54 IU/L (10-60) 11/14/20 06:45 Alkaline Phosphatase 44 IU/L (42-121) 11/14/20 06:45 Troponin I High Sens 139.5 ng/L (2.3-19.7) H* 11/14/20 08:57 B-Natriuretic Peptide 692 pg/mL (5-100) H 11/22/20 04:58 Total Protein 6.5 g/dL (6.7-8.2) L 11/14/20 06:45 Albumin 3.8 g/dL (3.2-5.5) 11/14/20 06:45 Globulin 2.7 g/dL (2.1-4.2) 11/14/20 06:45 Albumin/Globulin Ratio 1.4 (1.0-2.2) 11/14/20 06:45 Lipase 24 U/L (22-51) 11/14/20 06:45 Urine Color YELLOW 11/14/20 07:33 Urine Clarity CLEAR (CLEAR) 11/14/20 07:33 Urine pH 6.5 PH (5.0-7.5) 11/14/20 07:33 Ur Specific [place] 1.015 (1.002-1.030) 11/14/20 07:33 Urine Protein NEGATIVE mg/dL (NEGATIVE) 11/14/20 07:33 Urine Glucose (UA) NEGATIVE mg/dL (NEGATIVE) 11/14/20 07:33 Urine Ketones NEGATIVE mg/dL (NEGATIVE) 11/14/20 07:33 Urine Occult Blood TRACE-INTA (NEGATIVE) 11/14/20 07:33 Urine Nitrite NEGATIVE (NEGATIVE) 11/14/20 07:33 Urine Bilirubin NEGATIVE (NEGATIVE) 11/14/20 07:33 Urine Urobilinogen 0.2 (NORMAL) E.U./dL (NORMAL) 11/14/20 07:33 Ur Leukocyte Esterase NEGATIVE (NEGATIVE) 11/14/20 07:33 Ur Microscopic Review NOT INDICATED 11/14/20 07:33 Urine Culture Comments NOT INDICATED 11/14/20 07:33 Nasal Adenovirus (PCR) NOT DETECTED 12/08/20 11:15 Nasal B. parapertussis DNA (PCR) NOT DETECTED 12/08/20 11:15 Nasal Coronavir 229E PCR NOT DETECTED 12/08/20 11:15 Nasal Coronavir HKU1 PCR NOT DETECTED 12/08/20 11:15 Nasal Coronavir NL63 PCR NOT DETECTED 12/08/20 11:15 Nasal Coronavir OC43 PCR NOT DETECTED 12/08/20 11:15 Nasal Enterovir/Rhinovir PCR NOT DETECTED 12/08/20 11:15 Nasal Influenza B PCR NOT DETECTED 12/08/20 11:15 Nasal Influenza A PCR NOT DETECTED 12/08/20 11:15 Nasal Parainfluen 1 PCR NOT DETECTED 12/08/20 11:15 Nasal Parainfluen 2 PCR NOT DETECTED 12/08/20 11:15 Nasal Parainfluen 3 PCR NOT DETECTED 12/08/20 11:15 Nasal Parainfluen 4 PCR NOT DETECTED 12/08/20 11:15 Nasal RSV (PCR) NOT DETECTED 12/08/20 11:15 Nasal B.pertussis DNA PCR NOT DETECTED 12/08/20 11:15 Nasal C.pneumoniae (PCR) NOT DETECTED 12/08/20 11:15 Ad Human Metapneumo PCR NOT DETECTED 12/08/20 11:15 Nasal M.pneumoniae (PCR) NOT DETECTED 12/08/20 11:15 Nasal SARS-CoV-2 (PCR) NOT DETECTED 12/08/20 11:15 Urine Opiates Screen NEGATIVE (NEGATIVE) 11/14/20 07:33 Ur Oxycodone Screen NEGATIVE (NEGATIVE) 11/14/20 07:33 Urine Methadone Screen NEGATIVE (NEGATIVE) 11/14/20 07:33 Ur Propoxyphene Screen NEGATIVE (NEGATIVE) 11/14/20 07:33 Ur Barbiturates Screen NEGATIVE (NEGATIVE) 11/14/20 07:33 Ur Tricyclics Screen NEGATIVE (NEGATIVE) 11/14/20 07:33 Ur Phencyclidine Scrn NEGATIVE (NEGATIVE) 11/14/20 07:33 Ur Amphetamine Screen NEGATIVE (NEGATIVE) 11/14/20 07:33 U Methamphetamines Scrn NEGATIVE (NEGATIVE) 11/14/20 07:33 U Benzodiazepines Scrn NEGATIVE (NEGATIVE) 11/14/20 07:33 Urine Cocaine Screen NEGATIVE (NEGATIVE) 11/14/20 07:33 U Cannabinoids Screen NEGATIVE (NEGATIVE) 11/14/20 07:33 Ethyl Alcohol < 5.0 mg/dL 11/14/20 06:45 ABX Reporting Has patient been on IV antibiotics over the past 48 hours?: No Current Medications - Current Medications Current Medications: Active Medications Acetaminophen (Acetaminophen 325 Mg Tablet) 650 mg PO Q4HR PRN PRN Reason: Pain 1 to 4 Last Admin: 12/03/20 15:04 Dose: 650 mg Documented by: Apixaban (Apixaban 5 Mg Tablet) 5 mg PO BID [facility] Last Admin: 12/15/20 10:32 Dose: 5 mg Documented by: Furosemide (Furosemide 20 Mg Tablet) 20 mg PO BIDDIURETIC [facility] Last Admin: 12/15/20 05:20 Dose: 20 mg Documented by: Ibuprofen (Ibuprofen 400 Mg Tablet) 400 mg PO Q6HR PRN PRN Reason: PAIN Last Admin: 12/14/20 20:43 Dose: 400 mg Documented by: Lidocaine (Lidocaine Patch 5%) 1 patch TOP DAILY PRN PRN Reason: PAIN Last Admin: 12/03/20 02:37 Dose: 1 patch Documented by: Loperamide HCl (Loperamide 2 Mg Capsule) 2 mg PO QID PRN PRN Reason: Diarrhea Last Admin: 11/29/20 21:03 Dose: 2 mg Documented by: Magnesium Oxide (Magnesium Oxide 400 Mg Tablet) 800 mg PO BID [facility] Last Admin: 12/15/20 10:32 Dose: 800 mg Documented by: Multivitamins/Minerals (Multivitamin W/Minerals Tablet) 1 tab PO DAILYWM [facility] Last Admin: 12/15/20 10:32 Dose: 1 tab Documented by: Ondansetron HCl (Ondansetron 4 Mg/2 Ml Vial) 4 mg IVP Q6HR PRN PRN Reason: Nausea / Vomiting Saccharomyces Boulardii (Saccharomyces Boulardii 250 Mg Capsule) 250 mg PO BIDWM [facility] Last Admin: 12/15/20 10:32 Dose: 250 mg Documented by: No Known Home Medications 11/14/20
[2020-12-15] MEDS: IBUPROFEN 400 MG TABLET PO PRN (21:52)
[2020-12-16] MEDS: FUROSEMIDE 20 MG TABLET PO SCH ×2 (06:06→14:20)
[2020-12-16] MEDS: MAGNESIUM OXIDE 400 MG TABLET PO SCH ×2 (08:41→20:51)
[2020-12-16] MEDS: MULTIVITAMIN W/MINERALS TABLET PO SCH (08:42)
[2020-12-16] MEDS: SACCHAROMYCES BOULARDII 250 MG CAPSULE PO SCH ×2 (08:42→16:49)
[2020-12-16] MEDS: APIXABAN 5 MG TABLET PO SCH ×2 (08:42→20:51)
--- NOTE | 2020-12-16 19:12 | PROVIDER PROGRESS NOTE ---
Assessment/Plan - Problem List (1) Acute on chronic heart failure with preserved ejection fraction (HFpEF) Assessment/Plan: Patient is hemodynamically stable. Lasix 20 mg p.o. twice daily 2D echocardiogram done on 11/17/2020 showed an EF of 50 to 55%. There was no aortic stenosis or regurgitation. No mitral stenosis. (2) Hypomagnesemia Assessment/Plan: On magnesium oxide 800mg po bid (3) HTN (hypertension) Assessment/Plan: Blood pressure is currently 119/90. (4) Pulmonary emboli Assessment/Plan: Patient is on Eliquis (5) Medical non-compliance Assessment/Plan: He has been advised to be more adherent to medical treatment (6) Generalized weakness Assessment/Plan: Continues to work with PT/OT Recommendation is for SNF placement. Social work working on disposition. (7) Left knee pain Assessment/Plan: Pain is improved Lidocaine patch to area. Ibuprofen 400mg q6hrs prn - Current Meds Current Meds: Current Medications Generic Name Dose Route Start Last Admin Trade Name Freq PRN Reason Stop Dose Admin Acetaminophen 650 mg 11/14/20 10:04 12/03/20 15:04 Acetaminophen 325 Mg Tablet PO 650 mg Q4HR PRN Administration Pain 1 to 4 Apixaban 5 mg 12/12/20 09:00 12/16/20 08:42 Apixaban 5 Mg Tablet PO 5 mg BID ADELINA Administration Furosemide 20 mg 11/22/20 07:34 12/16/20 14:20 Furosemide 20 Mg Tablet PO 20 mg BIDDIURETIC ADELINA Administration Ibuprofen 400 mg 12/03/20 11:03 12/15/20 21:52 Ibuprofen 400 Mg Tablet PO 400 mg Q6HR PRN Administration PAIN Lidocaine 1 patch 12/03/20 02:16 12/03/20 02:37 Lidocaine Patch 5% TOP 1 patch DAILY PRN Administration PAIN Loperamide HCl 2 mg 11/26/20 12:54 11/29/20 21:03 Loperamide 2 Mg Capsule PO 2 mg QID PRN Administration Diarrhea Magnesium Oxide 800 mg 11/29/20 21:00 12/16/20 08:41 Magnesium Oxide 400 Mg Tablet PO 800 mg BID ADELINA Administration Multivitamins/Minerals 1 tab 11/21/20 10:00 12/16/20 08:42 Multivitamin W/Minerals Tablet PO 1 tab DAILYWM ADELINA Administration Saccharomyces Boulardii 250 mg 11/15/20 10:40 12/16/20 16:49 Mickey Britoi 250 Mg Capsule PO 250 mg BIDWM ADELINA Administration - Lab Result Fish Bone Diagrams: 12/11/20 05:21 12/13/20 05:45 Subjective - Subjective Patient Reports: Other (Patient was seated in the bedside chair at time of exam. He complains of right lower extremity weakness. It also appears swollen. He has been ambulating around the nursing floor using his walker. He denied any other complaints.) Objective Vital Signs: Vital Signs - 24 hr 12/16/20 12/16/20 12/16/20 00:07 06:10 07:43 Temperature 36.6 C 36.6 C Heart Rate [ 82 75 Brachial] Respiratory 18 17 Rate Blood Pressure 100/68 112/78 [Left Brachial artery] Blood Pressure 121/77 [Right Brachial artery] O2 Saturation 97 97 12/16/20 15:57 Temperature 36.6 C Heart Rate [ 73 Brachial] Respiratory 18 Rate Blood Pressure 129/83 H [Left Brachial artery] Blood Pressure [Right Brachial artery] O2 Saturation 100 Oxygen O2 Source Room air I&O (Last 24 Hrs): Intake and Output Totals x24h 12/14/20 12/15/20 12/16/20 23:59 23:59 23:59 Intake Total 790 1175 720 Output Total 2275 1425 1520 Balance -1485 -250 -800 General: Alert, Oriented x3, No acute distress HEENT: PERRLA, EOMI Neck: Supple, No JVD Neuro: Alert, Non Focal, Oriented Times 3 Cardiovascular: Regular rate, Other (2+ right lower extremity edema) Respiratory: Chest non-tender, No respiratory distress, Other (mild crackles in lung bases bilaterally) Abdomen: Normal bowel sounds, Soft Extremities: No clubbing, No cyanosis, Other (2+ edema in right lower extremity) Skin: No rashes, No breakdown, No significant lesion - Results Results: Laboratory Results WBC 4.7 x10^3/uL (4.8-10.8) L 12/11/20 05:21 RBC 3.93 10^6/uL (4.70-6.10) L 12/11/20 05:21 Hgb 12.2 g/dL (14.0-18.0) L 12/11/20 05:21 Hct 38.3 % (42.0-52.0) L 12/11/20 05:21 MCV 97.5 fL (80.0-94.0) H 12/11/20 05:21 MCH 31.0 pg (27.0-31.0) 12/11/20 05: MCHC 31.9 g/dL (32.0-36.0) L 12/11/20 05: RDW 14.2 % (12.0-15.0) 12/11/20 05:21 Plt Count 245 10^3/uL (130-450) 12/11/20 05:21 MPV 9.9 fL (7.4-11.4) 12/11/20 05:21 Neut # (Auto) 2.8 10^3/uL (1.5-6.6) 12/11/20 05:21 Lymph # (Auto) 1.2 10^3/uL (1.5-3.5) L 12/11/20 05:21 [place] # (Auto) 0.4 10^3/uL (0.0-1.0) 12/11/20 05:21 Eos # (Auto) 0.2 10^3/uL (0.0-0.7) 12/11/20 05:21 Baso # (Auto) 0.0 10^3/uL (0.0-0.1) 12/11/20 05:21 Absolute Nucleated RBC 0.00 x10^3/uL 12/11/20 05:21 Nucleated RBC % 0.0 /100WBC 12/11/20 05:21 Sodium 139 mmol/L (135-145) 12/13/20 05:45 Potassium 4.0 mmol/L (3.5-5.0) 12/13/20 05:45 Chloride 102 mmol/L (101-111) 12/13/20 05:45 Carbon Dioxide 30 mmol/L (21-32) 12/13/20 05:45 Anion Gap 7.0 (6-13) 12/13/20 05:45 BUN 21 mg/dL (6-20) H 12/13/20 05:45 Creatinine 0.8 mg/dL (0.6-1.2) 12/13/20 05:45 Estimated GFR (MDRD) 96 (>89) 12/13/20 05:45 Glucose 87 mg/dL (70-100) 12/13/20 05:45 Uric Acid 5.5 mg/dL (2.6-7.2) 12/04/20 05:30 Calcium 8.7 mg/dL (8.5-10.3) 12/13/20 05:45 Phosphorus 2.8 mg/dL (2.5-4.6) 11/20/20 04:12 Magnesium 1.5 mg/dL (1.7-2.8) L 12/14/20 05:48 Total Bilirubin 0.9 mg/dL (0.2-1.0) 11/14/20 06:45 AST 67 IU/L (10-42) H 11/14/20 06:45 ALT 54 IU/L (10-60) 11/14/20 06:45 Alkaline Phosphatase 44 IU/L (42-121) 11/14/20 06:45 Troponin I High Sens 139.5 ng/L (2.3-19.7) H* 11/14/20 08:57 B-Natriuretic Peptide 692 pg/mL (5-100) H 11/22/20 04:58 Total Protein 6.5 g/dL (6.7-8.2) L 11/14/20 06:45 Albumin 3.8 g/dL (3.2-5.5) 11/14/20 06:45 Globulin 2.7 g/dL (2.1-4.2) 11/14/20 06:45 Albumin/Globulin Ratio 1.4 (1.0-2.2) 11/14/20 06:45 Lipase 24 U/L (22-51) 11/14/20 06:45 Urine Color YELLOW 11/14/20 07:33 Urine Clarity CLEAR (CLEAR) 11/14/20 07:33 Urine pH 6.5 PH (5.0-7.5) 11/14/20 07:33 Ur Specific [place] 1.015 (1.002-1.030) 11/14/20 07:33 Urine Protein NEGATIVE mg/dL (NEGATIVE) 11/14/20 07:33 Urine Glucose (UA) NEGATIVE mg/dL (NEGATIVE) 11/14/20 07:33 Urine Ketones NEGATIVE mg/dL (NEGATIVE) 11/14/20 07:33 Urine Occult Blood TRACE-INTA (NEGATIVE) 11/14/20 07:33 Urine Nitrite NEGATIVE (NEGATIVE) 11/14/20 07:33 Urine Bilirubin NEGATIVE (NEGATIVE) 11/14/20 07:33 Urine Urobilinogen 0.2 (NORMAL) E.U./dL (NORMAL) 11/14/20 07:33 Ur Leukocyte Esterase NEGATIVE (NEGATIVE) 11/14/20 07:33 Ur Microscopic Review NOT INDICATED 11/14/20 07:33 Urine Culture Comments NOT INDICATED 11/14/20 07:33 Nasal Adenovirus (PCR) NOT DETECTED 12/08/20 11:15 Nasal B. parapertussis DNA (PCR) NOT DETECTED 12/08/20 11:15 Nasal Coronavir 229E PCR NOT DETECTED 12/08/20 11:15 Nasal Coronavir HKU1 PCR NOT DETECTED 12/08/20 11:15 Nasal Coronavir NL63 PCR NOT DETECTED 12/08/20 11:15 Nasal Coronavir OC43 PCR NOT DETECTED 12/08/20 11:15 Nasal Enterovir/Rhinovir PCR NOT DETECTED 12/08/20 11:15 Nasal Influenza B PCR NOT DETECTED 12/08/20 11:15 Nasal Influenza A PCR NOT DETECTED 12/08/20 11:15 Nasal Parainfluen 1 PCR NOT DETECTED 12/08/20 11:15 Nasal Parainfluen 2 PCR NOT DETECTED 12/08/20 11:15 Nasal Parainfluen 3 PCR NOT DETECTED 12/08/20 11:15 Nasal Parainfluen 4 PCR NOT DETECTED 12/08/20 11:15 Nasal RSV (PCR) NOT DETECTED 12/08/20 11:15 Nasal B.pertussis DNA PCR NOT DETECTED 12/08/20 11:15 Nasal C.pneumoniae (PCR) NOT DETECTED 12/08/20 11:15 Ad Human Metapneumo PCR NOT DETECTED 12/08/20 11:15 Nasal M.pneumoniae (PCR) NOT DETECTED 12/08/20 11:15 Nasal SARS-CoV-2 (PCR) NOT DETECTED 12/08/20 11:15 Urine Opiates Screen NEGATIVE (NEGATIVE) 11/14/20 07:33 Ur Oxycodone Screen NEGATIVE (NEGATIVE) 11/14/20 07:33 Urine Methadone Screen NEGATIVE (NEGATIVE) 11/14/20 07:33 Ur Propoxyphene Screen NEGATIVE (NEGATIVE) 11/14/20 07:33 Ur Barbiturates Screen NEGATIVE (NEGATIVE) 11/14/20 07:33 Ur Tricyclics Screen NEGATIVE (NEGATIVE) 11/14/20 07:33 Ur Phencyclidine Scrn NEGATIVE (NEGATIVE) 11/14/20 07:33 Ur Amphetamine Screen NEGATIVE (NEGATIVE) 11/14/20 07:33 U Methamphetamines Scrn NEGATIVE (NEGATIVE) 11/14/20 07:33 U Benzodiazepines Scrn NEGATIVE (NEGATIVE) 11/14/20 07:33 Urine Cocaine Screen NEGATIVE (NEGATIVE) 11/14/20 07:33 U Cannabinoids Screen NEGATIVE (NEGATIVE) 11/14/20 07:33 Ethyl Alcohol < 5.0 mg/dL 11/14/20 06:45 ABX Reporting Has patient been on IV antibiotics over the past 48 hours?: No
[2020-12-16] MEDS: IBUPROFEN 400 MG TABLET PO PRN (20:51)
[2020-12-17] MEDS: FUROSEMIDE 20 MG TABLET PO SCH ×2 (06:20→13:59)
[2020-12-17] MEDS: IBUPROFEN 400 MG TABLET PO PRN ×3 (06:20→20:27)
[2020-12-17] MEDS: SACCHAROMYCES BOULARDII 250 MG CAPSULE PO SCH ×2 (09:32→16:46)
[2020-12-17] MEDS: MAGNESIUM OXIDE 400 MG TABLET PO SCH ×2 (09:32→20:26)
[2020-12-17] MEDS: MULTIVITAMIN W/MINERALS TABLET PO SCH (09:32)
[2020-12-17] MEDS: APIXABAN 5 MG TABLET PO SCH ×2 (09:32→20:27)
--- NOTE | 2020-12-17 18:07 | PROVIDER PROGRESS NOTE ---
Assessment/Plan - Problem List (1) Acute on chronic heart failure with preserved ejection fraction (HFpEF) Assessment/Plan: Patient is hemodynamically stable. Lasix 20 mg p.o. twice daily 2D echocardiogram done on 11/17/2020 showed an EF of 50 to 55%. There was no aortic stenosis or regurgitation. No mitral stenosis. (2) Hypomagnesemia Assessment/Plan: On magnesium oxide 800mg po bid (3) HTN (hypertension) Assessment/Plan: Blood pressure is currently 119/90. (4) Pulmonary emboli Assessment/Plan: Patient is on Eliquis (5) Medical non-compliance Assessment/Plan: He has been advised to be more adherent to medical treatment (6) Generalized weakness Assessment/Plan: Continues to work with PT/OT Recommendation is for SNF placement. Social work working on disposition. (7) Left knee pain Assessment/Plan: Pain is improved Lidocaine patch to area. (7) Right leg swelling Assessment/Plan: 2/2 to edema Lower extremity Dopplers done on 11/14/2020 was negative for any acute DVT. - Current Meds Current Meds: Current Medications Generic Name Dose Route Start Last Admin Trade Name Freq PRN Reason Stop Dose Admin Acetaminophen 650 mg 11/14/20 10:04 12/03/20 15:04 Acetaminophen 325 Mg Tablet PO 650 mg Q4HR PRN Administration Pain 1 to 4 Apixaban 5 mg 12/12/20 09:00 12/17/20 09:32 Apixaban 5 Mg Tablet PO 5 mg BID ADELINA Administration Furosemide 20 mg 11/22/20 07:34 12/17/20 13:59 Furosemide 20 Mg Tablet PO 20 mg BIDDIURETIC ADELINA Administration Ibuprofen 400 mg 12/03/20 11:03 12/17/20 12:49 Ibuprofen 400 Mg Tablet PO 400 mg Q6HR PRN Administration PAIN Lidocaine 1 patch 12/03/20 02:16 12/03/20 02:37 Lidocaine Patch 5% TOP 1 patch DAILY PRN Administration PAIN Loperamide HCl 2 mg 11/26/20 12:54 11/29/20 21:03 Loperamide 2 Mg Capsule PO 2 mg QID PRN Administration Diarrhea Magnesium Oxide 800 mg 11/29/20 21:00 12/17/20 09:32 Magnesium Oxide 400 Mg Tablet PO 800 mg BID ADELINA Administration Multivitamins/Minerals 1 tab 11/21/20 10:00 12/17/20 09:32 Multivitamin W/Minerals Tablet PO 1 tab DAILYWM ADELINA Administration Saccharomyces Boulardii 250 mg 11/15/20 10:40 12/17/20 16:46 Saccharomyces Boulardii 250 Mg Capsule PO 250 mg BIDWM ADELINA Administration - Lab Result Fish Bone Diagrams: 12/11/20 05:21 12/13/20 05:45 Subjective - Subjective Patient Reports: Other (Resting comfortably in bedside chair. He has right lower extremity edema at 2+. He denies any other complaints.) Objective Vital Signs: Vital Signs - 24 hr 12/17/20 12/17/20 12/17/20 00:00 08:00 15:54 Temperature 36.5 C 36.8 C 36.4 C L Heart Rate [ 83 79 75 Brachial] Respiratory 20 20 20 Rate Blood Pressure 117/76 109/71 124/86 H [Right Brachial artery] O2 Saturation 96 99 100 Oxygen O2 Source Room air I&O (Last 24 Hrs): Intake and Output Totals x24h 12/15/20 12/16/20 12/17/20 23:59 23:59 22:59 Intake Total 1175 1020 620 Output Total 1425 2070 1150 Balance -250 -1050 -530 General: Alert, Oriented x3, No acute distress HEENT: PERRLA, EOMI Neck: No JVD Neuro: Alert, Non Focal, Oriented Times 3 Cardiovascular: Regular rate, Normal S1, Normal S2 Respiratory: Chest non-tender, No respiratory distress, Breath sounds nml Abdomen: Normal bowel sounds, Soft Extremities: No clubbing, Other (2+ right lower extremity edema) Skin: No rashes, No breakdown - Results Results: Laboratory Results WBC 4.7 x10^3/uL (4.8-10.8) L 12/11/20 05:21 RBC 3.93 10^6/uL (4.70-6.10) L 12/11/20 05:21 Hgb 12.2 g/dL (14.0-18.0) L 12/11/20 05:21 Hct 38.3 % (42.0-52.0) L 12/11/20 05:21 MCV 97.5 fL (80.0-94.0) H 12/11/20 05:21 MCH 31.0 pg (27.0-31.0) 12/11/20 05:21 MCHC 31.9 g/dL (32.0-36.0) L 12/11/20 05:21 RDW 14.2 % (12.0-15.0) 12/11/20 05:21 Plt Count 245 10^3/uL (130-450) 12/11/20 05:21 MPV 9.9 fL (7.4-11.4) 12/11/20 05:21 Neut # (Auto) 2.8 10^3/uL (1.5-6.6) 12/11/20 05:21 Lymph # (Auto) 1.2 10^3/uL (1.5-3.5) L 12/11/20 05:21 [place] # (Auto) 0.4 10^3/uL (0.0-1.0) 12/11/20 05:21 Eos # (Auto) 0.2 10^3/uL (0.0-0.7) 12/11/20 05:21 Baso # (Auto) 0.0 10^3/uL (0.0-0.1) 12/11/20 05:21 Absolute Nucleated RBC 0.00 x10^3/uL 12/11/20 05:21 Nucleated RBC % 0.0 /100WBC 12/11/20 05:21 Sodium 139 mmol/L (135-145) 12/13/20 05:45 Potassium 4.0 mmol/L (3.5-5.0) 12/13/20 05:45 Chloride 102 mmol/L (101-111) 12/13/20 05:45 Carbon Dioxide 30 mmol/L (21-32) 12/13/20 05:45 Anion Gap 7.0 (6-13) 12/13/20 05:45 BUN 21 mg/dL (6-20) H 12/13/20 05:45 Creatinine 0.8 mg/dL (0.6-1.2) 12/13/20 05:45 Estimated GFR (MDRD) 96 (>89) 12/13/20 05:45 Glucose 87 mg/dL (70-100) 12/13/20 05:45 Uric Acid 5.5 mg/dL (2.6-7.2) 12/04/20 05:30 Calcium 8.7 mg/dL (8.5-10.3) 12/13/20 05:45 Phosphorus 2.8 mg/dL (2.5-4.6) 11/20/20 04:12 Magnesium 1.5 mg/dL (1.7-2.8) L 12/14/20 05:48 Total Bilirubin 0.9 mg/dL (0.2-1.0) 11/14/20 06:45 AST 67 IU/L (10-42) H 11/14/20 06:45 ALT 54 IU/L (10-60) 11/14/20 06:45 Alkaline Phosphatase 44 IU/L (42-121) 11/14/20 06:45 Troponin I High Sens 139.5 ng/L (2.3-19.7) H* 11/14/20 08:57 B-Natriuretic Peptide 692 pg/mL (5-100) H 11/22/20 04:58 Total Protein 6.5 g/dL (6.7-8.2) L 11/14/20 06:45 Albumin 3.8 g/dL (3.2-5.5) 11/14/20 06:45 Globulin 2.7 g/dL (2.1-4.2) 11/14/20 06:45 Albumin/Globulin Ratio 1.4 (1.0-2.2) 11/14/20 06:45 Lipase 24 U/L (22-51) 11/14/20 06:45 Urine Color YELLOW 11/14/20 07:33 Urine Clarity CLEAR (CLEAR) 11/14/20 07:33 Urine pH 6.5 PH (5.0-7.5) 11/14/20 07:33 Ur Specific [place] 1.015 (1.002-1.030) 11/14/20 07:33 Urine Protein NEGATIVE mg/dL (NEGATIVE) 11/14/20 07:33 Urine Glucose (UA) NEGATIVE mg/dL (NEGATIVE) 11/14/20 07:33 Urine Ketones NEGATIVE mg/dL (NEGATIVE) 11/14/20 07:33 Urine Occult Blood TRACE-INTA (NEGATIVE) 11/14/20 07:33 Urine Nitrite NEGATIVE (NEGATIVE) 11/14/20 07:33 Urine Bilirubin NEGATIVE (NEGATIVE) 11/14/20 07:33 Urine Urobilinogen 0.2 (NORMAL) E.U./dL (NORMAL) 11/14/20 07:33 Ur Leukocyte Esterase NEGATIVE (NEGATIVE) 11/14/20 07:33 Ur Microscopic Review NOT INDICATED 11/14/20 07:33 Urine Culture Comments NOT INDICATED 11/14/20 07:33 Nasal Adenovirus (PCR) NOT DETECTED 12/08/20 11:15 Nasal B. parapertussis DNA (PCR) NOT DETECTED 12/08/20 11:15 Nasal Coronavir 229E PCR NOT DETECTED 12/08/20 11:15 Nasal Coronavir HKU1 PCR NOT DETECTED 12/08/20 11:15 Nasal Coronavir NL63 PCR NOT DETECTED 12/08/20 11:15 Nasal Coronavir OC43 PCR NOT DETECTED 12/08/20 11:15 Nasal Enterovir/Rhinovir PCR NOT DETECTED 12/08/20 11:15 Nasal Influenza B PCR NOT DETECTED 12/08/20 11:15 Nasal Influenza A PCR NOT DETECTED 12/08/20 11:15 Nasal Parainfluen 1 PCR NOT DETECTED 12/08/20 11:15 Nasal Parainfluen 2 PCR NOT DETECTED 12/08/20 11:15 Nasal Parainfluen 3 PCR NOT DETECTED 12/08/20 11:15 Nasal Parainfluen 4 PCR NOT DETECTED 12/08/20 11:15 Nasal RSV (PCR) NOT DETECTED 12/08/20 11:15 Nasal B.pertussis DNA PCR NOT DETECTED 12/08/20 11:15 Nasal C.pneumoniae (PCR) NOT DETECTED 12/08/20 11:15 Ad Human Metapneumo PCR NOT DETECTED 12/08/20 11:15 Nasal M.pneumoniae (PCR) NOT DETECTED 12/08/20 11:15 Nasal SARS-CoV-2 (PCR) NOT DETECTED 12/08/20 11:15 Urine Opiates Screen NEGATIVE (NEGATIVE) 11/14/20 07:33 Ur Oxycodone Screen NEGATIVE (NEGATIVE) 11/14/20 07:33 Urine Methadone Screen NEGATIVE (NEGATIVE) 11/14/20 07:33 Ur Propoxyphene Screen NEGATIVE (NEGATIVE) 11/14/20 07:33 Ur Barbiturates Screen NEGATIVE (NEGATIVE) 11/14/20 07:33 Ur Tricyclics Screen NEGATIVE (NEGATIVE) 11/14/20 07:33 Ur Phencyclidine Scrn NEGATIVE (NEGATIVE) 11/14/20 07:33 Ur Amphetamine Screen NEGATIVE (NEGATIVE) 11/14/20 07:33 U Methamphetamines Scrn NEGATIVE (NEGATIVE) 11/14/20 07:33 U Benzodiazepines Scrn NEGATIVE (NEGATIVE) 11/14/20 07:33 Urine Cocaine Screen NEGATIVE (NEGATIVE) 11/14/20 07:33 U Cannabinoids Screen NEGATIVE (NEGATIVE) 11/14/20 07:33 Ethyl Alcohol < 5.0 mg/dL 11/14/20 06:45 ABX Reporting Has patient been on IV antibiotics over the past 48 hours?: No
[2020-12-18] MEDS: IBUPROFEN 400 MG TABLET PO PRN ×2 (07:05→14:27)
[2020-12-18] MEDS: FUROSEMIDE 20 MG TABLET PO SCH ×2 (07:05→14:28)
[2020-12-18] MEDS: SACCHAROMYCES BOULARDII 250 MG CAPSULE PO SCH ×2 (08:32→17:04)
[2020-12-18] MEDS: MULTIVITAMIN W/MINERALS TABLET PO SCH (08:32)
[2020-12-18] MEDS: APIXABAN 5 MG TABLET PO SCH ×2 (09:42→20:44)
[2020-12-18] MEDS: MAGNESIUM OXIDE 400 MG TABLET PO SCH ×2 (09:42→20:44)
--- NOTE | 2020-12-18 19:06 | PROVIDER PROGRESS NOTE ---
Assessment/Plan - Problem List (1) Acute on chronic heart failure with preserved ejection fraction (HFpEF) Assessment/Plan: Patient is hemodynamically stable. Lasix 20 mg p.o. twice daily 2D echocardiogram done on 11/17/2020 showed an EF of 50 to 55%. There was no aortic stenosis or regurgitation. No mitral stenosis. (2) Hypomagnesemia Assessment/Plan: On magnesium oxide 800mg po bid (3) HTN (hypertension) Assessment/Plan: Blood pressure is currently 119/90. (4) Pulmonary emboli Assessment/Plan: Patient is on Eliquis (5) Medical non-compliance Assessment/Plan: He has been advised to be more adherent to medical treatment (6) Generalized weakness Assessment/Plan: Continues to work with PT/OT Recommendation is for SNF placement. Social work working on disposition. (7) Left knee pain Assessment/Plan: Pain is improved Lidocaine patch to area. (8) Right leg swelling Assessment/Plan: 2/2 to edema Lower extremity Dopplers done on 11/14/2020 was negative for any acute DVT. However, repeat doppler of right lower extremity ordered today 12/18/20 due to persist and increased pain/ swelling - Current Meds Current Meds: Current Medications Generic Name Dose Route Start Last Admin Trade Name Freq PRN Reason Stop Dose Admin Acetaminophen 650 mg 11/14/20 10:04 12/03/20 15:04 Acetaminophen 325 Mg Tablet PO 650 mg Q4HR PRN Administration Pain 1 to 4 Apixaban 5 mg 12/12/20 09:00 12/18/20 09:42 Apixaban 5 Mg Tablet PO 5 mg BID ADELINA Administration Furosemide 20 mg 11/22/20 07:34 12/18/20 14:28 Furosemide 20 Mg Tablet PO 20 mg BIDDIURETIC ADELINA Administration Ibuprofen 400 mg 12/03/20 11:03 12/18/20 14:27 Ibuprofen 400 Mg Tablet PO 400 mg Q6HR PRN Administration PAIN Lidocaine 1 patch 12/03/20 02:16 12/03/20 02:37 Lidocaine Patch 5% TOP 1 patch DAILY PRN Administration PAIN Loperamide HCl 2 mg 11/26/20 12:54 11/29/20 21:03 Loperamide 2 Mg Capsule PO 2 mg QID PRN Administration Diarrhea Magnesium Oxide 800 mg 11/29/20 21:00 12/18/20 09:42 Magnesium Oxide 400 Mg Tablet PO 800 mg BID ADELINA Administration Multivitamins/Minerals 1 tab 11/21/20 10:00 12/18/20 08:32 Multivitamin W/Minerals Tablet PO 1 tab DAILYWM ADELINA Administration Saccharomyces Boulardii 250 mg 11/15/20 10:40 12/18/20 17:04 Saccharomyces Boulardii 250 Mg Capsule PO 250 mg BIDWM ADELINA Administration - Lab Result Fish Bone Diagrams: 12/11/20 05:21 12/13/20 05:45 Subjective - Subjective Patient Reports: Other (Resting comfortably in bed. Complains of right leg pain and swelling. This limits his ability to ambulate.) Objective Vital Signs: Vital Signs - 24 hr 12/18/20 12/18/20 12/18/20 00:00 09:24 15:48 Temperature 36.7 C 36.4 C L 36.7 C Heart Rate [ 81 78 72 Brachial] Respiratory 18 18 18 Rate Blood Pressure 115/84 H [Left Brachial artery] Blood Pressure 106/72 124/88 H [Right Brachial artery] O2 Saturation 100 100 100 Oxygen O2 Source Room air I&O (Last 24 Hrs): Intake and Output Totals x24h 12/17/20 12/17/20 12/18/20 00:59 23:59 23:59 Intake Total 985 Output Total 1075 Balance -90 General: Alert, Oriented x3, Mild distress HEENT: PERRLA, EOMI Neck: Supple, No JVD Neuro: Alert, Non Focal, Oriented Times 3 Cardiovascular: Regular rate Respiratory: Chest non-tender, No respiratory distress, Other (Mild crackles in lung bases) Abdomen: Normal bowel sounds, Soft Extremities: No clubbing, No cyanosis, Other (swelling: right > left.) Skin: No rashes, No breakdown, No significant lesion - Results Results: Laboratory Results WBC 4.7 x10^3/uL (4.8-10.8) L 12/11/20 05:21 RBC 3.93 10^6/uL (4.70-6.10) L 12/11/20 05:21 Hgb 12.2 g/dL (14.0-18.0) L 12/11/20 05:21 Hct 38.3 % (42.0-52.0) L 12/11/20 05:21 MCV 97.5 fL (80.0-94.0) H 12/11/20 05:21 MCH 31.0 pg (27.0-31.0) 12/11/20 05: MCHC 31.9 g/dL (32.0-36.0) L 12/11/20 05:21 RDW 14.2 % (12.0-15.0) 12/11/20 05:21 Plt Count 245 10^3/uL (130-450) 12/11/20 05:21 MPV 9.9 fL (7.4-11.4) 12/11/20 05:21 Neut # (Auto) 2.8 10^3/uL (1.5-6.6) 12/11/20 05:21 Lymph # (Auto) 1.2 10^3/uL (1.5-3.5) L 12/11/20 05:21 [place] # (Auto) 0.4 10^3/uL (0.0-1.0) 12/11/20 05:21 Eos # (Auto) 0.2 10^3/uL (0.0-0.7) 12/11/20 05:21 Baso # (Auto) 0.0 10^3/uL (0.0-0.1) 12/11/20 05:21 Absolute Nucleated RBC 0.00 x10^3/uL 12/11/20 05:21 Nucleated RBC % 0.0 /100WBC 12/11/20 05:21 Sodium 139 mmol/L (135-145) 12/13/20 05:45 Potassium 4.0 mmol/L (3.5-5.0) 12/13/20 05:45 Chloride 102 mmol/L (101-111) 12/13/20 05:45 Carbon Dioxide 30 mmol/L (21-32) 12/13/20 05:45 Anion Gap 7.0 (6-13) 12/13/20 05:45 BUN 21 mg/dL (6-20) H 12/13/20 05:45 Creatinine 0.8 mg/dL (0.6-1.2) 12/13/20 05:45 Estimated GFR (MDRD) 96 (>89) 12/13/20 05:45 Glucose 87 mg/dL (70-100) 12/13/20 05:45 Uric Acid 5.5 mg/dL (2.6-7.2) 12/04/20 05:30 Calcium 8.7 mg/dL (8.5-10.3) 12/13/20 05:45 Phosphorus 2.8 mg/dL (2.5-4.6) 11/20/20 04:12 Magnesium 1.5 mg/dL (1.7-2.8) L 12/14/20 05:48 Total Bilirubin 0.9 mg/dL (0.2-1.0) 11/14/20 06:45 AST 67 IU/L (10-42) H 11/14/20 06:45 ALT 54 IU/L (10-60) 11/14/20 06:45 Alkaline Phosphatase 44 IU/L (42-121) 11/14/20 06:45 Troponin I High Sens 139.5 ng/L (2.3-19.7) H* 11/14/20 08:57 B-Natriuretic Peptide 692 pg/mL (5-100) H 11/22/20 04:58 Total Protein 6.5 g/dL (6.7-8.2) L 11/14/20 06:45 Albumin 3.8 g/dL (3.2-5.5) 11/14/20 06:45 Globulin 2.7 g/dL (2.1-4.2) 11/14/20 06:45 Albumin/Globulin Ratio 1.4 (1.0-2.2) 11/14/20 06:45 Lipase 24 U/L (22-51) 11/14/20 06:45 Urine Color YELLOW 11/14/20 07:33 Urine Clarity CLEAR (CLEAR) 11/14/20 07:33 Urine pH 6.5 PH (5.0-7.5) 11/14/20 07:33 Ur Specific [place] 1.015 (1.002-1.030) 11/14/20 07:33 Urine Protein NEGATIVE mg/dL (NEGATIVE) 11/14/20 07:33 Urine Glucose (UA) NEGATIVE mg/dL (NEGATIVE) 11/14/20 07:33 Urine Ketones NEGATIVE mg/dL (NEGATIVE) 11/14/20 07:33 Urine Occult Blood TRACE-INTA (NEGATIVE) 11/14/20 07:33 Urine Nitrite NEGATIVE (NEGATIVE) 11/14/20 07:33 Urine Bilirubin NEGATIVE (NEGATIVE) 11/14/20 07:33 Urine Urobilinogen 0.2 (NORMAL) E.U./dL (NORMAL) 11/14/20 07:33 Ur Leukocyte Esterase NEGATIVE (NEGATIVE) 11/14/20 07:33 Ur Microscopic Review NOT INDICATED 11/14/20 07:33 Urine Culture Comments NOT INDICATED 11/14/20 07:33 Nasal Adenovirus (PCR) NOT DETECTED 12/08/20 11:15 Nasal B. parapertussis DNA (PCR) NOT DETECTED 12/08/20 11:15 Nasal Coronavir 229E PCR NOT DETECTED 12/08/20 11:15 Nasal Coronavir HKU1 PCR NOT DETECTED 12/08/20 11:15 Nasal Coronavir NL63 PCR NOT DETECTED 12/08/20 11:15 Nasal Coronavir OC43 PCR NOT DETECTED 12/08/20 11:15 Nasal Enterovir/Rhinovir PCR NOT DETECTED 12/08/20 11:15 Nasal Influenza B PCR NOT DETECTED 12/08/20 11:15 Nasal Influenza A PCR NOT DETECTED 12/08/20 11:15 Nasal Parainfluen 1 PCR NOT DETECTED 12/08/20 11:15 Nasal Parainfluen 2 PCR NOT DETECTED 12/08/20 11:15 Nasal Parainfluen 3 PCR NOT DETECTED 12/08/20 11:15 Nasal Parainfluen 4 PCR NOT DETECTED 12/08/20 11:15 Nasal RSV (PCR) NOT DETECTED 12/08/20 11:15 Nasal B.pertussis DNA PCR NOT DETECTED 12/08/20 11:15 Nasal C.pneumoniae (PCR) NOT DETECTED 12/08/20 11:15 Ad Human Metapneumo PCR NOT DETECTED 12/08/20 11:15 Nasal M.pneumoniae (PCR) NOT DETECTED 12/08/20 11:15 Nasal SARS-CoV-2 (PCR) NOT DETECTED 12/08/20 11:15 Urine Opiates Screen NEGATIVE (NEGATIVE) 11/14/20 07:33 Ur Oxycodone Screen NEGATIVE (NEGATIVE) 11/14/20 07:33 Urine Methadone Screen NEGATIVE (NEGATIVE) 11/14/20 07:33 Ur Propoxyphene Screen NEGATIVE (NEGATIVE) 11/14/20 07:33 Ur Barbiturates Screen NEGATIVE (NEGATIVE) 11/14/20 07:33 Ur Tricyclics Screen NEGATIVE (NEGATIVE) 11/14/20 07:33 Ur Phencyclidine Scrn NEGATIVE (NEGATIVE) 11/14/20 07:33 Ur Amphetamine Screen NEGATIVE (NEGATIVE) 11/14/20 07:33 U Methamphetamines Scrn NEGATIVE (NEGATIVE) 11/14/20 07:33 U Benzodiazepines Scrn NEGATIVE (NEGATIVE) 11/14/20 07:33 Urine Cocaine Screen NEGATIVE (NEGATIVE) 11/14/20 07:33 U Cannabinoids Screen NEGATIVE (NEGATIVE) 11/14/20 07:33 Ethyl Alcohol < 5.0 mg/dL 11/14/20 06:45 ABX Reporting Has patient been on IV antibiotics over the past 48 hours?: No
--- NOTE | 2020-12-18 23:31 | Ultrasound Report ---
PROCEDURE: Duplex Ext Veins Right INDICATIONS: right leg swelling and pain TECHNIQUE: Real-time imaging, as well as color and pulse Doppler interrogation, were performed of the lower extr emity deep veins from the inguinal ligament to the popliteal fossa. COMPARISON: 11/14/2020. FINDINGS: From the proximal SFV to the popliteal vein there is incomplete compressibility of the deep veins with some flow seen through the deep veins. The infrapopliteal veins are not visualized. IMPRESSION: Nonocclusive deep vein thrombosis from the proximal femoral vein to the popliteal vein c onsistent with a chronic DVT versus a partially recanalized subacute DVT. The findings are similar to the prior study on 11/14/2020. Findings were given to the ordering provider Dr. Cam Wang by the land planner at the time of t he study. Reviewed by: Clayton Medrano on 12/18/2020 11:30 PM PST Approved by: Clayton Medrano on 12/18/2020 11:30 PM PST Station ID: [id number]
[2020-12-19 05:38] LABS: BASOPHILS % (AUTO) 0.2 %; EOSINOPHILS # (AUTO) 0.2 10^3/uL (0.0-0.7); EOSINOPHILS % (AUTO) 3.4 %; HCT - HEMATOCRIT 37.1 % (42.0-52.0); LYMPHOCYTES # (AUTO) 1.1 10^3/uL (1.5-3.5); LYMPHOCYTES % (AUTO) 18.6 %; MEAN CORPUSCULAR HEMOGLOBIN 31.2 pg (27.0-31.0); MEAN CORPUSCULAR HGB CONC 32.3 g/dL (32.0-36.0); MEAN CORPUSCULAR VOLUME 96.4 fL (80.0-94.0); MONOCYTES # (AUTO) 0.5 10^3/uL (0.0-1.0); NEUTROPHILS # (AUTO) 4.2 10^3/uL (1.5-6.6); NEUTROPHILS % (AUTO) 69.5 %; PLT - PLATELET COUNT 190 10^3/uL (130-450); RED BLOOD COUNT 3.85 10^6/uL (4.70-6.10); RED CELL DISTRIBUTION WIDTH 14.3 % (12.0-15.0)
[2020-12-19 05:48] LABS: CALCIUM 8.7 mg/dL (8.5-10.3); CREATININE 0.8 mg/dL (0.6-1.2); POTASSIUM 3.8 mmol/L (3.5-5.0)
[2020-12-19] MEDS: FUROSEMIDE 20 MG TABLET PO SCH ×2 (06:58→14:24)
[2020-12-19] MEDS: MULTIVITAMIN W/MINERALS TABLET PO SCH (08:00)
[2020-12-19] MEDS: SACCHAROMYCES BOULARDII 250 MG CAPSULE PO SCH ×2 (08:00→16:50)
[2020-12-19] MEDS: APIXABAN 5 MG TABLET PO SCH ×2 (09:28→20:44)
[2020-12-19] MEDS: MAGNESIUM OXIDE 400 MG TABLET PO SCH ×2 (09:28→20:43)
[2020-12-19] MEDS: IBUPROFEN 400 MG TABLET PO PRN ×2 (14:24→20:44)
--- NOTE | 2020-12-19 17:28 | PROVIDER PROGRESS NOTE ---
Subjective - Prog Note Date Prog Note Date: 12/19/20 Prog Note Time: 17:33 - Subjective Pt reports feeling: No change Subjective: see A/P for complaint Current Medications - Current Medications Current Medications: Active Medications Acetaminophen (Acetaminophen 325 Mg Tablet) 650 mg PO Q4HR PRN PRN Reason: Pain 1 to 4 Last Admin: 12/03/20 15:04 Dose: 650 mg Documented by: Apixaban (Apixaban 5 Mg Tablet) 5 mg PO BID [facility] Last Admin: 12/19/20 09:28 Dose: 5 mg Documented by: Furosemide (Furosemide 20 Mg Tablet) 20 mg PO BIDDIURETIC [facility] Last Admin: 12/19/20 14:24 Dose: 20 mg Documented by: Ibuprofen (Ibuprofen 400 Mg Tablet) 400 mg PO Q6HR PRN PRN Reason: PAIN Last Admin: 12/19/20 14:24 Dose: 400 mg Documented by: Lidocaine (Lidocaine Patch 5%) 1 patch TOP DAILY PRN PRN Reason: PAIN Last Admin: 12/03/20 02:37 Dose: 1 patch Documented by: Loperamide HCl (Loperamide 2 Mg Capsule) 2 mg PO QID PRN PRN Reason: Diarrhea Last Admin: 11/29/20 21:03 Dose: 2 mg Documented by: Magnesium Oxide (Magnesium Oxide 400 Mg Tablet) 800 mg PO BID [facility] Last Admin: 12/19/20 09:28 Dose: 800 mg Documented by: Multivitamins/Minerals (Multivitamin W/Minerals Tablet) 1 tab PO DAILYWM [facility] Last Admin: 12/19/20 08:00 Dose: 1 tab Documented by: Ondansetron HCl (Ondansetron 4 Mg/2 Ml Vial) 4 mg IVP Q6HR PRN PRN Reason: Nausea / Vomiting Saccharomyces Boulardii (Saccharomyces Boulardii 250 Mg Capsule) 250 mg PO BIDWM [facility] Last Admin: 12/19/20 16:50 Dose: 250 mg Documented by: No Known Home Medications 11/14/20 Objective - Vital Signs/Intake & Output Reviewed Vital Signs: Yes Vital Signs: Vital Signs x48h Temp Pulse Resp BP Pulse Ox 12/19/20 16:00 36.8 C 80 20 127/89 H 100 Intake & Output: Intake & Output 12/17/20 12/17/20 12/18/20 12/19/20 00:59 23:59 23:59 23:59 Intake Total 1285 680 Output Total 3485 825 Balance -140 -145 - Objective General Appearance: positive: No acute distress, Alert Eyes Bilateral: positive: PERRL, EOMI ENT: positive: Pharynx nml Neck: positive: No JVD. negative: Stiff neck Respiratory: positive: No respiratory distress. negative: Wheezes, Rales, Rhonchi Cardiovascular: positive: Regular rate & rhythm, Systolic murmur. negative: G allop/S4, Friction rub Abdomen: positive: Non-tender, No organomegaly, Nml bowel sounds, No distention Skin: positive: Warm, Dry Extremities: positive: No pedal edema, Other (right lateral calf occ bulges mildly but I am not seeing it right at this moment) Neurologic/Psychiatric: positive: Oriented x3, CN's nml (2-12), Motor nml - Lab Results Fish Bones: 12/19/20 05:15 12/19/20 05:15 Other Labs: Lab Results x24hrs 12/19/20 12/19/20 Range/Units 05:15 05:15 WBC 6.0 (4.8-10.8) x10^3/uL RBC 3.85 L (4.70-6.10) 10^6/uL Hgb 12.0 L (14.0-18.0) g/dL Hct 37.1 L (42.0-52.0) % MCV 96.4 H (80.0-94.0) fL MCH 31.2 H (27.0-31.0) pg MCHC 32.3 (32.0-36.0) g/dL RDW 14.3 (12.0-15.0) % Plt Count 190 (130-450) 10^3/uL MPV 10.0 (7.4-11.4) fL Neut # (Auto) 4.2 (1.5-6.6) 10^3/uL Lymph # (Auto) 1.1 L (1.5-3.5) 10^3/uL Irwin # (Auto) 0.5 (0.0-1.0) 10^3/uL Eos # (Auto) 0.2 (0.0-0.7) 10^3/uL Baso # (Auto) 0.0 (0.0-0.1) 10^3/uL Absolute Nucleated RBC 0.00 x10^3/uL Nucleated RBC % 0.0 /100WBC Sodium 138 (135-145) mmol/L Potassium 3.8 (3.5-5.0) mmol/L Chloride 102 (101-111) mmol/L Carbon Dioxide 30 (21-32) mmol/L Anion Gap 6.0 (6-13) BUN 20 (6-20) mg/dL Creatinine 0.8 (0.6-1.2) mg/dL Estimated GFR (MDRD) 96 (>89) Glucose 92 (70-100) mg/dL Calcium 8.7 (8.5-10.3) mg/dL Assessment/Plan - Problem List (1) Right leg swelling Impression: He had a repeat duplex study of his right leg because the pain was complaining of leg pain yesterday. He has a nonocclusive deep vein thrombus from the pr oximal femoral vein to the popliteal vein consistent with chronic DVT versus a partially recanalized subacute DVT. The findings are similar to the previous study that was done November 14. He was also felt to have a hematoma over the right lateral aspect of his leg. He states that every time he stands up the pounding pain gets worse in the right lateral calf get swollen. Then it shrinks down when he sits down or lays elevates his legs. Worried about a hematoma, repeat hemoglobin was done. His hemoglobin on December 11 was 12.2. Today it is 12. The patient feels that his main complaint right now. Earlier this month it was his right knee every time he tried to stand up. That is improved. Left knee, laterally, sometimes aches as well. But he denies any chest pain, shortness of breath. He is eating his meals. He wonders if he can get a Covid vaccine. Plan: wrap the leg w JERALD wrap starting at the foot and up below the knee to prevent the swelling. It's when he is up and weight bearing that it hurts. Goes away w sitting. I suspect its tissue distension causing the pain. (2) Acute on chronic heart failure with preserved ejection fraction (HFpEF) Assessment/Plan: Patient is hemodynamically stable. Lasix 20 mg p.o. twice daily 2D echocardiogram done on 11/17/2020 showed an EF of 50 to 55%. There was no aortic stenosis or regurgitation. No mitral stenosis. (3) Hypomagnesemia Assessment/Plan: On magnesium oxide 800mg po bid (4) HTN (hypertension) Assessment/Plan: Blood pressure is currently 127/89. (5) Pulmonary emboli Assessment/Plan: Patient is on Eliquis (6) Medical non-compliance Assessment/Plan: He has been advised to be more adherent to medical treatment (7) Generalized weakness Assessment/Plan: Continues to work with PT/OT Recommendation is for SNF placement. Social work working on disposition. He has been stable for a while now and we are awaiting a solution. (8) Left knee pain Assessment/Plan: Pain is improved Lidocaine patch to area.
[2020-12-19] MEDS ORDERED: COVID-19 VAC,AD26(JANSSEN)/PF 0.5 ML SYRINGE IM ONE (19:00)
[2020-12-20] MEDS: FUROSEMIDE 20 MG TABLET PO SCH ×2 (05:11→14:19)
[2020-12-20] MEDS: MAGNESIUM OXIDE 400 MG TABLET PO SCH ×2 (08:05→20:23)
[2020-12-20] MEDS: SACCHAROMYCES BOULARDII 250 MG CAPSULE PO SCH ×2 (08:05→17:20)
[2020-12-20] MEDS: APIXABAN 5 MG TABLET PO SCH ×2 (08:05→20:23)
[2020-12-20] MEDS: MULTIVITAMIN W/MINERALS TABLET PO SCH (08:05)
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
[2020-12-20 18:30] LABS: B. PARAPERTUSSIS- RESP PCR PAN NOT DETECTED; B. PERTUSSIS- RESP PCR PANEL NOT DETECTED; C. PNEUMONIAE- RESP PCR PANEL NOT DETECTED; CORONAVIRUS 229E-RESP PCR NOT DETECTED; CORONAVIRUS HKU1-RESP PCR NOT DETECTED; CORONAVIRUS NL63-RESP PCR NOT DETECTED; CORONAVIRUS OC43-RESP PCR NOT DETECTED; HUMAN METAPNEUMOVIRUS NOT DETECTED; INFLUENZA A- RESP PCR PANEL NOT DETECTED; INFLUENZA B - RESP PCR PANEL NOT DETECTED; M. PNEUMONIAE- RESP PCR PANEL NOT DETECTED; PARAINFLUENZA VIRUS 1 NOT DETECTED; PARAINFLUENZA VIRUS 2 NOT DETECTED; PARAINFLUENZA VIRUS 3 NOT DETECTED; PARAINFLUENZA VIRUS 4 NOT DETECTED; RHINOVIRUS/ENTEROVIRUS NOT DETECTED; RSV- RESP PCR PANEL NOT DETECTED; SARS-CoV-2 -RESP PCR PANEL NOT DETECTED
[2020-12-20] MEDS: IBUPROFEN 400 MG TABLET PO PRN (20:23)
[2020-12-21] MEDS: FUROSEMIDE 20 MG TABLET PO SCH (05:40)
[2020-12-21] MEDS: IBUPROFEN 400 MG TABLET PO PRN (05:43)
[2020-12-21 07:44] VITALS: BP 115/67
[2020-12-21] MEDS: MULTIVITAMIN W/MINERALS TABLET PO SCH (08:26)
[2020-12-21] MEDS: SACCHAROMYCES BOULARDII 250 MG CAPSULE PO SCH (08:26)
[2020-12-21] MEDS: APIXABAN 5 MG TABLET PO SCH (08:27)
[2020-12-21] MEDS: MAGNESIUM OXIDE 400 MG TABLET PO SCH (08:27)
[2020-12-21 08:52] LABS: BASOPHILS % (AUTO) 0.2 %; EOSINOPHILS # (AUTO) 0.1 10^3/uL (0.0-0.7); EOSINOPHILS % (AUTO) 1.5 %; HCT - HEMATOCRIT 36.3 % (42.0-52.0); HGB - HEMOGLOBIN 11.6 g/dL (14.0-18.0); LYMPHOCYTES # (AUTO) 0.9 10^3/uL (1.5-3.5); LYMPHOCYTES % (AUTO) 16.7 %; MEAN CORPUSCULAR HEMOGLOBIN 31.1 pg (27.0-31.0); MEAN CORPUSCULAR VOLUME 97.3 fL (80.0-94.0); MEAN PLATELET VOLUME 9.6 fL (7.4-11.4); MONOCYTES # (AUTO) 0.5 10^3/uL (0.0-1.0); MONOCYTES % (AUTO) 9.6 %; NEUTROPHILS # (AUTO) 3.7 10^3/uL (1.5-6.6); NEUTROPHILS % (AUTO) 71.6 %; PLT - PLATELET COUNT 187 10^3/uL (130-450); RED BLOOD COUNT 3.73 10^6/uL (4.70-6.10); RED CELL DISTRIBUTION WIDTH 14.3 % (12.0-15.0); WHITE BLOOD COUNT 5.2 x10^3/uL (4.8-10.8)
[2020-12-21 09:06] LABS: CALCIUM 8.9 mg/dL (8.5-10.3); CREATININE 0.7 mg/dL (0.6-1.2); MAGNESIUM 1.4 mg/dL (1.7-2.8); POTASSIUM 3.8 mmol/L (3.5-5.0)
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
[2020-12-21] MEDS ORDERED: MAGNESIUM OXIDE 400 MG TABLET PO SCH (11:00)
== END 2020-12-21 11:05 | DRG 291 ==
LOC: EDUNIT# → ED 06:16 → MS2 10:04
PROVIDERS: ADMIT Nurse Practitioner Gerontology; ATTEND Nurse Practitioner Gerontology
DX: I11.0 Hypertensive heart disease with heart failure (principal); I50.9 Heart failure, unspecified; I82.401 Acute embolism and thrombosis of unspecified deep veins of right lower extremity; I50.33 Acute on chronic diastolic (congestive) heart failure; I26.99 Other pulmonary embolism without acute cor pulmonale; J18.9 Pneumonia, unspecified organism; I82.511 Chronic embolism and thrombosis of right femoral vein; I82.531 Chronic embolism and thrombosis of right popliteal vein; I24.8 Other forms of acute ischemic heart disease; E83.42 Hypomagnesemia; R53.1 Weakness; Z20.822 Contact with and (suspected) exposure to COVID-19; Z86.16 Personal history of COVID-19; J40 Bronchitis, not specified as acute or chronic; Z66 Do not resuscitate; Z59.00 Homelessness unspecified; M10.9 Gout, unspecified; T45.516A Underdosing of anticoagulants, initial encounter; Z91.128 Patient's intentional underdosing of medication regimen for other reason; R19.7 Diarrhea, unspecified; M25.562 Pain in left knee; M79.604 Pain in right leg; Z87.828 Personal history of other (healed) physical injury and trauma; I83.91 Asymptomatic varicose veins of right lower extremity
CPT/HCPCS: 36415; 71045; 71275; 76870; 80048; 80053; 80306; 81003; 83690; 83735; 83880; 84100; 84484; 84550; 85025; 87631; 93005; 93306; 93970; 93971; 93975; 96374; 97110; 97116; 97161; 97165; 97530; 99284; 99285; A9270; G0480; J1650; Q9967; 0202U; 80320; 81001; 87086

== ENCOUNTER 2021-11-05 10:54 | Outpatient (CLI) | payer MEDICARE, MEDICAID ==
[2021-11-05 18:01] LABS: BASOPHILS % (AUTO) 0.5 %; EOSINOPHILS # (AUTO) 0.3 10^3/uL (0.0-0.7); EOSINOPHILS % (AUTO) 4.2 %; HCT - HEMATOCRIT 38.4 % (42.0-52.0); HGB - HEMOGLOBIN 11.9 g/dL (14.0-18.0); LYMPHOCYTES # (AUTO) 0.9 10^3/uL (1.5-3.5); LYMPHOCYTES % (AUTO) 15.1 %; MEAN CORPUSCULAR HEMOGLOBIN 30.1 pg (27.0-31.0); MEAN CORPUSCULAR VOLUME 97.2 fL (80.0-94.0); MEAN PLATELET VOLUME 10.1 fL (7.4-11.4); MONOCYTES # (AUTO) 0.4 10^3/uL (0.0-1.0); NEUTROPHILS # (AUTO) 4.6 10^3/uL (1.5-6.6); NEUTROPHILS % (AUTO) 73.9 %; PLT - PLATELET COUNT 312 10^3/uL (130-450); RED BLOOD COUNT 3.95 10^6/uL (4.70-6.10); RED CELL DISTRIBUTION WIDTH 16.2 % (12.0-15.0); WHITE BLOOD COUNT 6.2 x10^3/uL (4.8-10.8)
[2021-11-05 18:18] LABS: ALBUMIN/GLOBULIN RATIO 0.8 (1.0-2.2); BILIRUBIN,TOTAL 0.6 mg/dL (0.2-1.0); CREATININE 0.8 mg/dL (0.6-1.2); POTASSIUM 3.4 mmol/L (3.5-5.0)
== END 2021-11-05 10:55 | disposition home or self-care (01) ==
LOC: LAB.N 10:54
PROVIDERS: ATTEND Internal Medicine
DX: R19.7 Diarrhea, unspecified (principal)
CPT/HCPCS: 36415; 80053; 82105; 85025

== ENCOUNTER 2021-12-18 11:35 | Outpatient (CLI) | payer MEDICARE, MEDICAID ==
[~2021-12-18 11:35] MED LIST: GADOBUTROL 15 MMOL/15 ML VIAL ONE
[2021-12-18 12:11] LABS: CREATININE 0.9 mg/dL (0.6-1.2)
[2021-12-18] MEDS ORDERED: GADOBUTROL 15 MMOL/15 ML VIAL IVP ONE (15:02)
--- NOTE | 2021-12-19 11:49 | MRI Report ---
PROCEDURE: ABDOMEN W/WO INDICATIONS: LIVER LESION CONTRAST: 10.8 ml Gadavist. TECHNIQUE: Coronal ultra fast SE, axial 2D spoiled GE in- and [id number]; axial breath-hold T2 fast SE. Dynam ic axial ultra fast GE during the administration of contrast; post-contrast coronal ultra fast GE or 2D spoiled GE with fat saturation from the hepatic dome to the iliac crests. Optional diffusion weig hted imaging and ADC may be performed. COMPARISON: Abdominal ultrasound 11/16/2021, CT abdomen pelvis without contrast 09/22/2020 FINDINGS: Image quality: Suboptimal due to patient body habitus/artifact. Images are denoted as (series #/image #). Lung bases: Small right, trace left pleural effusions. Liver: The posterior right lobe of the liver is not well evaluated due to artifact. No suspicious foc al liver lesion identified. At least one small cyst is present in the liver, for example a 1 cm cyst in segment 4 (15/33). Solid organs: spleen is normal in size and enhancement. Gallbladder is unremarkable. Biliary syste m is non dilated. Pancreas is normal in morphology. No adrenal nodules. Both kidneys demonstrate n ormal size and enhancement, without hydronephrosis. Nodes and vessels: No retroperitoneal or mesenteric adenopathy by size criteria. Aorta and inferior vena cava are normal in size. Bowel and peritoneum: Unenhanced bowel loops are normal in caliber. No substantial free fluid. IMPRESSION: Limited examination due to suboptimal visualization of the liver. The posterior right lobe of the tera er, in particular, is poorly visualized. In the context of this limitation, no suspicious liver lesio n is identified. Reviewed by: Richard Lantigua MD on 12/19/2021 11:48 AM PST Approved by: Richard Lantigua MD on 12/19/2021 11:48 AM PST Station ID: [id number]
== END 2021-12-18 11:36 | disposition home or self-care (01) ==
LOC: LAB 11:35
PROVIDERS: ATTEND Internal Medicine
DX: K74.60 Unspecified cirrhosis of liver (principal); K76.89 Other specified diseases of liver
CPT/HCPCS: 36415; 74183; 82565; A9585

== ENCOUNTER 2021-12-27 12:35 | Outpatient (CLI) | payer MEDICARE, MEDICAID | END 2021-12-27 12:36 | disposition home or self-care (01) | LOC: DI 12:35 | PROVIDERS: ATTEND Internal Medicine Cardiovascular Disease | DX: I50.20 Unspecified systolic (congestive) heart failure (principal) | CPT/HCPCS: 93306 ==

== ENCOUNTER 2022-02-10 13:51 | Outpatient (CLI) | payer MEDICARE, MEDICAID | END 2022-02-10 13:52 | disposition critical access hospital (66) | LOC: EMS 13:51 | DX: R60.0 Localized edema (principal) | CPT/HCPCS: A0425; A0429 ==

== ENCOUNTER 2022-02-10 14:09 | Emergency (ER) | payer MEDICARE, MEDICAID ==
[2022-02-10] MEDS ORDERED: FUROSEMIDE 20 MG TABLET PO STA (14:33)
--- NOTE | 2022-02-10 14:35 | ED Physician Documentation ---
History of Present Illness - Stated complaint Stated Complaint: BLE SWELLING - Chief complaint Chief Complaint: General - History obtained from History obtained from: Patient - History of Present Illness Timing: Chronic Pain level max: 0 Pain level now: 0 - Additonal information Additional information: Patient is a 71-year-old male who lives at [facility]. Has a history of congestive heart failure. Some mild and states that it was increased a few days ago but still feels like his legs are swollen. He states he has used compression socks in the past but does not use them anymore. Does not ever elevate his legs above his heart. No shortness of breath. No chest pain. Nothing makes it better or worse. No fevers. No chills. No cough. No congestion. Review of Systems Constitutional: denies: Fever, Chills Cardiac: denies: Chest pain / pressure, Palpitations Respiratory: denies: Dyspnea, Cough, Wheezing GI: denies: Vomiting Skin: denies: Rash Musculoskeletal: denies: Back pain Neurologic: denies: Headache PD PAST MEDICAL HISTORY - Past Medical History Cardiovascular: Hypertension, Deep vein thrombosis Respiratory: None Neuro: None Endocrine/Autoimmune: None GI: None Psych: None Musculoskeletal: Gout - Past Surgical History Past Surgical History: Yes Ortho: Spine surgery - Present Medications Home Medications: Ambulatory Orders Medication Instructions Recorded Confirmed Apixaban [Eliquis] 5 mg PO BID #60 tablet 12/21/20 02/10/22 Dapagliflozin Propanediol [Farxiga] 5 mg PO DAILY 02/10/22 02/10/22 Famotidine [Pepcid] 20 mg PO BID 02/10/22 02/10/22 Gabapentin [Neurontin] 300 mg PO BID 02/10/22 02/10/22 Ibuprofen 200 mg PO BID PRN 02/10/22 02/10/22 Lactobacillus Acidophilus 1 each PO DAILY 02/10/22 02/10/22 [Acidophilus] Magnesium Glycinate 200 mg PO DAILY 02/10/22 02/10/22 Methylcellulose (with Sugar) 1 tbs PO DAILY 02/10/22 02/10/22 [Citrucel Powder] Metoprolol Succinate [Toprol Xl] 25 mg PO DAILY 02/10/22 02/10/22 Multivit-Min/Iron/Folic Acid/K 1 each PO DAILY 02/10/22 02/10/22 [Centravites Adults Tablet] Omeprazole Magnesium 20 mg PO BID 02/10/22 02/10/22 Potassium Chloride 10 meq PO HS 02/10/22 02/10/22 Potassium Chloride [Klor-Con 8] 8 meq PO DAILY 02/10/22 02/10/22 Torsemide 30 mg PO DAILY 02/10/22 02/10/22 - Allergies Allergies/Adverse Reactions: Allergies Allergy/AdvReac Type Severity Reaction Status Date / Time No Known Drug Allergies Allergy Verified 02/10/22 14:15 - Social History Does the pt smoke?: No Smoking Status: Never smoker Does the pt drink ETOH?: No Does the pt have substance abuse?: No - Immunizations Immunizations are current?: Yes - POLST Patient has POLST: No PD ED PE NORMAL - Vitals Vital signs reviewed: Yes - General General: Alert and oriented X 3, No acute distress - HEENT HEENT: Moist mucous membranes - Neck Neck: Supple, no meningeal sign - Cardiac Cardiac: RRR - Respiratory Respiratory: No respiratory distress, Clear bilaterally - Derm Derm: Warm and dry - Extremities Extremities: Other (2+ bilateral lower extremity pitting edema. No signs of infection. No blistering. No drainage) - Neuro Neuro: Alert and oriented X 3 - Psych Psych: Normal mood, Normal affect Results - Vitals Vitals: Vital Signs - 24 hr 02/10/22 02/10/22 02/10/22 14:16 14:57 17:08 Temperature 36.6 C Heart Rate 63 59 L 72 Respiratory 24 25 H 22 Rate Blood Pressure 115/84 H 119/93 H 114/85 H O2 Saturation 96 96 91 L Oxygen O2 Source Room air - Labs Labs: Laboratory Tests 02/10/22 02/10/22 02/10/22 15:00 15:00 15:00 WBC 6.7 RBC 4.66 L Hgb 14.0 Hct 47.0 MCV 100.9 H MCH 30.0 MCHC 29.8 L RDW 19.3 H Plt Count 245 MPV 10.5 Neut # (Auto) 4.9 Lymph # (Auto) 1.0 L [place] # (Auto) 0.5 Eos # (Auto) 0.3 Baso # (Auto) 0.0 Absolute Nucleated RBC 0.00 Nucleated RBC % 0.0 Sodium 141 Potassium 3.7 Chloride 99 L Carbon Dioxide 34 H Anion Gap 8.0 BUN 20 Creatinine 1.1 Estimated GFR (MDRD) 66 L Glucose 106 H Calcium 9.0 B-Natriuretic Peptide 1820 H - Rads (name of study) cxr Radiology: Final report received, See rad report PD Medical Decision Making - ED course Complexity details: reviewed results, re-evaluated patient, considered differential, d/w patient ED course: 71-year-old male with congestive heart failure increasing bilateral lower extremity edema. Given extra dose of Lasix here. BNP is elevated at 1820. He is not elevating his legs at home. He does not utilize compression stockings. Had his torsemide increased 2 days ago. His CBC does not show any acute abnormalities. BMP is also relatively normal other than a mild chloride deficiency at 99 and mildly elevated CO2 at 34. Patient was placed in compression stockings. We will utilize these at home in addition to his newly increased torsemide. No hypoxia. No respiratory distress. Patient is well- appearing, nontoxic. Afebrile. Patient counseled regarding signs and symptoms for which I believe and urgent re-evaluation would be necessary. Patient with good understanding of and agreement to plan and is comfortable going home at this time This document was made in part using voice recognition software. While efforts are made to proofread this document, sound alike and grammatical errors may occur. The patient has no chest pain or shortness of breath. Departure - Departure Disposition: 01 Home, Self Care Clinical Impression: CHF (congestive heart failure) Qualifiers: Heart failure type: unspecified Heart failure chronicity: unspecified Qualified Code(s): I50.9 - Heart failure, unspecified Edema Qualifiers: Edema type: unspecified Qualified Code(s): R60.9 - Edema, unspecified Condition: Good Instructions: ED CHF General, ED Edema Legs Bilateral Follow-Up: Your,doctor in 1 week [Other] Comments: You were given extra dose of Lasix here today. Please continue your current medications at home. You need to wear compression stockings as well to help squeeze the fluid out of your legs. Please follow-up with your doctor for further care. There is no hypoxia today. Return if you worsen Discharge Date/Time: 02/10/22 17:38
[2022-02-10 15:06] LABS: BASOPHILS % (AUTO) 0.4 %; EOSINOPHILS # (AUTO) 0.3 10^3/uL (0.0-0.7); EOSINOPHILS % (AUTO) 4.2 %; LYMPHOCYTES % (AUTO) 14.4 %; MEAN CORPUSCULAR HGB CONC 29.8 g/dL (32.0-36.0); MEAN CORPUSCULAR VOLUME 100.9 fL (80.0-94.0); MEAN PLATELET VOLUME 10.5 fL (7.4-11.4); MONOCYTES # (AUTO) 0.5 10^3/uL (0.0-1.0); MONOCYTES % (AUTO) 7.2 %; NEUTROPHILS # (AUTO) 4.9 10^3/uL (1.5-6.6); NEUTROPHILS % (AUTO) 73.4 %; PLT - PLATELET COUNT 245 10^3/uL (130-450); RED BLOOD COUNT 4.66 10^6/uL (4.70-6.10); RED CELL DISTRIBUTION WIDTH 19.3 % (12.0-15.0); WHITE BLOOD COUNT 6.7 x10^3/uL (4.8-10.8)
[2022-02-10 15:15] LABS: CREATININE 1.1 mg/dL (0.6-1.2); POTASSIUM 3.7 mmol/L (3.5-5.0)
--- NOTE | 2022-02-10 15:34 | XRAY Report ---
PROCEDURE: Chest 1 View X-Ray INDICATIONS: heart failure, inc swelling TECHNIQUE: One view of the chest was acquired. COMPARISON: 11/14/2020 FINDINGS: Heart size is enlarged. Moderate vascular congestion present. Low lung volumes accentuate heart size and pulmonary interstitium. There is left pleural effusion with atelectasis and or infiltrate present . Underlying osseous structures demineralized. Degenerative changes noted in both shoulders. IMPRESSION: Cardiomegaly, moderate vascular congestion and left pleural effusion with atelectasis and/or infiltra te Reviewed by: Keven Mayorga MD on 02/10/2022 2:32 PM AKST Approved by: Keven Mayorga MD on 02/10/2022 2:32 PM AKST Station ID: [id number]
[2022-02-10 17:08] VITALS: BP 114/85
== END 2022-02-10 17:38 | disposition home or self-care (01) ==
LOC: EDUNIT# → ED 14:09
DX: I50.9 Heart failure, unspecified (principal)
CPT/HCPCS: 36415; 71045; 80048; 83880; 85025; 99284; A9270

== ENCOUNTER 2022-02-21 16:06 | Outpatient (CLI) | payer MEDICARE, MEDICAID | END 2022-02-21 16:07 | disposition critical access hospital (66) | LOC: EMS 16:06 | DX: R06.02 Shortness of breath (principal); S20.211A Contusion of right front wall of thorax, initial encounter; R41.82 Altered mental status, unspecified; X58.XXXA Exposure to other specified factors, initial encounter; Y93.89 Activity, other specified; Y92.199 Unspecified place in other specified residential institution as the place of occurrence of the external cause | CPT/HCPCS: A0425; A0429 ==

== ENCOUNTER 2022-03-07 13:27 | Outpatient (CLI) | payer MEDICARE, MEDICAID ==
[2022-03-07 14:00] LABS: BILIRUBIN,TOTAL 2.1 mg/dL (0.2-1.0); CALCIUM 8.8 mg/dL (8.5-10.3); POTASSIUM 3.8 mmol/L (3.5-5.0)
--- NOTE | 2022-03-07 14:19 | XRAY Report ---
PROCEDURE: Chest 2 View X-Ray INDICATIONS: CHF TECHNIQUE: 2 views of the chest were acquired. COMPARISON: Chest radiographs and CTPA 02/21/2022. FINDINGS: Surgical changes and devices: None. Lungs and pleura: Small moderate left pleural effusion with left mid to lower lung zone opacities. Po ssible small right pleural effusion. Right lung is otherwise clear. A pneumothorax. Mediastinum: Mediastinal contours are normal. Heart size is enlarged, stable. Bones and chest wall: No suspicious bony abnormalities. Soft tissues appear unremarkable. IMPRESSION: 1.Small to moderate left pleural effusion with left basilar atelectasis or consolidation. 2.Small right pleural effusion. 3.Cardiomegaly. Reviewed by: Richard Solares MD on 03/07/2022 2:18 PM PST Approved by: Richard Solares MD on 03/07/2022 2:18 PM PST Station ID: [id number]
== END 2022-03-07 13:28 | disposition home or self-care (01) ==
LOC: DI 13:27
PROVIDERS: ATTEND Internal Medicine Cardiovascular Disease
DX: J90 Pleural effusion, not elsewhere classified (principal); I50.20 Unspecified systolic (congestive) heart failure; I51.7 Cardiomegaly; R91.8 Other nonspecific abnormal finding of lung field
CPT/HCPCS: 36415; 80053; 83880

== ENCOUNTER 2022-03-14 09:03 | Outpatient (CLI) | payer MEDICARE, MEDICAID | END 2022-03-14 09:04 | disposition critical access hospital (66) | LOC: EMS 09:03 | DX: R41.0 Disorientation, unspecified (principal); R09.02 Hypoxemia; R60.0 Localized edema | CPT/HCPCS: A0425; A0429 ==

== ENCOUNTER 2022-03-14 09:23 | Emergency (ER) | payer MEDICARE, MEDICAID ==
[2022-03-14 10:06] LABS: BASOPHILS % (AUTO) 0.3 %; EOSINOPHILS # (AUTO) 0.1 10^3/uL (0.0-0.7); EOSINOPHILS % (AUTO) 1.5 %; HCT - HEMATOCRIT 43.1 % (42.0-52.0); HGB - HEMOGLOBIN 12.5 g/dL (14.0-18.0); LYMPHOCYTES # (AUTO) 0.8 10^3/uL (1.5-3.5); LYMPHOCYTES % (AUTO) 10.6 %; MEAN CORPUSCULAR HEMOGLOBIN 31.4 pg (27.0-31.0); MEAN CORPUSCULAR VOLUME 108.3 fL (80.0-94.0); MEAN PLATELET VOLUME 10.2 fL (7.4-11.4); MONOCYTES # (AUTO) 0.4 10^3/uL (0.0-1.0); MONOCYTES % (AUTO) 5.8 %; NEUTROPHILS # (AUTO) 6.1 10^3/uL (1.5-6.6); NEUTROPHILS % (AUTO) 81.5 %; PLT - PLATELET COUNT 200 10^3/uL (130-450); RED BLOOD COUNT 3.98 10^6/uL (4.70-6.10); RED CELL DISTRIBUTION WIDTH 19.9 % (12.0-15.0); WHITE BLOOD COUNT 7.4 x10^3/uL (4.8-10.8)
[2022-03-14 10:23] LABS: ALBUMIN 3.1 g/dL (3.2-5.5); ALKALINE PHOSPHATASE 44 IU/L (42-121); ALT ALANINE AMINOTRANSFERASE 29 IU/L (10-60); AST ASPARTATE AMINOTRANSFERASE 23 IU/L (10-42); BILIRUBIN,TOTAL 1.8 mg/dL (0.2-1.0); BUN - BLOOD UREA NITROGEN 41 mg/dL (6-20); CALCIUM 8.9 mg/dL (8.5-10.3); CHLORIDE 82 mmol/L (101-111); CREATININE 1.1 mg/dL (0.6-1.2); GFR - MDRD 66 (>89); GLUCOSE 93 mg/dL (70-100); LIPASE 27 U/L (22-51); SODIUM 143 mmol/L (135-145); TOTAL PROTEIN 6.1 g/dL (6.7-8.2)
[2022-03-14 10:24] LABS: CARBON DIOXIDE - CO2 > 45 mmol/L (21-32)
[2022-03-14] MEDS ORDERED: POTASSIUM CHLORIDE 20 MEQ TABLET PO STA (10:26)
--- NOTE | 2022-03-14 10:30 | XRAY Report ---
PROCEDURE: Chest 1 View X-Ray INDICATIONS: Chest pain TECHNIQUE: One view of the chest was acquired. COMPARISON: CXR 03/0107/30/2022. CT pulmonary angiogram 02/21/2022. FINDINGS: Surgical changes and devices: None. Lungs and pleura: Bilateral pleural effusions, similar. Bilateral hazy opacity. Prominent pulmonary markings. Low lung volumes. No pneumothorax is seen. Mediastinum: Mediastinal contours appear similar. Heart size is enlarged. Bones and chest wall: No suspicious bony lesions. Overlying soft tissues appear unremarkable. IMPRESSION: Bilateral pleural effusions are similar. Bilateral hazy opacity is slightly increased. This could represent atelectasis or pneumonia. Prominent pulmonary markings which is likely due to superimposed pulmonary edema. Reviewed by: Len Lin MD on 03/14/2022 10:28 AM [facility] Approved by: Len Lin MD on 03/14/2022 10:28 AM [facility] Station ID: [id number]
[2022-03-14 10:54] LABS: B. PARAPERTUSSIS- RESP PCR PAN NOT DETECTED; B. PERTUSSIS- RESP PCR PANEL NOT DETECTED; C. PNEUMONIAE- RESP PCR PANEL NOT DETECTED; CORONAVIRUS 229E-RESP PCR NOT DETECTED; CORONAVIRUS HKU1-RESP PCR NOT DETECTED; CORONAVIRUS NL63-RESP PCR NOT DETECTED; CORONAVIRUS OC43-RESP PCR NOT DETECTED; HUMAN METAPNEUMOVIRUS NOT DETECTED; INFLUENZA A- RESP PCR PANEL NOT DETECTED; INFLUENZA B - RESP PCR PANEL NOT DETECTED; M. PNEUMONIAE- RESP PCR PANEL NOT DETECTED; PARAINFLUENZA VIRUS 1 NOT DETECTED; PARAINFLUENZA VIRUS 2 NOT DETECTED; PARAINFLUENZA VIRUS 3 NOT DETECTED; PARAINFLUENZA VIRUS 4 NOT DETECTED; RHINOVIRUS/ENTEROVIRUS NOT DETECTED; RSV- RESP PCR PANEL NOT DETECTED
[2022-03-14 10:56] LABS: SARS-CoV-2 -RESP PCR PANEL DETECTED
[2022-03-14] MEDS ORDERED: FUROSEMIDE 40 MG/4 ML VIAL IVP STA (11:03)
[2022-03-14 11:29] LABS: BILIRUBIN,URINE NEGATIVE (NEGATIVE); CLARITY,URINE CLEAR (CLEAR); GLUCOSE, URINE (UA) NEGATIVE (NEGATIVE); KETONES,URINE (UA) NEGATIVE (NEGATIVE); LEUKOCYTE ESTERASE, URINE SMALL (NEGATIVE); NITRITE,URINE POSITIVE (NEGATIVE); OCCULT BLOOD,URINE SMALL (NEGATIVE); PH,URINE 7.5 PH (5.0-7.5); PROTEIN,URINE NEGATIVE (NEGATIVE); UROBILINOGEN,URINE 1 (NORMAL) E.U./dL (NORMAL)
[2022-03-14 11:35] LABS: ABG BASE EXCESS 23.1 mmol/L (-2.0-3.0); ABG HCO3 54.1 mmol/L (22.0-26.0); ABG PH 7.38 (7.35-7.45); ALLEN TEST POSITIVE
[2022-03-14 11:37] LABS: ABG PCO2 93 mmHg (34-45); ABG PO2 55 mmHg (80-100)
[2022-03-14 11:38] LABS: ABG OXYGEN SATURATION 87 % (94-98)
[2022-03-14 11:45] LABS: BACTERIA,URINE Moderate /HPF (None Seen); RBC,URINE 0-5 /HPF (0-5); SQUAMOUS EPITHELIAL CELL,UR NONE SEEN (<= Few)
[2022-03-14 11:46] LABS: CRYSTALS,URINE 3-5 Triple Phosphate /LPF
--- NOTE | 2022-03-14 15:24 | ED Physician Documentation ---
History of Present Illness - Stated complaint Stated Complaint: SOA - Chief complaint Chief Complaint: General - History obtained from History obtained from: Patient, EMS - Additonal information Additional information: Patient is a 71-year-old male with a history of congestive heart failure presenting for evaluation with increased lower extremity edema and respiratory rate noticed today. He lives at [facility] place and staff there also noticed that his oxygen saturations were low on room air. He has been taking his diuretic. He is on Eliquis for a history of a DVT. He was recently hospitalized a few weeks ago for congestive heart failure with increased oxygen requirement.He was diuresed during that admission. Patient denies chest pain And cough. Review of Systems Constitutional: denies: Fever Cardiac: denies: Chest pain / pressure Respiratory: denies: Cough GI: denies: Vomiting Musculoskeletal: reports: Extremity swelling PD PAST MEDICAL HISTORY - Past Medical History Cardiovascular: Hypertension, Deep vein thrombosis Respiratory: None Neuro: None Endocrine/Autoimmune: None GI: None Psych: None Musculoskeletal: Gout - Past Surgical History Past Surgical History: Yes Ortho: Spine surgery - Present Medications Home Medications: Ambulatory Orders Medication Instructions Recorded Confirmed Apixaban [Eliquis] 5 mg PO BID #60 tablet 12/21/20 02/21/22 Gabapentin [Neurontin] 300 mg PO BID 02/10/22 02/21/22 Ibuprofen 200 mg PO BID PRN 02/10/22 02/21/22 Lactobacillus Acidophilus 1 each PO BID 02/10/22 02/21/22 [Acidophilus] Methylcellulose (with Sugar) 1 tbs PO DAILY 02/10/22 02/21/22 [Citrucel Powder] Metoprolol Succinate [Toprol Xl] 12.5 mg PO DAILY 02/10/22 02/21/22 Multivit-Min/Iron/Folic Acid/K 1 each PO DAILY 02/10/22 02/21/22 [Centravites Adults Tablet] Omeprazole Magnesium 20 mg PO BID 02/10/22 02/21/22 Potassium Chloride 10 meq PO DAILY 02/10/22 02/21/22 Torsemide 30 mg PO DAILY 02/10/22 02/21/22 Famotidine [Pepcid] 1 tab PO BID 02/23/22 02/23/22 Lidocaine Patch 5% [Lidoderm Patch] 1 patch TOP Q12H 02/23/22 02/23/22 Loperamide [Imodium] 1 cap PO Q4H PRN MDD 8 TABLETS 02/23/22 02/23/22 Senna [Senokot] 1 tab PO DAILY PRN 02/23/22 02/23/22 Simethicone [Gas Relief] 1 tab PO Q4H PRN 02/23/22 02/23/22 traZODone [Desyrel] 1 tab PO HS PRN 02/23/22 02/23/22 Zinc Oxide 20% Oint [Zinc Oxide] 1 applic TOP PRN PRN each 02/28/22 - Allergies Allergies/Adverse Reactions: Allergies Allergy/AdvReac Type Severity Reaction Status Date / Time No Known Drug Allergies Allergy Verified 03/14/22 09:38 - Social History Does the pt smoke?: No Smoking Status: Never smoker Does the pt drink ETOH?: No Does the pt have substance abuse?: No - Immunizations Immunizations are current?: Yes - POLST Patient has POLST: No PD ED PE NORMAL - General General: Alert and oriented X 3, No acute distress, Other (Elderly, chronically ill-appearing) - HEENT HEENT: Atraumatic - Neck Neck: Supple, no meningeal sign - Cardiac Cardiac: RRR, Other (Irregularly irregular) - Respiratory Respiratory: No respiratory distress, Other (Diminished breath sounds throughout) - Abdomen Abdomen: Soft, Non tender - Male Male : Other (Johnston catheter in place, clear urine) - Derm Derm: Warm and dry - Extremities Extremities: Other (Bilateral lower extremity edema) - Neuro Neuro: Alert and oriented X 3, Normal speech Results - Vitals Vitals: Vital Signs - 24 hr 03/14/22 03/14/22 03/14/22 09:31 10:08 10:24 Temperature 36.4 C L Heart Rate 83 81 Respiratory 26 H 32 H 24 Rate Blood Pressure 96/75 98/79 O2 Saturation 92 100 94 If not protocol 2 : Oxygen Flow, liters/minute 03/14/22 03/14/22 11:51 16:10 Temperature Heart Rate 88 94 Respiratory 28 H 20 Rate Blood Pressure 107/83 H 97/78 O2 Saturation 100 99 If not protocol 2 2 : Oxygen Flow, liters/minute Oxygen O2 Source Nasal cannula - EKG (time done) 0946 Rate: Rate (enter#) (83) Rhythm: Atrial fibrillation Ischemia: No: ST elevation c/w ischemia - Labs Labs: Laboratory Tests 03/14/22 03/14/22 03/14/22 09:50 09:50 09:50 WBC 7.4 RBC 3.98 L Hgb 12.5 L Hct 43.1 MCV 108.3 H MCH 31.4 H MCHC 29.0 L RDW 19.9 H Plt Count 200 MPV 10.2 Neut # (Auto) 6.1 Lymph # (Auto) 0.8 L [place] # (Auto) 0.4 Eos # (Auto) 0.1 Baso # (Auto) 0.0 Absolute Nucleated RBC 0.00 Nucleated RBC % 0.0 Bld Gas Analysis Time Sample Site ABG pH ABG pCO2 ABG pO2 ABG HCO3 ABG Total CO2 ABG O2 Saturation ABG Base Excess Jr Test Room Air Sodium 143 Potassium 3.0 L Chloride 82 L Carbon Dioxide > 45 H* Anion Gap 13.0 BUN 41 H Creatinine 1.1 Estimated GFR (MDRD) 66 L Glucose 93 Calcium 8.9 Total Bilirubin 1.8 H AST 23 ALT 29 Alkaline Phosphatase 44 Troponin I High Sens 552.6 H* B-Natriuretic Peptide Total Protein 6.1 L Albumin 3.1 L Globulin 3.0 Albumin/Globulin Ratio 1.0 Lipase 27 Urine Color Urine Clarity Urine pH Ur Specific [place] Urine Protein Urine Glucose (UA) Urine Ketones Urine Occult Blood Urine Nitrite Urine Bilirubin Urine Urobilinogen Ur Leukocyte Esterase Urine RBC Urine WBC Ur Squamous Epith Cells Urine Crystals Urine Bacteria Ur Microscopic Review Urine Culture Comments Nasal Adenovirus (PCR) Nasal B. parapertussis DNA (PCR) Nasal Coronavir 229E PCR Nasal Coronavir HKU1 PCR Nasal Coronavir NL63 PCR Nasal Coronavir OC43 PCR Nasal Enterovir/Rhinovir PCR Nasal Influenza B PCR Nasal Influenza A PCR Nasal Parainfluen 1 PCR Nasal Parainfluen 2 PCR Nasal Parainfluen 3 PCR Nasal Parainfluen 4 PCR Nasal RSV (PCR) Nasal B.pertussis DNA PCR Nasal C.pneumoniae (PCR) Ad Human Metapneumo PCR Nasal M.pneumoniae (PCR) Nasal SARS-CoV-2 (PCR) 03/14/22 03/14/22 03/14/22 09:50 09:51 10:15 WBC RBC Hgb Hct MCV MCH MCHC RDW Plt Count MPV Neut # (Auto) Lymph # (Auto) [place] # (Auto) Eos # (Auto) Baso # (Auto) Absolute Nucleated RBC Nucleated RBC % Bld Gas Analysis Time Sample Site ABG pH ABG pCO2 ABG pO2 ABG HCO3 ABG Total CO2 ABG O2 Saturation ABG Base Excess Jr Test Room Air Sodium Potassium Chloride Carbon Dioxide Anion Gap BUN Creatinine Estimated GFR (MDRD) Glucose Calcium Total Bilirubin AST ALT Alkaline Phosphatase Troponin I High Sens B-Natriuretic Peptide 3613 H Total Protein Albumin Globulin Albumin/Globulin Ratio Lipase Urine Color YELLOW Urine Clarity CLEAR Urine pH 7.5 Ur Specific [place] 1.010 Urine Protein NEGATIVE Urine Glucose (UA) NEGATIVE Urine Ketones NEGATIVE Urine Occult Blood SMALL H Urine Nitrite POSITIVE H Urine Bilirubin NEGATIVE Urine Urobilinogen 1 (NORMAL) Ur Leukocyte Esterase SMALL H Urine RBC 0-5 Urine WBC 4-5 Ur Squamous Epith Cells NONE SEEN Urine Crystals 3-5 Triple Phosphate Urine Bacteria Moderate H Ur Microscopic Review INDICATED Urine Culture Comments INDICATED Nasal Adenovirus (PCR) NOT DETECTED Nasal B. parapertussis DNA (PCR) NOT DETECTED Nasal Coronavir 229E PCR NOT DETECTED Nasal Coronavir HKU1 PCR NOT DETECTED Nasal Coronavir NL63 PCR NOT DETECTED Nasal Coronavir OC43 PCR NOT DETECTED Nasal Enterovir/Rhinovir PCR NOT DETECTED Nasal Influenza B PCR NOT DETECTED Nasal Influenza A PCR NOT DETECTED Nasal Parainfluen 1 PCR NOT DETECTED Nasal Parainfluen 2 PCR NOT DETECTED Nasal Parainfluen 3 PCR NOT DETECTED Nasal Parainfluen 4 PCR NOT DETECTED Nasal RSV (PCR) NOT DETECTED Nasal B.pertussis DNA PCR NOT DETECTED Nasal C.pneumoniae (PCR) NOT DETECTED Ad Human Metapneumo PCR NOT DETECTED Nasal M.pneumoniae (PCR) NOT DETECTED Nasal SARS-CoV-2 (PCR) DETECTED A 03/14/22 03/14/22 11:25 12:57 WBC RBC Hgb Hct MCV MCH MCHC RDW Plt Count MPV Neut # (Auto) Lymph # (Auto) [place] # (Auto) Eos # (Auto) Baso # (Auto) Absolute Nucleated RBC Nucleated RBC % Bld Gas Analysis Time 1125 Sample Site RIGHT RADIAL ABG pH 7.38 ABG pCO2 93 H* ABG pO2 55 L* ABG HCO3 54.1 H ABG Total CO2 57.0 H* ABG O2 Saturation 87 L* ABG Base Excess 23.1 H Jr Test POSITIVE Room Air YES Sodium Potassium Chloride Carbon Dioxide Anion Gap BUN Creatinine Estimated GFR (MDRD) Glucose Calcium Total Bilirubin AST ALT Alkaline Phosphatase Troponin I High Sens 554.2 H* B-Natriuretic Peptide Total Protein Albumin Globulin Albumin/Globulin Ratio Lipase Urine Color Urine Clarity Urine pH Ur Specific [place] Urine Protein Urine Glucose (UA) Urine Ketones Urine Occult Blood Urine Nitrite Urine Bilirubin Urine Urobilinogen Ur Leukocyte Esterase Urine RBC Urine WBC Ur Squamous Epith Cells Urine Crystals Urine Bacteria Ur Microscopic Review Urine Culture Comments Nasal Adenovirus (PCR) Nasal B. parapertussis DNA (PCR) Nasal Coronavir 229E PCR Nasal Coronavir HKU1 PCR Nasal Coronavir NL63 PCR Nasal Coronavir OC43 PCR Nasal Enterovir/Rhinovir PCR Nasal Influenza B PCR Nasal Influenza A PCR Nasal Parainfluen 1 PCR Nasal Parainfluen 2 PCR Nasal Parainfluen 3 PCR Nasal Parainfluen 4 PCR Nasal RSV (PCR) Nasal B.pertussis DNA PCR Nasal C.pneumoniae (PCR) Ad Human Metapneumo PCR Nasal M.pneumoniae (PCR) Nasal SARS-CoV-2 (PCR) PD Medical Decision Making - ED course Complexity details: reviewed results, re-evaluated patient ED course: Patient is a 71-year-old male presenting from home [facility] for the evaluation of worsening lower extremity swelling. He was also noted to be hypoxic on room air. An ABG was obtained which shows that he is hypoxic. His CO2 is elevated but appears to be compensated. The initial report was unclear whether the patient has oxygen at home. However another nurse called his living facility and he does have 2 L of oxygen to use there as needed. This was also indicated in the ED physician note from February 21 when he was admitted. The blood gas was taken while the patient was on room air. He was also found to have COVID during that admission. His COVID test still is positive here but I do not feel that is career services representative of an active infection.When patient is placed on 2 L his oxygen saturations are within normal limits. He was given a dose of IV Lasix for fluid overload with good diuresis. I did review his chest x-ray and believe this suggests congestive heart failure and pulmonary edema. Clinically do not think he has pneumonia. His high-sensitivity troponin was ordered from nurse directed orders.A delta troponin demonstrates no significant change. I do not feel that this elevated troponin suggest ACS. His troponin was also in the 400 range during recent admission and patient denies chest pain.Patient is not requiring oxygen and thus I do not feel he requires admission at this time.He appears to be at his baseline. He is Answering questions appropriately and would like to go home. Departure - Departure Disposition: 01 Home, Self Care Clinical Impression: CHF (congestive heart failure), Hypokalemia Condition: Stable Instructions: ED CHF General Comments: You were given an extra dose of IV Lasix. This is to help reduce fluid in your body. Please continue with compression stockings, elevating your legs and continue with your regular medications. You do need to wear oxygen right now so please use the 2 L that you are prescribed. I would recommend close follow-up with your primary care doctor. Please call to arrange for close follow-up and to discuss perhaps increasing your torsemide further. Potassium level was low. We did replace this orally. Please make sure you are taking your potassium replacement. I would also recommend you have follow-up with your doctor to recheck. Return to the ER with worsening symptoms. Discharge Date/Time: 03/14/22 17:11
[2022-03-14 16:11] VITALS: BP 97/78
== END 2022-03-14 17:11 | disposition home or self-care (01) ==
LOC: EDUNIT# → EDSEX → ED 09:23
DX: I11.0 Hypertensive heart disease with heart failure (principal); I50.9 Heart failure, unspecified; E87.6 Hypokalemia; Z86.718 Personal history of other venous thrombosis and embolism; Z79.01 Long term (current) use of anticoagulants; U07.1 COVID-19
CPT/HCPCS: 36415; 36600; 71045; 80053; 81001; 82803; 83690; 83880; 84484; 85025; 87077; 87086; 87181; 87633; 93005; 96374; 99284; A9270; 81003

== ENCOUNTER 2022-03-14 17:02 | Outpatient (CLI) | payer MEDICARE, MEDICAID | END 2022-03-14 17:03 | disposition home or self-care (01) | LOC: EMS 17:02 | PROVIDERS: ATTEND Emergency Medicine | DX: I50.9 Heart failure, unspecified (principal); F03.90 Unspecified dementia, unspecified severity, without behavioral disturbance, psychotic disturbance, mood disturbance, and anxiety; Z99.81 Dependence on supplemental oxygen | CPT/HCPCS: A0425; A0428 ==

== ENCOUNTER 2022-03-16 18:30 | Outpatient (CLI) | payer MEDICARE, MEDICAID | END 2022-03-16 18:31 | disposition E | LOC: EMS 18:30 ==